=== PATIENT | male | born 1955 | race African-American/Black ===

== ENCOUNTER 2017-07-06 12:28 | Inpatient (IN) | payer OTHER ==
[2017-07-06] MEDS ORDERED: ALBUTEROL SO4 2.5/IPRATROPIUM 0.5 INH SOL 3 ML VIAL.NEB. NEB ONE ×4 (12:46→14:13)
--- NOTE | 2017-07-06 13:09 | PDOC ---
History of Present Illness - General History Source: Patient, EMS Exam Limitations: Other (noncompliant) - History of Present Illness Initial Comments: 07/06/17 13:22 The patient is a 62 year old male with a significant past medical history of polysubstance abuse, HTN, HIV, Hep C, and arthritis who presents to the ED, brought by EMS, for altered mental status. As per EMS, the patient was found standing leaning against a parking meter. Upon arrival to the ED, patient is aggravated and refusing to answer question. Patient notes he is noncompliant with medication. This HPI is limited due to the patient being a bad historian. <Jacquelyn Lux - Last Filed: 07/06/17 14:03> <Lorin Valdivia - Last Filed: 07/06/17 16:52> - General Chief Complaint: Altered Mental Status Stated Complaint: UNCONSCIOUS Past History <Jacquelyn Lux - Last Filed: 07/06/17 14:03> - Past Medical History Anemia: No Asthma: No Cancer: No Cardiac Disorders: No CVA: No COPD: No CHF: No Dementia: No Diabetes: No GI Disorders: No Disorders: Yes (UTI - Leukoesterase, treated with Cipro, Pending test of cure ) HTN: No Hypercholesterolemia: No Liver Disease: No Psychiatric Problems: No Seizures: No Thyroid Disease: No - Surgical History Abdominal Surgery: No Appendectomy: No Cardiac Surgery: No Cholecystectomy: No Lung Surgery: No Neurologic Surgery: No Orthopedic Surgery: Yes (Fx Skull - fell from 4th floor window as a child, Low BAck pain - Deeg Bone) - Suicide/Smoking/Psychosocial Hx Smoking History: Current every day smoker Have you smoked in the past 12 months: Yes Number of Cigarettes Smoked Daily: 10 Cigars Per Day: 0 Hx Alcohol Use: No Drug/Substance Use Hx: Yes (heroin, cocaine. first time at 16.) Substance Use Type: None, Cocaine, Heroin, Opiates, Prescribed (oxicodone in the street) Hx Substance Use Treatment: Yes <Lorin Valdivia - Last Filed: 07/06/17 16:52> - Past Medical History Allergies/Adverse Reactions: Allergies Allergy/AdvReac Type Severity Reaction Status Date / Time No Known Allergies Allergy Verified 07/06/17 13:03 Home Medications: Ambulatory Orders Amlodipine Besylate [Norvasc -] 10 mg PO DAILY #30 tablet 02/08/16 Elviteg/Barbara/Emtric/Tenofo Dis [Stribild Tablet] 1 each PO DAILY #30 tablet 01/20 Naproxen 250 mg PO Q4H #30 tablet 02/08/16 Vit D3/Folic Acid/B2/B6/B12 [Folgard Tablet] 1 each PO DAILY #30 tablet Review of Systems - Review of Systems Able to Perform ROS?: No Comments:: 07/06/17 13:22 Unable to perform ROS secondary to the patient being noncompliant to answering questions. <Jacquelyn Lux - Last Filed: 07/06/17 14:03> *Physical Exam - Vital Signs Last Vital Signs Temp Pulse Resp BP Pulse Ox 108 H 20 138/78 78 L 07/06/17 12:40 07/06/17 12:40 07/06/17 12:40 07/06/17 12:40 - Physical Exam Comments: 07/06/17 13:23 GENERAL:+ A&O x 2 drowsy but arousable. HEAD: No signs of trauma EYES: PERRLA, EOMI, sclera anicteric, conjunctiva clear ENT: Auricles normal inspection, hearing grossly normal, nares patent, oropharynx clear without exudates. Moist mucosa NECK: Normal ROM, supple, no lymphadenopathy, JVD, or masses LUNGS: + distant lung sounds. No wheezes, and no crackles HEART: Regular rate and rhythm, normal S1 and S2, no murmurs, rubs or gallops ABDOMEN: + obese, ventral hernia which is reducible. Soft, nontender, normoactive bowel sounds. No guarding, no rebound. EXTREMITIES: + Bilateral nonpitting edema, mild erythema to bilateral feet. Normal range of motion. No clubbing or cyanosis. No cords, erythema, or tenderness NEUROLOGICAL: Moving all extremities. Normal speech SKIN: Warm, Dry, normal turgor, no rashes or lesions noted. <Jacquelyn Lux - Last Filed: 07/06/17 14:03> Heart Score/ECG Review #1 General ECG Interpretation: Sinus Rhythm, Normal Rate (111 sinus tachycardia), Normal Intervals, No acute ischemic changes Compared to previous ECG there are: Previous ECG unavail <Lorin Valdivia - Last Filed: 07/06/17 16:52> ED Treatment Course - LABORATORY CBC & Chemistry Diagram: 07/06/17 13:00 07/06/17 13:00 - ADDITIONAL ORDERS Additional order review: 07/06/17 13:00 RBC 4.02 MCV 74.3 L MCHC 31.2 L RDW 23.7 H D MPV 7.9 Neutrophils % 77.0 D Lymphocytes % 8.0 D Monocytes % 12.9 H Eosinophils % 1.6 Basophils % 0.5 - RADIOLOGY Radiograph Interpretation: 07/06/17 14:03 RAD/CHEST X-RAY PORTABLE Impression: Suboptimal exam. Reported by: Lita Franco MD - Medications Given in the ED: ED Medications Discontinued Medications Generic Name Dose Route Start Last Admin Trade Name Freq PRN Reason Stop Dose Admin Albuterol/Ipratropium 1 amp 07/06/17 12:48 07/06/17 12:48 Duoneb - NEB 07/06/17 12:49 1 amp ONCE ONE Administration <Jacquelyn Lux - Last Filed: 07/06/17 14:03> - LABORATORY CBC & Chemistry Diagram: 07/06/17 13:00 07/06/17 13:00 - Medications Given in the ED: ED Medications Discontinued Medications Generic Name Dose Route Start Last Admin Trade Name Freq PRN Reason Stop Dose Admin Albuterol/Ipratropium 1 amp 07/06/17 12:48 07/06/17 12:48 Duoneb - NEB 07/06/17 12:49 1 amp ONCE ONE Administration <Lorin Valdivia - Last Filed: 07/06/17 16:52> Medical Decision Making - Medical Decision Making 07/06/17 13:05 62 yo male h/o polysubstance hep C , HIV arthritis smoking history here from street. ems was called bc found pt standing leaning against parking meter, altered mental status appeared to have difficulty breathing so brought to hospital. deniesd etoh today, but states he has noncompliant with his meds, was supposed to pick them up today. denies other drug use or trauma. no complaints of pain. pt is uncooperative with history, and it is limited. oxygen sat found to be 75% by EMS on room air, came to over 90 % with nonbreather. . on exam pt drowsy but responds to loud voice. disheveled, poorly kempt , lungs clear heart rr rno mrg. abd soft obese, noted hernia, reducible. bilat lower ext edema. redness. nuero alert oriented x 2, disorieted to year. moves all ext. speech clear. differential renal failuer, pneumonia, aspiration, severe copd with exacerbation , intox . plan labs cxr ekg tox scren. duoneb. abg. pt will require admission. 07/06/17 15:36 pt became very agitated. combative. threatening to punch staff. confused and disoriented to year. given haldol and ativan for severe agitation. security at bedside. <Lorin Valdivia - Last Filed: 07/06/17 16:52> *DC/Admit/Observation/Transfer - Attestations Scribe Attestion: 07/06/17 13:23 Documentation prepared by Jacquelyn Lux, acting as medical office receptionist assistant for Lorin Valdivia MD <Jacquelyn Lux - Last Filed: 07/06/17 14:03> - Discharge Dispostion Admit: Yes <Lorin Valdivia - Last Filed: 07/06/17 16:52> Diagnosis at time of Disposition: Hypoxia, Obstructive chronic bronchitis with exacerbation, Agitation
[2017-07-06 13:10] VITALS: BMI 41.8
[2017-07-06 13:14] LABS: BASOPHIL 0.5 % (0-2.0); EOSINOPHIL 1.6 % (0-4.5); MCH 23.2 pg (25.7-33.7); MCHC 31.2 g/dl (32.0-35.9); MEAN CELL VOLUME 74.3 fl (80-96); MEAN PLT VOLUME 7.9 fl (7.5-11.1); PLATELET COUNT 221 K/MM3 (134-434); RDW 23.7 % (11.9-15.9); WHITE BLOOD COUNT 11.7 K/mm3 (4.0-10.0)
[2017-07-06] MEDS ORDERED: methylPREDNISolone NA SUCC 125 MG/2 ML VIAL IVPB ONE (13:39)
[2017-07-06] MEDS ORDERED: methylPREDNISolone NA SUCC 125 MG/2 ML VIAL ONE (13:46)
[2017-07-06 13:56] LABS: ARTERIAL BLD GAS O2 SATURATION 89.9 % (90-98.9); ARTERIAL BLOOD GAS BASE EXCESS -2.9 meq/l (-2-2); ARTERIAL BLOOD GAS HCO3 23.3 meq/L (22-26); ARTERIAL BLOOD GAS PO2 64.4 mmHg (80-100)
[2017-07-06 13:58] LABS: LPM/O2% 100%; PT. ON O2? yes; TYPE OF O2 NRB MASK
[2017-07-06 13:58] LABS: ALBUMIN 3.2 g/dl (3.4-5.0); ANION GAP 11 (8-16); CALCIUM 8.4 mg/dL (8.5-10.1); CO2 23 mmol/L (21-32); CREATININE 1.5 mg/dL (0.7-1.3); GLUCOSE,RANDOM 102 mg/dL (74-106); SGOT/AST 103 U/L (15-37); SGPT/ALT 73 U/L (12-78)
[2017-07-06 14:00] LABS: ALK PHOS 84 U/L (45-117); BILIRUBIN,TOTAL 0.9 mg/dL (0.2-1.0); CPK 597 IU/L (39-308); TOT PROT 7.2 g/dl (6.4-8.2); TROPONIN I < 0.02 ng/ml (0.00-0.05)
[2017-07-06] MEDS ORDERED: HALOPERIDOL LACTATE 5 MG/ML ONE (15:11)
[2017-07-06] MEDS ORDERED: LORazepam 2 MG/ML SDV VIAL ONE (15:22)
[2017-07-06] MEDS ORDERED: VANCOMYCIN 1,000 MG in DEXTROSE 5%-WATER - 250 ML IVPB ONE (16:24)
[2017-07-06] MEDS ORDERED: PIPERACILLIN/TAZOB 3.375 GM/50 ML PRE-DOCKED IVPB ONE (16:25)
[2017-07-06] MEDS ORDERED: VANCOMYCIN 1 GRAM (PRE-DOCKED) 250 ML IVPB ONE (16:29)
[2017-07-06] MEDS ORDERED: PIPERACILLIN/TAZOB 3.375 GM 50 ML IVPB ONE (16:30)
--- NOTE | 2017-07-06 17:08 | HP ---
CHIEF COMPLAINT: Altered mental status PCP: not obtained HISTORY OF PRESENT ILLNESS: Patient is 62 year old AA male with PMHx of HTN, hepC, HIV,multiple subtance abuse, arthritis who presented to the ED by EMD from the street due to altered mental status. They found him leaning against parking meter. In the Ed patient was found to be tachycardic , tachypneic , agitated , and refusing to answer questions. patient was given Haldol and Ativan and was admitted to med-surg for further evaluation. *Patient is poor historian, history was obtained from medical records and EM notes. ER course was notable for: (1) Haldol, Ativan for agitation and aggression, Solu-medrol 125 mg , duoneb, vanco, zosyn (2)Trop negative, EKG NSR (3) CBC : 11.7, 9.3,29.9,221. (4) BUN/Cr 17/1.5 (5)Alcohol <5 Recent Travel: Not able to obtaine PAST MEDICAL HISTORY: polysubstance abuse, HIV ((11/2015 HIV 1 PCR <20), HIV, Hep C, and arthritis PAST SURGICAL HISTORY: skull fracture Social History: Smoking: current smokers half pack aday Alcohol: Drugs: Marijuana , heroin, cocain , first time at age of 16. Family History: Allergies No Known Allergies Allergy (Verified 07/06/17 13:03) HOME MEDICATIONS: Home Medications Medication Instructions Recorded Amlodipine Besylate [Norvasc -] 10 mg PO DAILY #30 tablet 02/08/16 Elviteg/Barbara/Emtric/Tenofo Dis 1 each PO DAILY #30 tablet 02/08/16 [Stribild Tablet] Naproxen 250 mg PO Q4H #30 tablet 02/08/16 Vit D3/Folic Acid/B2/B6/B12 1 each PO DAILY #30 tablet 02/08/16 [Folgard Tablet] REVIEW OF SYSTEMS Not obtained due to AMS PHYSICAL EXAMINATION Vital Signs - 24 hr 07/06/17 12:40 Pulse Rate 108 H Respiratory 20 Rate Blood Pressure 138/78 O2 Sat by Pulse 78 L Oximetry (%) GENERAL: tachypnech, tachycardic, lethargic, non responsive to physical or verbal stimuli S/O haldol, ativan HEAD: Normal with no signs of trauma. EYES: contractive Pupils, reactive to light, sclera anicteric, conjunctiva pallor EARS: Dry mucous membranes. NECK: supple without lymphadenopathy, JVD, or masses. LUNGS: diffuse wheezing , B/L basilar crackles HEART: Regular rate and rhythm, normal S1 and S2 without murmur, rub or gallop. ABDOMEN:Obese, Soft, nontender, not distended, normoactive bowel sounds, no guarding, no rebound, hernia reproducible. LOWER EXTREMITIES: warm, well-perfused. No calf tenderness. +2 pitting peripheral edema. NEUROLOGICAL: sedated PSYCHIATRIC: not cooperative. poor eye contact. SKIN: Warm, dry, no rashes , multiple lesions noted, normal capillary refill. Laboratory Results - last 24 hr 07/06/17 07/06/17 07/06/17 13:00 13:00 13:00 WBC 11.7 H D RBC 4.02 Hgb 9.3 L D Hct 29.9 L D MCV 74.3 L MCH 23.2 L MCHC 31.2 L RDW 23.7 H D Plt Count 221 D MPV 7.9 Neutrophils % 77.0 D Lymphocytes % 8.0 D Monocytes % 12.9 H Eosinophils % 1.6 Basophils % 0.5 Puncture Site ABG pH ABG pCO2 at Pt Temp ABG pO2 at Pt Temp ABG HCO3 ABG O2 Sat (Measured) ABG O2 Content ABG Base Excess Douglas Test O2 Delivery Device Oxygen Flow Rate Sodium 138 Potassium 4.5 Chloride 104 Carbon Dioxide 23 Anion Gap 11 BUN 17 Creatinine 1.5 H D Creat Clearance w eGFR 47.42 Random Glucose 102 Calcium 8.4 L Total Bilirubin 0.9 D AST 103 H D ALT 73 D Alkaline Phosphatase 84 D Creatine Kinase 597 H Creatine Kinase Index 2.2 CK-MB (CK-2) 13.6 H Troponin I < 0.02 B-Natriuretic Peptide 403.40 H Total Protein 7.2 Albumin 3.2 L Alcohol, Quantitative < 5.0 07/06/17 13:43 WBC RBC Hgb Hct MCV MCH MCHC RDW Plt Count MPV Neutrophils % Lymphocytes % Monocytes % Eosinophils % Basophils % Puncture Site Md puncture ABG pH 7.30 L ABG pCO2 at Pt Temp 48.7 H ABG pO2 at Pt Temp 64.4 L ABG HCO3 23.3 ABG O2 Sat (Measured) 89.9 L ABG O2 Content 15.5 ABG Base Excess -2.9 L Douglas Test Not applicable O2 Delivery Device Nrb mask Oxygen Flow Rate 100% Sodium Potassium Chloride Carbon Dioxide Anion Gap BUN Creatinine Creat Clearance w eGFR Random Glucose Calcium Total Bilirubin AST ALT Alkaline Phosphatase Creatine Kinase Creatine Kinase Index CK-MB (CK-2) Troponin I B-Natriuretic Peptide Total Protein Albumin Alcohol, Quantitative CBC, BMP 07/06/17 13:00 07/06/17 13:00 Troponin, BNP 07/06/17 13:00 Troponin I < 0.02 B-Natriuretic Peptide 403.40 H Urine Test Results Urine Color Yellow 07/06/17 17:00 Urine Appearance Clear 07/06/17 17:00 Urine pH 5.0 (5.0-8.0) 07/06/17 17:00 Urine Protein 1+ (NEGATIVE) H 07/06/17 17:00 Urine Glucose (UA) Negative (NEGATIVE) 07/06/17 17:00 Urine Ketones Negative (NEGATIVE) 07/06/17 17:00 Urine Blood 1+ (NEGATIVE) H 07/06/17 17:00 Urine Nitrite Negative (NEGATIVE) 07/06/17 17:00 Urine Bilirubin Negative (NEGATIVE) 07/06/17 17:00 Urine RBC <1 /hpf (0-3) 07/06/17 17:00 Urine WBC 9 /hpf (3-5) 07/06/17 17:00 Ur Epithelial Cells Rare /hpf (FEW) 07/06/17 17:00 Urine Mucus Rare 07/06/17 17:00 07/06/17 CXR: There is suboptimal resoirartory effort, patient appears slightly rotated, these factors exagerate cardiomediastenal sillhoutte and perihilar lung markings. cannot exclude CHF.No focal consolidationor definit pleural effusion is seen. CTA: no evidence of PE , B/L upper and lower opacitis suggestive of infiltrated vs multifocal atelectasis Head CT: Mild to moderate periventricular and subcortical white matter hypodensity B/L,likely microvascular ischemic gliosis,chronic. less likely acute metabolic encephalopathy. ASSESSMENT/PLAN: Patient is 62 year old AA male with PMHx of HTN, hepC, HIV,multiple subtance abuse, arthritis who presented to the ED by EMD from the street due to altered mental status. in ED patient was founs to be hypoxic , tachycardic (108), tachypniec and was admitted to med-surg for further eval # Altered mental status likely 2/2 subtance abuse vs dementia vs AIDS encephalopathy * he was agitated on admission , haldol and ativan was given in ED * Urine toxicology screen * Head CT scan negative for acute pathology , B/L hypodensity periventricular and subcortical white matter hypodensity ,likely chronic microvascular ischemic gliosis * Nuerology check Q 2 hours * # acute respiratory failure likely 2/2 COPD exacerbation vs pneumonia vs aspiration * CXR unclear , will repeat * Duneb * continue Solu-mederol 40 mg Q 8hr (medrol 125 mg one dose started in ED) * 4 L O2 to keep o2 sat >90 % * IV fluids NS @75 CC /hr * repeat ABG * cbc, bmp , lactic acid , MG, phosphorus * Start ceftriaxone IV 1 gm daily , Azithromycin IV 500 mg daily(vanco, zosyn was given in ED) will adjust Abx if aspiration is cause of PNA * F/U blood cx , urine Cx * ID consult * Pulmonary consult * # Elevated Creatinin likely 2/2 dehydration vs hypovolemia vs CKD * UA, Urine culture * Urine lytes , cr to calculate Fena * Avoid nephotoxic agents * consider renal US * # Microcytic anemia, likely secondary to Iron deficiency vs anemia of chronic disease * H/H 9.3/29.9 with MCV 74 * Iron studies * #Elevated CK * likely secondary to HIV meds vs Rhabdomyolysis * Monitor CK # transaminitis , 2/2 alcohol abuse vs hepc vs HIV med SE * AST 103, Alt 73 * consider liver US * repeat CMP HTN , * on Amlodipin 10 mg PO daily , non compliant with his meds * continue home meds #Hep c , chronic * AST 103, ALT 73 * monitor CMP * #HIV, * RNA PCR<20 in nov 2015 * hold HIV meds for now * Consult ID, * pt education * #FEN * F: NS @75 CC /hr, monitor for volume overloaded * E: monitor , Cr 1.5 * N:NPO for now , consider low sodium diet when stable * # Proph * DVT: heparine 5000 SQ Q8hr * GI: not needed * deconditioning : consider PT when mental status improve * # dispo: * Admit to med-surg , monitor puls optometry Visit type - Emergency Visit Emergency Visit: Yes ED Registration Date: 07/06/17 Care time: The patient presented to the Emergency Department on the above date and was hospitalized for further evaluation of their emergent condition. - New Patient This patient is new to me today: Yes Date on this admission: 07/08/17 - Critical Care Critical Care patient: No
[2017-07-06 17:11] LABS: URINE APPEARANCE CLEAR; URINE BILIRUBIN NEGATIVE (NEGATIVE); URINE BLOOD 1+ (NEGATIVE); URINE COLOR YELLOW; URINE GLUCOSE (UA) NEGATIVE (NEGATIVE); URINE KETONE NEGATIVE (NEGATIVE); URINE LEUK ESTERASE TRACE (NEGATIVE); URINE NITRITE NEGATIVE (NEGATIVE)
[2017-07-06 17:12] LABS: URINE PROTEIN 1+ (NEGATIVE)
[2017-07-06 17:16] LABS: URINE HYALINE CAST 35 /lpf; URINE MUCUS RARE; URINE RBC <1 /hpf (0-3); URINE WBC 9 /hpf (3-5)
--- NOTE | 2017-07-06 18:47 | PN ---
Teaching Attending Note Name of Resident: Renan Kumar ATTENDING PHYSICIAN STATEMENT I saw and evaluated the patient. I reviewed the resident's note and discussed the case with the resident. I agree with the resident's findings and plan as documented. SUBJECTIVE: This is a 62 year old man with a history of HTN, HIV, HCV who was brought in to the ER by EMS after he was found leaning against a parking meter. He was hypoxic with oxygen saturation in the 70s. He was agitated when he arrived to the ED and had to be given Haldol and Ativan. OBJECTIVE: Vital Signs Period Temp Pulse Resp BP Sys/Colon Pulse Ox Last 24 Hr 99.2 F 108-112 16-20 138-141/78-101 78-91 HEART: S1S2, tachycardic LUNGS: Bilateral wheezing ABDOMEN: Obese, soft, non-distended, normal BS EXTREMITIES: 2+ edema ASSESSMENT AND PLAN: This is a 62 year old man with a history of HTN, HIV, HCV who was brought in to the ER by EMS with altered mental status and hypoxia. 1. Acute hypoxic and hypercarbic respiratory failure secondary to pneumonia and acute exacerbation of COPD - Continue oxygen to maintain saturation > 90% - Avoid sedatives - SoluMedrol, DuoNeb - Zosyn, Vancomycin given in ER - Start Rocephin, Zithromax 2. Acute metabolic encephalopathy secondary to sepsis and acute respiratory failure - Urine drug screen pending 3. Anemia, microcytic - Check iron studies, stool occult blood - Monitor hemoglobin 4. Possible acute kidney injury, possible stage 3 CKD - IV fluid - Monitor creatinine 5. Hepatic transaminitis, mild - Possibly secondary to HIV meds, HCV - Monitor LFTs 6. Elevated CPK - Possibly secondary to HIV meds 7. HIV - Check CD4, viral load - ID consult 8. Hepatitis C 9. Hypertension - Continue Norvasc
--- NOTE | 2017-07-06 19:00 | HP ---
CHIEF COMPLAINT: AMS PCP: N/A HISTORY OF PRESENT ILLNESS: 62 y/o M w/sig PMH of HIV, Hep C, HTN presented to ER with altered mental status. History obtained from chart review as pt is currently sedated and does not awaken to physical or verbal stimuli (pt was agitated and aggressive in ER and required haloperidol and ativan). Pt was found leaning against parking meter and on field was noted to have O2 in 70s. Pt brought to [facility] where his O2 sat was 78% and mental status was altered. ER course was notable for: (1) Haldol, Ativan for agitation and aggression (2) solu-medrol 125 mg, duoneb, vanco, zosyn (3) wbc 11.7, hgb 9.3 (baseline approx 12), ab.3/48.7/64.4; Cr 1.5 (4) alcohol <5 Recent Travel: unable to be obtained PAST MEDICAL HISTORY: HIV (11/2015 HIV 1 PCR <20), Hep C, HTN PAST SURGICAL HISTORY: skull fracture as child Social History: Smoking: according to notes, everyday smoker Alcohol: unable to be obtained Drugs: has history of cocaine, heroin, opiate use Family History: unable to be obtained Allergies No Known Allergies Allergy (Verified 07/06/17 13:03) HOME MEDICATIONS: Home Medications Medication Instructions Recorded Amlodipine Besylate [Norvasc -] 10 mg PO DAILY #30 tablet 02/08/16 Elviteg/Barbara/Emtric/Tenofo Dis 1 each PO DAILY #30 tablet 02/08/16 [Stribild Tablet] Naproxen 250 mg PO Q4H #30 tablet 02/08/16 Vit D3/Folic Acid/B2/B6/B12 1 each PO DAILY #30 tablet 02/08/16 [Folgard Tablet] REVIEW OF SYSTEMS unable to be obtained due to sedation PHYSICAL EXAMINATION Vital Signs - 24 hr 07/06/17 18:06 Temperature 99.2 F Pulse Rate [ 112 H Left] Respiratory 16 Rate Blood Pressure 141/101 [Right Arm] O2 Sat by Pulse 91 L Oximetry (%) GENERAL: Asleep, unable to be aroused by verbal or physical stimuli HEAD: Normal with no signs of trauma. EYES: Constricted, reactive to light, no icterus noted. EARS, NOSE, THROAT: Ears normal, nares patent LUNGS: Coarse breath sounds b/l HEART: difficult to hear over breath sounds and pt snoring ABDOMEN: Obese, soft, nontender, normoactive bowel sounds LOWER EXTREMITIES: 2+ pitting edema NEUROLOGICAL: sedated SKIN: Warm, dry, b/l lower extremity with multiple indentations. CBCD WBC 11.7 K/mm3 (4.0-10.0) H D 07/06/17 13:00 RBC 4.02 M/mm3 (4.00-5.60) 07/06/17 13:00 Hgb 9.3 GM/dL (11.7-16.9) L D 07/06/17 13:00 Hct 29.9 % (35.4-49) L D 07/06/17 13:00 MCV 74.3 fl (80-96) L 07/06/17 13:00 MCHC 31.2 g/dl (32.0-35.9) L 07/06/17 13:00 RDW 23.7 % (11.9-15.9) H D 07/06/17 13:00 Plt Count 221 K/MM3 (134-434) D 07/06/17 13:00 MPV 7.9 fl (7.5-11.1) 07/06/17 13:00 CMP Sodium 138 mmol/L (136-145) 07/06/17 13:00 Potassium 4.5 mmol/L (3.5-5.1) 07/06/17 13:00 Chloride 104 mmol/L (98-107) 07/06/17 13:00 Carbon Dioxide 23 mmol/L (21-32) 07/06/17 13:00 Anion Gap 11 (8-16) 07/06/17 13:00 BUN 17 mg/dL (7-18) 07/06/17 13:00 Creatinine 1.5 mg/dL (0.7-1.3) H D 07/06/17 13:00 Creat Clearance w eGFR 47.42 (>60) 07/06/17 13:00 Random Glucose 102 mg/dL (74-106) 07/06/17 13:00 Calcium 8.4 mg/dL (8.5-10.1) L 07/06/17 13:00 Total Bilirubin 0.9 mg/dL (0.2-1.0) D 07/06/17 13:00 AST 103 U/L (15-37) H D 07/06/17 13:00 ALT 73 U/L (12-78) D 07/06/17 13:00 Alkaline Phosphatase 84 U/L (45-117) D 07/06/17 13:00 Total Protein 7.2 g/dl (6.4-8.2) 07/06/17 13:00 Albumin 3.2 g/dl (3.4-5.0) L 07/06/17 13:00 CARDIAC ENZYMES Creatine Kinase 597 IU/L (39-308) H 07/06/17 13:00 Troponin I < 0.02 ng/ml (0.00-0.05) 07/06/17 13:00 Laboratory Tests 07/06/17 13:00 Creatine Kinase 597 H Creatine Kinase Index 2.2 CK-MB (CK-2) 13.6 H Troponin I < 0.02 B-Natriuretic Peptide 403.40 H ABG Results ABG pH 7.30 (7.35-7.45) L 07/06/17 13:43 ABG pCO2 at Pt Temp 48.7 mmHg (35-45) H 07/06/17 13:43 ABG pO2 at Pt Temp 64.4 mmHg (80-100) L 07/06/17 13:43 ABG HCO3 23.3 meq/L (22-26) 07/06/17 13:43 ABG O2 Sat (Measured) 89.9 % (90-98.9) L 07/06/17 13:43 ABG O2 Content 15.5 % vol (15-22) 07/06/17 13:43 ABG Base Excess -2.9 meq/l (-2-2) L 07/06/17 13:43 Urine Test Results Urine Color Yellow 07/06/17 17:00 Urine Appearance Clear 07/06/17 17:00 Urine pH 5.0 (5.0-8.0) 07/06/17 17:00 Urine Protein 1+ (NEGATIVE) H 07/06/17 17:00 Urine Glucose (UA) Negative (NEGATIVE) 07/06/17 17:00 Urine Ketones Negative (NEGATIVE) 07/06/17 17:00 Urine Blood 1+ (NEGATIVE) H 07/06/17 17:00 Urine Nitrite Negative (NEGATIVE) 07/06/17 17:00 Urine Bilirubin Negative (NEGATIVE) 07/06/17 17:00 Urine RBC <1 /hpf (0-3) 07/06/17 17:00 Urine WBC 9 /hpf (3-5) 07/06/17 17:00 Ur Epithelial Cells Rare /hpf (FEW) 07/06/17 17:00 Urine Mucus Rare 07/06/17 17:00 Laboratory Tests 07/06/17 13:00 Alcohol, Quantitative < 5.0 Imaging: CXR: There is a suboptimal inspiratory effort. Patient appears slightly rotated. These factors exaggerate cardiomediastinal silhouette and perihilar lung markings. Cannot exclude CHF. No focal consolidation or definite pleural effusion is seen CTA Chest: Impression: -There is no CT evidence of central pulmonary embolism. -The peripheral vasculature demonstrates no obvious evidence of embolism. Small bilateral upper and lower lung field opacities are seen suggestive of infiltrates (versus multifocal atelectasis). -At least moderate luminal narrowing is seen involving the thoracic trachea as well as the proximal bronchi which may be on the basis of bronchospasm and probably less likely malacia. Correlate with close follow-up CT. -Paraseptal emphysema is noted. Note is made of marked C7-T1 degenerative central canal stenosis with spinal cord impingement. Neurology consultation is suggested in regards to possible further imaging evaluation. Head CT: Mild to moderate periventricular and subcortical white matter hypodensity is seen bilaterally. Given the patient's chronologic age this appearance is most likely on the basis of microvascular ischemic gliosis. Chronic and less likely acute toxic/metabolic encephalopathy or demyelinating disease is less likely. Correlate clinically. Given a history of HIV infection, AIDS encephalopathy may also be considered within the radiological differential diagnosis Active Medications Albuterol/Ipratropium (Duoneb -) 1 amp NEB QIDR MARILYN Amlodipine Besylate (Norvasc -) 10 mg PO DAILY [facility] Heparin Sodium (Porcine) (Heparin -) 5,000 unit SQ TID MARILYN Sodium Chloride (Normal Saline -) 1,000 mls @ 75 mls/hr IV ASDIR MARILYN Azithromycin 500 mg/ Dextrose 250 mls @ 250 mls/hr IVPB DAILY [facility]ILYN Ceftriaxone Sodium 1 gm/ (Dextrose) 50 mls @ 100 mls/hr IVPB DAILY [facility] Methylprednisolone Sodium Succinate (Solu-Medrol -) 40 mg IVPB Q8H MARILYN ASSESSMENT/PLAN: 62 y/o M w/sig PMH of HIV, Hep C, HTN admitted for altered mental status and hypoxic respiratory failure. -AMS secondary to substance abuse vs AIDS encephalopathy -CT head shows moderate periventricular and subcortical white matter hypodensity -Neuro checks q2h -f/u Utox -Hypoxic resp failure secondary to PNA vs substance abuse vs COPD exacerbation -CTA chest shows b/l uuper and lower lung field opacities -O2 supplementation to keep O2 sat >90 -ABG in AM; f/u BCx, UCx, Lactic Acid (trend if elevated), f/u UTox -solumedrol iv 40 mg q8h, duo-nebs -ceftriaxone and azithro for pna coverage. Will change if aspiration pna becomes likely source of pna -pulm consulted -Elevated CK -likely secondary to HIV meds -Anemia, microcytic -iron studies -CKD -Monitor Cr -HIV -HIV-1 RNA PCR <20 in 2016 -ID consulted -HTN -norvasc 10 mg po qd -DVT ppx -Hep 5000 units sq TID -FEN -NS @ 75 ml/hr; monitor for signs of volume overload -monitor electrolytes -NPO until mental status improves -Dispo: -monitor with continuous pulse ox monitoring Visit type - Emergency Visit Emergency Visit: Yes ED Registration Date: 07/06/17 Care time: The patient presented to the Emergency Department on the above date and was hospitalized for further evaluation of their emergent condition. - New Patient This patient is new to me today: Yes Date on this admission: 07/06/17 - Critical Care Critical Care patient: No
[2017-07-06 21:30] LABS: INR 1.34 (0.82-1.09); PROTHROMBIN TIME (PATIENT) 14.8 SEC (9.98-11.88)
[2017-07-06] MEDS: SODIUM CHLORIDE 1,000 ML IV SCH (23:10)
[2017-07-06] MEDS: ALBUTEROL SO4 2.5/IPRATROPIUM 0.5 INH SOL 3 ML VIAL.NEB. NEB SCH (23:10)
[2017-07-06] MEDS: HEPARIN NA (PORCINE) 5,000 UNITS/ML 1ML VIAL SQ SCH (23:10)
[2017-07-06] MEDS: methylPREDNISolone NA SUCC 40 MG/1 ML VIAL IVPB SCH (23:10)
[2017-07-06] MEDS: amLODIPine BESYLATE 10 MG TABLET (FP) PO SCH (23:11)
[2017-07-07 00:20] LABS: URINE MARIJUANA THC NEGATIVE ng/ml (CUTOFF=50)
[2017-07-07] MEDS: HEPARIN NA (PORCINE) 5,000 UNITS/ML 1ML VIAL SQ SCH ×3 (05:48→22:13)
[2017-07-07] MEDS: methylPREDNISolone NA SUCC 40 MG/1 ML VIAL IVPB SCH ×3 (05:48→22:13)
[2017-07-07] MEDS: ALBUTEROL SO4 2.5/IPRATROPIUM 0.5 INH SOL 3 ML VIAL.NEB. NEB SCH ×4 (06:31→22:59)
[2017-07-07 07:47] LABS: ARTERIAL BLD GAS O2 SATURATION 90.2 % (90-98.9); ARTERIAL BLOOD GAS BASE EXCESS -1.6 meq/l (-2-2); ARTERIAL BLOOD GAS HCO3 23.6 meq/L (22-26); ARTERIAL BLOOD GAS PO2 65.7 mmHg (80-100); ARTERIAL BLOOD GAS pH 7.34 (7.35-7.45)
[2017-07-07 07:54] LABS: ALLENS TEST POSITIVE; ART PUNCT SITE RIGHT RADIAL; LPM/O2% 4L; PT. ON O2? YES; TYPE OF O2 NASAL O2
[2017-07-07] MEDS ORDERED: PT OWN MED DRAWER 7, Y5N ONE (09:33)
[2017-07-07] MEDS ORDERED: cefTRIAXone SODIUM 1 GM VIAL ONE (09:33)
[2017-07-07] MEDS ORDERED: DEXTROSE 5%-WATER - 50 ML IVPB ONE (09:33)
[2017-07-07] MEDS: amLODIPine BESYLATE 10 MG TABLET (FP) PO SCH (09:36)
--- NOTE | 2017-07-07 09:46 | PN ---
Progress Note, Physician Chief Complaint: ID Full note dictated Unable to offer any history - Current Medication List Current Medications: Active Medications Albuterol/Ipratropium (Duoneb -) 1 amp NEB QIDR [facility] Last Admin: 07/07/17 06:31 Dose: 1 amp Amlodipine Besylate (Norvasc -) 10 mg PO DAILY [facility] Last Admin: 07/07/17 09:36 Dose: 10 mg Heparin Sodium (Porcine) (Heparin -) 5,000 unit SQ TID [facility] Last Admin: 07/07/17 05:48 Dose: 5,000 unit Sodium Chloride (Normal Saline -) 1,000 mls @ 75 mls/hr IV ASDIR [facility] Last Admin: 07/06/17 23:10 Dose: 75 mls/hr Azithromycin 500 mg/ Dextrose 250 mls @ 250 mls/hr IVPB DAILY [facility] Ceftriaxone Sodium 1 gm/ (Dextrose) 50 mls @ 100 mls/hr IVPB DAILY [facility] Last Admin: 07/07/17 09:36 Dose: 100 mls/hr Methylprednisolone Sodium Succinate (Solu-Medrol -) 40 mg IVPB Q8H [facility] Last Admin: 07/07/17 05:48 Dose: 40 mg - Objective Vital Signs: Vital Signs Temperature 97.9 F 07/07/17 08:51 Pulse Rate 97 H 07/07/17 08:00 Respiratory Rate 22 07/07/17 08:00 Blood Pressure 128/84 07/07/17 08:00 O2 Sat by Pulse Oximetry (%) 91 L 07/07/17 06:31 Constitutional: Yes: Well Nourished Eyes: Yes: WNL, Conjunctiva Clear HENT: Yes: WNL, Atraumatic Neck: Yes: WNL, Supple Cardiovascular: Yes: S1, S2 Respiratory: Yes: WNL, Regular, CTA Bilaterally, Rhonchi Gastrointestinal: Yes: WNL, Normal Bowel Sounds, Soft Labs: INR, PTT INR 1.34 (0.82-1.09) H 07/06/17 20:00 Problem List - Problems (1) Metabolic encephalopathy Code(s): G93.41 - METABOLIC ENCEPHALOPATHY (2) HIV (human immunodeficiency virus infection) Code(s): Z21 - ASYMPTOMATIC HUMAN IMMUNODEFICIENCY VIRUS INFECTION STATUS (3) Acute kidney injury Code(s): N17.9 - ACUTE KIDNEY FAILURE, UNSPECIFIED Assessment/Plan Microbiology Laboratory Tests 07/06/17 07/06/17 07/06/17 13:00 13:00 17:00 WBC 11.7 H D Hgb 9.3 L D Hct 29.9 L D Plt Count 221 D BUN 17 Creatinine 1.5 H D Creat Clearance w eGFR 47.42 Total Bilirubin 0.9 D AST 103 H D ALT 73 D Alkaline Phosphatase 84 D Urine RBC <1 Urine WBC 9 Opiates Screen Cocaine Screen 07/06/17 23:40 WBC Hgb Hct Plt Count BUN Creatinine Creat Clearance w eGFR Total Bilirubin AST ALT Alkaline Phosphatase Urine RBC Urine WBC Opiates Screen Positive Cocaine Screen Positive Assessment Metablic encephaloapthy Drug dependency HIV ( doubt [employer] ) as on Strild and undectable with T cells over 400 previously Elevated Cr ? CKD Plan Cover for aspiration Ceftriaxone and metronidazole IV Cultures T cells Hold HIV med for now
--- NOTE | 2017-07-07 09:56 | EKG ---
Test Reason : Blood Pressure : / mmHG Vent. Rate : 111 BPM Atrial Rate : 111 BPM P-R Int : 144 ms QRS Dur : 080 ms QT Int : 332 ms P-R-T Axes : 051 000 042 degrees QTc Int : 451 ms SINUS TACHYCARDIA CANNOT RULE OUT INFERIOR INFARCT , AGE UNDETERMINED ABNORMAL ECG NO PREVIOUS ECGS AVAILABLE Confirmed by DANNIELLE RUSSELL MD ([id number]) on 07/07/2017 9:55:24 AM Referred By: Confirmed By:DANNIELLE RUSSELL MD
[2017-07-07] MEDS ORDERED: AZITHROMYCIN IVPB 500 MG in DEXTROSE 5%-WATER - 250 ML IVPB SCH (10:00)
[2017-07-07] MEDS ORDERED: CEFTRIAXONE 2 GM in DEXTROSE 5%-WATER 100 ML IVPB SCH (10:00)
[2017-07-07] MEDS ORDERED: CEFTRIAXONE 1 GM in DEXTROSE 5%-WATER - 50 ML IVPB SCH (10:00)
[2017-07-07 10:15] LABS: BASOPHIL 0.1 % (0-2.0); MCH 23.1 pg (25.7-33.7); MCHC 31.1 g/dl (32.0-35.9); MEAN CELL VOLUME 74.1 fl (80-96); MEAN PLT VOLUME 7.3 fl (7.5-11.1); NEUTROPHILS 93.8 % (42.8-82.8); PLATELET COUNT 184 K/MM3 (134-434); WHITE BLOOD COUNT 16.2 K/mm3 (4.0-10.0)
[2017-07-07] MEDS: METRONIDAZOLE 500 MG PREMIXED 100 ML IVPB SCH ×2 (10:31→17:03)
[2017-07-07 11:06] LABS: ALBUMIN 2.8 g/dl (3.4-5.0); ALK PHOS 78 U/L (45-117); ANION GAP 9 (8-16); BILIRUBIN,TOTAL 0.7 mg/dL (0.2-1.0); CALCIUM 8.3 mg/dL (8.5-10.1); CO2 23 mmol/L (21-32); CREATININE 1.1 mg/dL (0.7-1.3); GLUCOSE,RANDOM 123 mg/dL (74-106); PHOSPHOROUS 2.5 mg/dL (2.5-4.9); SGPT/ALT 61 U/L (12-78); TOT PROT 7.1 g/dl (6.4-8.2)
[2017-07-07 11:07] LABS: TROPONIN I < 0.02 ng/ml (0.00-0.05)
[2017-07-07 11:11] LABS: SGOT/AST 68 U/L (15-37)
--- NOTE | 2017-07-07 12:11 | CONS ---
DATE OF CONSULTATION: DATE OF DICTATION: 07/07/2017 This is a 62-year-old male brought and admitted because of altered mental status. The patient has a history of HIV infection and has apparently been on Stribild. He had T-cells done in 2016, which were over 400 with an undetectable below 20-copy viral load at that time. I am not sure exactly where he is followed for his HIV infection currently. He also has hepatitis C and I am not sure whether this has been treated to date. He came with altered mental status and, after being sedated with Haldol and Ativan for aggressive behavior, was found to have a positive toxicology for opiates and cocaine. I am asked to see him, at which time he is currently in bed, but nonconversant. PAST MEDICAL HISTORY: As noted above. MEDICATIONS: Amlodipine, Stribild, naproxen, vitamin D. ALLERGIES: None known. SOCIAL HISTORY: Substance abuse and everyday smoker. FAMILY HISTORY: Unable to obtained. REVIEW OF SYSTEMS: Respiratory: No tachypnea, congestion. Cardiac: No history of chest pain, syncope. Gastrointestinal: No abdominal pain, nausea, vomiting, diarrhea. Genitourinary: Currently incontinent of urine. PHYSICAL EXAMINATION: Vital Signs: He was an obese male weighing 271 pounds. The blood pressure was 128/84, pulse 97, afebrile, respirations 22, O2 saturation 91% on 4 L nasal cannula. General: Patient unresponsive to verbal stimuli. Neck: Supple. Lungs: Bilateral scattered rhonchi. Heart: S1, S2, regular rhythm without audible murmur. Abdomen: Soft, nontender without hepatosplenomegaly. Extremities: Lower extremity edema; both feet edematous. The white count is 11.7, hemoglobin 9.3, platelets of 221, normal differential count. ABG 7.34, 45, 66 on 4 L nasal cannula. Urine with 9 WBCs, 1 RBC. Toxicology as previously noted. Blood and urine cultures pending. Chest x-ray and CT scan of the chest obtained, shows no evidence of pulmonary embolism; bilateral upper and lower lobe opacities, consistent with possible infiltrate. ASSESSMENT: A 62-year-old male with polysubstance abuse presents with altered mental status secondary to metabolic encephalopathy; underlying human immunodeficiency virus infection, previously undetectable viral load with T-cells of 440; acute kidney injury, possibly related to substance abuse; history of hepatitis C, unknown if untreated; respiratory insufficiency. PLAN: Blood and urine cultures, empiric therapy with ceftriaxone and metronidazole for presumptive aspiration. T-cells, viral loads unnecessary, as we are not going to be making any management decisions regarding his HIV during his admission, in all likelihood. Ammonia level. Hold HIV medications for now. Pulmonary consultation requested. ARMIDA DE LEON M.D. [id number]
[2017-07-07] MEDS: SODIUM CHLORIDE 1,000 ML IV SCH ×2 (12:21→22:12)
--- NOTE | 2017-07-07 13:16 | CON.PULM ---
Consult Consult Specialty:: PULMONARY Referred by:: MATY Reason for Consultation:: INFILTRATES - History of Present Illness History of Present Illness: The patient is a 62 year old male with a significant past medical history of polysubstance abuse, HTN, HIV, Hep C, and arthritis who presents to the ED, brought by EMS, for altered mental status. As per EMS, the patient was found standing leaning against a parking meter. Upon arrival to the ED, patient is aggravated and refusing to answer question. Patient notes he is noncompliant with medication. 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 No: AFIB Pulmonary: Yes: COPD. No: O2 Dependent Gastrointestinal: Yes: Other (HEP C) Hepatobiliary: Yes: Hepatitis C Heme/Onc: Yes: Other (HIV) Musculoskeletal: Yes: Osteoarthritis - Alcohol/Substance Use Hx Alcohol Use: No History of Substance Use: reports: Cocaine, Tranquilizers - Smoking History Smoking history: Current every day smoker Have you smoked in the past 12 months: Yes Aproximately how many cigarettes per day: 10 Home Medications - Allergies Allergies/Adverse Reactions: Allergies Allergy/AdvReac Type Severity Reaction Status Date / Time No Known Allergies Allergy Verified 07/06/17 13:03 - Home Medications Home Medications: Ambulatory Orders Amlodipine Besylate [Norvasc -] 10 mg PO DAILY #30 tablet 02/08/16 Elviteg/Barbara/Emtric/Tenofo Dis [Stribild Tablet] 1 each PO DAILY #30 tablet 01/20 Naproxen 250 mg PO Q4H #30 tablet 02/08/16 Vit D3/Folic Acid/B2/B6/B12 [Folgard Tablet] 1 each PO DAILY #30 tablet Family Disease History - Family Disease History Family History: Unable to Obtain Review of Systems Unable to obtain ROS, reason: UNABLE TO OBTAIN Physical Exam Vital Sings: Vital Signs Temperature 98.0 F 07/07/17 12:00 Pulse Rate 100 H 07/07/17 12:00 Respiratory Rate 22 07/07/17 12:00 Blood Pressure 117/65 07/07/17 12:00 O2 Sat by Pulse Oximetry (%) 96 07/07/17 10:00 Constitutional: Yes: Obese HENT: Yes: Normocephalic Neck: Yes: Trachea Midline Cardiovascular: Yes: Regular Rate and Rhythm Respiratory: Yes: Diminished Gastrointestinal: Yes: Abdomen, Obese Edema: LLE: 2+, RLE: 2+ Neurological: Yes: Other (LETHARGIC) Labs: CBC, BMP 07/07/17 10:07 07/07/17 10:07 ABG Results ABG pH 7.34 (7.35-7.45) L 07/07/17 07:30 ABG pCO2 at Pt Temp 44.9 mmHg (35-45) 07/07/17 07:30 ABG pO2 at Pt Temp 65.7 mmHg (80-100) L 07/07/17 07:30 ABG HCO3 23.6 meq/L (22-26) 07/07/17 07:30 ABG O2 Sat (Measured) 90.2 % (90-98.9) 07/07/17 07:30 ABG O2 Content 11.6 % vol (15-22) L 07/07/17 07:30 ABG Base Excess -1.6 meq/l (-2-2) 07/07/17 07:30 REST REVIEWED Imaging - Results Chest X-ray: Image Reviewed Cat Scan: Image Reviewed Problem List - Problems (1) Agitation Code(s): R45.1 - RESTLESSNESS AND AGITATION (2) COPD exacerbation Code(s): J44.1 - CHRONIC OBSTRUCTIVE PULMONARY DISEASE W (ACUTE) EXACERBATION (3) Metabolic encephalopathy Code(s): G93.41 - METABOLIC ENCEPHALOPATHY (4) Cocaine abuse Code(s): F14.10 - COCAINE ABUSE, UNCOMPLICATED (5) Degenerative arthritis of cervical spine Code(s): M47.812 - SPONDYLOSIS W/O MYELOPATHY OR RADICULOPATHY, CERVICAL REGION Assessment/Plan PANCULTURE EMPIRIC ANTIBIOTICS O2 TO KEEP SAT GREATER THAN 90% BRONCHODILATORS/STEROIDS WILL FOLLOW THANK YOU Ted LOPEZ MD
[2017-07-07 13:29] LABS: SODIUM,RANDOM URINE 7 MMOL/L
--- NOTE | 2017-07-07 14:32 | PN ---
Physical Exam: SUBJECTIVE: Patient seen and examined this morning. He was lethargic but arousable. OBJECTIVE: Vital Signs Period Temp Pulse Resp BP Sys/Colon Pulse Ox Last 24 Hr 97.8 F-99.2 F 97-112 16-25 117-156/65-117 91-96 GENERAL: The patient is lethargic and arousable. LUNGS: Bilateral wheezes, rhonchi. HEART: Tachycardic, S1, S2 without murmur, rub or gallop. ABDOMEN: Obese, soft, nontender, nondistended, normoactive bowel sounds, no guarding, no rebound. EXTREMITIES: 1+ pulses, warm, well-perfused, 2+ edema. Laboratory Results - last 24 hr 07/06/17 07/06/17 07/06/17 20:00 20:00 20:00 WBC RBC Hgb Hct MCV MCH MCHC RDW Plt Count MPV Neutrophils % Lymphocytes % Monocytes % Eosinophils % Basophils % PT with INR 14.80 H INR 1.34 H PTT (Actin FS) 28.9 Puncture Site ABG pH ABG pCO2 at Pt Temp ABG pO2 at Pt Temp ABG HCO3 ABG O2 Sat (Measured) ABG O2 Content ABG Base Excess Douglas Test O2 Delivery Device Oxygen Flow Rate Sodium Potassium Chloride Carbon Dioxide Anion Gap BUN Creatinine Creat Clearance w eGFR Random Glucose Lactic Acid 1.6 Calcium Phosphorus Magnesium Ferritin Total Bilirubin AST ALT Alkaline Phosphatase Troponin I Total Protein Albumin Ur Random Sodium Ur Random Potassium Ur Random Chloride Urine Creatinine Opiates Screen Methadone Screen Barbiturate Screen Phencyclidine Screen Ur Amphetamines Screen MDMA (Ecstasy) Screen Benzodiazepines Screen Cocaine Screen U Marijuana (THC) Screen 07/06/17 07/06/17 07/07/17 20:00 23:40 07:30 WBC RBC Hgb Hct MCV MCH MCHC RDW Plt Count MPV Neutrophils % Lymphocytes % Monocytes % Eosinophils % Basophils % PT with INR INR PTT (Actin FS) Puncture Site Right radial ABG pH 7.34 L ABG pCO2 at Pt Temp 44.9 ABG pO2 at Pt Temp 65.7 L ABG HCO3 23.6 ABG O2 Sat (Measured) 90.2 ABG O2 Content 11.6 L ABG Base Excess -1.6 Douglas Test Positive O2 Delivery Device Nasal o2 Oxygen Flow Rate 4l Sodium Potassium Chloride Carbon Dioxide Anion Gap BUN Creatinine Creat Clearance w eGFR Random Glucose Lactic Acid Calcium Phosphorus Magnesium Ferritin Total Bilirubin AST ALT Alkaline Phosphatase Troponin I < 0.02 Total Protein Albumin Ur Random Sodium Ur Random Potassium Ur Random Chloride Urine Creatinine Opiates Screen Positive Methadone Screen Negative Barbiturate Screen Negative Phencyclidine Screen Negative Ur Amphetamines Screen Negative MDMA (Ecstasy) Screen Negative Benzodiazepines Screen Negative Cocaine Screen Positive U Marijuana (THC) Screen Negative 07/07/17 07/07/17 07/07/17 10:07 10:07 10:07 WBC 16.2 H D RBC 3.87 L Hgb 8.9 L Hct 28.7 L MCV 74.1 L MCH 23.1 L MCHC 31.1 L RDW 23.0 H Plt Count 184 MPV 7.3 L Neutrophils % 93.8 H D Lymphocytes % 3.2 L D Monocytes % 2.9 L Eosinophils % 0.0 D Basophils % 0.1 PT with INR INR PTT (Actin FS) Puncture Site ABG pH ABG pCO2 at Pt Temp ABG pO2 at Pt Temp ABG HCO3 ABG O2 Sat (Measured) ABG O2 Content ABG Base Excess Douglas Test O2 Delivery Device Oxygen Flow Rate Sodium 139 Potassium 4.1 Chloride 107 Carbon Dioxide 23 Anion Gap 9 BUN 17 Creatinine 1.1 D Creat Clearance w eGFR > 60 Random Glucose 123 H D Lactic Acid Calcium 8.3 L Phosphorus 2.5 Magnesium 2.0 Ferritin 23.635 Total Bilirubin 0.7 D AST 68 H D ALT 61 Alkaline Phosphatase 78 Troponin I < 0.02 Total Protein 7.1 Albumin 2.8 L Ur Random Sodium Ur Random Potassium Ur Random Chloride Urine Creatinine Opiates Screen Methadone Screen Barbiturate Screen Phencyclidine Screen Ur Amphetamines Screen MDMA (Ecstasy) Screen Benzodiazepines Screen Cocaine Screen U Marijuana (THC) Screen 07/07/17 07/07/17 12:20 12:20 WBC RBC Hgb Hct MCV MCH MCHC RDW Plt Count MPV Neutrophils % Lymphocytes % Monocytes % Eosinophils % Basophils % PT with INR INR PTT (Actin FS) Puncture Site ABG pH ABG pCO2 at Pt Temp ABG pO2 at Pt Temp ABG HCO3 ABG O2 Sat (Measured) ABG O2 Content ABG Base Excess Douglas Test O2 Delivery Device Oxygen Flow Rate Sodium Potassium Chloride Carbon Dioxide Anion Gap BUN Creatinine Creat Clearance w eGFR Random Glucose Lactic Acid Calcium Phosphorus Magnesium Ferritin Total Bilirubin AST ALT Alkaline Phosphatase Troponin I Total Protein Albumin Ur Random Sodium 7 Ur Random Potassium 23.5 Ur Random Chloride < 10 Urine Creatinine 169.0 Opiates Screen Methadone Screen Barbiturate Screen Phencyclidine Screen Ur Amphetamines Screen MDMA (Ecstasy) Screen Benzodiazepines Screen Cocaine Screen U Marijuana (THC) Screen Active Medications Generic Name Dose Route Start Last Admin Trade Name Freq PRN Reason Stop Dose Admin Albuterol/Ipratropium 1 amp 07/06/17 18:45 07/07/17 11:14 Duoneb - NEB 1 amp QIDR MARILYN Administration Amlodipine Besylate 10 mg 07/06/17 18:45 07/07/17 09:36 Norvasc - PO 10 mg DAILY [facility]N Administration Heparin Sodium (Porcine) 5,000 unit 07/06/17 22:00 07/07/17 14:15 Heparin - SQ 5,000 unit TID MARILYN Administration Sodium Chloride 1,000 mls @ 75 mls/hr 07/06/17 18:30 07/07/17 12:21 Normal Saline - IV 75 mls/hr ASDIR [facility] Administration Metronidazole 100 mls @ 100 mls/hr 07/07/17 10:00 07/07/17 10:31 Flagyl 500mg Premixed Ivpb - IVPB 100 mls/hr Q8H-IV [facility]N Administration Ceftriaxone Sodium 2 gm/ 100 mls @ 200 mls/hr 07/08/17 10:00 Dextrose IVPB DAILY [facility] Methylprednisolone Sodium Succinate 40 mg 07/06/17 22:00 07/07/17 14:15 Solu-Medrol - IVPB 40 mg Q8H [facility] Administration ASSESSMENT/PLAN: This is a 62 year old man with a history of HTN, HIV, HCV who was brought in to the ER by EMS with altered mental status and hypoxia. 1. Acute hypoxic and hypercarbic respiratory failure secondary to pneumonia and acute exacerbation of COPD - Continue oxygen to maintain saturation > 90% - Avoid sedatives - Continue SoluMedrol, DuoNeb, Rocephin - Zithromax discontinued - Flagyl added for possible aspiration - Pulmonary, ID consults appreciated 2. Acute toxic metabolic encephalopathy secondary to sepsis, acute respiratory failure, substance abuse 3. Anemia, microcytic - Check iron studies, stool occult blood - Monitor hemoglobin 4. Acute kidney injury, mild - Improved 5. Hepatic transaminitis, mild - Improving 6. Elevated CPK - Possibly secondary to HIV meds 7. HIV - Check CD4 count - Stribild held - ID consult appreciated 8. Hepatitis C 9. Hypertension - Continue Norvasc 10. Substance abuse - Urine drug screen positive for opiates, cocaine Visit type - Emergency Visit Emergency Visit: Yes ED Registration Date: 07/06/17 Care time: The patient presented to the Emergency Department on the above date and was hospitalized for further evaluation of their emergent condition. - New Patient This patient is new to me today: No - Critical Care Critical Care patient: No - Discharge Referral Referred to [facility] Med P.C[facility] No
[2017-07-08] MEDS ORDERED: MELATONIN 1 MG TABLET PO SCH (00:15)
[2017-07-08] MEDS: METRONIDAZOLE 500 MG PREMIXED 100 ML IVPB SCH ×2 (01:35→10:14)
[2017-07-08] MEDS ORDERED: PT OWN MED DRAWER 7, Y5N ONE (06:05)
[2017-07-08 06:06] LABS: SERUM IRON 11 ug/dL (38-169); TOTAL IRON BINDING CAPACITY 394 ug/dL (250-450); UIBC 383 ug/dL (111-343)
[2017-07-08] MEDS: ALBUTEROL SO4 2.5/IPRATROPIUM 0.5 INH SOL 3 ML VIAL.NEB. NEB SCH ×2 (06:23→11:40)
[2017-07-08] MEDS: HEPARIN NA (PORCINE) 5,000 UNITS/ML 1ML VIAL SQ SCH ×2 (06:30→13:20)
[2017-07-08] MEDS: methylPREDNISolone NA SUCC 40 MG/1 ML VIAL IVPB SCH ×2 (06:30→13:20)
[2017-07-08] MEDS ORDERED: CEFTRIAXONE 2 GM in DEXTROSE 5%-WATER 100 ML IVPB SCH (10:00)
[2017-07-08] MEDS ORDERED: DEXTROSE 5%-WATER 100 ML IVPB ONE (10:05)
[2017-07-08] MEDS: amLODIPine BESYLATE 10 MG TABLET (FP) PO SCH (10:12)
--- NOTE | 2017-07-08 12:46 | PN ---
Teaching Attending Note Name of Resident: Renan Kumar ATTENDING PHYSICIAN STATEMENT I saw and evaluated the patient. I reviewed the resident's note and discussed the case with the resident. I agree with the resident's findings and plan as documented. SUBJECTIVE: Patient is awake and alert. He feels short of breath. OBJECTIVE: Vital Signs Period Temp Pulse Resp BP Sys/Colon Pulse Ox Last 24 Hr 97.6 F-98.9 F 92-120 18-22 117-145/65-97 90 HEART: S1S2, tachycardic LUNGS: Bilateral expiratory wheezes ABDOMEN: Obese, distended, non-tender, normal BS EXTREMITIES: 2+ edema Current Medications Generic Name Dose Route Start Last Admin Trade Name Freq PRN Reason Stop Dose Admin Albuterol/Ipratropium 1 amp 07/06/17 18:45 07/08/17 06:23 Duoneb - NEB Not Given QIDR MARILYN Amlodipine Besylate 10 mg 07/06/17 18:45 07/08/17 10:12 Norvasc - PO 10 mg DAILY MARILYN Administration Heparin Sodium (Porcine) 5,000 unit 07/06/17 22:00 07/08/17 06:30 Heparin - SQ 5,000 unit TID MARILYN Administration Sodium Chloride 1,000 mls @ 75 mls/hr 07/06/17 18:30 07/07/17 22:12 Normal Saline - IV 75 mls/hr ASDIR MARILYN Administration Metronidazole 100 mls @ 100 mls/hr 07/07/17 10:00 07/08/17 10:14 Flagyl 500mg Premixed Ivpb - IVPB 100 mls/hr Q8H-IV MARILYN Administration Ceftriaxone Sodium 2 gm/ 100 mls @ 200 mls/hr 07/08/17 10:00 07/08/17 10:12 Dextrose IVPB 200 mls/hr DAILY MARILYN Administration Melatonin 1 mg 07/08/17 00:15 07/08/17 00:30 Melatonin PO 1 mg HS MARILYN Administration Methylprednisolone Sodium Succinate 40 mg 07/06/17 22:00 07/08/17 06:30 Solu-Medrol - IVPB 40 mg Q8H MARILYN Administration ASSESSMENT AND PLAN: This is a 62 year old man with a history of HTN, HIV, HCV who was brought in to the ER by EMS with altered mental status and hypoxia. 1. Acute hypoxic and hypercarbic respiratory failure secondary to pneumonia and acute exacerbation of COPD - Continue oxygen to maintain saturation > 90% - Avoid sedatives - Continue SoluMedrol, DuoNeb, Rocephin, Flagyl 2. Acute toxic metabolic encephalopathy secondary to sepsis, acute respiratory failure, substance abuse - Improved 3. Anemia, microcytic - Likely iron deficiency - Stool occult blood ordered - Start iron supplementation 4. Acute kidney injury, mild - Improved 5. Hepatic transaminitis, mild - Improving 6. Elevated CPK - Possibly secondary to HIV meds - Recheck CPK 7. HIV - CD4 count pending - Stribild held 8. Hepatitis C 9. Hypertension - Continue Norvasc 10. Substance abuse - Urine drug screen positive for opiates, cocaine 11. Peripheral edema, possible ascites - Check echocardiogram, abdominal US
[2017-07-08 14:34] VITALS: BP 138/78; PULSE 100; TEMP 97.2
--- NOTE | 2017-07-08 14:51 | DS ---
Physical Exam: SUBJECTIVE: Patient seen and examined at bedside. he still has shortness of breath. but he denies any fever, chills , CP, abdominal pain, dysuria or hematuria. OBJECTIVE: Vital Signs Period Temp Pulse Resp BP Sys/Colon Pulse Ox Last 24 Hr 97.2 F-98.9 F 83-120 18-22 130-145/73-97 90-92 PHYSICAL EXAM GENERAL: The patient is awake, alert, and fully oriented, in mild distress. HEAD: Normal with no signs of trauma. EYES: sclera anicteric, conjunctiva clear. ENT: moist mucous membranes. NECK: Trachea midline, full range of motion, supple. LUNGS: crackles on the right side diffuse wheezing , accessory muscle use. HEART: Regular rate and rhythm, S1, S2 without murmur, rub or gallop. ABDOMEN: Obese ,Soft, nontender, distended, normoactive bowel sounds, no guarding, no rebound EXTREMITIES: 2+ pulses, warm, well-perfused, +2 pitting edema. NEUROLOGICAL: Normal speech, gait not observed. SKIN: Warm, dry, normal turgor, no rashes or lesions noted. LABS Laboratory Results - last 24 hr 07/07/17 10:07 Iron 11 L TIBC 394 Iron Saturation 3 L HOSPITAL COURSE: Date of Admission:07/06/17 Date of Discharge: 07/08/17 is a 62 year old man with a history of HTN, HIV, HCV who was brought in to the ER by EMS with altered mental status and hypoxia. In term of acute hypoxic and hypercarbic respiratory failure secondary to pneumonia and acute exacerbation of COPD, treated with oxygen to maintain saturation > 90%, SoluMedrol, DuoNeb, Rocephin, Flagyl in term of Acute toxic metabolic encephalopathy secondary to sepsis, acute respiratory failure, substance abuse Improved , he was given haldol, ativan on admission . In term of Anemia, microcytic, Likely iron deficiency, Stool occult blood ordered, Start iron supplementation he had acute kidney injury, mild, Improved with IV fluids he had Hepatic transaminitis, mild Improving with IV fluids ,he also had Elev,marvin CPK,possibly secondary to HIV meds , monitor CPK. In term of HIV, CD4 count ordered, Stribild held, can follow up as out patient he has Hepatitis C no on treatment, F/U as out patient . Hypertension controlled with Norvasc In term of Substance abuse, Urine drug screen positive for opiates, cocaine In term of Peripheral edema, possible ascites we check echocardiogram, abdominal US. Patient was informed about the risk of leaving against medical advice included but not limited to COPD exacerbation, intubation, developing pneumonia, intubation , SOB, and but he refused and sighn AMA. Minutes to complete discharge: 30 Discharge Summary Reason For Visit: [email or web address].COPD Current Active Problems Agitation (Acute) Metabolic encephalopathy (Acute) Acute kidney injury (Chronic) COPD exacerbation (Chronic) Hypoxia (Chronic) Condition: Fair - Instructions Disposition: AGAINST MEDICAL ADVICE - Home Medications Comprehensive Discharge Medication List: Ambulatory Orders Amlodipine Besylate [Norvasc -] 10 mg PO DAILY #30 tablet 02/08/16 Elviteg/Barbara/Emtric/Tenofo Dis [Stribild Tablet] 1 each PO DAILY #30 tablet 01/20 Naproxen 250 mg PO Q4H #30 tablet 02/08/16 Vit D3/Folic Acid/B2/B6/B12 [Folgard Tablet] 1 each PO DAILY #30 tablet Amox-Tr/K Cl [Augmentin - 875Mg Tablet] 1 tab PO BID #10 tablet 07/08/17 Prednisone 10 mg PO DAILY #21 tablet 07/08/17 This patient is new to me today: No Emergency Visit: Yes ED Registration Date: 07/06/17 Care time: The patient presented to the Emergency Department on the above date and was hospitalized for further evaluation of their emergent condition. Critical Care patient: No - Discharge Referral Referred to [facility] No
[2017-07-09 14:15] LABS: HIV-RNA COPIES <20 copies/mL (.)
== END 2017-07-08 14:35 | disposition left against medical advice (07) | DRG 52 ==
LOC: JER 12:28 → JERBED 17:20 → J5S 20:02
PROVIDERS: ADMIT Internal Medicine; ATTEND Internal Medicine
DX: G92 Toxic encephalopathy (principal); J44.1 Chronic obstructive pulmonary disease with (acute) exacerbation; J96.01 Acute respiratory failure with hypoxia; J96.02 Acute respiratory failure with hypercapnia; J18.9 Pneumonia, unspecified organism; D50.9 Iron deficiency anemia, unspecified; N17.9 Acute kidney failure, unspecified; R41.82 Altered mental status, unspecified; F14.10 Cocaine abuse, uncomplicated; F11.10 Opioid abuse, uncomplicated; R74.0 Nonspecific elevation of levels of transaminase and lactic acid dehydrogenase [LDH]; I10 Essential (primary) hypertension; B19.20 Unspecified viral hepatitis C without hepatic coma; F17.210 Nicotine dependence, cigarettes, uncomplicated; Z21 Asymptomatic human immunodeficiency virus [HIV] infection status
CPT/HCPCS: 36415; 36600; 70450-TC; 71010-TC; 71275-TC; 80053; 80307; 81003; 81015; 82436; 82553; 82570; 82728; 82803; 83540; 83550; 83605; 83735; 83880; 84100; 84133; 84300; 84484; 85025; 85610; 85730; 86359; 86360; 87040; 87086; 93005; 93010; 93306-TC; 94640; 99285-25; J1644

== ENCOUNTER 2018-07-08 03:38 | Inpatient (IN) | payer OTHER ==
[2018-07-08 03:53] VITALS: BMI 39.1
[2018-07-08] MEDS ORDERED: ALBUTEROL SO4 2.5/IPRATROPIUM 0.5 INH SOL 3 ML VIAL.NEB. NEB ONE ×2 (04:23→04:55)
--- NOTE | 2018-07-08 04:31 | PDOC ---
History of Present Illness - General Chief Complaint: Cold Symptoms Stated Complaint: COUGH Time Seen by Provider: 07/08/18 04:11 - History of Present Illness Initial Comments: 07/08/18 04:24 62 year old male with h/o HTN, HIV medication non compliance,polysubstanbce abuse (Heroin, Cocaine, on subaxone x 1 week), arthritis who p/w cough, SOB. Patient reports 1 week of worsening, productive cough, diffuse chest tightness, SOB, Cunningham, myalgias. Patient reports duoneb requirements, but no medication. Denies home O2 requirements. [facility] Patient denies N/V, F,C, palpitations, leg pain/swelling, urinary complaints, abdominal pain, diarrhea, constipation, lightheadedness, weakness, sensory changes. PMHx: as noted above ROS: as noted SHx: 1 ppd 20+ years. Daily Etoh. Daily Heroin, and cocaine use with last use today. Allergies: NKDA Past History - Past Medical History Allergies/Adverse Reactions: Allergies Allergy/AdvReac Type Severity Reaction Status Date / Time No Known Allergies Allergy Verified 07/08/18 03:45 Home Medications: Ambulatory Orders Amlodipine Besylate [Norvasc -] 10 mg PO DAILY #30 tablet 02/08/16 Vit D3/Folic Acid/B2/B6/B12 [Folgard Tablet] 1 each PO DAILY #30 tablet Albuterol 2.5/Ipratropium 0.5 [Duoneb -] 1 neb NEB Q4H PRN 07/08/18 Budesonide/Formeterol Fumarate [SYMBICORT 80/4.5mcg -] 1 inh PO BID 07/08/18 Buprenorphine/Naloxone [Suboxone 8Mg/2Mg Sl Film -] 1 each SL TID 07/08/18 Elviteg/Cob/Emtri/Tenof Alafen [Genvoya Tablet] 1 each PO DAILY 07/08/18 Metoprolol Tartrate 50 mg PO DAILY 07/08/18 Tiotropium Shasta [Spiriva] 2 inh PO DAILY 07/08/18 Anemia: No Asthma: No Cancer: No Cardiac Disorders: No CVA: No COPD: No CHF: No Dementia: No Diabetes: No GI Disorders: No Disorders: Yes (UTI - Leukoesterase, treated with Cipro, Pending test of cure ) HTN: No Hypercholesterolemia: No Liver Disease: No Psychiatric Problems: No Seizures: No Thyroid Disease: No - Surgical History Abdominal Surgery: No Appendectomy: No Cardiac Surgery: No Cholecystectomy: No Lung Surgery: No Neurologic Surgery: No Orthopedic Surgery: Yes (Fx Skull - fell from 4th floor window as a child, Low BAck pain - Deeg Bone) - Suicide/Smoking/Psychosocial Hx Smoking History: Unknown if ever smoked Have you smoked in the past 12 months: Yes Number of Cigarettes Smoked Daily: 10 Cigars Per Day: 0 Information on smoking cessation initiated: No Hx Alcohol Use: Yes Drug/Substance Use Hx: Yes Substance Use Type: None, Cocaine, Prescribed, Opiates, Heroin Hx Substance Use Treatment: Yes Review of Systems - Review of Systems Comments:: 07/08/18 04:33 GENERAL/CONSTITUTIONAL: No fever or chills. No weakness. HEAD, EYES, EARS, NOSE AND THROAT: No change in vision. No ear pain or discharge. No sore throat. CARDIOVASCULAR: + chest pain and shortness of breath RESPIRATORY: + cough, wheezing. No hemoptysis. GASTROINTESTINAL: No nausea, vomiting, diarrhea or constipation. GENITOURINARY: No dysuria, frequency, or change in urination. MUSCULOSKELETAL: + joint and muscle pain. No neck or back pain. SKIN: No rash NEUROLOGIC: No headache, vertigo, loss of consciousness, or change in strength/ sensation. ENDOCRINE: No increased thirst. No abnormal weight change HEMATOLOGIC/LYMPHATIC: No anemia, easy bleeding, or history of blood clots. ALLERGIC/IMMUNOLOGIC: No hives or skin allergy. = *Physical Exam - Vital Signs Last Vital Signs Temp Pulse Resp BP Pulse Ox 98.9 F 97 H 22 H 140/116 H 90 L 07/08/18 03:43 07/08/18 03:43 07/08/18 03:43 07/08/18 03:43 07/08/18 03:43 - Physical Exam Comments: 07/08/18 04:33 GENERAL: Awake, alert, and fully oriented, in no acute distress HEAD: No signs of trauma, normocephalic, atraumatic EYES: PERRLA, EOMI, sclera anicteric, conjunctiva clear ENT: Hearing grossly normal, nares patent, oropharynx clear without exudates. Moist mucosa NECK: Normal ROM, supple, no lymphadenopathy, JVD, or masses LUNGS: Diffuse exp rhonci. Rales BL LL bases. HEART: Regular rate and rhythm, normal S1 and S2, no murmurs, rubs or gallops, peripheral pulses normal and equal bilaterally. ABDOMEN: Soft, nontender, normoactive bowel sounds. No guarding, no rebound. No masses EXTREMITIES : Normal inspection, Normal range of motion, no edema. No clubbing or cyanosis. NEUROLOGICAL: Cranial nerves II through XII grossly intact. Normal speech, no focal sensorimotor deficits SKIN: Warm, Dry, normal turgor, no rashes or lesions noted ED Treatment Course - LABORATORY CBC & Chemistry Diagram: 07/08/18 05:59 07/08/18 05:59 - RADIOLOGY Radiology Studies Ordered: Category Date Time Status CHEST X-RAY PORTABLE* [RAD] Stat Radiology 07/08/18 04:21 Ordered Medical Decision Making - Medical Decision Making 07/08/18 04:39 62 year old male with h/o HTN, HIV medication non compliance,polysubstanbce abuse (Heroin, Cocaine, on subaxone x 1 week), arthritis who 1 week of worsening , productive cough, diffuse chest tightness, SOB. 2/4 SIRS HR 97, O2 87 % RA, improved to 98% 2 L NC. + Diffuse exp rhonci, and rales BL LL bases. R/o ACS/ [place]. Possible PNA vs. COPD exacerbation. Patient with h/o HIV non compliance. Will consider PCP. Ed Course: SEPSIS WORKUP- CBC, CMP, LA, VBG, CARDIAC, BNP, LDH, BLOOD CX. URINE CX. ABG DUONEB CXR Pt. refuses ABG 07/08/18 07:18 Patient signed out to day team. Pending labs, and CXR. Pt. in stable condition. *DC/Admit/Observation/Transfer Diagnosis at time of Disposition: Pneumonia Qualifiers: Pneumonia type: due to unspecified organism - Discharge Dispostion Condition at time of disposition: Fair Decision to Admit order: Yes - Referrals - Patient Instructions - Post Discharge Activity
--- NOTE | 2018-07-08 05:00 | PDOC ---
Attending Attestation - Resident Resident Name: Сергей Guerrero - ED Attending Attestation I have performed the following: I have examined & evaluated the patient, The case was reviewed & discussed with the resident, I agree w/resident's findings & plan, Exceptions are as noted - HPI HPI: 63 yo M hx HIV (nonadherent to med regimen), HTN, polysubstance abuse, COPD presents with productive cough, SOB for past 1 week. Symptoms have been progressively worsening. He is not typically on O2, but required O2 placement in ED. - Physicial Exam PE: GENERAL: Awake, alert, and fully oriented, in no acute distress HEAD: No signs of trauma EYES: PERRLA, EOMI, sclera anicteric, conjunctiva clear ENT: Auricles normal inspection, hearing grossly normal, nares patent, oropharynx clear without exudates. Moist mucosa NECK: Normal ROM, supple, no lymphadenopathy, JVD, or masses LUNGS: Dec air entry B/L. Diffuse wheezes B/L. Intermittent hacking cough, producing thick sputum. Speaking 4-5 word sentences. HEART: Regular rate and rhythm, normal S1 and S2, no murmurs, rubs or gallops ABDOMEN: Soft, nontender, normoactive bowel sounds. No guarding, no rebound. No masses EXTREMITIES: Normal range of motion, no edema. No clubbing or cyanosis. No cords, erythema, or tenderness NEUROLOGICAL: Cranial nerves II through XII grossly intact. Normal speech. Motor and sensation intact. SKIN: Warm, Dry, normal turgor, no rashes or lesions noted. - Medical Decision Making Pt with history of HIV, unknown CD4, high risk for pna, particularly PCP. Refusing ABG. Difficult IV access, refused to allow nurse to place IV. Labs pending. Will plan for empiric abx. Admit.
[2018-07-08] MEDS ORDERED: methylPREDNISolone NA SUCC 125 MG/2 ML VIAL IVPB ONE (05:17)
[2018-07-08] MEDS ORDERED: methylPREDNISolone NA SUCC 125 MG/2 ML VIAL ONE (05:59)
[2018-07-08 06:39] LABS: BASO % 0.8 % (0-2.0); EOS % 0.1 % (0-4.5); HEMATOCRIT 36.7 % (35.4-49); HEMOGLOBIN 11.4 GM/dL (11.7-16.9); LYMPH % 9.4 % (8-40); MCH 22.6 pg (25.7-33.7); MEAN CELL VOLUME 72.8 fl (80-96); MEAN PLT VOLUME 7.8 fl (7.5-11.1); MONO % 1.4 % (3.8-10.2); NEUT % 88.3 % (42.8-82.8); PLATELET COUNT 197 K/MM3 (134-434); RBC 5.04 M/mm3 (4.00-5.60); RDW 18.4 % (11.9-15.9); WHITE BLOOD COUNT 6.3 K/mm3 (4.0-10.0)
[2018-07-08 06:55] LABS: INR 1.23 (0.83-1.09); PROTHROMBIN TIME (PATIENT) 14.5 SEC (9.7-13.0)
[2018-07-08 06:58] LABS: ACTIVATED PTT 30.7 SECONDS (25.2-36.5)
[2018-07-08 07:09] LABS: ALBUMIN 3.5 g/dl (3.4-5.0); ALK PHOS 105 U/L (45-117); ANION GAP 7 MMOL/L (8-16); BILIRUBIN,TOTAL 0.5 mg/dL (0.2-1); BLOOD UREA NITROGEN 16 mg/dL (7-18); CALCIUM 8.8 mg/dL (8.5-10.1); CHLORIDE 100 mmol/L (98-107); CO2 27 mmol/L (21-32); CREATININE 1.2 mg/dL (0.55-1.3); GLUCOSE,RANDOM 137 mg/dL (74-106); POTASSIUM 4.3 mmol/L (3.5-5.1); SGOT/AST 38 U/L (15-37); SGPT/ALT 21 U/L (13-61); SODIUM 134 mmol/L (136-145); TOT PROT 7.8 g/dl (6.4-8.2)
[2018-07-08 07:21] LABS: VENOUS PH 7.33 (7.32-7.42)
[2018-07-08 07:22] LABS: VENOUS PC02 50.8 mmHg (38-52); VENOUS PO2 46.5 mmHg (28-48)
[2018-07-08] MEDS ORDERED: SULFAMETHOXAZOLE/TRIMETHOPRIM 800MG/160MG D.S. TABLET PO ONE (07:26)
[2018-07-08] MEDS ORDERED: AZITHROMYCIN IVPB 500 MG in DEXTROSE 5%-WATER - 250 ML IVPB ONE (07:27)
[2018-07-08] MEDS ORDERED: CEFTRIAXONE 1,000 MG in DEXTROSE 5%-WATER - 50 ML IVPB ONE (07:27)
[2018-07-08] MEDS ORDERED: SULFAMETHOXAZOLE/TRIMETHOPRIM 800MG/160MG D.S. TABLET ONE (07:51)
[2018-07-08] MEDS ORDERED: AZITHROMYCIN IVPB 500 MG/250 ML BAG IVPB ONE (07:52)
[2018-07-08] MEDS ORDERED: CEFTRIAXONE 1 GM/50 ML BAG ONE (07:52)
[2018-07-08 08:05] LABS: URINE APPEARANCE CLEAR; URINE BILIRUBIN NEGATIVE (<2.0 mg/dL); URINE COLOR LTYELLOW; URINE GLUCOSE (UA) NEGATIVE (NEGATIVE); URINE KETONE NEGATIVE (NEGATIVE); URINE LEUK ESTERASE NEGATIVE (NEGATIVE); URINE NITRITE NEGATIVE (NEGATIVE); URINE PROTEIN NEGATIVE (NEGATIVE); URINE UROBILINOGEN NEGATIVE mg/dL (0.2-1.0)
--- NOTE | 2018-07-08 08:12 | PDOC ---
*Physical Exam - Vital Signs Last Vital Signs Temp Pulse Resp BP Pulse Ox 98.9 F 97 H 22 H 140/116 H 97 07/08/18 03:43 07/08/18 03:43 07/08/18 03:43 07/08/18 03:43 07/08/18 07:46 ED Treatment Course - LABORATORY CBC & Chemistry Diagram: 07/08/18 05:59 07/08/18 05:59 - ADDITIONAL ORDERS Additional order review: Laboratory Results 07/08/18 07/08/18 07/08/18 05:59 05:59 05:59 PT with INR INR PTT (Actin FS) VBG pH POC VBG pCO2 POC VBG pO2 Mixed VBG HCO3 Sodium 134 L Potassium 4.3 Chloride 100 Carbon Dioxide 27 Anion Gap 7 L BUN 16 Creatinine 1.2 Creat Clearance w eGFR > 60 Random Glucose 137 H Lactic Acid 1.2 Calcium 8.8 Total Bilirubin 0.5 AST 38 H ALT 21 Alkaline Phosphatase 105 Creatine Kinase 214 Troponin I < 0.02 Total Protein 7.8 Albumin 3.5 07/08/18 07/08/18 05:59 05:59 PT with INR 14.50 H INR 1.23 H PTT (Actin FS) 30.7 VBG pH 7.33 POC VBG pCO2 50.8 POC VBG pO2 46.5 Mixed VBG HCO3 26.5 H Sodium Potassium Chloride Carbon Dioxide Anion Gap BUN Creatinine Creat Clearance w eGFR Random Glucose Lactic Acid Calcium Total Bilirubin AST ALT Alkaline Phosphatase Creatine Kinase Troponin I Total Protein Albumin 07/08/18 05:59 RBC 5.04 MCV 72.8 L MCHC 31.0 L RDW 18.4 H MPV 7.8 Neutrophils % 88.3 H Lymphocytes % 9.4 D Monocytes % 1.4 L Eosinophils % 0.1 D Basophils % 0.8 D - Medications Given in the ED: ED Medications Discontinued Medications Generic Name Dose Route Start Last Admin Trade Name Freq PRN Reason Stop Dose Admin Albuterol/Ipratropium 1 amp 07/08/18 04:23 07/08/18 05:07 Duoneb - NEB 07/08/18 04:24 1 amp ONCE ONE Administration Methylprednisolone Sodium Succinate 125 mg 07/08/18 05:17 07/08/18 06:17 Solu-Medrol - IVPB 07/08/18 05:18 125 mg ONCE ONE Administration Trimethoprim/Sulfamethoxazole 1 each 07/08/18 07:26 07/08/18 08:00 Bactrim Ds - PO 07/08/18 07:27 1 each ONCE ONE Administration Medical Decision Making - Medical Decision Making 07/08/18 08:[address] Guerrero. Patient is a 63M with history of HTN, HIV medication non compliance, polysubstance abuse (Heroin, Cocaine, on subaxone x 1 week), arthritis here today with cough and shortness of breath. DDx weighted towards community acquired pneumonia with concern for pneumocystis jirovecii. Patient refusing ABG to calculate Aa gradient. Treating with ceftriaxone, azithromycin and bactrim. Admitted to Dr Hansen. *DC/Admit/Observation/Transfer Diagnosis at time of Disposition: Pneumonia - Discharge Dispostion Condition at time of disposition: Fair Decision to Admit order: Yes - Referrals - Patient Instructions - Post Discharge Activity
[2018-07-08 08:42] LABS: LDH 106 U/L (87-246); N-TERMINAL BNP 187.8 pg/ml (5-125)
[2018-07-08 08:58] LABS: METHADONE, UR NEGATIVE ng/ml (CUTOFF=300); URINE AMPHETAMINES NEGATIVE ng/ml (CUTOFF=500); URINE BARBITURATES NEGATIVE ng/ml (CUTOFF=200); URINE BENZODIAZEPINES NEGATIVE ng/ml (CUTOFF=200)
[2018-07-08 09:48] LABS: COCAINE, UR POSITIVE ng/ml (CUTOFF=300); OPIATES, URI POSITIVE ng/ml (CUTOFF=300); PHENCYCLIDINE,URINE POSITIVE ng/ml (CUTOFF=25)
[2018-07-08] MEDS ORDERED: SODIUM CHLORIDE 1,000 ML IV SCH (10:00)
[2018-07-08] MEDS ORDERED: ENOXAPARIN NA (PORCINE) 40 MG/0.4 ML DISP.SYRIN SQ SCH (10:00)
[2018-07-08] MEDS ORDERED: ENOXAPARIN NA (PORCINE) 40 MG/0.4 ML DISP.SYRIN SQ ONE (10:10)
--- NOTE | 2018-07-08 11:47 | HP ---
CHIEF COMPLAINT: cough, pain HISTORY OF PRESENT ILLNESS: 63 year old male with a history of HIV (non-compliance with medications), hypertension, polysubstance abuse (cocaine, heroin, PCP, suboxone), and arthritis presents to the hospital for shortness of breath and productive cough of 1 year duration. Patient reports that the cough is productive of white/ greenish sputum. Describes his cough and SOB worse on exertion. States that he has been to multiple hospitals in the past and was always diagnosed with "pneumonia", but he was never given anything that makes him better. Reports that he does not have any fevers or chills, chest pain, nausea, vomiting, or orthopnea. Reports mild diarrhea and abdominal pain. Patient states that his legs are mildly swollen, and that he lost weight. He is a daily user of heroin and cocaine, and reports that he last used yesterday. states that he lived in a retirement for the past 3 months, and was in alf previously. ER course was notable for: (1) BP 140/116 (2) CXR shows central congestion (3) Recent Travel: denies PAST MEDICAL HISTORY: HIV (non-compliance with medications), hypertension, polysubstance abuse (cocaine, heroin, PCP, suboxone), and arthritis PAST SURGICAL HISTORY: denies Social History: Smokinppd for 20 years Alcohol: denies Drugs: cocaine, heroin, PCP Family History: denies Allergies No Known Allergies Allergy (Verified 07/08/18 03:45) HOME MEDICATIONS: Home Medications Medication Instructions Recorded Amlodipine Besylate [Norvasc -] 10 mg PO DAILY #30 tablet 02/08/16 Elviteg/Cob/Emtri/Tenofo Disop 1 each PO DAILY #30 tablet 02/08/16 [Stribild Tablet] Naproxen 250 mg PO Q4H #30 tablet 02/08/16 Vit D3/Folic Acid/B2/B6/B12 1 each PO DAILY #30 tablet 02/08/16 [Folgard Tablet] Amox-Tr/K Cl [Augmentin - 875Mg 1 tab PO BID #10 tablet 07/08/17 Tablet] Prednisone 10 mg PO DAILY #21 tablet 07/08/17 REVIEW OF SYSTEMS CONSTITUTIONAL: Absent: fever, chills, diaphoresis, generalized weakness, malaise, loss of appetite, weight change HEENT: Absent: rhinorrhea, nasal congestion, throat pain, throat swelling, difficulty swallowing, mouth swelling, ear pain, eye pain, visual changes CARDIOVASCULAR: peripheral edema Absent: chest pain, syncope, palpitations, irregular heart rate, lightheadedness , RESPIRATORY: cough, shortness of breath Absent: dyspnea with exertion, orthopnea, wheezing, stridor, hemoptysis GASTROINTESTINAL: Absent: abdominal pain, abdominal distension, nausea, vomiting, diarrhea, constipation, melena, hematochezia GENITOURINARY: Absent: dysuria, frequency, urgency, hesitancy, hematuria, flank pain, genital pain MUSCULOSKELETAL: Absent: myalgia, arthralgia, joint swelling, back pain, neck pain SKIN: Absent: rash, itching, pallor HEMATOLOGIC/IMMUNOLOGIC: Absent: easy bleeding, easy bruising, lymphadenopathy, frequent infections ENDOCRINE: Absent: unexplained weight gain, unexplained weight loss, heat intolerance, cold intolerance NEUROLOGIC: Absent: headache, focal weakness or paresthesias, dizziness, unsteady gait, seizure, mental status changes, bladder or bowel incontinence PSYCHIATRIC: Absent: anxiety, depression, suicidal or homicidal ideation, hallucinations. PHYSICAL EXAMINATION Vital Signs - 24 hr 07/08/18 07/08/18 07/08/18 03:43 04:21 07:46 Temperature 98.9 F Pulse Rate 97 H Pulse Rate [ Apical] Respiratory 22 H Rate Blood Pressure 140/116 H Blood Pressure [Right Arm] O2 Sat by Pulse 90 L 97 97 Oximetry (%) 07/08/18 08:00 Temperature 98 F Pulse Rate Pulse Rate [ 89 Apical] Respiratory 18 Rate Blood Pressure Blood Pressure 140/89 [Right Arm] O2 Sat by Pulse 97 Oximetry (%) GENERAL: A&Ox3, no acute distress EYES: PERRLA, EOMI ENT: Moist mucus membranes NECK: No JVD LUNGS: mild crackles noted bilaterally HEART: RRR, no murmurs ABDOMEN: Soft, mildly tender to palpation periumbilically, BS present MUSCULOSKELETAL: No CVA Tenderness EXTREMITIES: 2+ pulses, no edema. NEUROLOGICAL: Cranial nerves II-XII intact. Laboratory Results - last 24 hr 07/08/18 07/08/18 07/08/18 05:59 05:59 05:59 WBC 6.3 RBC 5.04 Hgb 11.4 L Hct 36.7 D MCV 72.8 L MCH 22.6 L MCHC 31.0 L RDW 18.4 H Plt Count 197 MPV 7.8 Absolute Neuts (auto) 5.6 Neutrophils % 88.3 H Lymphocytes % 9.4 D Monocytes % 1.4 L Eosinophils % 0.1 D Basophils % 0.8 D Nucleated RBC % 0 PT with INR 14.50 H INR 1.23 H PTT (Actin FS) 30.7 VBG pH 7.33 POC VBG pCO2 50.8 POC VBG pO2 46.5 Mixed VBG HCO3 26.5 H Sodium Potassium Chloride Carbon Dioxide Anion Gap BUN Creatinine Creat Clearance w eGFR Random Glucose Lactic Acid Calcium Total Bilirubin AST ALT Alkaline Phosphatase LD Total Creatine Kinase Creatine Kinase Index CK-MB (CK-2) Troponin I B-Natriuretic Peptide Total Protein Albumin Urine Color Urine Appearance Urine pH Ur Specific [place] Urine Protein Urine Glucose (UA) Urine Ketones Urine Blood Urine Nitrite Urine Bilirubin Urine Urobilinogen Ur Leukocyte Esterase Opiates Screen Methadone Screen Barbiturate Screen Phencyclidine Screen Ur Amphetamines Screen MDMA (Ecstasy) Screen Benzodiazepines Screen Cocaine Screen U Marijuana (THC) Screen 07/08/18 07/08/18 07/08/18 05:59 05:59 05:59 WBC RBC Hgb Hct MCV MCH MCHC RDW Plt Count MPV Absolute Neuts (auto) Neutrophils % Lymphocytes % Monocytes % Eosinophils % Basophils % Nucleated RBC % PT with INR INR PTT (Actin FS) VBG pH POC VBG pCO2 POC VBG pO2 Mixed VBG HCO3 Sodium 134 L Potassium 4.3 Chloride 100 Carbon Dioxide 27 Anion Gap 7 L BUN 16 Creatinine 1.2 Creat Clearance w eGFR > 60 Random Glucose 137 H Lactic Acid 1.2 Calcium 8.8 Total Bilirubin 0.5 AST 38 H ALT 21 Alkaline Phosphatase 105 LD Total 106 Creatine Kinase 214 Creatine Kinase Index 2.5 CK-MB (CK-2) 5.5 H Troponin I < 0.02 B-Natriuretic Peptide 187.8 H Total Protein 7.8 Albumin 3.5 Urine Color Urine Appearance Urine pH Ur Specific [place] Urine Protein Urine Glucose (UA) Urine Ketones Urine Blood Urine Nitrite Urine Bilirubin Urine Urobilinogen Ur Leukocyte Esterase Opiates Screen Methadone Screen Barbiturate Screen Phencyclidine Screen Ur Amphetamines Screen MDMA (Ecstasy) Screen Benzodiazepines Screen Cocaine Screen U Marijuana (THC) Screen 07/08/18 07/08/18 07:35 07:35 WBC RBC Hgb Hct MCV MCH MCHC RDW Plt Count MPV Absolute Neuts (auto) Neutrophils % Lymphocytes % Monocytes % Eosinophils % Basophils % Nucleated RBC % PT with INR INR PTT (Actin FS) VBG pH POC VBG pCO2 POC VBG pO2 Mixed VBG HCO3 Sodium Potassium Chloride Carbon Dioxide Anion Gap BUN Creatinine Creat Clearance w eGFR Random Glucose Lactic Acid Calcium Total Bilirubin AST ALT Alkaline Phosphatase LD Total Creatine Kinase Creatine Kinase Index CK-MB (CK-2) Troponin I B-Natriuretic Peptide Total Protein Albumin Urine Color Ltyellow Urine Appearance Clear Urine pH 6.0 Ur Specific [place] 1.013 Urine Protein Negative Urine Glucose (UA) Negative Urine Ketones Negative Urine Blood Negative Urine Nitrite Negative Urine Bilirubin Negative Urine Urobilinogen Negative Ur Leukocyte Esterase Negative Opiates Screen Positive A* Methadone Screen Negative Barbiturate Screen Negative Phencyclidine Screen Positive A* Ur Amphetamines Screen Negative MDMA (Ecstasy) Screen Negative Benzodiazepines Screen Negative Cocaine Screen Positive A* U Marijuana (THC) Screen Negative ASSESSMENT/PLAN: 63 year old male with a history of HIV (non-compliance with medications), hypertension, polysubstance abuse (cocaine, heroin, PCP, suboxone), and arthritis is admitted for CHF exacerbation #CHF exacerbation: due to productive cough, peripheral edema, and congested chest xray, patient may have a mild CHF exacerbation -echocardiogram -cardiology consultation -lasix 40 IV daily -monitor I's/O's -cardiac monitoring #HIV: patient has a consistent cough with HIV and history of non-compliance -would like ID recommendations for restarting HIV medications and evaluation for PNA -ID consulted -ceftriaxone/azithromycin #Hypertension: patient is hypertensive now -amlodipine 10 #Polysubstance abuse: patient abuses cocaine, heroin, PCP, suboxone -patient on suboxone outpatient -would like detox specialist to evaluate #FEN -no fluids -lytes normal -low sodium diet #Prophylaxis -lovenox #Disposition -admit tele Visit type - Emergency Visit Emergency Visit: Yes ED Registration Date: 07/08/18 Care time: The patient presented to the Emergency Department on the above date and was hospitalized for further evaluation of their emergent condition. - New Patient This patient is new to me today: Yes Date on this admission: 07/08/18 - Critical Care Critical Care patient: No
[2018-07-08] MEDS ORDERED: FUROSEMIDE 40 MG/4 ML INJECTABLE VIAL IVPUSH SCH (12:00)
[2018-07-08] MEDS ORDERED: FUROSEMIDE 40 MG/4 ML INJECTABLE VIAL ONE (12:10)
--- NOTE | 2018-07-08 12:21 | PN ---
Teaching Attending Note Name of Resident: Chris Hansen ATTENDING PHYSICIAN STATEMENT I saw and evaluated the patient. I reviewed the resident's note and discussed the case with the resident. I agree with the resident's findings and plan as documented. SUBJECTIVE: This is a 63 year old man with a history of HTN, polysubstance abuse , HIV, DJD who comes to the ED complaining of cough and SOB. He reports having symptoms x 1 year with SOB worsening in the last month. The cough is productive of white and green sputum. He has had several visits to several hospitals and say that he is always told he has pneumonia. He denies fever, chills, chest pain. He says he has leg swelling and nocturia and that he sleeps on 2 pillows. OBJECTIVE: Vital Signs Period Temp Pulse Resp BP Sys/Colon Pulse Ox Last 24 Hr 98 F-98.9 F 89-97 18-22 140-140/89-116 90-97 HEART: S1S2, RRR LUNGS: Bilateral rhonchi ABDOMEN: Obese, soft, non-tender, non-distended, normal BS EXTREMITIES: 1+ edema Laboratory Tests 07/08/18 07/08/18 07/08/18 05:59 05:59 05:59 WBC 6.3 RBC 5.04 Hgb 11.4 L Hct 36.7 D MCV 72.8 L MCH 22.6 L MCHC 31.0 L RDW 18.4 H Plt Count 197 MPV 7.8 Absolute Neuts (auto) 5.6 Neutrophils % 88.3 H Lymphocytes % 9.4 D Monocytes % 1.4 L Eosinophils % 0.1 D Basophils % 0.8 D Nucleated RBC % 0 PT with INR 14.50 H INR 1.23 H PTT (Actin FS) 30.7 VBG pH 7.33 POC VBG pCO2 50.8 POC VBG pO2 46.5 Mixed VBG HCO3 26.5 H Sodium Potassium Chloride Carbon Dioxide Anion Gap BUN Creatinine Creat Clearance w eGFR Random Glucose Lactic Acid Calcium Total Bilirubin AST ALT Alkaline Phosphatase LD Total Creatine Kinase Creatine Kinase Index CK-MB (CK-2) Troponin I B-Natriuretic Peptide Total Protein Albumin Urine Color Urine Appearance Urine pH Ur Specific [place] Urine Protein Urine Glucose (UA) Urine Ketones Urine Blood Urine Nitrite Urine Bilirubin Urine Urobilinogen Ur Leukocyte Esterase Opiates Screen Methadone Screen Barbiturate Screen Phencyclidine Screen Ur Amphetamines Screen MDMA (Ecstasy) Screen Benzodiazepines Screen Cocaine Screen U Marijuana (THC) Screen 07/08/18 07/08/18 07/08/18 05:59 05:59 05:59 WBC RBC Hgb Hct MCV MCH MCHC RDW Plt Count MPV Absolute Neuts (auto) Neutrophils % Lymphocytes % Monocytes % Eosinophils % Basophils % Nucleated RBC % PT with INR INR PTT (Actin FS) VBG pH POC VBG pCO2 POC VBG pO2 Mixed VBG HCO3 Sodium 134 L Potassium 4.3 Chloride 100 Carbon Dioxide 27 Anion Gap 7 L BUN 16 Creatinine 1.2 Creat Clearance w eGFR > 60 Random Glucose 137 H Lactic Acid 1.2 Calcium 8.8 Total Bilirubin 0.5 AST 38 H ALT 21 Alkaline Phosphatase 105 LD Total 106 Creatine Kinase 214 Creatine Kinase Index 2.5 CK-MB (CK-2) 5.5 H Troponin I < 0.02 B-Natriuretic Peptide 187.8 H Total Protein 7.8 Albumin 3.5 Urine Color Urine Appearance Urine pH Ur Specific [place] Urine Protein Urine Glucose (UA) Urine Ketones Urine Blood Urine Nitrite Urine Bilirubin Urine Urobilinogen Ur Leukocyte Esterase Opiates Screen Methadone Screen Barbiturate Screen Phencyclidine Screen Ur Amphetamines Screen MDMA (Ecstasy) Screen Benzodiazepines Screen Cocaine Screen U Marijuana (THC) Screen 07/08/18 07/08/18 07:35 07:35 WBC RBC Hgb Hct MCV MCH MCHC RDW Plt Count MPV Absolute Neuts (auto) Neutrophils % Lymphocytes % Monocytes % Eosinophils % Basophils % Nucleated RBC % PT with INR INR PTT (Actin FS) VBG pH POC VBG pCO2 POC VBG pO2 Mixed VBG HCO3 Sodium Potassium Chloride Carbon Dioxide Anion Gap BUN Creatinine Creat Clearance w eGFR Random Glucose Lactic Acid Calcium Total Bilirubin AST ALT Alkaline Phosphatase LD Total Creatine Kinase Creatine Kinase Index CK-MB (CK-2) Troponin I B-Natriuretic Peptide Total Protein Albumin Urine Color Ltyellow Urine Appearance Clear Urine pH 6.0 Ur Specific [place] 1.013 Urine Protein Negative Urine Glucose (UA) Negative Urine Ketones Negative Urine Blood Negative Urine Nitrite Negative Urine Bilirubin Negative Urine Urobilinogen Negative Ur Leukocyte Esterase Negative Opiates Screen Positive A* Methadone Screen Negative Barbiturate Screen Negative Phencyclidine Screen Positive A* Ur Amphetamines Screen Negative MDMA (Ecstasy) Screen Negative Benzodiazepines Screen Negative Cocaine Screen Positive A* U Marijuana (THC) Screen Negative Home Medications Medication Instructions Recorded Amlodipine Besylate [Norvasc -] 10 mg PO DAILY #30 tablet 02/08/16 Elviteg/Cob/Emtri/Tenofo Disop 1 each PO DAILY #30 tablet 02/08/16 [Stribild Tablet] Naproxen 250 mg PO Q4H #30 tablet 02/08/16 Vit D3/Folic Acid/B2/B6/B12 1 each PO DAILY #30 tablet 02/08/16 [Folgard Tablet] Amox-Tr/K Cl [Augmentin - 875Mg 1 tab PO BID #10 tablet 07/08/17 Tablet] Prednisone 10 mg PO DAILY #21 tablet 07/08/17 ASSESSMENT AND PLAN: This is a 63 year old man with a history of HTN, polysubstance abuse, HIV, DJD who presented to the ED with cough and SOB. 1. Acute CHF - Lasix IV - Serial troponins - Echo - Daily weight - I&O - Cardiology consult 2. Acute exacerbation of COPD - Start SoluMedrol - On Rocephin, Zithromax for possible pneumonia - Continue Symbicort, Spiriva, DuoNeb as needed 3. HTN - Continue Norvasc - Hold metoprolol secondary to cocaine use 4. HIV - Continue Genvoya - ID consult 5. Polysubstance abuse - Continue Suboxone
--- NOTE | 2018-07-08 12:25 | PN ---
Progress Note (short form) - Note Progress Note: ID Consult dictated Acute exacerbation COPD R/O community acquired v. atypical pneumonia HIV/AIDS non compliant Await c/s Continue zithromax/ ceftriaxone Bactrim prophylaxis
--- NOTE | 2018-07-08 12:29 | CON.CARD ---
Consult Consult Specialty:: cardiology Reason for Consultation:: SOB; r/o CHF - History of Present Illness Chief Complaint: . A&Ox3; pt is frustrated he has not received his medications sooner; ambulating in ER. +SOB History of Present Illness: 62 year old black male with h/o HTN, HIV medication non compliance, polysubstance abuse (Heroin, Cocaine, on subaxone x 1 week), COPD, arthritis, obesity, who p/w cough, SOB. Patient reports 1 week of worsening, productive cough, diffuse chest tightness, SOB, PLASENCIA, myalgias. Patient reports duoneb requirements, but no medication. Denies home O2 requirements. Patient lives in homeless group home. - History Source History Provided By: Patient, Medical Record Limitations to Obtaining History: No Limitations - Past Medical History Cardio/Vascular: Yes: HTN Pulmonary: Yes: COPD Gastrointestinal: Yes: Other Hepatobiliary: Yes: Hepatitis C Infectious Disease: Yes: HIV Musculoskeletal: Yes: Osteoarthritis - Alcohol/Substance Use Hx Alcohol Use: Yes History of Substance Use: reports: Cocaine, Tranquilizers - Smoking History Smoking history: Unknown if ever smoked Have you smoked in the past 12 months: Yes Aproximately how many cigarettes per day: 10 Home Medications - Allergies Allergies/Adverse Reactions: Allergies Allergy/AdvReac Type Severity Reaction Status Date / Time No Known Allergies Allergy Verified 07/08/18 03:45 - Home Medications Home Medications: Ambulatory Orders Amlodipine Besylate [Norvasc -] 10 mg PO DAILY #30 tablet 02/08/16 Vit D3/Folic Acid/B2/B6/B12 [Folgard Tablet] 1 each PO DAILY #30 tablet Albuterol 2.5/Ipratropium 0.5 [Duoneb -] 1 neb NEB Q4H PRN 07/08/18 Budesonide/Formeterol Fumarate [SYMBICORT 80/4.5mcg -] 1 inh PO BID 07/08/18 Buprenorphine/Naloxone [Suboxone 8Mg/2Mg Sl Film -] 1 each SL TID 07/08/18 Elviteg/Cob/Emtri/Tenof Alafen [Genvoya Tablet] 1 each PO DAILY 07/08/18 Metoprolol Tartrate 50 mg PO DAILY 07/08/18 Tiotropium [place] [Spiriva] 2 inh PO DAILY 07/08/18 Family Disease History - Family Disease History Family Disease History: Heart Disease: Father ([place] when ?50 yrs old), Other: Sister ( at 21 from hot-water scalding (broken pipe)) Review of Systems - Review of Systems Constitutional: reports: No Symptoms Eyes: reports: No Symptoms HENT: reports: Ringing in Ears, Other (cough) Cardiovascular: reports: Shortness of Breath Respiratory: reports: Cough, SOB Gastrointestinal: reports: No Symptoms Genitourinary: reports: No Symptoms Breasts: reports: No Symptoms Reported Musculoskeletal: reports: No Symptoms Integumentary: reports: No Symptoms Neurological: reports: No Symptoms Endocrine: reports: No Symptoms Hematology/Lymphatic: reports: No Symptoms Psychiatric: reports: Altered Sleep Pattern, Other (anger) - Risk Factors Known Risk Factors: Yes: Age, Family History, Gender, Hypercholesterolemia, Hypertension, Race, Smoking, Other (substance abuse, including cocaine) Vital Signs: Vital Signs Temperature 98 F 07/08/18 08:00 Pulse Rate 89 07/08/18 08:00 Respiratory Rate 18 07/08/18 08:00 Blood Pressure 140/89 07/08/18 08:00 O2 Sat by Pulse Oximetry (%) 97 07/08/18 08:00 Constitutional: Yes: Mild Distress Eyes: Yes: WNL HENT: Yes: WNL Neck: Yes: WNL Respiratory: Yes: WNL Gastrointestinal: Yes: WNL Renal/: No: Anuria Cardiovascular: Yes: Regular Rate and Rhythm Heart Sounds: Yes: S1, S2, S4 Murmur: Yes: Systolic Murmur, Grade 2 Musculoskeletal: Yes: WNL Extremities: Yes: WNL Edema: No Peripheral Pulses WNL: Yes Integumentary: Yes: WNL Neurological: Yes: WNL Psychiatric: Yes: Alert, Oriented, Other - Other Data Labs, Other Data: CBC, BMP 07/08/18 05:59 07/08/18 05:59 INR, PTT INR 1.23 (0.83-1.09) H 07/08/18 05:59 Troponin, BNP 07/08/18 07/08/18 05:59 05:59 Troponin I < 0.02 B-Natriuretic Peptide 187.8 H Troponin, BNP 07/08/18 07/08/18 05:59 05:59 Troponin I < 0.02 B-Natriuretic Peptide 187.8 H Echo: Pending Imaging - Results Chest X-ray: Image Reviewed Cat Scan: Pending EKG: Image Reviewed (EKG: normal study) Problem List - Problems (1) Agitation Code(s): R45.1 - RESTLESSNESS AND AGITATION (2) COPD exacerbation Code(s): J44.1 - CHRONIC OBSTRUCTIVE PULMONARY DISEASE W (ACUTE) EXACERBATION (3) Cocaine abuse Assessment/Plan: f/u drug screen. Rehab is crucial Avoid beta-blockers Code(s): F14.10 - COCAINE ABUSE, UNCOMPLICATED (4) Degenerative arthritis of cervical spine Code(s): M47.812 - SPONDYLOSIS W/O MYELOPATHY OR RADICULOPATHY, CERVICAL REGION (5) Degenerative arthritis of left knee Code(s): M17.9 - OSTEOARTHRITIS OF KNEE, UNSPECIFIED (6) Drug dependence Assessment/Plan: detox; drug rehabilitation. Code(s): F19.20 - OTHER PSYCHOACTIVE SUBSTANCE DEPENDENCE, UNCOMPLICATED (7) HIV (human immunodeficiency virus infection) Assessment/Plan: ECHO for LVEF, chamber sizes, valve status. Coronary artery evaluation when stable (may be done as outpatient. Code(s): Z21 - ASYMPTOMATIC HUMAN IMMUNODEFICIENCY VIRUS INFECTION STATUS (8) Hep C w/o coma, chronic Assessment/Plan: per history Code(s): B18.2 - CHRONIC VIRAL HEPATITIS C (9) Heroin addiction Code(s): F11.20 - OPIOID DEPENDENCE, UNCOMPLICATED (10) Hypertension Assessment/Plan: on furosemide. Avoid beta blockers (cocaine abuse). F/u HGBA1c (if DM, this would be more reason to consdier ACEI or ARB for HTN, in order to additionally protect renal function). Code(s): I10 - ESSENTIAL (PRIMARY) HYPERTENSION (11) Cigarette nicotine dependence Assessment/Plan: the importance of quitting was discussed with pt Code(s): F17.210 - NICOTINE DEPENDENCE, CIGARETTES, UNCOMPLICATED (12) [place] cardiac risk >20% in next 10 years Assessment/Plan: statin, diet, exercise for lipid control. Compliance to HIV medication regimen. Drug rehabilitation. Cigarette cessation. Dietary modification, weight loss. coronary artery evaluation when stable (may be done as outpatient). Code(s): Z91.89 - OTH PERSONAL RISK FACTORS, NOT ELSEWHERE CLASSIFIED
--- NOTE | 2018-07-08 12:54 | CONS ---
DATE OF CONSULTATION: 07/08/2018 The patient is a 63-year-old male, history of acquired immunodeficiency syndrome, noncompliant with antiretroviral therapy, evaluated for possible pneumonia. The patient gives an unreliable history, with numerous complaints. At the present time, he complains of worsening cough productive of whitish sputum, associated with chest discomfort and subjective fever. He also complained of generalized body pain, back pain, knee pain, and testicular pain. He presented to the emergency room, where a chest x-ray shows increased markings bilaterally. He has been afebrile with a normal white blood cell count. The patient has a history of HIV. He reports he has been off his antiretroviral therapy and his most recent viral markers are from 1 year ago, at which time he was undetectable but T cells were 156. His previous regimen was Stribild. He denies any hemoptysis. He is homeless, active smoker, drinker, and heroin/cocaine user. He was incarcerated earlier this year. Past medical history positive for HIV infection, noncompliant, hypertension, COPD, osteoarthritis, polysubstance abuse. No known allergies. LABORATORY DATA: White count 6.3, hematocrit 36.7, platelet count 197, BUN 16, creatinine 1.2. LDH 106. Urinalysis negative. Chest x-ray: No obvious consolidation. PHYSICAL EXAMINATION: General: He is awake, he is ambulatory. He is in no acute respiratory distress. Vital Signs: Temperature is 98. Blood pressure 140/89. Pulse 89, regular. Respirations 18 per minute. ENT: Sclerae anicteric. Oropharynx negative for thrush. Neck: Supple. Heart Sounds: S1, S2. Lungs: Coarse rhonchi bilaterally. Abdomen: Obese, soft, nontender. Extremities: Positive for edema. IMPRESSION: 1. Acute exacerbation of chronic obstructive pulmonary disease. 2. Rule out community-acquired versus atypical pneumonia. 3. Acquired immunodeficiency syndrome, noncompliant. Await cultures. Obtain sputum culture, urine Legionella antigen. Continue Zithromax and ceftriaxone, Bactrim for PCP prophylaxis. Obtain CAT scan of the chest. Would hold antiretroviral therapy as the patient has been noncompliant for some time. Referral to [facility] post hospital discharge. Thank you for the kind referral. DANNIELLE PHILLIPS M.D. [id number]
[2018-07-08] MEDS ORDERED: amLODIPine BESYLATE 10 MG TABLET (FP) PO SCH (13:00)
[2018-07-08] MEDS ORDERED: amLODIPine BESYLATE 5 MG TABLET (FP) ONE (13:12)
--- NOTE | 2018-07-08 14:21 | EKG ---
Test Reason : Blood Pressure : / mmHG Vent. Rate : 076 BPM Atrial Rate : 076 BPM P-R Int : 156 ms QRS Dur : 076 ms QT Int : 390 ms P-R-T Axes : 051 013 042 degrees QTc Int : 438 ms NORMAL SINUS RHYTHM NORMAL ECG WHEN COMPARED WITH ECG OF 06-JUL-2017 12:37, MINIMAL CRITERIA FOR INFERIOR INFARCT ARE NO LONGER PRESENT Confirmed by Amrik Castro MD ([id number]) on 07/08/2018 2:20:32 PM Referred By: Confirmed By:Amrik Castro MD
--- NOTE | 2018-07-08 15:35 | ECHO ---
Name: ALAN MARINA Exam:Adult Echocardiogram Study Date: 07/08/2018 02:41 PM Age: 63 yrs Reason For Study: chf Height: 65 in Weight: 238 lb BSA: 2.1 m2 MMode/2D Measurements & Calculations LVIDd: 5.3 cm Ao root diam: 3.1 cm LVIDs: 3.8 cm LA dimension: 3.0 cm EDV(Teich): 137.6 ml LVOT diam: 2.2 cm ESV(Teich): 61.4 ml RV S Kodak: 12.6 cm/sec Doppler Measurements & Calculations MV E max kodak: 74.2 cm/sec Med Peak E' Kodak: 7.5 cm/sec MV A max kodak: 78.6 cm/sec Med E/e': 9.9 MV E/A: 0.94 Lat Peak E' Kodak: 9.4 cm/sec Lat E/e': 7.9 Procedure A complete two-dimensional transthoracic echocardiogram was performed (2D, M-mode, Doppler and color flow Doppler). The study was technically difficult with many images being suboptimal in quality. Left Ventricle The left ventricular size, thickness and function are normal. Ejection Fraction = 65%. The transmitra l spectral Doppler flow pattern is suggestive of impaired LV relaxation. Atria Normal left and right atrial size and function. Mitral Valve The mitral valve is grossly normal. There is trace mitral regurgitation. Tricuspid Valve The tricuspid valve is not well visualized. There was insufficient TR detected to calculate RV systol ic pressure. Aortic Valve The aortic valve is normal in structure and function. Pulmonic Valve The pulmonic valve is not well visualized. Great Vessels The aortic root is not well visualized. Pericardium/Pleura There is no pericardial effusion. There is no pleural effusion. Interpretation Summary This was essentially a normal study. The left ventricular size, thickness and function are normal Ejection Fraction = 65%. There is trace mitral regurgitation. MD Amrik Castro 07/08/2018 03:34 PM
[2018-07-08 16:28] LABS: CHOLESTEROL 131 mg/dL (50-200); HDL CHOLESTEROL 60 mg/dL (40-60); TRIGLYCERIDES 57 mg/dL (0-150)
[2018-07-08] MEDS ORDERED: ALBUTEROL SO4 2.5/IPRATROPIUM 0.5 INH SOL 3 ML VIAL.NEB. NEB PRN ×2 (16:58→17:09)
[2018-07-08] MEDS ORDERED: BUPRENORPHINE/NALOXONE 8 MG/2 MG FILM PACKET SL SCH (16:58)
--- NOTE | 2018-07-08 19:34 | CONSULT ---
Consult Detox [facility] Reason for Current Admission/Consult: urine pos for opiates, cocaine and PCP - History History of Present Illness: Pt is admitted for r/o pneumonia. Pt had an admission urine tox screen positive for opiates (PCP and cocaine). Pt has an active Suboxon prescription which he gets from [facility]. Pt states he also uses other substances that he buys from the street for pain and does not have any problems with combining suboxone with opioids- d/w pt of the withdrawal problems if both are combined. Duane Watson Date: 1955 Address: [address] [place] [address] [address] [id number] Sex: Male Rx Written Rx Dispensed Drug Quantity Days Supply Prescriber Name 06/26/2018 07/02/2018 suboxone 8 mg-2 mg sl film 90 30 Lucas Aggarwal MD 06/17/2018 06/18/2018 suboxone 8 mg-2 mg sl film 45 15 Lucas Aggarwal MD 06/03/2018 06/11/2018 suboxone 8 mg-2 mg sl film 21 7 Lucas Aggarwal MD 06/03/2018 06/03/2018 suboxone 8 mg-2 mg sl film 21 7 Lucas Aggarwal MD 11/11/2017 11/13/2017 suboxone 8 mg-2 mg sl film 15 15 Grupo Macario MD 10/09/2017 10/16/2017 suboxone 8 mg-2 mg sl film 30 30 Grupo Macario MD 09/13/2017 09/24/2017 suboxone 8 mg-2 mg sl film 14 14 Grupo Macario MD - Alcohol/Substance Use Hx Alcohol Use: Yes - Past Medical History Cardio/Vascular: Yes: HTN Pulmonary: Yes: COPD Gastrointestinal: Yes: Other Hepatobiliary: Yes: Hepatitis C Infectious Disease: Yes: HIV Musculoskeletal: Yes: Osteoarthritis COWS - Scale Resting Pulse: 0= IN 80 or Below Sweatin= No chills or Flushing Restless Observation: 0= Sits Still Pupil Size: 0= Normal to Room Light Bone or Joint Aches: 0= None Runny Nose/ Eye Tearin= None GI Upset > 30mins: 0= None Tremor Observation: 0= None Yawning Observation: 0= None Anxiety or Irritability: 0= None Goose Flesh Skin: 0=Smooth Skin (on suboxone) COWS Score: 0 Assessment Plan - Diagnosis (1) Encounter for monitoring Suboxone maintenance therapy Status: Acute - Plan Plan: Pt is taking illicit substances in addition to Suboxone- pt made aware of the potential for withdrawal Sx if Suboxone is used. Pt is getting medications from a doc at [facility] and attends therapeutic groups there. Please call us back if we can be of further assistance: [phone] - Medication Detox Regimen/Protocol: Suboxone
[2018-07-08] MEDS ORDERED: MELATONIN 5 MG TABLETS PO ONE (20:19)
[2018-07-08] MEDS: ALBUTEROL SO4 2.5/IPRATROPIUM 0.5 INH SOL 3 ML VIAL.NEB. NEB PRN (20:45)
[2018-07-08] MEDS ORDERED: PT OWN MED DRAWER 7, Y5N ONE (21:06)
[2018-07-08] MEDS: BUDESONIDE/FORMETEROL FUMARATE 80/4.5 mcg INHALER IH SCH (21:08)
[2018-07-08] MEDS: BUPRENORPHINE/NALOXONE 8 MG/2 MG FILM PACKET SL SCH (21:08)
[2018-07-08] MEDS: guaiFENesin/D-M SUGAR-FREE/ACLHOL-FREE 118 ML BOTTLE PO PRN (21:45)
[2018-07-08] MEDS ORDERED: BUDESONIDE/FORMETEROL FUMARATE 80/4.5 mcg INHALER IH SCH (22:00)
[2018-07-09] MEDS: methylPREDNISolone NA SUCC 40 MG/1 ML VIAL IVPUSH SCH ×3 (01:35→17:37)
[2018-07-09] MEDS: BUPRENORPHINE/NALOXONE 8 MG/2 MG FILM PACKET SL SCH ×3 (07:12→22:19)
[2018-07-09 07:59] LABS: HEMATOCRIT 35.1 % (35.4-49); HEMOGLOBIN 10.7 GM/dL (11.7-16.9); MCH 22.2 pg (25.7-33.7); MCHC 30.4 g/dl (32.0-35.9); MEAN CELL VOLUME 72.9 fl (80-96); MEAN PLT VOLUME 7.9 fl (7.5-11.1); PLATELET COUNT 180 K/MM3 (134-434); RBC 4.81 M/mm3 (4.00-5.60); RDW 18.4 % (11.9-15.9); WHITE BLOOD COUNT 11.2 K/mm3 (4.0-10.0)
[2018-07-09 08:30] LABS: ANION GAP 7 MMOL/L (8-16); BLOOD UREA NITROGEN 20 mg/dL (7-18); CALCIUM 8.7 mg/dL (8.5-10.1); CHLORIDE 104 mmol/L (98-107); CO2 27 mmol/L (21-32); CREATININE 1.2 mg/dL (0.55-1.3); GLUCOSE,RANDOM 111 mg/dL (74-106); MAGNESIUM 2.2 mg/dL (1.8-2.4); PHOSPHOROUS 3.1 mg/dL (2.5-4.9); POTASSIUM 4.9 mmol/L (3.5-5.1); SODIUM 137 mmol/L (136-145)
--- NOTE | 2018-07-09 09:51 | PN ---
Progress Note, Physician History of Present Illness: 62 year old black male with h/o HTN, HIV medication non compliance, polysubstanbce abuse (Heroin, Cocaine, on subaxone x 1 week), arthritis who p/w cough, SOB. Patient reports 1 week of worsening, productive cough, diffuse chest tightness, SOB, Cunningham, myalgias. Patient reports duoneb requirements, but no medication. Denies home O2 requirements. Patient lives in homeless retirement. - Current Medication List Current Medications: Active Medications Albuterol/Ipratropium (Duoneb -) 1 amp NEB Q4H PRN PRN Reason: SHORT OF BREATH/WHEEZING Last Admin: 07/08/18 20:45 Dose: 1 amp Amlodipine Besylate (Norvasc -) 10 mg PO DAILY MARILYN Budesonide/Formoterol Fumarate (Symbicort 80/4.5mcg -) 1 puff IH BID MARILYN Last Admin: 07/08/18 21:08 Dose: Not Given Buprenorphine/Naloxone (Suboxone 8mg/2mg Sl Film -) 1 each SL TID MARILYN Last Admin: 07/09/18 07:12 Dose: 1 each Enoxaparin Sodium (Lovenox -) 40 mg SQ DAILY MARILYN Furosemide (Lasix Injection -) 40 mg IVPUSH DAILY MARILYN Guaifenesin (Diabetic Tussin Dm -) 5 ml PO Q6H PRN PRN Reason: COUGH Last Admin: 07/08/18 21:45 Dose: 5 ml Azithromycin (Zithromax 500mg Ivpb (Pre-Docked)) 500 mg in 250 mls @ 250 mls/ hr IVPB DAILY MARILYN Ceftriaxone Sodium 2 gm/ (Dextrose) 100 mls @ 200 mls/hr IVPB DAILY MARILYN; Protocol Methylprednisolone Sodium Succinate (Solu-Medrol -) 40 mg IVPUSH Q8H-IV MARILYN Last Admin: 07/09/18 01:35 Dose: Not Given Non-Formulary Medication (Elviteg/Cob/Emtri/Tenof Alafen [Genvoya Tablet]) 1 each PO DAILY MARILYN Tiotropium [place] (Spiriva Respimat) 2 puff IH DAILY MARILYN - Objective Vital Signs: Vital Signs Temperature 98.1 F 07/08/18 18:11 Pulse Rate 79 07/08/18 18:11 Respiratory Rate 22 H 07/08/18 21:00 Blood Pressure 153/73 07/08/18 18:11 O2 Sat by Pulse Oximetry (%) 98 07/08/18 18:11 Labs: CBC, BMP 07/09/18 06:30 07/09/18 06:30 INR, PTT INR 1.23 (0.83-1.09) H 07/08/18 05:59 Assessment/Plan - Problems (1) Agitation Code(s): R45.1 - RESTLESSNESS AND AGITATION (2) COPD exacerbation Code(s): J44.1 - CHRONIC OBSTRUCTIVE PULMONARY DISEASE W (ACUTE) EXACERBATION (3) Cocaine abuse Assessment/Plan: c/u drug screen. Rehab is crucial Code(s): F14.10 - COCAINE ABUSE, UNCOMPLICATED (4) Degenerative arthritis of cervical spine Code(s): M47.812 - SPONDYLOSIS W/O MYELOPATHY OR RADICULOPATHY, CERVICAL REGION (5) Degenerative arthritis of left knee Code(s): M17.9 - OSTEOARTHRITIS OF KNEE, UNSPECIFIED (6) Drug dependence Code(s): F19.20 - OTHER PSYCHOACTIVE SUBSTANCE DEPENDENCE, UNCOMPLICATED (7) HIV (human immunodeficiency virus infection) Assessment/Plan: ECHO for LVEF, chamber sizes, valve status. Code(s): Z21 - ASYMPTOMATIC HUMAN IMMUNODEFICIENCY VIRUS INFECTION STATUS (8) Hep C w/o coma, chronic Code(s): B18.2 - CHRONIC VIRAL HEPATITIS C (9) Heroin addiction Code(s): F11.20 - OPIOID DEPENDENCE, UNCOMPLICATED (10) Hypertension Assessment/Plan: on furosemide. Avoid beta blockers if continue cocaine abuse. F/u HGBA1c (if DM, this would be more reason to consdier ACEI or ARB for HTN, in order to additionally protect renal function). Code(s): I10 - ESSENTIAL (PRIMARY) HYPERTENSION (11) Cigarette nicotine dependence Code(s): F17.210 - NICOTINE DEPENDENCE, CIGARETTES, UNCOMPLICATED
[2018-07-09] MEDS ORDERED: TIOTROPIUM BROMIDE 2.5 MCG (SPIRIVA) RESPIMAT INHALER IH SCH (10:00)
[2018-07-09] MEDS ORDERED: METOPROLOL TARTRATE 50 MG TABLET (FP) PO SCH (10:00)
[2018-07-09] MEDS ORDERED: FUROSEMIDE 40 MG/4 ML INJECTABLE VIAL IVPUSH SCH (10:00)
[2018-07-09] MEDS ORDERED: AZITHROMYCIN IVPB 500 MG/250 ML BAG IVPB SCH ×2 (10:00)
[2018-07-09] MEDS ORDERED: CEFTRIAXONE 2 GM in DEXTROSE 5%-WATER 100 ML IVPB SCH ×2 (10:00)
[2018-07-09] MEDS ORDERED: PT OWN MED DRAWER 7, Y5N ONE ×3 (10:29→22:53)
[2018-07-09] MEDS ORDERED: DEXTROSE 5%-WATER 100 ML IVPB ONE (10:30)
[2018-07-09] MEDS: amLODIPine BESYLATE 10 MG TABLET (FP) PO SCH (10:37)
[2018-07-09] MEDS: ENOXAPARIN NA (PORCINE) 40 MG/0.4 ML DISP.SYRIN SQ SCH ×2 (10:37→10:42)
[2018-07-09] MEDS: guaiFENesin/D-M SUGAR-FREE/ACLHOL-FREE 118 ML BOTTLE PO PRN (10:38)
[2018-07-09] MEDS: BUDESONIDE/FORMETEROL FUMARATE 80/4.5 mcg INHALER IH SCH ×2 (11:34→22:17)
[2018-07-09] MEDS: TIOTROPIUM BROMIDE 2.5 MCG (SPIRIVA) RESPIMAT INHALER IH SCH (11:36)
--- NOTE | 2018-07-09 12:02 | PN ---
Progress Note, Physician History of Present Illness: Awake, alert C/O dry cough No c/o chest pain No fever/ chills CT chest noted - Current Medication List Current Medications: Active Medications Albuterol/Ipratropium (Duoneb -) 1 amp NEB Q4H PRN PRN Reason: SHORT OF BREATH/WHEEZING Last Admin: 07/08/18 20:45 Dose: 1 amp Amlodipine Besylate (Norvasc -) 10 mg PO DAILY [facility] Last Admin: 07/09/18 10:37 Dose: 10 mg Budesonide/Formoterol Fumarate (Symbicort 80/4.5mcg -) 1 puff IH BID MARILYN Last Admin: 07/09/18 11:34 Dose: 1 puff Buprenorphine/Naloxone (Suboxone 8mg/2mg Sl Film -) 1 each SL TID MARILYN Last Admin: 07/09/18 07:12 Dose: 1 each Enoxaparin Sodium (Lovenox -) 40 mg SQ DAILY [facility] Last Admin: 07/09/18 10:42 Dose: Not Given Furosemide (Lasix Injection -) 40 mg IVPUSH DAILY [facility] Last Admin: 07/09/18 10:37 Dose: 40 mg Guaifenesin (Diabetic Tussin Dm -) 5 ml PO Q6H PRN PRN Reason: COUGH Last Admin: 07/09/18 10:38 Dose: 5 ml Azithromycin (Zithromax 500mg Ivpb (Pre-Docked)) 500 mg in 250 mls @ 250 mls/ hr IVPB DAILY [facility] Last Admin: 07/09/18 10:38 Dose: 250 mls/hr Ceftriaxone Sodium 2 gm/ (Dextrose) 100 mls @ 200 mls/hr IVPB DAILY [facility]; Protocol Last Admin: 07/09/18 10:37 Dose: 200 mls/hr Methylprednisolone Sodium Succinate (Solu-Medrol -) 40 mg IVPUSH Q8H-IV MARILYN Last Admin: 07/09/18 10:36 Dose: 40 mg Multivitamins/Minerals/Vitamin C (Tab-A-Vit -) 1 tab PO DAILY [facility] Non-Formulary Medication (Elviteg/Cob/Emtri/Tenof Alafen [Genvoya Tablet]) 1 each PO DAILY [facility] Tiotropium [place] (Spiriva Respimat) 2 puff IH DAILY [facility] Last Admin: 07/09/18 11:36 Dose: 2 puff - Objective Vital Signs: Vital Signs Temperature 97.5 F L 07/09/18 10:00 Pulse Rate 65 07/09/18 10:00 Respiratory Rate 20 07/09/18 10:00 Blood Pressure 128/63 07/09/18 10:00 O2 Sat by Pulse Oximetry (%) 98 07/08/18 18:11 Constitutional: Yes: No Distress Eyes: Yes: Conjunctiva Clear Cardiovascular: Yes: Regular Rate and Rhythm, S1, S2 Respiratory: Yes: Rhonchi Gastrointestinal: Yes: Normal Bowel Sounds, Soft. No: Tenderness Edema: Yes Labs: CBC, BMP 07/09/18 06:30 07/09/18 06:30 INR, PTT INR 1.23 (0.83-1.09) H 07/08/18 05:59 Assessment/Plan Acute exacerbation COPD HIV / Aids Non compliant Substitute po levaquin 500mg qd x7d Outpatient follow up [facility]
--- NOTE | 2018-07-09 13:08 | PN ---
Physical Exam: SUBJECTIVE: Patient seen and examined. He feels less SOB but says he is still coughing. OBJECTIVE: Vital Signs Period Temp Pulse Resp BP Sys/Colon Pulse Ox Last 24 Hr 97.5 F-98.1 F 65-82 18-22 123-153/63-73 98-100 GENERAL: The patient is awake, alert, and fully oriented, in no acute distress. LUNGS: Breath sounds equal, clear to auscultation bilaterally, no wheezes, no crackles, no accessory muscle use. HEART: Regular rate and rhythm, S1, S2 without murmur, rub or gallop. ABDOMEN: Obese, soft, nontender, nondistended, normoactive bowel sounds. EXTREMITIES: Trace edema. Laboratory Results - last 24 hr 07/08/18 07/09/18 07/09/18 05:59 06:30 06:30 WBC 11.2 H RBC 4.81 Hgb 10.7 L Hct 35.1 L MCV 72.9 L MCH 22.2 L MCHC 30.4 L RDW 18.4 H Plt Count 180 MPV 7.9 Sodium 134 L 137 Potassium 4.3 4.9 Chloride 100 104 Carbon Dioxide 27 27 Anion Gap 7 L 7 L BUN 16 20 H Creatinine 1.2 1.2 Creat Clearance w eGFR > 60 > 60 Random Glucose 137 H 111 H Hemoglobin A1c % Calcium 8.8 8.7 Phosphorus 3.1 Magnesium 2.2 Total Bilirubin 0.5 AST 38 H ALT 21 Alkaline Phosphatase 105 LD Total 106 Creatine Kinase 214 Creatine Kinase Index 2.5 CK-MB (CK-2) 5.5 H B-Natriuretic Peptide 187.8 H Total Protein 7.8 Albumin 3.5 Triglycerides 57 Cholesterol 131 Total LDL Cholesterol 70 HDL Cholesterol 60 TSH 0.52 07/09/18 09:05 WBC RBC Hgb Hct MCV MCH MCHC RDW Plt Count MPV Sodium Potassium Chloride Carbon Dioxide Anion Gap BUN Creatinine Creat Clearance w eGFR Random Glucose Hemoglobin A1c % 6.2 Calcium Phosphorus Magnesium Total Bilirubin AST ALT Alkaline Phosphatase LD Total Creatine Kinase Creatine Kinase Index CK-MB (CK-2) B-Natriuretic Peptide Total Protein Albumin Triglycerides Cholesterol Total LDL Cholesterol HDL Cholesterol TSH Active Medications Generic Name Dose Route Start Last Admin Trade Name Freq PRN Reason Stop Dose Admin Albuterol/Ipratropium 1 amp 07/08/18 17:52 07/08/18 20:45 Duoneb - NEB 1 amp Q4H PRN Administration SHORT OF BREATH/WHEEZING Amlodipine Besylate 10 mg 07/09/18 10:00 07/09/18 10:37 Norvasc - PO 10 mg DAILY MARILYN Administration Budesonide/Formoterol Fumarate 1 puff 07/08/18 22:00 07/09/18 11:34 Symbicort 80/4.5mcg - IH 1 puff BID MARILYN Administration Buprenorphine/Naloxone 1 each 07/08/18 22:00 07/09/18 07:12 Suboxone 8mg/2mg Sl Film - SL 1 each TID MARILYN Administration Enoxaparin Sodium 40 mg 07/09/18 10:00 07/09/18 10:42 Lovenox - SQ Not Given DAILY MARILYN Furosemide 40 mg 07/09/18 10:00 07/09/18 10:37 Lasix Injection - IVPUSH 40 mg DAILY MARILYN Administration Guaifenesin 5 ml 07/08/18 19:49 07/09/18 10:38 Diabetic Tussin Dm - PO 5 ml Q6H PRN Administration COUGH Azithromycin 500 mg in 250 mls @ 250 mls/hr 07/09/18 10:00 07/09/18 10:38 Zithromax 500mg Ivpb (Pre-Docked) IVPB 250 mls/hr DAILY MARILYN Administration Ceftriaxone Sodium 2 gm/ 100 mls @ 200 mls/hr 07/09/18 10:00 07/09/18 10:37 Dextrose IVPB 200 mls/hr DAILY MARILYN Administration Protocol Methylprednisolone Sodium Succinate 40 mg 07/09/18 02:00 07/09/18 10:36 Solu-Medrol - IVPUSH 40 mg Q8H-IV MARILYN Administration Multivitamins/Minerals/Vitamin C 1 tab 07/09/18 12:00 Tab-A-Vit - PO DAILY MARILYN Non-Formulary Medication 1 each 07/09/18 10:00 Elviteg/Cob/Emtri/Tenof Alafen [Genvoya Tablet] PO DAILY MARILYN Tiotropium [place] 2 puff 07/09/18 10:00 07/09/18 11:36 Spiriva Respimat IH 2 puff DAILY MARILYN Administration ASSESSMENT/PLAN: This is a 63 year old man with a history of HTN, polysubstance abuse, HIV, DJD who presented to the ED with cough and SOB. 1. Possible acute diastolic heart failure - Change Lasix to PO - Echo shows normal LV with EF 65%, trace MR - Daily weight - Monitor I&O 2. Acute exacerbation of COPD - Continue SoluMedrol - Change Rocephin, Zithromax to Levaquin for possible pneumonia - Continue Symbicort, Spiriva, DuoNeb as needed 3. HTN - Continue Norvasc, Lasix - Metoprolol discontinued secondary to cocaine use 4. HIV - Non-compliant with ART 5. Polysubstance abuse - Continue Suboxone 6. Microcytic anemia - Likely iron deficinecy - Iron and iron saturation low, TIBC normal, ferritin low normal in 07/2018 - Outpatient follow up Visit type - Emergency Visit Emergency Visit: Yes ED Registration Date: 07/08/18 Care time: The patient presented to the Emergency Department on the above date and was hospitalized for further evaluation of their emergent condition. - New Patient This patient is new to me today: No - Critical Care Critical Care patient: No - Discharge Referral Referred to [facility] Med P.C.: No
--- NOTE | 2018-07-09 13:20 | PN ---
Progress Note (short form) - Note Progress Note: PULMONARY CONSULTATION DICTATED 07/09/18 IMP COPD EXACERBATON LIKELY URI HIV NON -COMPLIANT WITH MEDS POLYSUBSTANCE ABUSE HTN TOBACCO ABUSE PLAN STEROIDS INHALED BRONCHODILATORS O2 NEEDED ABX PER ID SMOKING CESSATION COUNSELED PFTS OUTPATIENT YEARLY LOW DOSE CHEST CT FOR LUNG CANCER SCREENING DR TEJEDA Problem List - Problems (1) Cigarette nicotine dependence Code(s): F17.210 - NICOTINE DEPENDENCE, CIGARETTES, UNCOMPLICATED (2) Encounter for monitoring Suboxone maintenance therapy Code(s): Z51.81 - ENCOUNTER FOR THERAPEUTIC DRUG LEVEL MONITORING; Z79.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
--- NOTE | 2018-07-09 14:00 | CONS ---
DATE OF CONSULTATION: 07/09/2018 REFERRING PHYSICIAN: Franklin Wilkerson MD HISTORY OF PRESENT ILLNESS: The patient is a 63-year-old black male with a past medical history of COPD, hypertension, HIV, noncompliant with medication, polysubstance abuse, heroin, cocaine as well as Suboxone, arthritis, admitted to [facility] on July 08 with complaint of cough and shortness of breath. Patient complained of 1-week history of increasing shortness of breath productive of yellowish sputum. Denied any chest pain pain, chest tightness and generalized myalgias. Patient apparently has been on inhalers at home but is not compliant, does not know the names. He has a longstanding history of tobacco use and currently smoking a half a pack a day. He denies any history of occupational exposure. Patient presented to the emergency room with the above complaints. In the ER he was started on inhaled bronchodilators and steroids with some improvement and transferred to the medical floor for further management. He underwent a CT scan of the chest during his current hospitalization which revealed evidence of extensive bullous emphysematous changes, but no infiltrates or masses were appreciated. Denies any hemoptysis. Denies any history of DVT or PE in the past. There is no history of recent travel. PAST MEDICAL HISTORY: Again includes COPD, HIV, noncompliant with medications, hypertension, polysubstance abuse. REVIEW OF SYSTEMS: Positive shortness of breath. Positive dyspnea on exertion. Positive cough. No hemoptysis. No chest pain. Positive chest tightness. No abdominal pain or lower extremity edema. CURRENT MEDICATIONS: Include Spiriva; DiaBeta; Tussin; Duo-Neb; Norvasc; Lasix; Tab-A-Ana M; and Suboxone. PHYSICAL EXAMINATION: General: The patient is an obese male, wide awake, alert, in no acute distress. Vital Signs: He is afebrile, blood pressure 128/63, respiratory rate is 20, O2 saturation is 98% on 2 L. HEENT: Normocephalic, atraumatic. Neck: Supple. Heart: Regular S1, S2. Chest: Diminished breath sounds bilaterally. Abdomen: Soft. Bowel sounds are positive. Extremities: No cyanosis or edema. LABORATORIES: WBC is 11.2, hemoglobin 10.7, hematocrit 35.1 with a platelet count of . INR is 1.23. Venous blood gas: PH is 7.33, PCO2 is 50, PO2 is 46 and bicarbonate of 26. BUN 20, creatinine 1.2. BNP is 187. Chest CT as noted earlier, no evidence of masses or infiltrates. Extensive COPD changes with mild mediastinal adenopathy. IMPRESSION: 1. Dyspnea secondary to acute exacerbation of chronic obstructive pulmonary disease, likely secondary to noncompliance with medication. 2. Possible viral infection/bronchitis. 3. Polysubstance abuse. 4. Hypertension. 5. Human immunodeficiency virus, noncompliant with medication. PLAN: Steroids. Antibiotics. Inhaled bronchodilators. Smoking cessation counseled. He will need low-dose chest CT scanning for lung cancer screening. Stressed compliance with medications. Thank you. VAN TEJEDA M.D. [id number]
[2018-07-09] MEDS: MULTIVITAMINS (DAILY MVI) TABLET (FP) PO SCH (14:29)
[2018-07-09] MEDS: BUDESONIDE/FORMETEROL FUMARATE 160/4.5 mcg INHALER IH SCH ×2 (14:56→22:17)
[2018-07-09 15:45] LABS: METHADONE, UR NEGATIVE ng/ml (CUTOFF=300); OPIATES, URI NEGATIVE ng/ml (CUTOFF=300); URINE AMPHETAMINES NEGATIVE ng/ml (CUTOFF=500); URINE BARBITURATES NEGATIVE ng/ml (CUTOFF=200); URINE BENZODIAZEPINES NEGATIVE ng/ml (CUTOFF=200)
[2018-07-09 15:56] LABS: COCAINE, UR POSITIVE ng/ml (CUTOFF=300); PHENCYCLIDINE,URINE POSITIVE ng/ml (CUTOFF=25)
[2018-07-09] MEDS: ALBUTEROL SO4 2.5/IPRATROPIUM 0.5 INH SOL 3 ML VIAL.NEB. NEB PRN (16:35)
[2018-07-10] MEDS ORDERED: MELATONIN 5 MG TABLETS PO ONE ×3 (00:54→22:18)
[2018-07-10] MEDS: methylPREDNISolone NA SUCC 40 MG/1 ML VIAL IVPUSH SCH ×2 (03:05→10:10)
[2018-07-10] MEDS: BUPRENORPHINE/NALOXONE 8 MG/2 MG FILM PACKET SL SCH ×3 (06:47→22:04)
[2018-07-10] MEDS: guaiFENesin/D-M SUGAR-FREE/ACLHOL-FREE 118 ML BOTTLE PO PRN (06:47)
[2018-07-10] MEDS ORDERED: PT OWN MED DRAWER 7, Y5N ONE ×2 (10:08→10:26)
[2018-07-10] MEDS: MULTIVITAMINS (DAILY MVI) TABLET (FP) PO SCH (10:10)
[2018-07-10] MEDS: amLODIPine BESYLATE 10 MG TABLET (FP) PO SCH (10:10)
[2018-07-10] MEDS: ENOXAPARIN NA (PORCINE) 40 MG/0.4 ML DISP.SYRIN SQ SCH (10:10)
[2018-07-10] MEDS: FUROSEMIDE 40 MG TABLET (FP) PO SCH (10:10)
[2018-07-10] MEDS: BUDESONIDE/FORMETEROL FUMARATE 80/4.5 mcg INHALER IH SCH ×2 (10:11→22:06)
[2018-07-10] MEDS: BUDESONIDE/FORMETEROL FUMARATE 160/4.5 mcg INHALER IH SCH ×2 (10:11→22:06)
[2018-07-10] MEDS: TIOTROPIUM BROMIDE 2.5 MCG (SPIRIVA) RESPIMAT INHALER IH SCH (10:11)
--- NOTE | 2018-07-10 13:07 | PN ---
Progress Note (short form) - Note Progress Note: Less SOB. Cough persists. No CP. No acute events overnight. Intake & Output 07/07/18 07/08/18 07/09/18 07/10/18 23:59 23:59 23:59 23:59 Intake Total 2009 Balance 2009 Weight 235 lb Last Vital Signs Temp Pulse Resp BP Pulse Ox 98.0 F 77 20 114/71 98 07/09/18 18:00 07/09/18 18:00 07/09/18 18:00 07/09/18 18:00 07/09/18 21:00 Active Medications Albuterol/Ipratropium (Duoneb -) 1 amp NEB Q4H PRN PRN Reason: SHORT OF BREATH/WHEEZING Last Admin: 07/09/18 16:35 Dose: 1 amp Amlodipine Besylate (Norvasc -) 10 mg PO DAILY [facility] Last Admin: 07/10/18 10:10 Dose: 10 mg Budesonide/Formoterol Fumarate (Symbicort 80/4.5mcg -) 1 puff IH BID [facility] Last Admin: 07/10/18 10:11 Dose: 1 puff Budesonide/Formoterol Fumarate (Symbicort 160/4.5mcg -) 2 puff IH BID [facility] Last Admin: 07/10/18 10:11 Dose: 2 puff Buprenorphine/Naloxone (Suboxone 8mg/2mg Sl Film -) 1 each SL TID [facility] Last Admin: 07/10/18 06:47 Dose: 1 each Enoxaparin Sodium (Lovenox -) 40 mg SQ DAILY [facility] Last Admin: 07/10/18 10:10 Dose: 40 mg Furosemide (Lasix -) 40 mg PO DAILY [facility] Last Admin: 07/10/18 10:10 Dose: 40 mg Guaifenesin (Diabetic Tussin Dm -) 5 ml PO Q6H PRN PRN Reason: COUGH Last Admin: 07/10/18 06:47 Dose: 5 ml Levofloxacin (Levaquin -) 500 mg PO DAILY@0600 [facility] Last Admin: 07/10/18 06:47 Dose: 500 mg Methylprednisolone Sodium Succinate (Solu-Medrol -) 40 mg IVPUSH Q8H-IV [facility] Last Admin: 07/10/18 10:10 Dose: 40 mg Multivitamins/Minerals/Vitamin C (Tab-A-Vit -) 1 tab PO DAILY [facility] Last Admin: 07/10/18 10:10 Dose: 1 tab Tiotropium [place] (Spiriva Respimat) 2 puff IH DAILY [facility] Last Admin: 07/10/18 10:11 Dose: 2 puff GENERAL: awake, alert, oriented, in no acute distress. LUNGS: Scattered rhonchi and coarse breath sounds, no accessory muscle use. HEART: S1, S2 without murmur, rub or gallop. ABDOMEN: Obese, soft, nontender, nondistended, normoactive bowel sounds. EXTREMITIES: Trace edema. Laboratory Results - last 24 hr 07/08/18 07/09/18 18:15 14:45 Opiates Screen Negative Methadone Screen Negative Barbiturate Screen Negative Phencyclidine Screen Positive A* Ur Amphetamines Screen Negative MDMA (Ecstasy) Screen Negative Benzodiazepines Screen Negative Cocaine Screen Positive A* U Marijuana (THC) Screen Negative M.pneumoniae IgG Titer Cancelled M.pneumoniae IgM Titer Cancelled Problem List - Problems (1) Cigarette nicotine dependence Code(s): F17.210 - NICOTINE DEPENDENCE, CIGARETTES, UNCOMPLICATED (2) Encounter for monitoring Suboxone maintenance therapy Code(s): Z51.81 - ENCOUNTER FOR THERAPEUTIC DRUG LEVEL MONITORING; Z79.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 - 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 IMP COPD EXACERBATON LIKELY URI HIV NON -COMPLIANT WITH MEDS POLYSUBSTANCE ABUSE HTN TOBACCO ABUSE PLAN NO OBJECTION TO CHANGE TO PREDNISONE INHALED BRONCHODILATORS: SHOULD BE ON LAMA/LABA COMBO ON D/C ABX PER ID SMOKING CESSATION COUNSELED PFTS OUTPATIENT NO PULMONARY CONTRAINDICATION FOR D/C DR HSIEH
--- NOTE | 2018-07-10 16:07 | PN ---
Physical Exam: SUBJECTIVE: Patient seen and examined. He feels better. He is ambulating in hallway without difficulty. OBJECTIVE: Vital Signs Period Temp Pulse Resp BP Sys/Colon Pulse Ox Last 24 Hr 98.0 F-98.1 F 77-99 18-20 114-136/71-96 98 GENERAL: The patient is awake, alert, and fully oriented, in no acute distress. LUNGS: Breath sounds equal, clear to auscultation bilaterally, no wheezes, no crackles, no accessory muscle use. HEART: Regular rate and rhythm, S1, S2 without murmur, rub or gallop. ABDOMEN: Obese, soft, nontender, nondistended, normoactive bowel sounds, no guarding, no rebound, no hepatosplenomegaly, no masses. EXTREMITIES: 2+ pulses, warm, well-perfused, no edema. Laboratory Results - last 24 hr 07/08/18 18:15 M.pneumoniae IgG Titer Cancelled M.pneumoniae IgM Titer Cancelled Active Medications Generic Name Dose Route Start Last Admin Trade Name Freq PRN Reason Stop Dose Admin Albuterol/Ipratropium 1 amp 07/08/18 17:52 07/09/18 16:35 Duoneb - NEB 1 amp Q4H PRN Administration SHORT OF BREATH/WHEEZING Amlodipine Besylate 10 mg 07/09/18 10:00 07/10/18 10:10 Norvasc - PO 10 mg DAILY MARILYN Administration Budesonide/Formoterol Fumarate 1 puff 07/08/18 22:00 07/10/18 10:11 Symbicort 80/4.5mcg - IH 1 puff BID MARILYN Administration Budesonide/Formoterol Fumarate 2 puff 07/09/18 13:30 07/10/18 10:11 Symbicort 160/4.5mcg - IH 2 puff BID MARILYN Administration Buprenorphine/Naloxone 1 each 07/08/18 22:00 07/10/18 14:08 Suboxone 8mg/2mg Sl Film - SL 1 each TID MARILYN Administration Enoxaparin Sodium 40 mg 07/09/18 10:00 07/10/18 10:10 Lovenox - SQ 40 mg DAILY MARILYN Administration Furosemide 40 mg 07/10/18 10:00 07/10/18 10:10 Lasix - PO 40 mg DAILY MARILYN Administration Guaifenesin 5 ml 07/08/18 19:49 10/04/18 06:47 Diabetic Tussin Dm - PO 5 ml Q6H PRN Administration COUGH Levofloxacin 500 mg 07/10/18 06:00 07/10/18 06:47 Levaquin - PO 500 mg DAILY@0600 MARILYN Administration Methylprednisolone Sodium Succinate 40 mg 07/09/18 02:00 07/10/18 10:10 Solu-Medrol - IVPUSH 40 mg Q8H-IV MARILYN Administration Multivitamins/Minerals/Vitamin C 1 tab 07/09/18 12:00 07/10/18 10:10 Tab-A-Vit - PO 1 tab DAILY MARILYN Administration Tiotropium Lynn 2 puff 07/09/18 10:00 07/10/18 10:11 Spiriva Respimat IH 2 puff DAILY MARILYN Administration ASSESSMENT/PLAN: This is a 63 year old man with a history of HTN, polysubstance abuse, HIV, DJD who presented to the ED with cough and SOB. 1. Possible acute diastolic heart failure - Improved - Continue Lasix PO - Echo shows normal LV with EF 65%, trace MR - Daily weights not documented - Monitor I&O 2. Acute exacerbation of COPD - Change SoluMedrol to Prednisone - Continue Levaquin for possible pneumonia - Continue Symbicort, Spiriva, DuoNeb as needed 3. HTN - Continue Norvasc, Lasix - Metoprolol discontinued secondary to cocaine use 4. HIV - Non-compliant with ART 5. Polysubstance abuse - Continue Suboxone 6. Microcytic anemia - Likely iron deficiency - Iron and iron saturation low, TIBC normal, ferritin low normal in 07/2018 - Outpatient follow up 7. Obesity with BMI 39.1 Visit type - Emergency Visit Emergency Visit: Yes ED Registration Date: 07/08/18 Care time: The patient presented to the Emergency Department on the above date and was hospitalized for further evaluation of their emergent condition. - New Patient This patient is new to me today: No - Critical Care Critical Care patient: No - Discharge Referral Referred to [facility] Med P.C[facility] No
[2018-07-10] MEDS: predniSONE 20 MG TABLET (UD) PO SCH (22:04)
[2018-07-11] MEDS: guaiFENesin/D-M SUGAR-FREE/ACLHOL-FREE 118 ML BOTTLE PO PRN ×2 (03:08→09:54)
[2018-07-11] MEDS: BUPRENORPHINE/NALOXONE 8 MG/2 MG FILM PACKET SL SCH (06:37)
--- NOTE | 2018-07-11 09:36 | DS ---
Physical Exam: SUBJECTIVE: Patient seen and examined OBJECTIVE: Vital Signs Period Temp Pulse Resp BP Sys/Colon Pulse Ox Last 24 Hr 98.1 F-98.4 F 69-99 18-20 131-136/92-96 95 PHYSICAL EXAM GENERAL: The patient is awake, alert, and fully oriented, in no acute distress. HEAD: Normal with no signs of trauma. EYES: PERRL, extraocular movements intact, sclera anicteric, conjunctiva clear. ENT: Ears normal, nares patent, oropharynx clear without exudates, moist mucous membranes. NECK: Trachea midline, full range of motion, supple. LUNGS: Breath sounds equal, clear to auscultation bilaterally, no wheezes, no crackles, no accessory muscle use. HEART: Regular rate and rhythm, S1, S2 without murmur, rub or gallop. ABDOMEN: Soft, nontender, nondistended, normoactive bowel sounds, no guarding, no rebound, no hepatosplenomegaly, no masses. EXTREMITIES: 2+ pulses, warm, well-perfused, no edema. NEUROLOGICAL: Cranial nerves II through XII grossly intact. Normal speech, gait not observed. PSYCH: Normal mood, normal affect. SKIN: Warm, dry, normal turgor, no rashes or lesions noted. LABS HOSPITAL COURSE: Date of Admission:07/08/18 Date of Discharge: 07/11/18 Discharge Summary Reason For Visit: PNEUMONIA Current Active Problems COPD exacerbation (Acute) Encounter for monitoring Suboxone maintenance therapy (Acute) Pneumonia (Acute) Cigarette nicotine dependence (Chronic) Cocaine abuse (Chronic) Degenerative arthritis of cervical spine (Chronic) Degenerative arthritis of left knee (Chronic) Degenerative arthritis of right hand (Chronic) [place] cardiac risk >20% in next 10 years (Chronic) HIV (human immunodeficiency virus infection) (Chronic) Hep C w/o coma, chronic (Chronic) Heroin addiction (Chronic) Hypertension (Chronic) Low back pain (Chronic) Microcytic anemia (Chronic) Obesity (BMI 30-39.9) (Chronic) Condition: Improved - Instructions Diet, Activity, Other Instructions: You were admitted to [facility] on 07/08 with a cough, leg swelling, and shortness of breath. You were diagnosed with an exacerbation of COPD, possible pneumonia, and possible congestive heart failure. You were treated with antibiotics, steroids, and diuretics. You are being discharged on the following new medications (prescriptions have been provided for you): Prednisone (steroid) 10 mg - Starting 07/12, take 4 tabs daily x 2 days, then 3 tabs daily x 2 days, then 2 tabs daily x 2 days, then 1 tab daily x 2 days Levaquin (antibiotic) 500 mg daily x 5 days starting 07/12 Lasix (water pill) 40 mg daily starting 07/12 Stiolto (inhaler) 2 puffs daily starting 07/12 You should stop taking the following medications: Metoprolol, Spiriva, Symbicort. You should follow a low sodium diet. You may resume your usual activity. Please schedule follow up appointments with the [facility] in 1 week, with the feeder operator automatic Dr. Hammer in 1 week, and with the milk pasteurizer Dr. Boswell in 1 week. Please return to the ER if you have fevers, shortness of breath or chest pain. Referrals: Richard Zhou MD [Staff Physician] - 1 Week Franklin Boswell MD [Staff Physician] - 1 Week Justin Hammer MD [Staff Physician] - 1 Week Disposition: HOME - Home Medications Comprehensive Discharge Medication List: Ambulatory Orders Amlodipine Besylate [Norvasc -] 10 mg PO DAILY #30 tablet 02/08/16 Vit D3/Folic Acid/B2/B6/B12 [Folgard Tablet] 1 each PO DAILY #30 tablet Albuterol 2.5/Ipratropium 0.5 [Duoneb -] 1 neb NEB Q4H PRN 07/08/18 Buprenorphine/Naloxone [Suboxone 8Mg/2Mg Sl Film -] 1 each SL TID 07/08/18 Elviteg/Cob/Emtri/Tenof Alafen [Genvoya Tablet] 1 each PO DAILY 07/08/18 Furosemide [Lasix -] 40 mg PO DAILY #30 tablet 07/11/18 Prednisone 10 mg PO ASDIR #20 tablet 07/11/18 Tiotropium Br/Olodaterol HCl [Stiolto Respimat Inhal Helen] 2 puff IH DAILY #1 mist.inhal 07/11/18 levoFLOXacin [Levaquin -] 500 mg PO DAILY #5 tablet 07/11/18 - Discharge Referral Referred to [facility] No
[2018-07-11] MEDS ORDERED: PT OWN MED DRAWER 7, Y5N ONE (09:44)
[2018-07-11 09:52] VITALS: BP 126/87; PULSE 79; TEMP 97.4
[2018-07-11] MEDS: MULTIVITAMINS (DAILY MVI) TABLET (FP) PO SCH (09:52)
[2018-07-11] MEDS: FUROSEMIDE 40 MG TABLET (FP) PO SCH (09:52)
[2018-07-11] MEDS: predniSONE 20 MG TABLET (UD) PO SCH (09:53)
[2018-07-11] MEDS: TIOTROPIUM BROMIDE 2.5 MCG (SPIRIVA) RESPIMAT INHALER IH SCH (09:53)
[2018-07-11] MEDS: ENOXAPARIN NA (PORCINE) 40 MG/0.4 ML DISP.SYRIN SQ SCH (09:53)
[2018-07-11] MEDS: amLODIPine BESYLATE 10 MG TABLET (FP) PO SCH (09:53)
[2018-07-11] MEDS: BUDESONIDE/FORMETEROL FUMARATE 160/4.5 mcg INHALER IH SCH (09:53)
== END 2018-07-11 11:31 | disposition home or self-care (01) | DRG 140 ==
LOC: JER 03:38 → JERBED 08:29 → J5S 17:40
PROVIDERS: ADMIT Internal Medicine; ATTEND Internal Medicine
DX: J44.1 Chronic obstructive pulmonary disease with (acute) exacerbation (principal); J18.9 Pneumonia, unspecified organism; F14.10 Cocaine abuse, uncomplicated; D50.9 Iron deficiency anemia, unspecified; F11.20 Opioid dependence, uncomplicated; M54.9 Dorsalgia, unspecified; F17.210 Nicotine dependence, cigarettes, uncomplicated; F16.10 Hallucinogen abuse, uncomplicated; R45.1 Restlessness and agitation; M47.812 Spondylosis without myelopathy or radiculopathy, cervical region; M17.9 Osteoarthritis of knee, unspecified; F19.20 Other psychoactive substance dependence, uncomplicated; B18.2 Chronic viral hepatitis C; I11.0 Hypertensive heart disease with heart failure; I50.31 Acute diastolic (congestive) heart failure; E66.9 Obesity, unspecified; Z21 Asymptomatic human immunodeficiency virus [HIV] infection status; J06.9 Acute upper respiratory infection, unspecified; Z51.81 Encounter for therapeutic drug level monitoring; Z79.899 Other long term (current) drug therapy; Z91.89 Other specified personal risk factors, not elsewhere classified; Z91.19 Patient's noncompliance with other medical treatment and regimen; Z68.39 Body mass index [BMI] 39.0-39.9, adult
CPT/HCPCS: 36415; 71045-TC-FY; 71250-TC; 80048; 80053; 80061; 80307; 81003; 82550; 82553; 82803; 83036; 83605; 83615; 83721; 83735; 83880; 84100; 84443; 84484; 85025; 85027; 85610; 85730; 86738; 87040; 87086; 87633; 87899; 93005; 93010; 93306-TC; 94640; 97116-GP; 97161-GP; 99284-25; J7620

== ENCOUNTER 2018-09-03 09:17 | Inpatient (IN) | payer OTHER ==
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
[2018-09-03] MEDS ORDERED: methylPREDNISolone NA SUCC 125 MG/2 ML VIAL IVPUSH ONE (09:52)
[2018-09-03] MEDS ORDERED: methylPREDNISolone NA SUCC 125 MG/2 ML VIAL ONE (10:11)
[2018-09-03] MEDS: ALBUTEROL SO4 2.5/IPRATROPIUM 0.5 INH SOL 3 ML VIAL.NEB. NEB SCH ×6 (10:13→20:27)
[2018-09-03 10:22] LABS: VENOUS PC02 48.2 mmHg (38-52); VENOUS PH 7.36 (7.32-7.42); VENOUS PO2 78.1 mmHg (28-48)
[2018-09-03] MEDS ORDERED: DOXYCYCLINE HYCLATE 100 MG CAPSULE PO ONE ×2 (10:31→10:42)
[2018-09-03] MEDS ORDERED: CEFTRIAXONE 1,000 MG in DEXTROSE 5%-WATER - 50 ML IVPB ONE (10:31)
[2018-09-03] MEDS ORDERED: SODIUM CHLORIDE 0.9% 500 ML INFUS.BAG IV ONE (10:32)
[2018-09-03] MEDS ORDERED: CEFTRIAXONE 1 GM/50 ML BAG ONE (10:42)
[2018-09-03 11:18] LABS: BASO % 0.8 % (0-2.0); EOS % 2.9 % (0-4.5); HEMATOCRIT 36.6 % (35.4-49); HEMOGLOBIN 11.1 GM/dL (11.7-16.9); LYMPH % 25.2 % (8-40); MCH 22.3 pg (25.7-33.7); MCHC 30.4 g/dl (32.0-35.9); MEAN CELL VOLUME 73.5 fl (80-96); MONO % 12.3 % (3.8-10.2); NEUT % 58.8 % (42.8-82.8); PLATELET COUNT 214 K/MM3 (134-434); RBC 4.98 M/mm3 (4.00-5.60)
--- NOTE | 2018-09-03 11:40 | EKG ---
Test Reason : Blood Pressure : / mmHG Vent. Rate : 069 BPM Atrial Rate : 069 BPM P-R Int : 158 ms QRS Dur : 076 ms QT Int : 412 ms P-R-T Axes : 032 -24 022 degrees QTc Int : 441 ms NORMAL SINUS RHYTHM NORMAL ECG WHEN COMPARED WITH ECG OF 08-JUL-2018 12:13, NO SIGNIFICANT CHANGE WAS FOUND Confirmed by JARRETT MATTHEWS MD ([id number]) on 09/03/2018 11:40:12 AM Referred By: Confirmed By:JARRETT MATTHEWS MD
[2018-09-03 12:33] LABS: ALBUMIN 3.1 g/dl (3.4-5.0); ALK PHOS 73 U/L (45-117); ANION GAP 5 MMOL/L (8-16); BILIRUBIN,TOTAL 0.3 mg/dL (0.2-1); BLOOD UREA NITROGEN 20 mg/dL (7-18); CALCIUM 8.3 mg/dL (8.5-10.1); CHLORIDE 102 mmol/L (98-107); CO2 29 mmol/L (21-32); CREATININE 1.3 mg/dL (0.55-1.3); GLUCOSE,RANDOM 103 mg/dL (74-106); POTASSIUM 4.6 mmol/L (3.5-5.1); SGOT/AST 39 U/L (15-37); SGPT/ALT 39 U/L (13-61); SODIUM 135 mmol/L (136-145); TOT PROT 6.9 g/dl (6.4-8.2)
[2018-09-03] MEDS ORDERED: ACETAMINOPHEN 325 MG TABLET (FP) PO PRN (15:24)
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
[2018-09-03] MEDS ORDERED: CEFTRIAXONE 1 GM in DEXTROSE 5%-WATER - 50 ML IVPB SCH (15:45)
[2018-09-03 17:08] VITALS: BMI 34.6
[2018-09-03] MEDS: methylPREDNISolone NA SUCC 40 MG/1 ML VIAL IVPUSH SCH (17:56)
[2018-09-03] MEDS: DOXYCYCLINE HYCLATE 100 MG CAPSULE PO SCH (17:56)
[2018-09-03] MEDS: [UNRECOGNIZED DRUG - OTHER] PO SCH (18:26)
[2018-09-03] MEDS: NICOTINE 14 MG/24 HOURS TOPICAL PATCH TD SCH (18:40)
[2018-09-03] MEDS ORDERED: guaiFENesin/D-METHORPHAN HB 10 ML UNIT-DOSE CUPS PO ONE (21:28)
[2018-09-04] MEDS: methylPREDNISolone NA SUCC 40 MG/1 ML VIAL IVPUSH SCH ×4 (01:09→21:19)
[2018-09-04] MEDS: METHADONE HCL 10 MG TABLET PO SCH (05:32)
[2018-09-04] MEDS: ALBUTEROL SO4 2.5/IPRATROPIUM 0.5 INH SOL 3 ML VIAL.NEB. NEB SCH ×4 (07:40→19:58)
[2018-09-04 08:14] LABS: BASO % 0.1 % (0-2.0); HEMATOCRIT 37.7 % (35.4-49); HEMOGLOBIN 11.3 GM/dL (11.7-16.9); LYMPH % 8.9 % (8-40); MCH 22.2 pg (25.7-33.7); MCHC 30.1 g/dl (32.0-35.9); MEAN CELL VOLUME 73.7 fl (80-96); MEAN PLT VOLUME 7.7 fl (7.5-11.1); MONO % 1.2 % (3.8-10.2); NEUT % 89.8 % (42.8-82.8); PLATELET COUNT 197 K/MM3 (134-434); RBC 5.12 M/mm3 (4.00-5.60); RDW 20.3 % (11.9-15.9); WHITE BLOOD COUNT 8.3 K/mm3 (4.0-10.0)
[2018-09-04 08:57] LABS: ANION GAP 8 MMOL/L (8-16); BLOOD UREA NITROGEN 22 mg/dL (7-18); CALCIUM 8.7 mg/dL (8.5-10.1); CHLORIDE 100 mmol/L (98-107); CO2 25 mmol/L (21-32); CREATININE 1.2 mg/dL (0.55-1.3); GLUCOSE,RANDOM 135 mg/dL (74-106); MAGNESIUM 1.9 mg/dL (1.8-2.4); POTASSIUM 4.8 mmol/L (3.5-5.1); SODIUM 133 mmol/L (136-145)
[2018-09-04] MEDS ORDERED: ENOXAPARIN NA (PORCINE) 40 MG/0.4 ML DISP.SYRIN SQ SCH (10:00)
[2018-09-04] MEDS ORDERED: CEFTRIAXONE 1 GM in DEXTROSE 5%-WATER - 50 ML IVPB SCH (10:00)
--- NOTE | 2018-09-04 10:22 | PN ---
Progress Note, Physician Chief Complaint: Mr Watson complains of chronic back and knee pain. Says his shortness of breath is a little better. No cp or n/v. - Current Medication List Current Medications: Active Medications Acetaminophen (Tylenol -) 650 mg PO Q4H PRN PRN Reason: FEVER Albuterol/Ipratropium (Duoneb -) 1 amp NEB RQID [facility] Last Admin: 09/03/18 20:27 Dose: 1 amp Doxycycline Hyclate (Vibramycin -) 100 mg PO BID@1000,1800 [facility] Last Admin: 09/03/18 17:56 Dose: 100 mg Emollient Ointment (Aquaphor -) 1 applic TP BID [facility] Enoxaparin Sodium (Lovenox -) 40 mg SQ DAILY [facility] Guaifenesin (Guaifenesin Dm Syrup) 10 ml PO Q6H PRN PRN Reason: COUGH Ceftriaxone Sodium 1 gm/ (Dextrose) 50 mls @ 100 mls/hr IVPB DAILY [facility]; Protocol Lactobacillus Acidophilus (Bacid -) 1 tab PO DAILY [facility] Methadone HCl (Dolophine -) 60 mg PO DAILY@0600 [facility] Last Admin: 09/04/18 05:32 Dose: 60 mg Methylprednisolone Sodium Succinate (Solu-Medrol -) 40 mg IVPUSH BID [facility] Nicotine (Nicoderm Patch -) 14 mg TD DAILY [facility] Last Admin: 09/03/18 18:40 Dose: Not Given Ptnt's Own Med ( Elviteg/Cob/Emtri/Tenof Alafen [ Genvoya Tablet] 1 each PO DAILY [facility] Last Admin: 09/03/18 18:26 Dose: Not Given - Objective Vital Signs: Vital Signs Temperature 36.9 C 09/04/18 06:07 Pulse Rate 70 09/04/18 06:07 Respiratory Rate 20 09/04/18 06:07 Blood Pressure 160/98 09/04/18 06:07 O2 Sat by Pulse Oximetry (%) 95 09/03/18 21:00 Constitutional: Yes: No Distress, Calm, Obese Cardiovascular: Yes: Regular Rate and Rhythm. No: Gallop, Murmur, Rub Respiratory: Yes: Regular, Rhonchi (bibasilar, slight). No: CTA Bilaterally, Rales, Wheezes Gastrointestinal: Yes: Normal Bowel Sounds, Soft. No: Distention, Tenderness Extremities: Yes: WNL Edema: No Labs: CBC, BMP 09/04/18 07:50 09/04/18 07:50 Problem List - Problems (1) COPD exacerbation Code(s): J44.1 - CHRONIC OBSTRUCTIVE PULMONARY DISEASE W (ACUTE) EXACERBATION (2) Pneumonia Code(s): J18.9 - PNEUMONIA, UNSPECIFIED ORGANISM (3) Cigarette nicotine dependence Code(s): F17.210 - NICOTINE DEPENDENCE, CIGARETTES, UNCOMPLICATED (4) Cocaine abuse Code(s): F14.10 - COCAINE ABUSE, UNCOMPLICATED (5) HIV (human immunodeficiency virus infection) Code(s): Z21 - ASYMPTOMATIC HUMAN IMMUNODEFICIENCY VIRUS INFECTION STATUS Assessment/Plan (1) COPD exacerbation Assessment/Plan: -patient looking much improved today -walking in hallway without shortness of breath -lung exam improving significantly -can decrease solumedrol to q12h -plan for discharge on oral taper -continue antibiotics day 2 -continue bronchodilators Code(s): J44.1 - CHRONIC OBSTRUCTIVE PULMONARY DISEASE W (ACUTE) EXACERBATION (2) Pneumonia Assessment/Plan: -remains afebrile -normal WBC, chest x-ray negative, no oxygen requirement -if remains afebrile can change to oral antibiotics tomorrow to finish course Code(s): J18.9 - PNEUMONIA, UNSPECIFIED ORGANISM (3) Cigarette nicotine dependence Assessment/Plan: -patient refusing nicotine patch Code(s): F17.210 - NICOTINE DEPENDENCE, CIGARETTES, UNCOMPLICATED (4) Cocaine abuse Assessment/Plan: -outpatient management Code(s): F14.10 - COCAINE ABUSE, UNCOMPLICATED (5) HIV (human immunodeficiency virus infection) Assessment/Plan: -continue home regimen Code(s): Z21 - ASYMPTOMATIC HUMAN IMMUNODEFICIENCY VIRUS INFECTION STATUS Dispo -plan for discharge tomorrow
[2018-09-04] MEDS ORDERED: DEXTROSE 5%-WATER - 50 ML IVPB ONE (10:34)
[2018-09-04] MEDS ORDERED: cefTRIAXone SODIUM 1 GM VIAL ONE (10:34)
[2018-09-04] MEDS: NICOTINE 14 MG/24 HOURS TOPICAL PATCH TD SCH (10:48)
[2018-09-04] MEDS: DOXYCYCLINE HYCLATE 100 MG CAPSULE PO SCH ×2 (10:48→18:28)
[2018-09-04] MEDS: LACTOBACILLUS ACIDOPHILUS 1 TABLET PO SCH (10:49)
[2018-09-04] MEDS: [UNRECOGNIZED DRUG - OTHER] PO SCH (10:49)
[2018-09-04] MEDS: guaiFENesin/D-METHORPHAN HB 5 ML UNIT-DOSE CUPS PO PRN (11:02)
[2018-09-04] MEDS: MINERAL OIL/PET HY-PHL TOPICAL OINTMENT 454 GM JAR TP SCH ×2 (11:31→21:21)
[2018-09-05] MEDS: guaiFENesin/D-METHORPHAN HB 5 ML UNIT-DOSE CUPS PO PRN (00:16)
[2018-09-05] MEDS: METHADONE HCL 10 MG TABLET PO SCH (06:16)
[2018-09-05] MEDS: ALBUTEROL SO4 2.5/IPRATROPIUM 0.5 INH SOL 3 ML VIAL.NEB. NEB SCH (07:25)
[2018-09-05 07:27] VITALS: BP 160/102; PULSE 56; TEMP 98.2
[2018-09-05 08:25] LABS: BASO % 0.2 % (0-2.0); HEMATOCRIT 35.8 % (35.4-49); HEMOGLOBIN 10.8 GM/dL (11.7-16.9); LYMPH % 5.4 % (8-40); MCH 22.2 pg (25.7-33.7); MCHC 30.1 g/dl (32.0-35.9); MEAN CELL VOLUME 73.8 fl (80-96); MEAN PLT VOLUME 8.8 fl (7.5-11.1); MONO % 2.3 % (3.8-10.2); NEUT % 92.1 % (42.8-82.8); PLATELET COUNT 179 K/MM3 (134-434); RBC 4.86 M/mm3 (4.00-5.60); RDW 20.4 % (11.9-15.9); WHITE BLOOD COUNT 13.8 K/mm3 (4.0-10.0)
[2018-09-05] MEDS: LACTOBACILLUS ACIDOPHILUS 1 TABLET PO SCH (09:39)
[2018-09-05] MEDS: DOXYCYCLINE HYCLATE 100 MG CAPSULE PO SCH (09:39)
[2018-09-05] MEDS ORDERED: predniSONE 20 MG TABLET (UD) PO SCH (10:00)
--- NOTE | 2018-09-05 10:11 | DS ---
Physical Examination Vital Signs: Vital Signs Temperature 36.8 C 09/05/18 07:25 Pulse Rate 56 L 09/05/18 07:25 Respiratory Rate 20 09/05/18 07:25 Blood Pressure 160/102 H 09/05/18 07:25 O2 Sat by Pulse Oximetry (%) 95 09/05/18 09:00 Constitutional: Yes: No Distress, Calm, Obese Cardiovascular: Yes: Regular Rate and Rhythm. No: Gallop, Murmur, Rub Respiratory: Yes: Regular, CTA Bilaterally. No: Rales, Rhonchi, Wheezes Gastrointestinal: Yes: Normal Bowel Sounds, Soft. No: Distention, Tenderness Extremities: Yes: WNL Edema: No Labs: CBC, BMP 09/05/18 07:10 09/04/18 07:50 Discharge Summary Reason For Visit: HIV,OBST BRONCHITIS,PNEUMONIA,CIGARETTE NICOTINE Current Active Problems COPD (chronic obstructive pulmonary disease) (Acute) Pneumonia (Acute) Tobacco use (Acute) Hospital Course: (1) COPD exacerbation Code(s): J44.1 - CHRONIC OBSTRUCTIVE PULMONARY DISEASE W (ACUTE) EXACERBATION (2) Pneumonia Code(s): J18.9 - PNEUMONIA, UNSPECIFIED ORGANISM (3) Cigarette nicotine dependence Code(s): F17.210 - NICOTINE DEPENDENCE, CIGARETTES, UNCOMPLICATED (4) Cocaine abuse Code(s): F14.10 - COCAINE ABUSE, UNCOMPLICATED (5) HIV (human immunodeficiency virus infection) Code(s): Z21 - ASYMPTOMATIC HUMAN IMMUNODEFICIENCY VIRUS INFECTION STA Mr Watson is a 63 year old male who comes in with concern for pneumonia and COPD exacerbation. He was taking levaquin and was not feeling better and presented to the hospital. He was admitted for pneumonia. He was started on rocephin and doxycycline. He was placed on bronchodilators and solumedrol. He improved and is currently stable for discharge home. He will be prescribed a steroid taper and inhaled albuterol. He should follow up with his PCP for further care. 31 minutes spent in preparation of this discharge Condition: Stable - Instructions Diet, Activity, Other Instructions: resume previous diet and activity Referrals: Kevin Barnett MD [Primary Care Provider] - Disposition: HOME - Home Medications Comprehensive Discharge Medication List: Ambulatory Orders Elviteg/Cob/Emtri/Tenof Alafen [Genvoya Tablet] 1 each PO DAILY 07/08/18 Methadone HCl 60 mg PO DAILY@0600 09/03/18 levoFLOXacin [Levaquin -] 750 mg PO DAILY 09/03/18 Albuterol Sulfate Inhaler - [Ventolin HFA Inhaler -] 1 - 2 inh PO QID PRN #1 inhaler 09/05/18 Guaifenesin/Dextromethorphan [Guaifenesin Dm Syrup] 10 ml PO Q6H PRN #1 bottle 09/05/18 Lactobacillus Acidophilus [Bacid -] 1 tab PO DAILY #10 tab 09/05/18 predniSONE [Deltasone -] 5 mg PO ASDIR #32 tab 09/05/18
[2018-09-05] MEDS: MINERAL OIL/PET HY-PHL TOPICAL OINTMENT 454 GM JAR TP SCH (10:17)
[2018-09-05 12:02] LABS: ANISOCYTOSIS 3+; MACROCYTOSIS 0; PLATELET ESTIMATE NORMAL; TARGET CELLS 2+
== END 2018-09-05 10:16 | disposition home or self-care (01) | DRG 140 ==
LOC: JER 09:17 → JERBED 11:11 → J8W 14:18
PROVIDERS: ADMIT Internal Medicine; ATTEND Internal Medicine
DX: J44.1 Chronic obstructive pulmonary disease with (acute) exacerbation (principal); J18.9 Pneumonia, unspecified organism; I11.0 Hypertensive heart disease with heart failure; I50.32 Chronic diastolic (congestive) heart failure; F11.20 Opioid dependence, uncomplicated; F17.210 Nicotine dependence, cigarettes, uncomplicated; Z21 Asymptomatic human immunodeficiency virus [HIV] infection status; Z91.14 Patient's other noncompliance with medication regimen; F14.10 Cocaine abuse, uncomplicated; D64.9 Anemia, unspecified; B19.20 Unspecified viral hepatitis C without hepatic coma; E66.9 Obesity, unspecified; Z68.34 Body mass index [BMI] 34.0-34.9, adult; M19.90 Unspecified osteoarthritis, unspecified site
CPT/HCPCS: 36415; 71046-TC-FY; 80048; 80053; 82803; 83735; 84100; 84484; 85025; 87804; 93005; 93010; 94640; 99285-25

== ENCOUNTER 2018-12-29 06:24 | Emergency (ER) | payer OTHER ==
[2018-12-29 06:40] VITALS: BMI 25.8
[2018-12-29] MEDS ORDERED: ACETAMINOPHEN 325 MG TABLET (FP) PO ONE (08:22)
[2018-12-29] MEDS ORDERED: morphine CARPU-JECT 2 MG/1 ML DISP.SYRIN SQ ONE (08:26)
--- NOTE | 2018-12-29 08:28 | PDOC ---
History of Present Illness - General Chief Complaint: Pain, Acute Stated Complaint: BILATERAL KNEE PAIN,NECK PAIN Time Seen by Provider: 12/29/18 07:51 History Source: Patient Exam Limitations: No Limitations - History of Present Illness Initial Comments: 12/29/18 08:23 63-year-old male with chronic knee and neck aching pain for the past 2-3 years presents to ED with continual discomfort to the areas worsened with ambulation. Patient was recommended by the orthopedist to follow-up with pain management since patient is refusing knee replacement. Patient is currently on methadone for opiate and drug abuse. Patient states has been off the medication for the past 3 days and wants to switch over to Suboxone. Timing/Duration: other (years ) Severity: moderate Associated Symptoms: reports: other (difficulty walking) Past History - Travel Traveled outside of the country in the last 30 days: No Close contact w/someone who was outside of country & ill: No - Past Medical History Allergies/Adverse Reactions: Allergies Allergy/AdvReac Type Severity Reaction Status Date / Time No Known Allergies Allergy Verified 12/29/18 06:40 Home Medications: Ambulatory Orders Elviteg/Cob/Emtri/Tenof Alafen [Genvoya Tablet] 1 each PO DAILY 07/08/18 Methadone HCl 30 mg PO DAILY@0600 09/03/18 Albuterol Sulfate Inhaler - [Ventolin HFA Inhaler -] 1 - 2 inh PO QID PRN #1 inhaler 09/05/18 Albuterol 0.083% Nebulizer Mary Jo [Ventolin 0.083% Nebulizer Soln -] 1 neb NEB Q6H PRN #120 vial 10/22/18 Blood Pressure Kit-Extra Large [Blood Pressure Monitor] 1 each ASDIR #1 kit 10/22/18 Budesonide/Formeterol Fumarate [SYMBICORT 80/4.5mcg -] 1 inh PO BID #1 cannister 10/22/18 Nebulizer Accessories [Reusable Nebulizer Kit] 1 each ASDIR #1 kit 10/22/18 Nebulizer and Compressor [[place] Choice Nebulizer] 1 each ASDIR #1 each 10/22 Tiotropium [place] [Spiriva] 1 inh PO DAILY #30 inhaler 10/22/18 Furosemide [Lasix -] 1 tab PO DAILY 11/03/18 Metoprolol Succinate 1 tab PO DAILY 11/03/18 Multivit with Iron,Minerals [Complete Senior] 1 tab PO DAILY 11/03/18 Mirtazapine [Remeron -] 30 mg PO DAILY #30 tablet 12/24/18 traZODone HCL [Trazodone HCl] 100 mg PO HS #30 tablet 12/24/18 Anemia: No Asthma: No Cancer: No Cardiac Disorders: No CVA: No COPD: Yes CHF: No Dementia: No Diabetes: No GI Disorders: No Disorders: Yes (UTI) HTN: Yes Hypercholesterolemia: No Liver Disease: No Psychiatric Problems: No Seizures: No Thyroid Disease: No - Surgical History Abdominal Surgery: No Appendectomy: No Cardiac Surgery: No Cholecystectomy: No Lung Surgery: No Neurologic Surgery: No Orthopedic Surgery: Yes (Fx Skull - fell from 4th floor window as a child, Low BAck pain - Deeg Bone) - Suicide/Smoking/Psychosocial Hx Smoking History: Never smoked Have you smoked in the past 12 months: No Number of Cigarettes Smoked Daily: 10 Cigars Per Day: 0 Information on smoking cessation initiated: No 'Breaking Loose' booklet given: 09/03/18 Hx Alcohol Use: Yes (Social) Drug/Substance Use Hx: No Substance Use Type: Cocaine Hx Substance Use Treatment: Yes (HEROINE/COCAINE X 2DAYS) Patient Lives Alone: Yes Lives with/in: lives alone Review of Systems - Review of Systems Able to Perform ROS?: No Is the patient limited Romanian proficient: No Constitutional: No: Symptoms Reported HEENTM: No: Symptoms Reported Respiratory: No: Symptoms reported Cardiac (ROS): No: Symptoms Reported ABD/GI: No: Symptoms Reported : No: Symptoms Reported Musculoskeletal: Yes: Joint Pain (knee), Neck Pain Integumentary: No: Symptoms Reported Neurological: No: Symptoms reported *Physical Exam - Vital Signs Last Vital Signs Temp Pulse Resp BP Pulse Ox 98.1 F 86 22 H 148/92 96 12/29/18 06:30 12/29/18 06:30 12/29/18 06:30 12/29/18 06:30 12/29/18 06:30 - Physical Exam General Appearance: Yes: Nourished, Appropriately Dressed. No: Apparent Distress HEENT: positive: EOMI, CHRISTA. negative: Pale Conjunctivae Neck: positive: Supple, Tender lateral (lars trapezius tenderness ). negative: Tender midline Respiratory/Chest: positive: Lungs Clear, Normal Breath Sounds. negative: Respiratory Distress, Accessory Muscle Use Cardiovascular: positive: Regular Rhythm, Regular Rate. negative: Murmur Vascular Pulses: Dorsalis-Pedis (R): 1+, Doralis-Pedis (L): 1+ Gastrointestinal/Abdominal: positive: Soft. negative: Tenderness Extremity: positive: Normal Range of Motion. negative: Tender (+ crepitus noted during flexion and extension of lars patellas, No increased warmth or edema noted) Integumentary: positive: Normal Color, Warm, Moist Neurologic: positive: Motor Strength 5/5 (ambulatory) Medical Decision Making - Medical Decision Making 12/29/18 08:33 CC: chronic LARS knee pain and neck pain, requesting pain meds, off of methadone x 3 days and has appt this thurs w/ pain mx Exam: pt anxious but otherwise stable, No cervical midline tenderness, noted crepitus with patella flexion/extension Plan: analgesic and reevaluate Xrays of lars knee 11/20/18- shows increased arthritic changes since last imaging 12/29/18 10:07 Patient requesting to go home. Patient requesting second pain management physician. Patient will be discharged home in fentanyl patch and referral to Dr. Tinsley *DC/Admit/Observation/Transfer Diagnosis at time of Disposition: Degenerative arthritis of left knee Chronic pain Qualifiers: Chronic pain type: other chronic pain Qualified Code(s): G89.29 - Other chronic pain - Discharge Dispostion Disposition: HOME Condition at time of disposition: Improved - Referrals Referrals: Satinder Tinsley MD [Staff Physician] - - Patient Instructions Printed Discharge Instructions: DI for Arthritis Additional Instructions: Please stop at pharmacy and start patch tonight. Please follow up with pain management. - Post Discharge Activity
[2018-12-29] MEDS ORDERED: ACETAMINOPHEN 325 MG TABLET (FP) ONE (09:57)
[2018-12-29] MEDS ORDERED: morphine SULFATE 4 MG/ML VIAL ONE (09:57)
[2018-12-29 11:11] VITALS: BP 138/78; PULSE 78; TEMP 98.9
== END 2018-12-29 11:10 | disposition home or self-care (01) ==
LOC: JER 06:24
PROC: 3E013NZ Introduction of Analgesics, Hypnotics, Sedatives into Subcutaneous Tissue, Percutaneous Approach (ICD-10-PCS; principal; 2018-12-29)
DX: M17.0 Bilateral primary osteoarthritis of knee (principal); F11.20 Opioid dependence, uncomplicated; I10 Essential (primary) hypertension; G89.29 Other chronic pain
CPT/HCPCS: 96372; 99282-25

== ENCOUNTER 2019-01-13 12:49 | Inpatient (IN) | payer OTHER ==
[2019-01-13 13:01] VITALS: BMI 35.5
--- NOTE | 2019-01-13 13:10 | PDOC ---
Attending Attestation - Resident Resident Name: Alisa Warren - [facility] HPI: 01/13/19 13:54 The patient is a 63 year old male, with a significant past medical history of HIV (CD4 in 436 in December 2018), COPD, and heroin use (last used today), who presents to the emergency department with 2 days of intermittent chest pain, productive cough, generalized fatigue and shortness of breath (88% on room air) today. He reports chest pain with coughing. He denies chest pain at rest. He reports shortness of breath at rest which is exacerbated with ambulating stairs and lying flat. He states he has not eaten in 2 days. He states he also has bilateral flank pain. The patient denies headache and dizziness. The patient denies fever, chills, nausea, vomit, diarrhea and constipation. The patient denies dysuria, frequency , urgency and hematuria. Allergies: NKDA - Physicial Exam PE: 01/13/19 13:54 GENERAL: Awake, alert, and fully oriented, in no acute distress HEAD: No signs of trauma EYES: PERRLA, EOMI, sclera anicteric, conjunctiva clear ENT: Auricles normal inspection, hearing grossly normal, nares patent, oropharynx clear without exudates. Moist mucosa NECK: Normal ROM, supple, no lymphadenopathy, JVD, or masses LUNGS: (+) mildly tachypneic. Scant wheezes in the bilateral bases. Good air entry, Breath sounds equal, no crackles HEART: (+) mildly tachycardic rate, regular rhythm. normal S1 and S2, no murmurs , rubs or gallops ABDOMEN: Soft, nontender, normoactive bowel sounds. No guarding, no rebound. No masses EXTREMITIES: Normal range of motion, no edema. No clubbing or cyanosis. No cords, erythema, or tenderness NEUROLOGICAL: Cranial nerves II through XII grossly intact. Normal speech, normal gait SKIN: Warm, Dry, normal turgor, no rashes or lesions noted. <Aster Santo - Last Filed: 01/13/19 14:06> - Medical Decision Making 01/13/19 17:29 Pt presented to the ED complaining of shortness of breath and productive cough. History of HIV with CD4 count of 400. Differential included CHF, PNA and PE. CXR is negative for PNA, but labs show elevated CR and patient is persistently hypoxic. Plan was for CT PE and admission for persistent hypoxia, but patient is refusing to stay and asking to leave AMA. I have spoken to him at length and he understands the risk of massive PE with progression to cardiac arrest and , PNA with progression to sepsis and other lifethreatening illnessess. PAtient understands that he should return immediately to the ED for new or worsening symptoms and will follow up with the [facility] tomorrow. 01/13/19 17:43 <Teri Puri - Last Filed: 01/13/19 17:46> Attestations - Attestations 01/13/19 13:56 Documentation prepared by Aster Santo, acting as medical clerk for Teri Puri MD <Aster Santo - Last Filed: 01/13/19 14:06>
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
[2019-01-13] MEDS ORDERED: ALBUTEROL SO4 2.5/IPRATROPIUM 0.5 INH SOL 3 ML VIAL.NEB. NEB ONE ×2 (13:58→15:19)
--- NOTE | 2019-01-13 14:35 | EKG ---
Test Reason : Blood Pressure : / mmHG Vent. Rate : 098 BPM Atrial Rate : 098 BPM P-R Int : 144 ms QRS Dur : 082 ms QT Int : 362 ms P-R-T Axes : 064 006 059 degrees QTc Int : 462 ms NORMAL SINUS RHYTHM NORMAL ECG WHEN COMPARED WITH ECG OF 03-SEP-2018 09:33, NO SIGNIFICANT CHANGE WAS FOUND Confirmed by MD Goodman Edward ([id number]) on 01/13/2019 2:35:25 PM Referred By: Confirmed By:Boby Goodman MD
[2019-01-13] MEDS ORDERED: levoFLOXacin 750 MG TABLET PO ONE (14:45)
[2019-01-13 15:57] LABS: BASO % 0.8 % (0-2.0); EOS % 1.3 % (0-4.5); HEMATOCRIT 37.7 % (35.4-49); LYMPH % 15.2 % (8-40); MCH 24.6 pg (25.7-33.7); MCHC 31.9 g/dl (32.0-35.9); MEAN CELL VOLUME 77.1 fl (80-96); MEAN PLT VOLUME 7.7 fl (7.5-11.1); MONO % 12.1 % (3.8-10.2); NEUT % 70.6 % (42.8-82.8); PLATELET COUNT 215 K/MM3 (134-434); RBC 4.89 M/mm3 (4.00-5.60); RDW 18.3 % (11.9-15.9)
[2019-01-13 16:13] LABS: INR 1.19 (0.83-1.09); PROTHROMBIN TIME (PATIENT) 14.1 SEC (9.7-13.0)
[2019-01-13 16:16] LABS: ACTIVATED PTT 31.4 SECONDS (25.2-36.5)
[2019-01-13 16:37] LABS: ALBUMIN 3.2 g/dl (3.4-5.0); ALK PHOS 84 U/L (45-117); ANION GAP 8 MMOL/L (8-16); BILIRUBIN,TOTAL 0.4 mg/dL (0.2-1); BLOOD UREA NITROGEN 33 mg/dL (7-18); CALCIUM 8.5 mg/dL (8.5-10.1); CHLORIDE 98 mmol/L (98-107); CO2 30 mmol/L (21-32); CREATININE 2.4 mg/dL (0.55-1.3); GLUCOSE,RANDOM 112 mg/dL (74-106); N-TERMINAL BNP 270.3 pg/ml (5-125); SGOT/AST 26 U/L (15-37); SGPT/ALT 21 U/L (13-61); SODIUM 136 mmol/L (136-145); TOT PROT 7.6 g/dl (6.4-8.2)
--- NOTE | 2019-01-13 19:25 | PN ---
Teaching Attending Note Name of Resident: Oswaldo Barnett ATTENDING PHYSICIAN STATEMENT I saw and evaluated the patient. I reviewed the resident's note and discussed the case with the resident. I agree with the resident's findings and plan as documented. SUBJECTIVE: Patient is a 63 year old man with PMH of HIV disease (CD4 in 436 in December 2018) , COPD, HTN, Tobacco use, Hepatitis C disease (treated), Polysubstance abuse ( cocaine, PCP, suboxone, heroin - used heroin and cocaine today) and arthritis who presents from [facility] to the ER with 2 days of intermittent chest pain, productive cough, generalized fatigue and shortness of breath (88% on room air) today. He reports chest pain with coughing. He denies chest pain at rest. He reports shortness of breath at rest which is exacerbated with ambulating stairs and lying flat. He states he has not eaten in 2 days. He states he also has bilateral flank pain. The patient denies headache and dizziness. The patient denies fever, chills, nausea, vomit, diarrhea and constipation. The patient denies dysuria, frequency, urgency and hematuria. OBJECTIVE: Alert Vital Signs Period Temp Pulse Resp BP Sys/Colon Pulse Ox Last 24 Hr 98.1 F 102 22 113/77 86 HEENT: No Jaundice, eye redness or discharge, PERRLA, EOMI. Normocephalic, atraumatic. External ears are normal and hearing is grossly intact. No nasal discharge. Neck: Supple, nontender. No palpable adenopathy or thyromegaly. No JVD Chest: Good effort. Clear to auscultation and percussion. Heart: Regular. No S3, rub or murmur Abdomen: Not distended, soft, nontender and no HSM. No rebound or guarding. Normal bowel sounds. Ext: Peripheral pulses intact. No leg edema. Skin: Warm and dry. No petechiae, rash or ecchymosis. Neuro: Alert. Oriented x3. CN 2-12 grossly intact. Sensation grossly intact in all four extremities and DTR are symmetric. Psych: Appropriate mood and affect. Good insight. Current Medications Generic Name Dose Route Start Last Admin Trade Name Freq PRN Reason Stop Dose Admin Sodium Chloride 1,000 mls @ 1,000 mls/hr 01/13/19 19:32 Normal Saline - IV 01/13/19 20:31 ASDIR STA Home Medications Medication Instructions Recorded Methadone HCl 30 mg PO DAILY@0600 09/03/18 Albuterol 0.083% Nebulizer Mary Jo 1 neb NEB Q6H PRN #120 vial 10/22/18 [Ventolin 0.083% Nebulizer Soln -] Blood Pressure Kit-Extra Large 1 each ASDIR #1 kit 10/22/18 [Blood Pressure Monitor] Nebulizer Accessories [Reusable 1 each ASDIR #1 kit 10/22/18 Nebulizer Kit] Nebulizer and Compressor [[place] 1 each ASDIR #1 each 10/22/18 Choice Nebulizer] Tiotropium [place] [Spiriva] 1 inh PO DAILY #30 inhaler 10/22/18 Mirtazapine [Remeron -] 30 mg PO DAILY #30 tablet 12/24/18 traZODone HCL [Trazodone HCl] 100 mg PO HS #30 tablet 12/24/18 Fentanyl 1 each TD ONCE #1 patch.td72 MDD 1 12/29/18 Albuterol Sulfate Inhaler - 1 - 2 inh PO QID PRN #1 inhaler 12/30/18 [Ventolin HFA Inhaler -] FENTANYL 12mcg PATCH [DURAGESIC 2 patch.72h TD Q72H #10 patch MDD 12/30/18 12mcg PATCH -] 2 patches Furosemide [Lasix -] 1 tab PO DAILY #30 tablet 12/30/18 Metoprolol Succinate 1 tab PO DAILY #30 tab.er.24h 12/30/18 Multivit with Iron,Minerals 1 tab PO DAILY #30 tablet 12/30/18 [Complete Senior] Naloxone HCl [Narcan] 4 mg NS ONCE PRN #1 spray 12/31/18 Bictegrav/Emtricit/Tenofov Ala 1 each PO DAILY #30 tablet 01/02/19 [Biktarvy 50-200-25 mg Tablet] Budesonide/Formeterol Fumarate 2 puff IH BID #1 inhaler 01/02/19 [SYMBICORT 80/4.5mcg -] Loratadine [Claritin -] 10 mg PO DAILY #30 tablet 01/02/19 Levofloxacin [Levaquin] 500 mg PO DAILY #7 tablet 01/13/19 levoFLOXacin [Levaquin] 750 mg PO ONCE #4 tab 01/13/19 Abnormal Lab Results 01/13/19 01/13/19 01/13/19 15:40 15:40 15:40 WBC 11.0 H MCV 77.1 L MCH 24.6 L MCHC 31.9 L RDW 18.3 H Monocytes % 12.1 H PT with INR 14.10 H INR 1.19 H BUN 33 H Creatinine 2.4 H Random Glucose 112 H B-Natriuretic Peptide 270.3 H Albumin 3.2 L ASSESSMENT AND PLAN: 1. Chest pain/Acute hypoxic respiratory failure - Etiology unclear. No acute pathology on CXR. CXR shows bibasilar increased interstitial markings/ atelectasis, present for years. May have underlying pulmonary fibrosis due to repeated exposure to inhaled illicit drugs/contaminants. Acute COPD exacerbation precipitated by heroin/cocaine inhalation is likely culprit. Will however exclude pulmonary embolism. Get V/Q scan, leg doppler and d-dimer. Being treated with duoneb, oxygen, solumedrol 60 mg q 8 hours, IV rocephin and azithromycin. EKG is NSR with no significant ST-T wave changes and initial troponin is negative. ECHO from 07/08/18 showed normal LV function with LVEF of 65%. His CD4 count is too high to consider opportunistic infections like PCP. Will continue Biktarvy for HIV disease. 2. Hypoalbuminemia - Possibly due to combined effects of malnutrition and inflammation associated with comorbid chronic conditions. Will rule out proteinuria. Will ensure adequate dietary protein intake and also consult bindery cutter operator. 3. Tobacco Use Counseled on risks associated with tobacco use. We will provide patient all the necessary assistance to facilitate smoking cessation and prescribe Nicotine patch. 4. ROE? - He has risk factors for CKD too. Will get urinalysis stat, kidney sonogram, check CPK, monitor urine output and encourage liberal oral fluid intake to correct any superimposed dehydration. Will decide on aggressive IV hydration after basic work up. Consult nephrology and avoid nephrotoxic agents such as NSAIDS, aminoglycosides, contrast dyes and certain Alternative medicine products. 5. Obesity Counseled on the risks associated with obesity. Will provide patient all the necessary assistance, counseling and positive reinforcement to facilitate weight loss. Consult bindery cutter operator. 6. Polysubstance Abuse - Monitor closely for drug withdrawal. Counseled patient about abstaining from illicit drug use and will refer to detox upon discharge. Consult operations and maintenance specialist. 7. Hypertension - Restart outpatient antihypertensive drugs and revise regimen to ensure smooth [id number] good BP control. Patient was counseled by cardiology to not get beta blockers the last time he was admitted (07/08/18) in view of cocaine use. Nonpharmacologic measures to control hypertension like weight loss, salt restriction and exercise discussed. 8. DVT prophylaxis - Heparin 5000u sq tid. 9. Advance directives - Full code
[2019-01-13] MEDS ORDERED: SODIUM CHLORIDE 1,000 ML IV STA (19:32)
[2019-01-13] MEDS ORDERED: predniSONE 20 MG TABLET (UD) PO ONE (19:32)
--- NOTE | 2019-01-13 19:35 | PDOC ---
*Physical Exam - Vital Signs Last Vital Signs Temp Pulse Resp BP Pulse Ox 98.1 F 102 H 22 H 113/77 86 L 01/13/19 12:53 01/13/19 12:53 01/13/19 12:53 01/13/19 12:53 01/13/19 12:53 ED Treatment Course - LABORATORY CBC & Chemistry Diagram: 01/13/19 15:40 01/13/19 15:40 - ADDITIONAL ORDERS Additional order review: Laboratory Results 01/13/19 01/13/19 01/13/19 15:40 15:40 15:40 PT with INR 14.10 H INR 1.19 H PTT (Actin FS) 31.4 Sodium 136 Potassium 4.0 Chloride 98 Carbon Dioxide 30 Anion Gap 8 BUN 33 H Creatinine 2.4 H Creat Clearance w eGFR 27.48 Random Glucose 112 H Lactic Acid 1.5 Calcium 8.5 Total Bilirubin 0.4 AST 26 ALT 21 Alkaline Phosphatase 84 Troponin I < 0.02 B-Natriuretic Peptide 270.3 H Total Protein 7.6 Albumin 3.2 L 01/13/19 15:40 RBC 4.89 MCV 77.1 L MCHC 31.9 L RDW 18.3 H MPV 7.7 Neutrophils % 70.6 D Lymphocytes % 15.2 D Monocytes % 12.1 H Eosinophils % 1.3 Basophils % 0.8 - Medications Given in the ED: ED Medications Discontinued Medications Generic Name Dose Route Start Last Admin Trade Name Freq PRN Reason Stop Dose Admin Albuterol/Ipratropium 3 amp 01/13/19 13:58 01/13/19 15:20 Duoneb - NEB 01/13/19 13:59 3 amp ONCE ONE Administration Levofloxacin 750 mg 01/13/19 14:45 01/13/19 15:20 Levaquin PO 01/13/19 14:46 750 mg ONCE ONE Administration Medical Decision Making - Medical Decision Making 01/13/19 19:[address] Warren. Patient is a 63 yo male w/ PMH of HIV (last CD4 count 486 in 12/17/18), COPD sent by the [facility] for shortness of breath and hypoxia currently pending admission for COPD exacerbation, dehydration, and withdrawal symptoms. 01/13/19 19:48 Patient admitted to hospitalist for further care. *DC/Admit/Observation/Transfer Diagnosis at time of Disposition: Hypoxia, COPD (chronic obstructive pulmonary disease) Chest pain Qualifiers: Chest pain type: unspecified Qualified Code(s): R07.9 - Chest pain, unspecified - Discharge Dispostion Condition at time of disposition: Guarded Decision to Admit order: Yes - Prescriptions Prescriptions: Levofloxacin [Levaquin] 500 mg PO DAILY #7 tablet levoFLOXacin [Levaquin] 750 mg PO ONCE #4 tab - Referrals - Patient Instructions Printed Discharge Instructions: DI for Shortness of Breath Additional Instructions: You came to the ED for shortness of breath. We recommended admission, but you decided to leave against medical advice. Antibiotics prescription sent to your pharmacy. Please return if you change your mind. - Post Discharge Activity
[2019-01-13] MEDS ORDERED: predniSONE 20 MG TABLET (UD) ONE (19:36)
--- NOTE | 2019-01-13 20:38 | HP ---
CHIEF COMPLAINT: SOB + Chest Pain PCP: None HISTORY OF PRESENT ILLNESS: Pt is a 63 y/o gentleman with a significant past medical history of HIV (CD4 Count 436 12/2018), HTN, COPD, Hep C, and polysubstance abuse ( Pt's last used cocaine and heroine this am) who was sent to [facility] from [facility] due to intermittent chest tightness, shortness of breath, and hypoxia of 88% on room air. Pt endorses that his symptoms commenced yesterday morning. This tightness is exacerbated when in supine position as well as when ambulating. He denies any alleviating or aggravating factors. Pt also endorses a cough productive of whitish sputum. Pt further states he is experiencing b/l flank pain. PSurgHx-Denies FH- Mother ESRD, Father unknown Social- Smokes half pack day cigarettes, Denies alcohol. Uses cocaine and heroine. Allergies-Denies ER course was notable for: (1) Cr 2.4, Trop Negative (2) Given Levaquin and Prednisone (3) HOME MEDICATIONS: Home Medications Medication Instructions Recorded Methadone HCl 30 mg PO DAILY@0600 09/03/18 Albuterol 0.083% Nebulizer Mary Jo 1 neb NEB Q6H PRN #120 vial 10/22/18 [Ventolin 0.083% Nebulizer Soln -] Blood Pressure Kit-Extra Large 1 each ASDIR #1 kit 10/22/18 [Blood Pressure Monitor] Nebulizer Accessories [Reusable 1 each ASDIR #1 kit 10/22/18 Nebulizer Kit] Nebulizer and Compressor [[place] 1 each ASDIR #1 each 10/22/18 Choice Nebulizer] Tiotropium [place] [Spiriva] 1 inh PO DAILY #30 inhaler 10/22/18 Mirtazapine [Remeron -] 30 mg PO DAILY #30 tablet 12/24/18 traZODone HCL [Trazodone HCl] 100 mg PO HS #30 tablet 12/24/18 Fentanyl 1 each TD ONCE #1 patch.td72 MDD 1 12/29/18 Albuterol Sulfate Inhaler - 1 - 2 inh PO QID PRN #1 inhaler 12/30/18 [Ventolin HFA Inhaler -] FENTANYL 12mcg PATCH [DURAGESIC 2 patch.72h TD Q72H #10 patch MDD 12/30/18 12mcg PATCH -] 2 patches Furosemide [Lasix -] 1 tab PO DAILY #30 tablet 12/30/18 Metoprolol Succinate 1 tab PO DAILY #30 tab.er.24h 12/30/18 Multivit with Iron,Minerals 1 tab PO DAILY #30 tablet 12/30/18 [Complete Senior] Naloxone HCl [Narcan] 4 mg NS ONCE PRN #1 spray 12/31/18 Bictegrav/Emtricit/Tenofov Ala 1 each PO DAILY #30 tablet 01/02/19 [Biktarvy 50-200-25 mg Tablet] Budesonide/Formeterol Fumarate 2 puff IH BID #1 inhaler 01/02/19 [SYMBICORT 80/4.5mcg -] Loratadine [Claritin -] 10 mg PO DAILY #30 tablet 01/02/19 Levofloxacin [Levaquin] 500 mg PO DAILY #7 tablet 01/13/19 levoFLOXacin [Levaquin] 750 mg PO ONCE #4 tab 01/13/19 REVIEW OF SYSTEMS CONSTITUTIONAL: Absent: fever, chills, diaphoresis, generalized weakness, malaise, loss of appetite, weight change HEENT: Absent: rhinorrhea, nasal congestion, throat pain, throat swelling, difficulty swallowing, mouth swelling, ear pain, eye pain, visual changes CARDIOVASCULAR: Absent: chest pain, syncope, palpitations, irregular heart rate, lightheadedness , peripheral edema RESPIRATORY: Absent: cough, shortness of breath, dyspnea with exertion, orthopnea, wheezing, stridor, hemoptysis GASTROINTESTINAL: Absent: abdominal pain, abdominal distension, nausea, vomiting, diarrhea, constipation, melena, hematochezia GENITOURINARY: Absent: dysuria, frequency, urgency, hesitancy, hematuria, flank pain, genital pain MUSCULOSKELETAL: Absent: myalgia, arthralgia, joint swelling, back pain, neck pain SKIN: Absent: rash, itching, pallor HEMATOLOGIC/IMMUNOLOGIC: Absent: easy bleeding, easy bruising, lymphadenopathy, frequent infections ENDOCRINE: Absent: unexplained weight gain, unexplained weight loss, heat intolerance, cold intolerance NEUROLOGIC: Absent: headache, focal weakness or paresthesias, dizziness, unsteady gait, seizure, mental status changes, bladder or bowel incontinence PSYCHIATRIC: Absent: anxiety, depression, suicidal or homicidal ideation, hallucinations. PHYSICAL EXAMINATION Vital Signs - 24 hr 01/13/19 12:53 Temperature 98.1 F Pulse Rate 102 H Respiratory 22 H Rate Blood Pressure 113/77 O2 Sat by Pulse 86 L Oximetry (%) GENERAL: Awake, alert, and fully oriented, in no acute distress. HEAD: Normal with no signs of trauma. EYES: Pupils equal, round and reactive to light, extraocular movements intact, sclera anicteric, conjunctiva clear. No lid lag. EARS, NOSE, THROAT: Ears normal, nares patent, oropharynx clear without exudates. Moist mucous membranes. NECK: Normal range of motion, supple without lymphadenopathy, JVD, or masses. LUNGS: Breath sounds equal, clear to auscultation bilaterally. No wheezes, and no crackles. No accessory muscle use. HEART: Regular rate and rhythm, normal S1 and S2 without murmur, rub or gallop. ABDOMEN: Soft, nontender, not distended, normoactive bowel sounds, no guarding, no rebound, no masses. No hepatomegaly or splenomegaly. MUSCULOSKELETAL: Normal range of motion at all joints. No bony deformities or tenderness. No CVA tenderness. UPPER EXTREMITIES: 2+ pulses, warm, well-perfused. No cyanosis. No clubbing. No peripheral edema. LOWER EXTREMITIES: 2+ pulses, warm, well-perfused. No calf tenderness. No peripheral edema. NEUROLOGICAL: Cranial nerves II-XII intact. Normal speech. Normal gait. PSYCHIATRIC: Cooperative. Good eye contact. Appropriate mood and affect. SKIN: Warm, dry, normal turgor, no rashes or lesions noted, normal capillary refill. Laboratory Results - last 24 hr 01/13/19 01/13/19 01/13/19 15:40 15:40 15:40 WBC 11.0 H RBC 4.89 Hgb 12.0 Hct 37.7 MCV 77.1 L MCH 24.6 L MCHC 31.9 L RDW 18.3 H Plt Count 215 MPV 7.7 Absolute Neuts (auto) 7.8 Neutrophils % 70.6 D Lymphocytes % 15.2 D Monocytes % 12.1 H Eosinophils % 1.3 Basophils % 0.8 Nucleated RBC % 0 PT with INR 14.10 H INR 1.19 H PTT (Actin FS) 31.4 Sodium 136 Potassium 4.0 Chloride 98 Carbon Dioxide 30 Anion Gap 8 BUN 33 H Creatinine 2.4 H Creat Clearance w eGFR 27.48 Random Glucose 112 H Lactic Acid Calcium 8.5 Total Bilirubin 0.4 AST 26 ALT 21 Alkaline Phosphatase 84 Troponin I < 0.02 B-Natriuretic Peptide 270.3 H Total Protein 7.6 Albumin 3.2 L 01/13/19 15:40 WBC RBC Hgb Hct MCV MCH MCHC RDW Plt Count MPV Absolute Neuts (auto) Neutrophils % Lymphocytes % Monocytes % Eosinophils % Basophils % Nucleated RBC % PT with INR INR PTT (Actin FS) Sodium Potassium Chloride Carbon Dioxide Anion Gap BUN Creatinine Creat Clearance w eGFR Random Glucose Lactic Acid 1.5 Calcium Total Bilirubin AST ALT Alkaline Phosphatase Troponin I B-Natriuretic Peptide Total Protein Albumin ASSESSMENT/PLAN: Pt is a 63 y/o gentleman with a significant past medical history of HIV (CD4 Count 436 12/2018), HTN, COPD, Hep C, and polysubstance abuse ( Pt's last used cocaine and heroine this am) who was sent to [facility] from [facility] due to intermittent chest tightness, shortness of breath, and hypoxia of 88% on room air. # SOB, Chest tightness 2/2 COPD exacerbation/Pneumonia/P.E * Received Prednisone 60 mg once in ED as well as Levaquin * Continue on Medrol 40 TID * Duonebs 1 amp PRN Q4H and Q6H MARILYN * Procalcitonin level. Doubt pneumonia as absence of fevers, slight white count , and absence of pulmonary infiltrates. Will hold on Antibiotics at this juncture. * Blood Cultures * Venous Duplex, D-Dimer. Can not proceed with CTA in light of Cr 2.4. Will perform stated tests and assess need for further testing with V/Q scan * 1st Trop Negative. Will trend * Cardiology Consult * Avoid Beta Blockers in light of recent cocaine usage # ROE 2/2 Volume Contraction * Bun/Cr 33/2.4. Cr in August 2018---> 22/1.2 * Will check Fractional excretion of sodium to ascertain whether etiology of ROE 2/2 prerenal, renal, or postrenal etiology * Renal/Bladder Sonogram * Will hold Lasix * Check CPK, urinalysis * Consider Nephrology Consult #HIV Last reported CD4 count 436 December 2018 Pt endorses taking Biktarvy (Bictegravir, emtricitabine and Tenofofovir alafenamide) . -I.D Consult #Hep C Endorses being treated. Will check Hep B PCR #FEN Encourage PO intake Monitor Electrolytes Low Salt Diet #DVT ppx: HEPSQTID #Dispo: Med-Surg Visit type - Emergency Visit Emergency Visit: Yes ED Registration Date: 01/13/19 Care time: The patient presented to the Emergency Department on the above date and was hospitalized for further evaluation of their emergent condition. - New Patient This patient is new to me today: Yes Date on this admission: 01/13/19 - Critical Care Critical Care patient: No
[2019-01-13] MEDS ORDERED: ALBUTEROL SO4 2.5/IPRATROPIUM 0.5 INH SOL 3 ML VIAL.NEB. NEB PRN (20:48)
[2019-01-13] MEDS: HEPARIN NA (PORCINE) 5,000 UNITS/ML 1ML VIAL SQ SCH (22:17)
[2019-01-14] MEDS ORDERED: methylPREDNISolone NA SUCC 40 MG/1 ML VIAL ONE (04:15)
[2019-01-14] MEDS: methylPREDNISolone NA SUCC 40 MG/1 ML VIAL IVPUSH SCH ×4 (04:16→17:19)
[2019-01-14] MEDS: HEPARIN NA (PORCINE) 5,000 UNITS/ML 1ML VIAL SQ SCH ×3 (06:06→21:18)
[2019-01-14] MEDS ORDERED: DOCUSATE SODIUM 100 MG CAPSULE (FP) PO ONE (08:45)
--- NOTE | 2019-01-14 09:17 | PN ---
Physical Exam: SUBJECTIVE: Patient seen and examined at bedside. He is agitated, and endorses diffuse chest tightness. OBJECTIVE: Vital Signs Period Temp Pulse Resp BP Sys/Colon Pulse Ox Last 24 Hr 98.1 F-99.3 F 74-102 17-22 113-169/77-93 86-97 GENERAL: The patient is agitated, fully oriented, in no acute distress. HEAD: Normocephalic, atraumatic. EYES: PERRL, extraocular movements intact, sclera anicteric, conjunctiva clear. ENT: Oropharynx clear without exudates, moist mucous membranes. NECK: Trachea midline, full range of motion, supple without lymphadenopathy. LUNGS: Good inspiratory effort, with wheezing, and rhonchi auscultated bilaterally. No accessory muscle use. HEART: Regular rate and rhythm, S1, S2 without murmur, rub or gallop. ABDOMEN: Obese. Soft, diffusely tender to palpation. Normoactive bowel sounds x4 quadrants, no guarding, no rebound tenderness. No hepatosplenomegaly. EXTREMITIES: 2+ radial, dorsalis pedis pulses bilaterally. Warm, well-perfused, no edema. NEUROLOGICAL: Cranial nerves II through XII grossly intact. Normal speech. Laboratory Results - last 24 hr 01/13/19 01/13/19 01/13/19 15:40 15:40 15:40 WBC 11.0 H RBC 4.89 Hgb 12.0 Hct 37.7 MCV 77.1 L MCH 24.6 L MCHC 31.9 L RDW 18.3 H Plt Count 215 MPV 7.7 Absolute Neuts (auto) 7.8 Neutrophils % 70.6 D Lymphocytes % 15.2 D Monocytes % 12.1 H Eosinophils % 1.3 Basophils % 0.8 Nucleated RBC % 0 PT with INR 14.10 H INR 1.19 H PTT (Actin FS) 31.4 Sodium 136 Potassium 4.0 Chloride 98 Carbon Dioxide 30 Anion Gap 8 BUN 33 H Creatinine 2.4 H Creat Clearance w eGFR 27.48 Random Glucose 112 H Lactic Acid Calcium 8.5 Total Bilirubin 0.4 AST 26 ALT 21 Alkaline Phosphatase 84 Troponin I < 0.02 B-Natriuretic Peptide 270.3 H Total Protein 7.6 Albumin 3.2 L 01/13/19 15:40 WBC RBC Hgb Hct MCV MCH MCHC RDW Plt Count MPV Absolute Neuts (auto) Neutrophils % Lymphocytes % Monocytes % Eosinophils % Basophils % Nucleated RBC % PT with INR INR PTT (Actin FS) Sodium Potassium Chloride Carbon Dioxide Anion Gap BUN Creatinine Creat Clearance w eGFR Random Glucose Lactic Acid 1.5 Calcium Total Bilirubin AST ALT Alkaline Phosphatase Troponin I B-Natriuretic Peptide Total Protein Albumin Active Medications Generic Name Dose Route Start Last Admin Trade Name Freq PRN Reason Stop Dose Admin Albuterol/Ipratropium 1 amp 01/14/19 08:00 Duoneb - NEB RQID MARILYN Albuterol/Ipratropium 1 amp 01/13/19 20:48 Duoneb - NEB Q4H PRN SHORTNESS OF BREATH Heparin Sodium (Porcine) 5,000 unit 01/13/19 22:00 01/14/19 06:06 Heparin - SQ Not Given TID MARILYN Methylprednisolone Sodium Succinate 40 mg 01/14/19 03:30 01/14/19 04:16 Solu-Medrol - IVPUSH 40 mg Q8H-IV MARILYN Administration Non-Formulary Medication 1 each 01/14/19 10:00 Bictegrav/Emtricit/Tenofov Ala PO DAILY MARILYN Polyethylene Glycol 17 gm 01/14/19 10:00 Miralax (For Daily Use) - PO BID MARILYN ASSESSMENT/PLAN: Patient is a 63 year old male with history of HIV (CD4 count 436 12/2018), COPD , hypertension, hepatitis C, polysubstance abuse (cocaine and heroin with last use yesterday), presents with complaint of shortness of breath and chest tightness. Dyspnea likely due to COPD exacerbation -Bronchospasm contributed secondary to recent cocaine use. -Chest radiograph does not show infiltrates -Duonebs Q6H standing -Methylprednisone 40mg IV Q8H -Follow blood cultures -Pulmonology consult (Dr. Go) -Cardiology consult (Dr. Braxton) -Troponin 0.02 X2. Will trend. EKG shows normal sinus rhythm at 98 BPM. -Cardiac monitoring. -Avoid Beta blockers due to recent cocaine use Polysubstance abuse -Concern for Heroin withdrawal -COWs score 10 upon my encounter today. -Methadone 40mg PO one time dose. Need to confirm doseage with [facility] -Addiction medicine (Dr. Davidson) consult Acute kidney injury -Likely pre-renal secondary to dehydration -Renal US unremarkable, without acute pathology. -CPK 69 -IV normal saline at 100mL/ hour -Nephrology consult (Dr. Paz) appreciated. Follow urine studies. -Follow Bun/ Cr HIV -Last CD4 count 436 reported 12/2018 -Patient's Biktarvy is not formulary at this facility. Patient does not have the medication with him. -Descovy 200.25mg PO daily -Tivicay 50mg PO daily -ID consult (Dr. Lewis) appreciated. Hepatitis C -Follow Hepatits C virus Quantitation studies FEN -IV normal saline at 100mL/hour -Follow CMP -Regular diet Prophylaxis -Heparin 5000u subq TID Disposition -Continue care in Telemetry floor Visit type - Emergency Visit Emergency Visit: Yes ED Registration Date: 01/13/19 Care time: The patient presented to the Emergency Department on the above date and was hospitalized for further evaluation of their emergent condition. - New Patient This patient is new to me today: Yes Date on this admission: 01/14/19 - Critical Care Critical Care patient: No - Discharge Referral Referred to [facility] Med [facility] No
[2019-01-14] MEDS ORDERED: PATIENT'S OWN MEDICATION (NON-FORMULARY) (Bictegrav/Emtricit/Tenofov Ala 1 EACH) PO SCH (10:00)
[2019-01-14 10:14] LABS: BASO % 0.3 % (0-2.0); HEMOGLOBIN 12.1 GM/dL (11.7-16.9); LYMPH % 6.1 % (8-40); MCH 24.9 pg (25.7-33.7); MCHC 31.9 g/dl (32.0-35.9); MEAN CELL VOLUME 78.1 fl (80-96); MEAN PLT VOLUME 7.8 fl (7.5-11.1); MONO % 0.7 % (3.8-10.2); NEUT % 92.9 % (42.8-82.8); PLATELET COUNT 197 K/MM3 (134-434); RBC 4.87 M/mm3 (4.00-5.60); RDW 18.6 % (11.9-15.9); WHITE BLOOD COUNT 9.1 K/mm3 (4.0-10.0)
[2019-01-14 10:27] LABS: INR 1.21 (0.83-1.09); PROTHROMBIN TIME (PATIENT) 14.3 SEC (9.7-13.0)
[2019-01-14 10:30] LABS: ACTIVATED PTT 28.8 SECONDS (25.2-36.5)
--- NOTE | 2019-01-14 10:30 | CONSULT ---
Consult - text type - Consultation Consultation Note: Renal consult for ROE This is a 63 year old gentleman with hx of HIV, COPD, Hypertension, Hepatitis C s/p treatment, polysubstance abuse, arthritis who presented from [facility] with chest pain, sob, and cough and noted to have acute kidney injury. Pt reports to have used heroin and cocaine on day of admission. Pt denies any hx of CKD, kidney stones. No flank pain, dysuria, hematuira. Denies any NSAID use. Has diffuse body pain. No CP, has mild sob still and non-productive cough. No CORONA , confuison, lethargy, weakness, numbness. + Fever/diaphoresis at home. PMHx: as above Allergies: NKDA Family Hx: NC Social Hx: No T/A/D ROS: as per HPI Home Medications Medication Instructions Recorded Methadone HCl 30 mg PO DAILY@0600 09/03/18 Albuterol 0.083% Nebulizer [place] 1 neb NEB Q6H PRN #120 vial 10/22/18 [Ventolin 0.083% Nebulizer Soln -] Blood Pressure Kit-Extra Large 1 each ASDIR #1 kit 10/22/18 [Blood Pressure Monitor] Nebulizer Accessories [Reusable 1 each ASDIR #1 kit 10/22/18 Nebulizer Kit] Nebulizer and Compressor [[place] 1 each ASDIR #1 each 10/22/18 Choice Nebulizer] Tiotropium [place] [Spiriva] 1 inh PO DAILY #30 inhaler 10/22/18 Mirtazapine [Remeron -] 30 mg PO DAILY #30 tablet 12/24/18 traZODone HCL [Trazodone HCl] 100 mg PO HS #30 tablet 12/24/18 Fentanyl 1 each TD ONCE #1 patch.td72 MDD 1 12/29/18 Albuterol Sulfate Inhaler - 1 - 2 inh PO QID PRN #1 inhaler 12/30/18 [Ventolin HFA Inhaler -] FENTANYL 12mcg PATCH [DURAGESIC 2 patch.72h TD Q72H #10 patch MDD 12/30/18 12mcg PATCH -] 2 patches Furosemide [Lasix -] 1 tab PO DAILY #30 tablet 12/30/18 Metoprolol Succinate 1 tab PO DAILY #30 tab.er.24h 12/30/18 Multivit with Iron,Minerals 1 tab PO DAILY #30 tablet 12/30/18 [Complete Senior] Naloxone HCl [Narcan] 4 mg NS ONCE PRN #1 spray 12/31/18 Bictegrav/Emtricit/Tenofov Ala 1 each PO DAILY #30 tablet 01/02/19 [Biktarvy 50-200-25 mg Tablet] Budesonide/Formeterol Fumarate 2 puff IH BID #1 inhaler 01/02/19 [SYMBICORT 80/4.5mcg -] Loratadine [Claritin -] 10 mg PO DAILY #30 tablet 01/02/19 Levofloxacin [Levaquin] 500 mg PO DAILY #7 tablet 01/13/19 levoFLOXacin [Levaquin] 750 mg PO ONCE #4 tab 01/13/19 Vital Signs Temperature 98.2 F 01/14/19 05:40 Pulse Rate 88 01/14/19 10:24 Respiratory Rate 18 01/14/19 10:24 Blood Pressure 144/88 01/14/19 10:24 O2 Sat by Pulse Oximetry (%) 98 01/14/19 10:24 Intake & Output 01/11/19 01/12/19 01/13/19 01/14/19 23:59 23:59 23:59 23:59 Weight 99.79 kg NAD awake and alert neck supple, no JVD RRR, no M/R CTA, no rales or wheeze soft NT/ND, no LE edema Laboratory Tests 01/13/19 15:40 Sodium 136 Potassium 4.0 Chloride 98 Carbon Dioxide 30 Anion Gap 8 BUN 33 H Creatinine 2.4 H Creat Clearance w eGFR 27.48 Random Glucose 112 H Calcium 8.5 Albumin 3.2 L Renal US - no signs of obstruction CXR - no CHF, effusions Current Medications Albuterol/Ipratropium (Duoneb -) 1 amp NEB RQID MARILYN Albuterol/Ipratropium (Duoneb -) 1 amp NEB Q4H PRN PRN Reason: SHORTNESS OF BREATH Heparin Sodium (Porcine) (Heparin -) 5,000 unit SQ TID [facility] Last Admin: 01/14/19 06:06 Dose: Not Given Methylprednisolone Sodium Succinate (Solu-Medrol -) 40 mg IVPUSH Q8H-IV [facility] Last Admin: 01/14/19 04:16 Dose: 40 mg Non-Formulary Medication (Bictegrav/Emtricit/Tenofov Ala) 1 each PO DAILY MARILYN Polyethylene Glycol (Miralax (For Daily Use) -) 17 gm PO BID MARILYN 63 year old gentleman with hx of HIV, COPD, Hypertension, Hepatitis C s/p treatment, polysubstance abuse, arthritis who presented from [facility] with chest pain, sob, and cough and noted to have acute kidney injury. #Acute kidney injury from volume depletion vs. ATN vs Rhabdomyolysis vs. acute GN (FSGS) in setting of heroin use (baseline Cr 1.1) #Chest pain r/o ACS #Hypertension #HIV #Hx of Hepatitis C Check urine studies for FeNa/FeUrea and UPCR Renal Us w/o pathology continue aggressive IVF hydration with isotonic saline keep MAP > 65 avoid IV contrast or nephrotoxins give CCB or Hydralzine if BP > 160/100 Continue Anti-virals as per ID Check CK levels Thank you Hung Paz DO
[2019-01-14 10:46] LABS: ALBUMIN 2.9 g/dl (3.4-5.0); ALK PHOS 81 U/L (45-117); ANION GAP 8 MMOL/L (8-16); BILIRUBIN,TOTAL 0.3 mg/dL (0.2-1); BLOOD UREA NITROGEN 26 mg/dL (7-18); CALCIUM 8.5 mg/dL (8.5-10.1); CHLORIDE 103 mmol/L (98-107); CO2 24 mmol/L (21-32); CREATININE 1.4 mg/dL (0.55-1.3); GLUCOSE,RANDOM 180 mg/dL (74-106); PHOSPHOROUS 2.4 mg/dL (2.5-4.9); POTASSIUM 4.2 mmol/L (3.5-5.1); SGOT/AST 21 U/L (15-37); SGPT/ALT 20 U/L (13-61); SODIUM 135 mmol/L (136-145); TOT PROT 7.8 g/dl (6.4-8.2)
[2019-01-14] MEDS ORDERED: SODIUM CHLORIDE 1,000 ML IV SCH (12:15)
--- NOTE | 2019-01-14 13:12 | PN ---
Progress Note (short form) - Note Progress Note: ID consult dictated imp/reccd 63 yo man with stable HIV, polysubstance use (denies IVDU)- blood cultures sent on BIktarvy admitted with hypoxia and sob he was refused admission to Detox last week (uses heroine and cocaine) and was "kicking"-trying to detox himself this weekend still feels like he is withdrawing no fevers no cough cxray clear suggest detox consult continue biktarvy- cd4 436, viral load suppressed- not at risk for OIs-can substitute descovy/tivicay if needed bill- improving
[2019-01-14 13:41] LABS: EPI CELLS 0.8 /HPF (0-5/HPF); PH,URINE 5.5 (5.0-8.0); URINE APPEARANCE CLEAR; URINE BACTERIA 0.5 /hpf (NEGATIVE); URINE BILIRUBIN NEGATIVE (NEGATIVE); URINE CASTS 29 /hpf (0-8); URINE COLOR YELLOW; URINE GLUCOSE (UA) 2+ (NEGATIVE); URINE KETONE TRACE (NEGATIVE); URINE LEUK ESTERASE NEGATIVE (NEGATIVE); URINE NITRITE NEGATIVE (NEGATIVE); URINE PROTEIN 1+ (NEGATIVE); URINE RBC 1 /hpf (0-4); URINE WBC 0 /hpf (0-5)
[2019-01-14] MEDS: ALBUTEROL SO4 2.5/IPRATROPIUM 0.5 INH SOL 3 ML VIAL.NEB. NEB SCH ×4 (13:59→20:54)
[2019-01-14] MEDS: POLYETHYLENE GLYCOL 3350 119 GM BTL PO SCH ×2 (14:00→21:17)
[2019-01-14 14:16] LABS: ANISOCYTOSIS 1+; MACROCYTOSIS 0; PLATELET ESTIMATE NORMAL
[2019-01-14] MEDS ORDERED: METHADONE HCL 10 MG TABLET PO ONE (14:52)
[2019-01-14 16:52] LABS: PH,URINE 5.5 (5.0-8.0); URINE APPEARANCE CLEAR; URINE BACTERIA 0.8 /hpf (NEGATIVE); URINE BILIRUBIN NEGATIVE (NEGATIVE); URINE CASTS 6 /hpf (0-8); URINE COLOR YELLOW; URINE GLUCOSE (UA) 1+ (NEGATIVE); URINE KETONE TRACE (NEGATIVE); URINE LEUK ESTERASE NEGATIVE (NEGATIVE); URINE NITRITE NEGATIVE (NEGATIVE); URINE PROTEIN 1+ (NEGATIVE); URINE RBC 1 /hpf (0-4); URINE UROBILINOGEN 0.2 mg/dL (0.2-1.0); URINE WBC 0 /hpf (0-5)
--- NOTE | 2019-01-14 16:58 | PN ---
Progress Note (short form) - Note Progress Note: PULMONARY CONSULTATION DICTATED 01/14/19 IMP ACUTE HYPOXEMIC RESPIRATORY FAILURE COPD ? ACUTE INFLAMMATION SECONDARY TO INHALATION ILLICIT DRUGS HIV ROE H/O HEP C S/P TREATMENT POLYSUBSTANCE ABUSE TOBACCO ABUSE PLAN SHORT COURSE OF STEROIDS INHALED BRONCHODILATORS O2 TO MAINTAIN SAT 90% OR > IVF MONITOR LYTES,RENAL FUNCTION DR TEJEDA Problem List - Problems (1) Acute hypoxemic respiratory failure Code(s): J96.01 - ACUTE RESPIRATORY FAILURE WITH HYPOXIA (2) COPD exacerbation Code(s): J44.1 - CHRONIC OBSTRUCTIVE PULMONARY DISEASE W (ACUTE) EXACERBATION (3) Hypoxia Code(s): R09.02 - HYPOXEMIA (4) COPD (chronic obstructive pulmonary disease) Code(s): J44.9 - CHRONIC OBSTRUCTIVE PULMONARY DISEASE, UNSPECIFIED (5) HIV (human immunodeficiency virus infection) Code(s): Z21 - ASYMPTOMATIC HUMAN IMMUNODEFICIENCY VIRUS INFECTION STATUS (6) Heroin addiction Code(s): F11.20 - OPIOID DEPENDENCE, UNCOMPLICATED
[2019-01-14 17:12] LABS: URINE AMPHETAMINES NEGATIVE ng/ml (CUTOFF=500); URINE BARBITURATES NEGATIVE ng/ml (CUTOFF=200); URINE BENZODIAZEPINES NEGATIVE ng/ml (CUTOFF=200)
[2019-01-14] MEDS ORDERED: MELATONIN 5 MG TABLETS PO PRN (17:14)
[2019-01-14 17:20] LABS: COCAINE, UR POSITIVE ng/ml (CUTOFF=300)
[2019-01-14 17:21] LABS: METHADONE, UR POSITIVE ng/ml (CUTOFF=300); OPIATES, URI POSITIVE ng/ml (CUTOFF=300); PHENCYCLIDINE,URINE POSITIVE ng/ml (CUTOFF=25)
--- NOTE | 2019-01-14 17:38 | CONS ---
DATE OF CONSULTATION: 01/14/2019 PULMONARY CONSULTATION REFERRING PHYSICIAN: Chester Van MD Patient is a 63-year-old black male with a past medical history of HIV, CD4 count 436, hypertension, COPD, hepatitis C, polysubstance abuse, last used cocaine and heroin the a.m. prior to admission, admitted to [facility] secondary to chest tightness, shortness of breath, and hypoxemia on room air. According to the patient's note, the patient could not recall exactly why he is here. He states that the symptoms started the morning prior to admission. He complained of chest tightness. He denied any fevers or chills, nausea, vomiting, and diaphoresis. He had a cough productive of white sputum. On admission, he was started on inhaled bronchodilators and O2 as well as Medrol prednisone with good clinical response. Patient denies any history of DVT or PE in the past. He is on inhaled bronchodilators but is unsure of the name. PAST MEDICAL HISTORY: Again includes HIV, CD4 count 436 on retroviral therapy, hypertension, COPD, hepatitis C, polysubstance abuse. 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 No occupational exposures. Positive tobacco, half pack per day for many years, currently still smoking. REVIEW OF SYSTEMS: At this time, no chest pain, no palpitations. No shortness of breath. Interval cough. No hemoptysis. No fever. No chills. No abdominal pain. CURRENT MEDICATIONS: Include Biktarvy, Solu-Medrol 40 q.8, heparin, DuoNeb, MiraLAX, normal saline, and methadone. PHYSICAL EXAMINATION: General: Patient is a well-developed, well-nourished male awake, alert, in no acute distress. Vital Signs: Blood pressure is 170/90, O2 saturation currently 94% on room air, heart rate of 72, and he is afebrile. HEENT: Exam is normocephalic, atraumatic. Neck: Supple. Heart: Regular, S1, S2. Chest: Clear. Abdomen: Soft. Bowel sounds positive. Extremities: No cyanosis or edema. LABORATORIES: WBC is 9.1, hemoglobin 12.1, hematocrit 38, platelet count 197,000, there are 92 polys, 6 lymphs, and 0.7 monos. INR is 1.21. BUN 26, creatinine 1.4, initially was BUN 33, creatinine 2.4. BNP is 270. Chest x-ray no infiltrates and no effusions. IMPRESSION: Acute hypoxemic respiratory failure possibly secondary to: 1. Mild chronic obstructive pulmonary disease exacerbation. 2. Possibly secondary to acute inflammation secondary to inhalation of illicit drugs. 3. Acute kidney injury. 4. History of human immunodeficiency virus. 5. History of chronic obstructive pulmonary disease. 6. Polysubstance abuse. 7. Hepatitis C status post treatment. 8. Arthritis. 9. Tobacco abuse. PLAN: Continue short-course of Solu-Medrol x24 hours. Supplemental O2. Inhaled bronchodilators. Monitor renal function. Smoking cessation counseled. VAN TEJEDA M.D. INNA/[id number]
[2019-01-14] MEDS: DOLUTEGRAVIR SODIUM 50 MG TABLET (NON-FORMULARY) PO SCH (17:49)
[2019-01-14] MEDS: EMTRICITABINE/TENOFOV ALAFENAM (DESCOVY) TABLET PO SCH (17:49)
--- NOTE | 2019-01-14 18:07 | PN ---
Teaching Attending Note Name of Resident: Murphy Schulz ATTENDING PHYSICIAN STATEMENT I saw and evaluated the patient. I reviewed the resident's note and discussed the case with the resident. I agree with the resident's findings and plan as documented. SUBJECTIVE: Feeling diaphoretic. No further CP/palpitations. Admits to CP/ dyspnea after cocaine use. Also admits to MJ, tobacco, and heroin use. OBJECTIVE: Afebrile, Hemodynamically Stable. Diaphoretic. Last Vital Signs Temp Pulse Resp BP Pulse Ox 98.6 F 72 20 170/90 88 L 01/14/19 15:10 01/14/19 15:10 01/14/19 15:10 01/14/19 15:10 01/14/19 15:33 HEENT - Atraumatic, Normocephalic Heart - S1, S2, RRR Lungs - bilateral wheeze. Abdomen - Soft, non-tender. Bowel Sounds normal. Extremities - no calf tenderness. Neuro - AAO x 3. Tone/Power normal all 4 extremities. Laboratory Results - last 24 hr 01/13/19 01/14/19 01/14/19 11:20 09:52 09:52 WBC RBC Hgb Hct MCV MCH MCHC RDW Plt Count MPV Absolute Neuts (auto) Neutrophils % Neutrophils % (Manual) Band Neutrophils % Lymphocytes % Lymphocytes % (Manual) Monocytes % Monocytes % (Manual) Eosinophils % Eosinophils % (Manual) Basophils % Basophils % (Manual) Myelocytes % (Man) Promyelocytes % (Man) Blast Cells % (Manual) Nucleated RBC % Metamyelocytes Hypochromia Platelet Estimate Polychromasia Poikilocytosis Anisocytosis Microcytosis Macrocytosis PT with INR 14.30 H INR 1.21 H PTT (Actin FS) 28.8 Sodium Potassium Chloride Carbon Dioxide Anion Gap BUN Creatinine Creat Clearance w eGFR Random Glucose Calcium Phosphorus Magnesium Total Bilirubin AST ALT Alkaline Phosphatase Creatine Kinase Troponin I < 0.02 Total Protein Albumin Urine Color Yellow Urine Appearance Clear Urine pH 5.5 D Ur Specific [place] 1.030 Urine Protein 1+ H Urine Glucose (UA) 2+ H Urine Ketones Trace H Urine Blood Negative Urine Nitrite Negative Urine Bilirubin Negative Urine Urobilinogen 1.0 Ur Leukocyte Esterase Negative Urine WBC (Auto) 0 Urine RBC (Auto) 1 Urine Casts (Auto) 29 U Epithel Cells (Auto) 0.8 Urine Bacteria (Auto) 0.5 U Random Total Protein Ur Random Sodium Ur Random Urea Nitrogn Urine Creatinine Opiates Screen Methadone Screen Barbiturate Screen Phencyclidine Screen Ur Amphetamines Screen MDMA (Ecstasy) Screen Benzodiazepines Screen Cocaine Screen U Marijuana (THC) Screen 01/14/19 01/14/19 01/14/19 09:52 09:52 11:30 WBC 9.1 RBC 4.87 Hgb 12.1 Hct 38.0 MCV 78.1 L MCH 24.9 L MCHC 31.9 L RDW 18.6 H Plt Count 197 MPV 7.8 Absolute Neuts (auto) 8.4 H Neutrophils % 92.9 H D Neutrophils % (Manual) 86.1 H Band Neutrophils % 0.0 Lymphocytes % 6.1 L D Lymphocytes % (Manual) 9.9 D Monocytes % 0.7 L D Monocytes % (Manual) 4 Eosinophils % 0.0 D Eosinophils % (Manual) 0.0 Basophils % 0.3 Basophils % (Manual) 0.0 Myelocytes % (Man) 0 Promyelocytes % (Man) 0 Blast Cells % (Manual) 0 Nucleated RBC % 0 Metamyelocytes 0 Hypochromia 1+ Platelet Estimate Normal Polychromasia 0 Poikilocytosis 0 Anisocytosis 1+ Microcytosis 1+ Macrocytosis 0 PT with INR INR PTT (Actin FS) Sodium 135 L Potassium 4.2 Chloride 103 Carbon Dioxide 24 Anion Gap 8 BUN 26 H Creatinine 1.4 H Creat Clearance w eGFR 51.18 Random Glucose 180 H Calcium 8.5 Phosphorus 2.4 L Magnesium 2.0 Total Bilirubin 0.3 AST 21 ALT 20 Alkaline Phosphatase 81 Creatine Kinase 69 Troponin I Total Protein 7.8 Albumin 2.9 L Urine Color Urine Appearance Urine pH Ur Specific [place] Urine Protein Urine Glucose (UA) Urine Ketones Urine Blood Urine Nitrite Urine Bilirubin Urine Urobilinogen Ur Leukocyte Esterase Urine WBC (Auto) Urine RBC (Auto) Urine Casts (Auto) U Epithel Cells (Auto) Urine Bacteria (Auto) U Random Total Protein Ur Random Sodium Ur Random Urea Nitrogn Urine Creatinine Opiates Screen Positive A* Methadone Screen Positive A* Barbiturate Screen Negative Phencyclidine Screen Positive A* Ur Amphetamines Screen Negative MDMA (Ecstasy) Screen Negative Benzodiazepines Screen Negative Cocaine Screen Positive A* U Marijuana (THC) Screen Positive A* 01/14/19 01/14/19 01/14/19 11:30 11:30 11:30 WBC RBC Hgb Hct MCV MCH MCHC RDW Plt Count MPV Absolute Neuts (auto) Neutrophils % Neutrophils % (Manual) Band Neutrophils % Lymphocytes % Lymphocytes % (Manual) Monocytes % Monocytes % (Manual) Eosinophils % Eosinophils % (Manual) Basophils % Basophils % (Manual) Myelocytes % (Man) Promyelocytes % (Man) Blast Cells % (Manual) Nucleated RBC % Metamyelocytes Hypochromia Platelet Estimate Polychromasia Poikilocytosis Anisocytosis Microcytosis Macrocytosis PT with INR INR PTT (Actin FS) Sodium Potassium Chloride Carbon Dioxide Anion Gap BUN Creatinine Creat Clearance w eGFR Random Glucose Calcium Phosphorus Magnesium Total Bilirubin AST ALT Alkaline Phosphatase Creatine Kinase Troponin I Total Protein Albumin Urine Color Yellow Urine Appearance Clear Urine pH 5.5 Ur Specific [place] 1.030 Urine Protein 1+ H Urine Glucose (UA) 1+ H Urine Ketones Trace H Urine Blood Negative Urine Nitrite Negative Urine Bilirubin Negative Urine Urobilinogen 0.2 Ur Leukocyte Esterase Negative Urine WBC (Auto) 0 Urine RBC (Auto) 1 Urine Casts (Auto) 6 U Epithel Cells (Auto) 1.0 Urine Bacteria (Auto) 0.8 U Random Total Protein 111.6 H Ur Random Sodium 21 L Ur Random Urea Nitrogn Cancelled Urine Creatinine 209.0 Cancelled Opiates Screen Methadone Screen Barbiturate Screen Phencyclidine Screen Ur Amphetamines Screen MDMA (Ecstasy) Screen Benzodiazepines Screen Cocaine Screen U Marijuana (THC) Screen 01/14/19 01/14/19 11:30 11:30 WBC RBC Hgb Hct MCV MCH MCHC RDW Plt Count MPV Absolute Neuts (auto) Neutrophils % Neutrophils % (Manual) Band Neutrophils % Lymphocytes % Lymphocytes % (Manual) Monocytes % Monocytes % (Manual) Eosinophils % Eosinophils % (Manual) Basophils % Basophils % (Manual) Myelocytes % (Man) Promyelocytes % (Man) Blast Cells % (Manual) Nucleated RBC % Metamyelocytes Hypochromia Platelet Estimate Polychromasia Poikilocytosis Anisocytosis Microcytosis Macrocytosis PT with INR INR PTT (Actin FS) Sodium Potassium Chloride Carbon Dioxide Anion Gap BUN Creatinine Creat Clearance w eGFR Random Glucose Calcium Phosphorus Magnesium Total Bilirubin AST ALT Alkaline Phosphatase Creatine Kinase Troponin I Total Protein Albumin Urine Color Urine Appearance Urine pH Ur Specific [place] Urine Protein Urine Glucose (UA) Urine Ketones Urine Blood Urine Nitrite Urine Bilirubin Urine Urobilinogen Ur Leukocyte Esterase Urine WBC (Auto) Urine RBC (Auto) Urine Casts (Auto) U Epithel Cells (Auto) Urine Bacteria (Auto) U Random Total Protein Cancelled Ur Random Sodium Ur Random Urea Nitrogn Cancelled Urine Creatinine Opiates Screen Methadone Screen Barbiturate Screen Phencyclidine Screen Ur Amphetamines Screen MDMA (Ecstasy) Screen Benzodiazepines Screen Cocaine Screen U Marijuana (THC) Screen Current Medications Generic Name Dose Route Start Last Admin Trade Name Freq PRN Reason Stop Dose Admin Albuterol/Ipratropium 1 amp 01/14/19 08:00 01/14/19 16:04 Duoneb - NEB Not Given RQID MARILYN Albuterol/Ipratropium 1 amp 01/13/19 20:48 Duoneb - NEB Q4H PRN SHORTNESS OF BREATH Heparin Sodium (Porcine) 5,000 unit 01/13/19 22:00 01/14/19 14:00 Heparin - SQ 5,000 unit TID MARILYN Administration Sodium Chloride 1,000 mls @ 100 mls/hr 01/14/19 12:15 01/14/19 14:00 Normal Saline - IV 100 mls/hr ASDIR MARILYN Administration Melatonin 5 mg 01/14/19 17:14 Melatonin PO HS PRN INSOMNIA Methylprednisolone Sodium Succinate 40 mg 01/14/19 03:30 01/14/19 17:19 Solu-Medrol - IVPUSH Not Given Q8H-IV [facility] Non-Formulary Medication 1 each 01/14/19 10:00 Bictegrav/Emtricit/Tenofov Ala PO DAILY [facility] Polyethylene Glycol 17 gm 01/14/19 10:00 01/14/19 14:00 Miralax (For Daily Use) - PO Not Given BID [facility] ASSESSMENT AND PLAN: 63 year old male with history of HIV, HTN, COPD, Hepatitis C s/p treatment, Polysubstance Abuse (Heroin, Cocaine, MJ, Tobacco), sentr to ED from [facility] for chest tightness and SOB, found to be hypoxic with SpO2 88% on RA. 1. Acute Hypoxic Respiratory Failure secondary to Acute Exacerbation of COPD versus Cocaine induced bronchospasm CXR - poor inspiratory effort, no acute cardiopulmonary findings. Will repeat PA /Lat Continue IV Solumedrol, DuoNebs Pulm consulted. 2. Atypical Chest Pain, likely coronary spasm s/p cocaine use TropI neg x 2. Cardiology consulted. 3. HIV - follows with [facility] - ID for HAART 4. ROE, likely pre-renal - renal function improving with IV hydration. Renal US negative for obstruction. Normally on Lasix at home - will hold. 5. Hepatitis C Infection - reports completion of treatment. For further management as out-patient. 6. Early opiate withdrawal symptoms on background history of Polysubstance Abuse - Cocaine, MJ, Heroin, Tobacco, PCP. Declined in-patient rehab in past. Addiction Medicine consulted. Reports taking Methadone. Utox pos for Methadone. Will give 40mg Methadone pending confirmation of Methadone dose. Addiction Medicine consulted. 7. HTN - Metoprolol on home med list - will avoid in context of cocaine positive bronchospasm. Hydralazine prn for uncontrolled BP. DVT Px - Heparin SQ
--- NOTE | 2019-01-14 20:26 | CONS ---
DATE OF CONSULTATION: DATE OF DICTATION: 10/16/2018 INFECTIOUS DISEASE CONSULTATION REQUESTING PHYSICIAN: Hospitalist Service CONSULTING PHYSICIAN: Radha Serna M.D. HISTORY OF PRESENT ILLNESS: This is a 63-year-old man with stable HIV, polysubstance use. He denies IV drug abuse. He uses heroin and cocaine, who is admitted with hypoxia and shortness of breath. He apparently was refused admission last week to detox because he had been given a fentanyl patch, and he elected over the weekend to try to detox himself. He said he spent the weekend laying on the floor. He He presented to the [facility] clinic for followup yesterday with hypoxia of 88%. He left AMA and then he returned and for further evaluation, and apparently had sniffed heroin that morning. He was placed on oxygen with improved flow in his O2 saturations. He was sent to the emergency room for further evaluation. He was admitted. In the ER, he was found to have a white count of 11,000 and his BUN and creatinine were 33 and 2.4, and he was admitted for further care. He had a chest x-ray that showed no acute infiltrate. A renal ultrasound that showed both kidneys were normal. I am asked to see him for HIV management. Of note, he is currently on Biktarvy with very good T-cells of 436 and a suppressed viral load. He is not at risk for opportunistic infections. He denies any fever. He has no cough. The chest x-ray is clear. PAST MEDICAL HISTORY: Notable for HIV, COPD, hypertension, hepatitis C status post treatment and polysubstance use along with arthritis. MEDICATION: He was recently switched to Biktarvy 2 weeks ago. ALLERGIES: No known drug allergies. SOCIAL HISTORY: He is residing at the facility, which is across the street from the [facility]. His medications include trazodone, Spiriva, Seroquel, nebulizer, Remeron, metoprolol. He is currently apparently off methadone. Claritin, Lasix, Biktarvy, and he has a Ventolin solution for nebulizer. SURGICAL HISTORY: Notable for skull fractures. He fell from a 4th floor window as a child. FAMILY HISTORY: Apparently his daughters are all alive and well. His father has heart disease, and a sister at age 21. REVIEW OF SYSTEMS: He reports he feels unwell. He thinks it is due to the fact that he is still detoxing. PHYSICAL EXAMINATION: GENERAL: He is awake and alert, in no acute distress. He is eating lunch. He just ordered out, got food delivered. HEENT: Normocephalic. Eyes are anicteric. He has no thrush. NECK: Supple. LUNGS: Clear to auscultation. HEART: Regular rate and rhythm. ABDOMEN: Soft, nontender. EXTREMITIES: Without edema. LABORATORY: Notable for CD4 count of over 400, a suppressed viral load from December of this year. His BUN and creatinine are elevated with a creatinine of 2.4. The white count at 9.1, hemoglobin 12.1, platelets of 197. Chest x-ray shows no acute infiltrate. IMPRESSION: In summary, this is a 63-year-old man with stable HIV disease and polysubstance use. He is not at risk for opportunistic infections. I would continue his Biktarvy; if we do not have it, we could give him . I would recommend that we have him evaluated by detox. He has had blood cultures drawn, but he denies any history of substance use, and we can follow this up. Would agree at this time there is no need for antibiotics. Further recommendations to follow. RADHA SERNA M.D. JOSE [id number]
[2019-01-14] MEDS: METHYL SALICYLATE/MENTHOL OINT 30 GM TUBE TP SCH (22:00)
[2019-01-15] MEDS: methylPREDNISolone NA SUCC 40 MG/1 ML VIAL IVPUSH SCH ×2 (01:51→10:25)
[2019-01-15 02:13] VITALS: BP 156/91; PULSE 78; TEMP 98
[2019-01-15] MEDS: HEPARIN NA (PORCINE) 5,000 UNITS/ML 1ML VIAL SQ SCH (05:33)
[2019-01-15] MEDS: ALBUTEROL SO4 2.5/IPRATROPIUM 0.5 INH SOL 3 ML VIAL.NEB. NEB SCH (07:15)
--- NOTE | 2019-01-15 07:46 | PN ---
Physical Exam: SUBJECTIVE: Patient seen and examined at bedside this morning. He is reportedly refusing blood draws for labs, and many of his medications. Patient endorses that the chest tightness is improving. He endorses one solid bowel movement yesterday evening, without hematochezia. He denies subjective fevers, chills, shortness of breath, chest pain, palpitations, abdominal pain, nausea, vomiting. OBJECTIVE: Vital Signs Period Temp Pulse Resp BP Sys/Colon Pulse Ox Last 24 Hr 98 F-98.6 F 72-88 18-20 144-170/88-91 88-98 GENERAL: The patient is agitated, fully oriented, in no acute distress. HEAD: Normocephalic, atraumatic. EYES: PERRL, extraocular movements intact, sclera anicteric, conjunctiva clear. ENT: Oropharynx clear without exudates, moist mucous membranes. NECK: Trachea midline, full range of motion, supple without lymphadenopathy. LUNGS: Good inspiratory effort, rhonchi auscultated bilaterally. No accessory muscle use. HEART: Regular rate and rhythm, S1, S2 without murmur, rub or gallop. ABDOMEN: Obese. Soft, nontender to palpation. Normoactive bowel sounds x4 quadrants, no guarding, no rebound tenderness. No hepatosplenomegaly. EXTREMITIES: 2+ radial, dorsalis pedis pulses bilaterally. Warm, well-perfused, no edema. NEUROLOGICAL: Cranial nerves II through XII grossly intact. Normal speech. Laboratory Results - last 24 hr 01/13/19 01/14/19 01/14/19 11:20 09:52 09:52 WBC RBC Hgb Hct MCV MCH MCHC RDW Plt Count MPV Absolute Neuts (auto) Neutrophils % Neutrophils % (Manual) Band Neutrophils % Lymphocytes % Lymphocytes % (Manual) Monocytes % Monocytes % (Manual) Eosinophils % Eosinophils % (Manual) Basophils % Basophils % (Manual) Myelocytes % (Man) Promyelocytes % (Man) Blast Cells % (Manual) Nucleated RBC % Metamyelocytes Hypochromia Platelet Estimate Polychromasia Poikilocytosis Anisocytosis Microcytosis Macrocytosis PT with INR 14.30 H INR 1.21 H PTT (Actin FS) 28.8 Sodium Potassium Chloride Carbon Dioxide Anion Gap BUN Creatinine Creat Clearance w eGFR Random Glucose Calcium Phosphorus Magnesium Total Bilirubin AST ALT Alkaline Phosphatase Creatine Kinase Troponin I < 0.02 Total Protein Albumin Urine Color Yellow Urine Appearance Clear Urine pH 5.5 D Ur Specific [place] 1.030 Urine Protein 1+ H Urine Glucose (UA) 2+ H Urine Ketones Trace H Urine Blood Negative Urine Nitrite Negative Urine Bilirubin Negative Urine Urobilinogen 1.0 Ur Leukocyte Esterase Negative Urine WBC (Auto) 0 Urine RBC (Auto) 1 Urine Casts (Auto) 29 U Epithel Cells (Auto) 0.8 Urine Bacteria (Auto) 0.5 U Random Total Protein Ur Random Sodium Ur Random Urea Nitrogn Urine Creatinine Opiates Screen Methadone Screen Barbiturate Screen Phencyclidine Screen Ur Amphetamines Screen MDMA (Ecstasy) Screen Benzodiazepines Screen Cocaine Screen U Marijuana (THC) Screen 01/14/19 01/14/19 01/14/19 09:52 09:52 11:30 WBC 9.1 RBC 4.87 Hgb 12.1 Hct 38.0 MCV 78.1 L MCH 24.9 L MCHC 31.9 L RDW 18.6 H Plt Count 197 MPV 7.8 Absolute Neuts (auto) 8.4 H Neutrophils % 92.9 H D Neutrophils % (Manual) 86.1 H Band Neutrophils % 0.0 Lymphocytes % 6.1 L D Lymphocytes % (Manual) 9.9 D Monocytes % 0.7 L D Monocytes % (Manual) 4 Eosinophils % 0.0 D Eosinophils % (Manual) 0.0 Basophils % 0.3 Basophils % (Manual) 0.0 Myelocytes % (Man) 0 Promyelocytes % (Man) 0 Blast Cells % (Manual) 0 Nucleated RBC % 0 Metamyelocytes 0 Hypochromia 1+ Platelet Estimate Normal Polychromasia 0 Poikilocytosis 0 Anisocytosis 1+ Microcytosis 1+ Macrocytosis 0 PT with INR INR PTT (Actin FS) Sodium 135 L Potassium 4.2 Chloride 103 Carbon Dioxide 24 Anion Gap 8 BUN 26 H Creatinine 1.4 H Creat Clearance w eGFR 51.18 Random Glucose 180 H Calcium 8.5 Phosphorus 2.4 L Magnesium 2.0 Total Bilirubin 0.3 AST 21 ALT 20 Alkaline Phosphatase 81 Creatine Kinase 69 Troponin I Total Protein 7.8 Albumin 2.9 L Urine Color Urine Appearance Urine pH Ur Specific [place] Urine Protein Urine Glucose (UA) Urine Ketones Urine Blood Urine Nitrite Urine Bilirubin Urine Urobilinogen Ur Leukocyte Esterase Urine WBC (Auto) Urine RBC (Auto) Urine Casts (Auto) U Epithel Cells (Auto) Urine Bacteria (Auto) U Random Total Protein Ur Random Sodium Ur Random Urea Nitrogn Urine Creatinine Opiates Screen Positive A* Methadone Screen Positive A* Barbiturate Screen Negative Phencyclidine Screen Positive A* Ur Amphetamines Screen Negative MDMA (Ecstasy) Screen Negative Benzodiazepines Screen Negative Cocaine Screen Positive A* U Marijuana (THC) Screen Positive A* 01/14/19 01/14/19 01/14/19 11:30 11:30 11:30 WBC RBC Hgb Hct MCV MCH MCHC RDW Plt Count MPV Absolute Neuts (auto) Neutrophils % Neutrophils % (Manual) Band Neutrophils % Lymphocytes % Lymphocytes % (Manual) Monocytes % Monocytes % (Manual) Eosinophils % Eosinophils % (Manual) Basophils % Basophils % (Manual) Myelocytes % (Man) Promyelocytes % (Man) Blast Cells % (Manual) Nucleated RBC % Metamyelocytes Hypochromia Platelet Estimate Polychromasia Poikilocytosis Anisocytosis Microcytosis Macrocytosis PT with INR INR PTT (Actin FS) Sodium Potassium Chloride Carbon Dioxide Anion Gap BUN Creatinine Creat Clearance w eGFR Random Glucose Calcium Phosphorus Magnesium Total Bilirubin AST ALT Alkaline Phosphatase Creatine Kinase Troponin I Total Protein Albumin Urine Color Yellow Urine Appearance Clear Urine pH 5.5 Ur Specific [place] 1.030 Urine Protein 1+ H Urine Glucose (UA) 1+ H Urine Ketones Trace H Urine Blood Negative Urine Nitrite Negative Urine Bilirubin Negative Urine Urobilinogen 0.2 Ur Leukocyte Esterase Negative Urine WBC (Auto) 0 Urine RBC (Auto) 1 Urine Casts (Auto) 6 U Epithel Cells (Auto) 1.0 Urine Bacteria (Auto) 0.8 U Random Total Protein 111.6 H Ur Random Sodium 21 L Ur Random Urea Nitrogn Cancelled Urine Creatinine 209.0 Cancelled Opiates Screen Methadone Screen Barbiturate Screen Phencyclidine Screen Ur Amphetamines Screen MDMA (Ecstasy) Screen Benzodiazepines Screen Cocaine Screen U Marijuana (THC) Screen 01/14/19 01/14/19 01/14/19 11:30 11:30 11:30 WBC RBC Hgb Hct MCV MCH MCHC RDW Plt Count MPV Absolute Neuts (auto) Neutrophils % Neutrophils % (Manual) Band Neutrophils % Lymphocytes % Lymphocytes % (Manual) Monocytes % Monocytes % (Manual) Eosinophils % Eosinophils % (Manual) Basophils % Basophils % (Manual) Myelocytes % (Man) Promyelocytes % (Man) Blast Cells % (Manual) Nucleated RBC % Metamyelocytes Hypochromia Platelet Estimate Polychromasia Poikilocytosis Anisocytosis Microcytosis Macrocytosis PT with INR INR PTT (Actin FS) Sodium Potassium Chloride Carbon Dioxide Anion Gap BUN Creatinine Creat Clearance w eGFR Random Glucose Calcium Phosphorus Magnesium Total Bilirubin AST ALT Alkaline Phosphatase Creatine Kinase Troponin I Total Protein Albumin Urine Color Urine Appearance Urine pH Ur Specific [place] Urine Protein Urine Glucose (UA) Urine Ketones Urine Blood Urine Nitrite Urine Bilirubin Urine Urobilinogen Ur Leukocyte Esterase Urine WBC (Auto) Urine RBC (Auto) Urine Casts (Auto) U Epithel Cells (Auto) Urine Bacteria (Auto) U Random Total Protein Cancelled Ur Random Sodium Ur Random Urea Nitrogn Cancelled Cancelled Urine Creatinine Opiates Screen Methadone Screen Barbiturate Screen Phencyclidine Screen Ur Amphetamines Screen MDMA (Ecstasy) Screen Benzodiazepines Screen Cocaine Screen U Marijuana (THC) Screen Active Medications Generic Name Dose Route Start Last Admin Trade Name Freq PRN Reason Stop Dose Admin Albuterol/Ipratropium 1 amp 01/14/19 08:00 01/14/19 20:54 Duoneb - NEB Not Given RQID MARILYN Albuterol/Ipratropium 1 amp 01/13/19 20:48 01/14/19 22:53 Duoneb - NEB 1 amp Q4H PRN Administration SHORTNESS OF BREATH Heparin Sodium (Porcine) 5,000 unit 01/13/19 22:00 01/15/19 05:33 Heparin - SQ Not Given TID MARILYN Sodium Chloride 1,000 mls @ 100 mls/hr 01/14/19 12:15 01/14/19 14:00 Normal Saline - IV 100 mls/hr ASDIR MARILYN Administration Melatonin 5 mg 01/14/19 17:14 01/14/19 22:00 Melatonin PO 5 mg HS PRN Administration INSOMNIA Methyl Salicylate 1 applic 01/14/19 21:45 01/14/19 22:00 Jim-Garner - TP 1 applic DAILY MARILYN Administration Methylprednisolone Sodium Succinate 40 mg 01/14/19 03:30 01/15/19 01:51 Solu-Medrol - IVPUSH Not Given Q8H-IV MARILYN Non-Formulary Medication 1 each 01/14/19 10:00 Bictegrav/Emtricit/Tenofov Ala PO DAILY MARILYN Polyethylene Glycol 17 gm 01/14/19 10:00 01/14/19 21:17 Miralax (For Daily Use) - PO Not Given BID [facility] ASSESSMENT/PLAN: Patient is a 63 year old male with history of HIV (CD4 count 436 12/2018), COPD , hypertension, hepatitis C, polysubstance abuse (cocaine and heroin with last use yesterday), presents with complaint of shortness of breath and chest tightness. Dyspnea likely due to COPD exacerbation -Bronchospasm contributed secondary to recent cocaine use. -Chest radiograph does not show infiltrates -Duonebs Q6H standing -Methylprednisone 40mg IV Q8H -Follow blood cultures -Pulmonology consult (Dr. Go) -Cardiology consult (Dr. Braxton) -Troponin 0.02 X2. Will trend. EKG shows normal sinus rhythm at 98 BPM. -Cardiac monitoring. -Avoid Beta blockers due to recent cocaine use Polysubstance abuse -Concern for Heroin withdrawal -COWs score 10 upon my encounter today. -Methadone 40mg PO one time dose. Need to confirm doseage with [facility] -Addiction medicine (Dr. Davidson) consult -Urine toxicology positive for opiates, methadone, PCP, cocaine, marijuana. Acute kidney injury -Likely pre-renal secondary to dehydration -Renal US unremarkable, without acute pathology. -CPK 69 -IV normal saline at 100mL/ hour -Nephrology consult (Dr. Paz) appreciated. Follow urine studies. -Follow Bun/ Cr HIV -Last CD4 count 436 reported 12/2018 -Patient's Biktarvy is not formulary at this facility. Patient does not have the medication with him. -Descovy 200.25mg PO daily -Tivicay 50mg PO daily -ID consult (Dr. Lewis) appreciated. Hepatitis C -Follow Hepatits C virus Quantitation studies FEN -IV normal saline at 100mL/hour -Follow CMP -Regular diet Prophylaxis -Heparin 5000u subq TID Disposition -Continue care in Telemetry floor
[2019-01-15] MEDS: EMTRICITABINE/TENOFOV ALAFENAM (DESCOVY) TABLET PO SCH (10:17)
[2019-01-15] MEDS: DOLUTEGRAVIR SODIUM 50 MG TABLET (NON-FORMULARY) PO SCH (10:18)
[2019-01-15 10:22] LABS: ANION GAP 6 MMOL/L (8-16); BLOOD UREA NITROGEN 24 mg/dL (7-18); CALCIUM 8.1 mg/dL (8.5-10.1); CHLORIDE 107 mmol/L (98-107); CO2 27 mmol/L (21-32); CREATININE 1.2 mg/dL (0.55-1.3); GLUCOSE,RANDOM 92 mg/dL (74-106); MAGNESIUM 1.8 mg/dL (1.8-2.4); PHOSPHOROUS 2.1 mg/dL (2.5-4.9); POTASSIUM 3.8 mmol/L (3.5-5.1); SODIUM 140 mmol/L (136-145)
[2019-01-15] MEDS: METHYL SALICYLATE/MENTHOL OINT 30 GM TUBE TP SCH (10:26)
[2019-01-15] MEDS ORDERED: METHADONE HCL 10 MG TABLET PO ONE (10:45)
--- NOTE | 2019-01-15 11:51 | DS ---
Physical Exam: SUBJECTIVE: Patient seen and examined at bedside this morning. He is refusing blood draws for labs, and many of his medications. Patient endorses that the chest tightness is improving. He refuses referral to [facility] for detox and rehab. OBJECTIVE: Vital Signs Period Temp Pulse Resp BP Sys/Colon Pulse Ox Last 24 Hr 98 F-98.6 F 72-78 18-20 156-170/90-91 88-95 PHYSICAL EXAM GENERAL: The patient is agitated, fully oriented, in no acute distress. HEAD: Normocephalic, atraumatic. EYES: PERRL, extraocular movements intact, sclera anicteric, conjunctiva clear. ENT: Oropharynx clear without exudates, moist mucous membranes. NECK: Trachea midline, full range of motion, supple without lymphadenopathy. LUNGS: Good inspiratory effort, faint wheezes auscultated bilaterally. No accessory muscle use. HEART: Regular rate and rhythm, S1, S2 without murmur, rub or gallop. ABDOMEN: Obese. Soft, nontender to palpation X4 quadrants, no guarding, no rebound tenderness. Normoactive bowel sounds x4 quadrants. No hepatosplenomegaly. EXTREMITIES: 2+ radial, dorsalis pedis pulses bilaterally. Warm, well-perfused, no edema. NEUROLOGICAL: Cranial nerves II through XII grossly intact. Normal speech. LABS Laboratory Results - last 24 hr 01/13/19 01/14/19 01/14/19 11:20 09:52 11:30 Neutrophils % (Manual) 86.1 H Band Neutrophils % 0.0 Lymphocytes % (Manual) 9.9 D Monocytes % (Manual) 4 Eosinophils % (Manual) 0.0 Basophils % (Manual) 0.0 Myelocytes % (Man) 0 Promyelocytes % (Man) 0 Blast Cells % (Manual) 0 Metamyelocytes 0 Hypochromia 1+ Platelet Estimate Normal Polychromasia 0 Poikilocytosis 0 Anisocytosis 1+ Microcytosis 1+ Macrocytosis 0 Sodium Potassium Chloride Carbon Dioxide Anion Gap BUN Creatinine Creat Clearance w eGFR Random Glucose Calcium Phosphorus Magnesium Creatine Kinase Urine Color Yellow Urine Appearance Clear Urine pH 5.5 D Ur Specific [place] 1.030 Urine Protein 1+ H Urine Glucose (UA) 2+ H Urine Ketones Trace H Urine Blood Negative Urine Nitrite Negative Urine Bilirubin Negative Urine Urobilinogen 1.0 Ur Leukocyte Esterase Negative Urine WBC (Auto) 0 Urine RBC (Auto) 1 Urine Casts (Auto) 29 U Epithel Cells (Auto) 0.8 Urine Bacteria (Auto) 0.5 U Random Total Protein Ur Random Sodium Ur Random Urea Nitrogn Urine Creatinine Opiates Screen Positive A* Methadone Screen Positive A* Barbiturate Screen Negative Phencyclidine Screen Positive A* Ur Amphetamines Screen Negative MDMA (Ecstasy) Screen Negative Benzodiazepines Screen Negative Cocaine Screen Positive A* U Marijuana (THC) Screen Positive A* 01/14/19 01/14/19 01/14/19 11:30 11:30 11:30 Neutrophils % (Manual) Band Neutrophils % Lymphocytes % (Manual) Monocytes % (Manual) Eosinophils % (Manual) Basophils % (Manual) Myelocytes % (Man) Promyelocytes % (Man) Blast Cells % (Manual) Metamyelocytes Hypochromia Platelet Estimate Polychromasia Poikilocytosis Anisocytosis Microcytosis Macrocytosis Sodium Potassium Chloride Carbon Dioxide Anion Gap BUN Creatinine Creat Clearance w eGFR Random Glucose Calcium Phosphorus Magnesium Creatine Kinase Urine Color Yellow Urine Appearance Clear Urine pH 5.5 Ur Specific [place] 1.030 Urine Protein 1+ H Urine Glucose (UA) 1+ H Urine Ketones Trace H Urine Blood Negative Urine Nitrite Negative Urine Bilirubin Negative Urine Urobilinogen 0.2 Ur Leukocyte Esterase Negative Urine WBC (Auto) 0 Urine RBC (Auto) 1 Urine Casts (Auto) 6 U Epithel Cells (Auto) 1.0 Urine Bacteria (Auto) 0.8 U Random Total Protein 111.6 H Ur Random Sodium 21 L Ur Random Urea Nitrogn Cancelled Urine Creatinine 209.0 Cancelled Opiates Screen Methadone Screen Barbiturate Screen Phencyclidine Screen Ur Amphetamines Screen MDMA (Ecstasy) Screen Benzodiazepines Screen Cocaine Screen U Marijuana (THC) Screen 01/14/19 01/14/19 01/14/19 11:30 11:30 11:30 Neutrophils % (Manual) Band Neutrophils % Lymphocytes % (Manual) Monocytes % (Manual) Eosinophils % (Manual) Basophils % (Manual) Myelocytes % (Man) Promyelocytes % (Man) Blast Cells % (Manual) Metamyelocytes Hypochromia Platelet Estimate Polychromasia Poikilocytosis Anisocytosis Microcytosis Macrocytosis Sodium Potassium Chloride Carbon Dioxide Anion Gap BUN Creatinine Creat Clearance w eGFR Random Glucose Calcium Phosphorus Magnesium Creatine Kinase Urine Color Urine Appearance Urine pH Ur Specific [place] Urine Protein Urine Glucose (UA) Urine Ketones Urine Blood Urine Nitrite Urine Bilirubin Urine Urobilinogen Ur Leukocyte Esterase Urine WBC (Auto) Urine RBC (Auto) Urine Casts (Auto) U Epithel Cells (Auto) Urine Bacteria (Auto) U Random Total Protein Cancelled Ur Random Sodium Ur Random Urea Nitrogn Cancelled Cancelled Urine Creatinine Opiates Screen Methadone Screen Barbiturate Screen Phencyclidine Screen Ur Amphetamines Screen MDMA (Ecstasy) Screen Benzodiazepines Screen Cocaine Screen U Marijuana (THC) Screen 01/15/19 09:30 Neutrophils % (Manual) Band Neutrophils % Lymphocytes % (Manual) Monocytes % (Manual) Eosinophils % (Manual) Basophils % (Manual) Myelocytes % (Man) Promyelocytes % (Man) Blast Cells % (Manual) Metamyelocytes Hypochromia Platelet Estimate Polychromasia Poikilocytosis Anisocytosis Microcytosis Macrocytosis Sodium 140 Potassium 3.8 Chloride 107 Carbon Dioxide 27 Anion Gap 6 L BUN 24 H Creatinine 1.2 Creat Clearance w eGFR 61.15 Random Glucose 92 Calcium 8.1 L Phosphorus 2.1 L Magnesium 1.8 Creatine Kinase 40 Urine Color Urine Appearance Urine pH Ur Specific [place] Urine Protein Urine Glucose (UA) Urine Ketones Urine Blood Urine Nitrite Urine Bilirubin Urine Urobilinogen Ur Leukocyte Esterase Urine WBC (Auto) Urine RBC (Auto) Urine Casts (Auto) U Epithel Cells (Auto) Urine Bacteria (Auto) U Random Total Protein Ur Random Sodium Ur Random Urea Nitrogn Urine Creatinine Opiates Screen Methadone Screen Barbiturate Screen Phencyclidine Screen Ur Amphetamines Screen MDMA (Ecstasy) Screen Benzodiazepines Screen Cocaine Screen U Marijuana (THC) Screen HOSPITAL COURSE: Date of Admission:01/13/19 Date of Discharge: 01/15/19 Patient is a 63 year old male with history of HIV (CD4 count 436 on 12/2018), COPD, hypertension, hepatitis C, polysubstance abuse (cocaine and heroin with last use one day prior to admission) presented with complaint of shortness of breath and chest tightness. Chest radiograph in ED showed no acute pathology. Patient was started on IV steroids, nebulizer breathing treatments. Troponins negative X2. EKG showed normal sinus rhythm without ischemic changes. Patient had COWs score of 10 upon admission. Urine toxicology positive for cocaine, opiates, methadone, marijuana, PCP. Patient was given Methadone 40mg for opiate withdrawal. Methadone dose was confirmed for 40mg, however, his Methadone clinic stated he had last been there approximately three weeks ago. Patient known to be noncompliant with prior therapy, and during hospitalization, refused numerous medications, and blood draws for lab tests. His HIV medication Biktarvy was non-formulary. Patient was evaluated by ID and substituted with Kumar and Catie during hospitalization. Patient had ROE with Cr. of 2.4 at admission, resolved with IV fluid hydration. Patient refused to remain for evaluation by transcription specialist. Patient refused plan for detox and rehab. Risks of leaving hospital explained to patient (worsening symptoms, withdrawal symptoms including seizures, loss of consciousness, fall, trauma to head or any part of body, permanent disability, ). Patient expressed verbal understanding of risks, and refused to sign AMA paperwork. Minutes to complete discharge: 45 Discharge Summary Reason For Visit: HYPOXIA,CHRONIC OBSTRUCTIVE PULMONARY DISEASE Current Active Problems COPD exacerbation (Acute) Need for transfer to another facility (Acute) HIV (human immunodeficiency virus infection) (Chronic) Heroin addiction (Chronic) Condition: Guarded - Instructions Diet, Activity, Other Instructions: Patient was admitted for chest tightness and shortness of breath. Urine toxicology positive for opiates, methadone, cocaine, PCP, marijuana. Treated with Methadone for opiate withdrawal symptoms. Patient refused transcription specialist evaluation, or drug detox and rehabilitation program. Patient left against medical advice. Risks explained to patient, who verbalized understanding. Disposition: AGAINST MEDICAL ADVICE - Home Medications Comprehensive Discharge Medication List: Ambulatory Orders Methadone HCl 30 mg PO DAILY@0600 09/03/18 Albuterol 0.083% Nebulizer Mary Jo [Ventolin 0.083% Nebulizer Soln -] 1 neb NEB Q6H PRN #120 vial 10/22/18 Blood Pressure Kit-Extra Large [Blood Pressure Monitor] 1 each ASDIR #1 kit 10/22/18 Nebulizer Accessories [Reusable Nebulizer Kit] 1 each ASDIR #1 kit 10/22/18 Nebulizer and Compressor [[place] Choice Nebulizer] 1 each ASDIR #1 each 10/22 Tiotropium [place] [Spiriva] 1 inh PO DAILY #30 inhaler 10/22/18 Mirtazapine [Remeron -] 30 mg PO DAILY #30 tablet 12/24/18 traZODone HCL [Trazodone HCl] 100 mg PO HS #30 tablet 12/24/18 Fentanyl 1 each TD ONCE #1 patch.td72 MDD 1 12/29/18 Albuterol Sulfate Inhaler - [Ventolin HFA Inhaler -] 1 - 2 inh PO QID PRN #1 inhaler 12/30/18 FENTANYL 12mcg PATCH [DURAGESIC 12mcg PATCH -] 2 patch.72h TD Q72H #10 patch MDD 2 patches 12/30/18 Furosemide [Lasix -] 1 tab PO DAILY #30 tablet 12/30/18 Metoprolol Succinate 1 tab PO DAILY #30 tab.er.24h 12/30/18 Multivit with Iron,Minerals [Complete Senior] 1 tab PO DAILY #30 tablet Naloxone HCl [Narcan] 4 mg NS ONCE PRN #1 spray 12/31/18 Bictegrav/Emtricit/Tenofov Ala [Biktarvy 50-200-25 mg Tablet] 1 each PO DAILY # 30 tablet 01/02/19 Budesonide/Formeterol Fumarate [SYMBICORT 80/4.5mcg -] 2 puff IH BID #1 inhaler 01/02/19 Loratadine [Claritin -] 10 mg PO DAILY #30 tablet 01/02/19 Levofloxacin [Levaquin] 500 mg PO DAILY #7 tablet 01/13/19 levoFLOXacin [Levaquin] 750 mg PO ONCE #4 tab 01/13/19 Albuterol 0.083% Nebulizer Mary Jo [Ventolin 0.083% Nebulizer Soln -] 2 puff PO PRN PRN 01/14/19 Quetiapine Fumarate [Seroquel -] 50 mg PO DAILY 01/14/19 This patient is new to me today: No Emergency Visit: Yes ED Registration Date: 01/13/19 Care time: The patient presented to the Emergency Department on the above date and was hospitalized for further evaluation of their emergent condition. Critical Care patient: No - Discharge Referral Referred to [facility] Med P.C.: No
--- NOTE | 2019-01-15 12:26 | PN ---
Teaching Attending Note Name of Resident: Murphy Schulz ATTENDING PHYSICIAN STATEMENT I saw and evaluated the patient. I reviewed the resident's note and discussed the case with the resident. I agree with the resident's findings and plan as documented. SUBJECTIVE: Feeling diaphoretic. No further CP/palpitations. Admits to CP/ dyspnea after cocaine use. Also admits to MJ, tobacco, and heroin use. Declines further detox at this time. Declines referral to Addiction Medicine and to [facility]. OBJECTIVE: Afebrile, Hemodynamically Stable. AAO x 3. Last Vital Signs Temp Pulse Resp BP Pulse Ox 98 F 78 18 156/91 95 01/14/19 21:00 01/15/19 08:36 01/15/19 08:42 01/14/19 21:00 01/15/19 08:42 Heart - S1, S2, RRR Lungs - good air entry - few wheezes Abdomen - Soft, non-tender. Bowel Sounds normal. Extremities - no calf tenderness. Neuro - AAO x 3. Tone/Power normal all 4 extremities. Laboratory Results - last 24 hr 01/13/19 01/14/19 01/14/19 11:20 09:52 11:30 Neutrophils % (Manual) 86.1 H Band Neutrophils % 0.0 Lymphocytes % (Manual) 9.9 D Monocytes % (Manual) 4 Eosinophils % (Manual) 0.0 Basophils % (Manual) 0.0 Myelocytes % (Man) 0 Promyelocytes % (Man) 0 Blast Cells % (Manual) 0 Metamyelocytes 0 Hypochromia 1+ Platelet Estimate Normal Polychromasia 0 Poikilocytosis 0 Anisocytosis 1+ Microcytosis 1+ Macrocytosis 0 Sodium Potassium Chloride Carbon Dioxide Anion Gap BUN Creatinine Creat Clearance w eGFR Random Glucose Calcium Phosphorus Magnesium Creatine Kinase Urine Color Yellow Urine Appearance Clear Urine pH 5.5 D Ur Specific [place] 1.030 Urine Protein 1+ H Urine Glucose (UA) 2+ H Urine Ketones Trace H Urine Blood Negative Urine Nitrite Negative Urine Bilirubin Negative Urine Urobilinogen 1.0 Ur Leukocyte Esterase Negative Urine WBC (Auto) 0 Urine RBC (Auto) 1 Urine Casts (Auto) 29 U Epithel Cells (Auto) 0.8 Urine Bacteria (Auto) 0.5 U Random Total Protein Ur Random Sodium Ur Random Urea Nitrogn Urine Creatinine Opiates Screen Positive A* Methadone Screen Positive A* Barbiturate Screen Negative Phencyclidine Screen Positive A* Ur Amphetamines Screen Negative MDMA (Ecstasy) Screen Negative Benzodiazepines Screen Negative Cocaine Screen Positive A* U Marijuana (THC) Screen Positive A* 01/14/19 01/14/19 01/14/19 11:30 11:30 11:30 Neutrophils % (Manual) Band Neutrophils % Lymphocytes % (Manual) Monocytes % (Manual) Eosinophils % (Manual) Basophils % (Manual) Myelocytes % (Man) Promyelocytes % (Man) Blast Cells % (Manual) Metamyelocytes Hypochromia Platelet Estimate Polychromasia Poikilocytosis Anisocytosis Microcytosis Macrocytosis Sodium Potassium Chloride Carbon Dioxide Anion Gap BUN Creatinine Creat Clearance w eGFR Random Glucose Calcium Phosphorus Magnesium Creatine Kinase Urine Color Yellow Urine Appearance Clear Urine pH 5.5 Ur Specific [place] 1.030 Urine Protein 1+ H Urine Glucose (UA) 1+ H Urine Ketones Trace H Urine Blood Negative Urine Nitrite Negative Urine Bilirubin Negative Urine Urobilinogen 0.2 Ur Leukocyte Esterase Negative Urine WBC (Auto) 0 Urine RBC (Auto) 1 Urine Casts (Auto) 6 U Epithel Cells (Auto) 1.0 Urine Bacteria (Auto) 0.8 U Random Total Protein 111.6 H Ur Random Sodium 21 L Ur Random Urea Nitrogn Cancelled Urine Creatinine 209.0 Cancelled Opiates Screen Methadone Screen Barbiturate Screen Phencyclidine Screen Ur Amphetamines Screen MDMA (Ecstasy) Screen Benzodiazepines Screen Cocaine Screen U Marijuana (THC) Screen 01/14/19 01/14/19 01/14/19 11:30 11:30 11:30 Neutrophils % (Manual) Band Neutrophils % Lymphocytes % (Manual) Monocytes % (Manual) Eosinophils % (Manual) Basophils % (Manual) Myelocytes % (Man) Promyelocytes % (Man) Blast Cells % (Manual) Metamyelocytes Hypochromia Platelet Estimate Polychromasia Poikilocytosis Anisocytosis Microcytosis Macrocytosis Sodium Potassium Chloride Carbon Dioxide Anion Gap BUN Creatinine Creat Clearance w eGFR Random Glucose Calcium Phosphorus Magnesium Creatine Kinase Urine Color Urine Appearance Urine pH Ur Specific [place] Urine Protein Urine Glucose (UA) Urine Ketones Urine Blood Urine Nitrite Urine Bilirubin Urine Urobilinogen Ur Leukocyte Esterase Urine WBC (Auto) Urine RBC (Auto) Urine Casts (Auto) U Epithel Cells (Auto) Urine Bacteria (Auto) U Random Total Protein Cancelled Ur Random Sodium Ur Random Urea Nitrogn Cancelled Cancelled Urine Creatinine Opiates Screen Methadone Screen Barbiturate Screen Phencyclidine Screen Ur Amphetamines Screen MDMA (Ecstasy) Screen Benzodiazepines Screen Cocaine Screen U Marijuana (THC) Screen 01/15/19 09:30 Neutrophils % (Manual) Band Neutrophils % Lymphocytes % (Manual) Monocytes % (Manual) Eosinophils % (Manual) Basophils % (Manual) Myelocytes % (Man) Promyelocytes % (Man) Blast Cells % (Manual) Metamyelocytes Hypochromia Platelet Estimate Polychromasia Poikilocytosis Anisocytosis Microcytosis Macrocytosis Sodium 140 Potassium 3.8 Chloride 107 Carbon Dioxide 27 Anion Gap 6 L BUN 24 H Creatinine 1.2 Creat Clearance w eGFR 61.15 Random Glucose 92 Calcium 8.1 L Phosphorus 2.1 L Magnesium 1.8 Creatine Kinase 40 Urine Color Urine Appearance Urine pH Ur Specific [place] Urine Protein Urine Glucose (UA) Urine Ketones Urine Blood Urine Nitrite Urine Bilirubin Urine Urobilinogen Ur Leukocyte Esterase Urine WBC (Auto) Urine RBC (Auto) Urine Casts (Auto) U Epithel Cells (Auto) Urine Bacteria (Auto) U Random Total Protein Ur Random Sodium Ur Random Urea Nitrogn Urine Creatinine Opiates Screen Methadone Screen Barbiturate Screen Phencyclidine Screen Ur Amphetamines Screen MDMA (Ecstasy) Screen Benzodiazepines Screen Cocaine Screen U Marijuana (THC) Screen ASSESSMENT AND PLAN: 63 year old male with history of HIV, HTN, COPD, Hepatitis C s/p treatment, Polysubstance Abuse (Heroin, Cocaine, MJ, Tobacco), sentr to ED from [facility] for chest tightness and SOB, found to be hypoxic with SpO2 88% on RA. 1. Acute Hypoxic Respiratory Failure secondary to Acute Exacerbation of COPD versus Cocaine induced bronchospasm - resolved, now SpO2 95% on Room Air. CXR - no acute cardiopulmonary findings. For steroid and nebs. Pulm consulted. 2. Atypical Chest Pain, likely coronary spasm s/p cocaine use - resolved TropI neg x 2. No evidence of ACS - advised to follow with [facility] as out-patient for possible further work-up, but unlikle as patient is known to be poorly compliant. 3. HIV - follows with [facility] - ID for HAART 4. ROE, likely pre-renal - renal function improved with IV hydration. Renal US negative for obstruction. 5. Hepatitis C Infection - reports completion of treatment. For further management as out-patient. 6. cute Opiate withdrawal symptoms on background history of Polysubstance Abuse - Cocaine, MJ, Heroin, Tobacco, PCP. Declines in-patient rehab. Addiction Medicine consulted. Reports taking Methadone. Utox pos for Methadone. Continued on 40mg Methadone pending confirmation of Methadone dose and Addiction Medicine consult. 7. HTN - Metoprolol on home med list - patient advised to avoid in context of cocaine positive bronchospasm. Patient declined further medical management of his withdrawal symptoms. He declined Addiction Medicine eval and possible transfer to [facility]. He was explained all risks of leaving the hospital against medical advice including life-threatening or disabling withdrawal seizures, collapse, head injury, disability, . He verbalized understanding in the presence of his nurse and the medical team, but refused to sign the AMA paperwork.
== END 2019-01-15 11:35 | disposition left against medical advice (07) | DRG 140 ==
LOC: JER 12:49 → JERBED 18:14 → J4W 01-14 14:42
PROVIDERS: ADMIT Internal Medicine
DX: J44.1 Chronic obstructive pulmonary disease with (acute) exacerbation (principal); J96.01 Acute respiratory failure with hypoxia; N17.9 Acute kidney failure, unspecified; E46 Unspecified protein-calorie malnutrition; F11.20 Opioid dependence, uncomplicated; E88.09 Other disorders of plasma-protein metabolism, not elsewhere classified; I10 Essential (primary) hypertension; B19.20 Unspecified viral hepatitis C without hepatic coma; Z21 Asymptomatic human immunodeficiency virus [HIV] infection status; F14.10 Cocaine abuse, uncomplicated; E66.9 Obesity, unspecified; R07.89 Other chest pain; Z91.14 Patient's other noncompliance with medication regimen; Z68.35 Body mass index [BMI] 35.0-35.9, adult
CPT/HCPCS: 36415; 71045-TC-FY; 71046-TC-FY; 76775-TC; 80048; 80053; 80307; 81003; 82308; 82550; 82570; 83605; 83735; 83880; 84100; 84156; 84300; 84484; 85025; 85610; 85730; 87040; 87086; 87522; 93005; 93010; 94640; 99285-25; G0463-25; J1644; J7030

== ENCOUNTER 2019-05-01 20:49 | Emergency (ER) | payer OTHER ==
[2019-05-01 21:23] VITALS: BP 105/79; TEMP 98.3; BMI 32.3
--- NOTE | 2019-05-01 21:24 | PDOC ---
History of Present Illness - General History Source: Patient, Family - History of Present Illness Initial Comments: 05/01/19 22:12 Duane Watson is a 64yM with PMHx HIV, Hep C, COPD, heroin and cocaine abuse presenting with altered mental status. Pt is a poor historian. Per sister, he was found on the floor of [facility] after an unwitnessed fall with labored breathing, word slurring, and disorientation. Pt reports L thoracic paraspinal lumbar pain. Pt denies fever, nausea/vomiting, SOB, chest pain. <Mino Patrick - Last Filed: 05/02/19 04:35> <Dolly Cotto - Last Filed: 05/02/19 06:58> - General Chief Complaint: Shortness of Breath Stated Complaint: DIFFICULTY BREATHING Time Seen by Provider: 05/01/19 21:23 Past History - Past Medical History Anemia: No Asthma: No Cancer: No Cardiac Disorders: No CVA: No COPD: Yes CHF: No Dementia: No Diabetes: No GI Disorders: No Disorders: Yes (UTI) HTN: Yes Hypercholesterolemia: No Liver Disease: No Psychiatric Problems: No Seizures: No Thyroid Disease: No - Surgical History Abdominal Surgery: No Appendectomy: No Cardiac Surgery: No Cholecystectomy: No Lung Surgery: No Neurologic Surgery: No Orthopedic Surgery: Yes (Fx Skull - fell from 4th floor window as a child, Low BAck pain - Deeg Bone) - Immunization History Immunization Up to Date: Yes - Suicide/Smoking/Psychosocial Hx Smoking History: Current every day smoker Have you smoked in the past 12 months: Yes Number of Cigarettes Smoked Daily: 12 Cigars Per Day: 0 Information on smoking cessation initiated: No 'Breaking Loose' booklet given: 09/03/18 Hx Alcohol Use: Yes Drug/Substance Use Hx: Yes Substance Use Type: Heroin, Marijuana, Opiates Hx Substance Use Treatment: Yes <Mino Patrick - Last Filed: 05/02/19 04:35> <Dolly Cotto - Last Filed: 05/02/19 06:58> - Past Medical History Allergies/Adverse Reactions: Allergies Allergy/AdvReac Type Severity Reaction Status Date / Time No Known Allergies Allergy Verified 05/01/19 21:23 Home Medications: Ambulatory Orders Methadone HCl 30 mg PO DAILY@0600 09/03/18 Blood Pressure Kit-Extra Large [Blood Pressure Monitor] 1 each ASDIR #1 kit 10/22/18 Nebulizer Accessories [Reusable Nebulizer Kit] 1 each ASDIR #1 kit 10/22/18 Nebulizer and Compressor [Shunk Choice Nebulizer] 1 each ASDIR #1 each 10/22 Mirtazapine [Remeron -] 30 mg PO DAILY #30 tablet 12/24/18 traZODone HCL [Trazodone HCl] 100 mg PO HS #30 tablet 12/24/18 Naloxone HCl [Narcan] 4 mg NS ONCE PRN #1 spray 12/31/18 Albuterol 0.083% Nebulizer Mary Jo [Ventolin 0.083% Nebulizer Soln -] 2 puff PO PRN PRN 01/14/19 Quetiapine Fumarate [Seroquel -] 50 mg PO DAILY 01/14/19 Albuterol 0.083% Nebulizer Mary Jo [Ventolin 0.083% Nebulizer Soln -] 1 neb NEB Q6H PRN #120 vial 03/19/19 Multivit with Iron,Minerals [Complete Senior] 1 tab PO DAILY #30 tablet Albuterol Sulfate Inhaler - [Ventolin HFA Inhaler -] 1 - 2 inh PO QID PRN #1 inhaler 04/17/19 Bictegrav/Emtricit/Tenofov Ala [Biktarvy 50-200-25 mg Tablet] 1 each PO DAILY # 30 tablet 04/17/19 Budesonide/Formeterol Fumarate [SYMBICORT 80/4.5mcg -] 2 puff IH BID #1 inhaler 04/17/19 Furosemide [Lasix -] 1 tab PO DAILY #30 tablet 04/17/19 Loratadine [Claritin -] 10 mg PO DAILY #30 tablet 04/17/19 Metoprolol Succinate 1 tab PO DAILY #30 tab.er.24h 04/17/19 Tiotropium [place] [Spiriva] 1 inh PO DAILY #30 inhaler 04/17/19 Hydrocortisone 0.5% Cream [Hytone 0.5% Cream -] 1 applic TP BID #1 tube Azithromycin [Zithromax Tri-Osito (3 DAYS) -] 500 mg PO DAILY #3 tablet 05/02/19 Review of Systems - Review of Systems Able to Perform ROS?: No (refuses to cooperate) HEENTM: No: Eye Pain, Nose Pain, Throat Pain Respiratory: No: Cough, Shortness of Breath Cardiac (ROS): No: Chest Pain ABD/GI: No: Constipated, Diarrhea, Nausea, Vomiting : No: Burning, Dysuria, Discharge, Frequency, Flank Pain, Hematuria <Mino Patrick - Last Filed: 05/02/19 04:35> *Physical Exam - Vital Signs Last Vital Signs Temp Pulse Resp BP Pulse Ox 98.3 F 18 105/79 93 L 05/01/19 21:20 05/01/19 21:20 05/01/19 21:20 05/01/19 21:20 - Physical Exam General Appearance: Yes: Nourished, Mild Distress, Other (states he wants to leave AMA). No: Alcohol on Breath HEENT: positive: EOMI, CHRITSA, Normal Voice, Hearing Grossly Normal. negative: Pale Conjunctivae, Nasal Congestion, Rhinorrhea Neck: positive: Trachea midline, Supple. negative: Tender, Rigid, Decreased range of motion, Stridor Respiratory/Chest: positive: Lungs Clear, Normal Breath Sounds. negative: Chest Tender, Respiratory Distress, Crackles, Rales, Rhonchi, Stridor, Wheezing , Hyperresonant, Dullness, Plerual Rub Cardiovascular: positive: Regular Rhythm, Regular Rate, S1, S2. negative: Edema , Murmur Gastrointestinal/Abdominal: positive: Normal Bowel Sounds, Flat, Soft. negative : Tender, Organomegaly, Distended, Guarding, Rebound Musculoskeletal: positive: Other (L thoracolumbar paraspinal m. tenderness, 10cm shallow excoriation) Integumentary: positive: Cold (upper extremities bilaterally), Other ( excoriations over L elbow) Neurologic: positive: Disoriented, Other (doesnt follow commands). negative: Normal Response, Facial Droop, Confused <Mino Patrick - Last Filed: 05/02/19 04:35> - Vital Signs Last Vital Signs Temp Pulse Resp BP Pulse Ox 98.3 F 18 105/79 93 L 05/01/19 21:20 05/01/19 21:20 05/01/19 21:20 05/01/19 21:20 <Dolly Cotto - Last Filed: 05/02/19 06:58> Heart Score/ECG Review - ECG Intrepretation Rhythm: Regular Rhythm - QRS Poor R Wave Progression: No Q Wave Present: No - ST and T Early Repolarization: No Non Specific ST-T Wave changes: No - ECG Impressions Normal ECG: No Non-specific ST Elevation: No Ischemic Changes: No Tachycardia: Sinus <CottoDolly - Last Filed: 05/02/19 06:58> ED Treatment Course - LABORATORY CBC & Chemistry Diagram: 05/02/19 02:26 05/02/19 02:45 <Mino Patrick - Last Filed: 05/02/19 04:35> - LABORATORY CBC & Chemistry Diagram: 05/02/19 02:26 05/02/19 02:45 - ADDITIONAL ORDERS Additional order review: Laboratory Results 05/02/19 05/02/19 02:00 02:00 Urine Color Yellow Urine Appearance Clear Urine pH 5.0 Ur Specific [place] 1.020 Urine Protein Trace Urine Glucose (UA) Negative Urine Ketones Negative Urine Blood Negative Urine Nitrite Negative Urine Bilirubin Negative Urine Urobilinogen 0.2 Ur Leukocyte Esterase Negative Methadone Screen Negative Barbiturate Screen Negative Phencyclidine Screen Negative Ur Amphetamines Screen Negative MDMA (Ecstasy) Screen Negative U Marijuana (THC) Screen Negative 05/02/19 02:26 RBC 5.37 MCV 79.3 L MCHC 32.1 RDW 18.5 H MPV 8.5 Neutrophils % 92.1 H D Lymphocytes % 6.4 L D Monocytes % 1.1 L D Eosinophils % 0.1 D Basophils % 0.3 - Medications Given in the ED: ED Medications Discontinued Medications Generic Name Dose Route Start Last Admin Trade Name Freq PRN Reason Stop Dose Admin Piperacillin Sod/Tazobactam 50 mls @ 100 mls/hr 05/02/19 01:56 05/02/19 02:24 Sod 3.375 gm/ Dextrose IVPB 05/02/19 02:25 100 mls/hr ONCE ONE Administration Protocol <KirtiDolly - Last Filed: 05/02/19 06:58> Medical Decision Making - Medical Decision Making 05/01/19 21:37 Head/c-spine CT CBC CMP trop UA Utox NH3 Airways patent. Disoriented, refuses commands. PERRL CT head, c-spine normal increased neutrophil, UA normal CXR showed L basilar interstitial infiltrates EKG shows sinus tach Back to baseline mentation and speech per sisters. Continued to refuse medical care Duane Watson is a 64yM with PMHx HIV, Hep C, COPD, heroin and cocaine abuse presenting with altered mental status. CXR showed L basilar interstitial infiltrates suggesting HCAP. CT/c-spine CT negative. Back to baseline mentation and speech per sisters at 0200. Continued to resist medical care and evaluation Pt refused to get admitted to the inpatient service for further care for HCAP and left against medical advice at 0437 on 05/02/19. He was back to baseline mentation and able to make his own decisions per sisters. He understood the risks of leaving AMA and signed the AMA papers. <Mino Patrick - Last Filed: 05/02/19 04:35> *DC/Admit/Observation/Transfer - Discharge Dispostion Decision to Admit order: No <Mino Patrick - Last Filed: 05/02/19 04:35> - Discharge Dispostion Decision to Admit order: Yes <Dolly Cotto - Last Filed: 05/02/19 06:58> Diagnosis at time of Disposition: HCAP (healthcare-associated pneumonia) HIV (human immunodeficiency virus infection) Qualifiers: HIV symptom status: asymptomatic Qualified Code(s): Z21 - Asymptomatic human immunodeficiency virus [HIV] infection status - Discharge Dispostion Disposition: AGAINST MEDICAL ADVICE Condition at time of disposition: Guarded - Prescriptions Prescriptions: Azithromycin [Zithromax Tri-Osito (3 DAYS) -] 500 mg PO DAILY #3 tablet - Patient Instructions Printed Discharge Instructions: DI for Pneumonia -- Adult Additional Instructions: You were seen in the ED for shortness of breath. Your x-ray showed that you have pneumonia. You decided to leave against medical advice. You stated that you understood the risks of seizure, heart attack, and . Take the medication as prescribed. Come back to the ED if you have new or worsening symptoms.
--- NOTE | 2019-05-01 22:05 | PDOC ---
*Physical Exam - Vital Signs Last Vital Signs Temp Pulse Resp BP Pulse Ox 98.3 F 18 105/79 93 L 05/01/19 21:20 05/01/19 21:20 05/01/19 21:20 05/01/19 21:20 Medical Decision Making - Medical Decision Making 05/01/19 23:53 64 year old male
--- NOTE | 2019-05-02 00:09 | PDOC ---
Documentation entered by Mell Ortega SCRIBE, acting as scribe for Dolly Cotto MD. Dolly Cotto MD: This documentation has been prepared by the Shannon jack Brenda, SCRIBE, under my direction and personally reviewed by me in its entirety. I confirm that the documentation accurately reflects all work, treatment, procedures, and medical decision making performed by me. Attending Attestation - Resident Resident Name: Mino Patrick - ED Attending Attestation I have performed the following: I have examined & evaluated the patient, The case was reviewed & discussed with the resident, I agree w/resident's findings & plan, Exceptions are as noted - HPI HPI: 05/01/19 22:58 The patient is a 64 year old male, with a significant PMH of HIV, COPD and Heroin abuse, who presents to the emergency department with an altered mental status. As per sister, he was found on the floor of his shelter, after an unwitnessed fall, unaware of how long he was down. Patient endorses lower back pain. As per family, on the bedside, he is no his baseline self, notes he is having more tremors than usual. Patient was a poor historian. The patient denies chest pain, shortness of breath, headache and dizziness. Denies fever, chills, nausea, vomiting, diarrhea and constipation. Denies urinary symptoms. Allergies: NKA Social history: Patient lives in a shelter. PCP: Not reported. - Physicial Exam PE: 05/01/19 23:09 GENERAL: Awake, alert, and fully oriented, in no acute distress HEAD: No signs of trauma EYES: PERRLA, EOMI, sclera anicteric, conjunctiva clear ENT: Auricles normal inspection, hearing grossly normal, nares patent, oropharynx clear without exudates. Moist mucosa NECK: Normal ROM, supple, no lymphadenopathy, JVD, or masses LUNGS: Breath sounds equal, clear to auscultation bilaterally. No wheezes, and no crackles HEART: Regular rate and rhythm, normal S1 and S2, no murmurs, rubs or gallops ABDOMEN: Soft, nontender, normoactive bowel sounds. No guarding, no rebound. No masses EXTREMITIES: Normal range of motion, no edema. No clubbing or cyanosis. No cords, erythema, or tenderness NEUROLOGICAL: +Bilateral severe tremors. +Finger to nose is off . +Poor concentration. +unsteady gait, stooped over. Moving all extremities. Cranial nerves II through XII grossly intact. SKIN: Warm, Dry, normal turgor, no rashes or lesions noted. - Medical Decision Making 05/02/19 00:09 Patient Name: ALAN MARINA THIS IS A PRELIMINARY REPORT FROM IMAGING ASSISTANT ART DIRECTOR DATE OF SERVICE: 2019-05-01 23:24:17 IMAGES: [id number] EXAM: HEAD CT WITHOUT CONTRAST HISTORY: Altered mental status COMPARISON: None. FINDINGS: Mild involutional changes. Chronic microvascular changes. No hemorrhage. No mass. No obvious infarct. Osseous structures are intact. 05/02/19 00:10 Patient Name: ALAN MARINA THIS IS A PRELIMINARY REPORT FROM IMAGING ASSISTANT ART DIRECTOR DATE OF SERVICE: 2019-05-01 23:21:46 IMAGES: [id number] EXAM: CT CERVICAL SPINE WITHOUT CONTRAST No acute fracture or malalignment. Multilevel spondylosis, worst at C6-C7. Emphysematous changes bilateral lungs 05/02/19 04:17 Pt belligerent and refusing to stay in the hospital. He wants to sign AMA. He is A+Ox3 and he is able to sign himself out. Pt will be signed out AMA. Pt will be given a zpak. 05/02/19 06:41 Pt's family came to get him.
[2019-05-02] MEDS ORDERED: FOLIC ACID INJECTION - 1 MG, THIAMINE HCL 100 MG, MULTIVIT INJECTION ADULT 10 ML in SOD... IVPB ONE (01:35)
[2019-05-02] MEDS ORDERED: PIPERACILLIN/TAZOB 3.375 GM 3.375 GM in DEXTROSE 5%-WATER - 50 ML IVPB ONE (01:56)
[2019-05-02] MEDS ORDERED: PIPERACILLIN/TAZOB 3.375 GM 3.375 GM/50 ML BAG IVPB ONE (02:11)
[2019-05-02 02:44] LABS: EOS % 0.1 % (0-4.5); HEMOGLOBIN 13.7 GM/dL (11.7-16.9); MEAN CELL VOLUME 79.3 fl (80-96); MONO % 1.1 % (3.8-10.2)
[2019-05-02 02:51] LABS: BASO % 0.3 % (0-2.0); HEMATOCRIT 42.6 % (35.4-49); LYMPH % 6.4 % (8-40); MCH 25.5 pg (25.7-33.7); MCHC 32.1 g/dl (32.0-35.9); MEAN PLT VOLUME 8.5 fl (7.5-11.1); NEUT % 92.1 % (42.8-82.8); PLATELET COUNT 246 K/MM3 (134-434); RBC 5.37 M/mm3 (4.00-5.60); RDW 18.5 % (11.9-15.9); WHITE BLOOD COUNT 8.1 K/mm3 (4.0-10.0)
[2019-05-02 02:54] LABS: URINE APPEARANCE CLEAR; URINE BILIRUBIN NEGATIVE (NEGATIVE); URINE COLOR YELLOW; URINE GLUCOSE (UA) NEGATIVE (NEGATIVE); URINE KETONE NEGATIVE (NEGATIVE); URINE LEUK ESTERASE NEGATIVE (NEGATIVE); URINE NITRITE NEGATIVE (NEGATIVE); URINE PROTEIN TRACE (NEGATIVE); URINE UROBILINOGEN 0.2 mg/dL (0.2-1.0)
[2019-05-02 03:05] LABS: METHADONE, UR NEGATIVE ng/ml (CUTOFF=300); PHENCYCLIDINE,URINE NEGATIVE ng/ml (CUTOFF=25); URINE AMPHETAMINES NEGATIVE ng/ml (CUTOFF=500); URINE BARBITURATES NEGATIVE ng/ml (CUTOFF=200)
[2019-05-02] MEDS ORDERED: AZITHROMYCIN IVPB 500 MG in DEXTROSE 5%-WATER - 250 ML IVPB ONE (03:07)
[2019-05-02 03:17] LABS: ALBUMIN 3.6 g/dl (3.4-5.0); ALK PHOS 93 U/L (45-117); ANION GAP 11 MMOL/L (8-16); BILIRUBIN,TOTAL 0.4 mg/dL (0.2-1); BLOOD UREA NITROGEN 54.7 mg/dL (7-18); CALCIUM 8.5 mg/dL (8.5-10.1); CHLORIDE 106 mmol/L (98-107); CO2 20 mmol/L (21-32); CREATININE 2.5 mg/dL (0.55-1.3); GLUCOSE,RANDOM 167 mg/dL (74-106); POTASSIUM 4.2 mmol/L (3.5-5.1); SGOT/AST 15 U/L (15-37); SGPT/ALT 25 U/L (13-61); SODIUM 138 mmol/L (136-145); TOT PROT 7.1 g/dl (6.4-8.2)
[2019-05-02 03:52] LABS: COCAINE, UR POSITIVE ng/ml (CUTOFF=300); OPIATES, URI POSITIVE ng/ml (CUTOFF=300); URINE BENZODIAZEPINES POSITIVE ng/ml (CUTOFF=200)
--- NOTE | 2019-05-03 10:40 | EKG ---
Test Reason : Blood Pressure : / mmHG Vent. Rate : 101 BPM Atrial Rate : 101 BPM P-R Int : 138 ms QRS Dur : 090 ms QT Int : 346 ms P-R-T Axes : 049 -21 032 degrees QTc Int : 448 ms SINUS TACHYCARDIA OTHERWISE NORMAL ECG Confirmed by ALEXANDRA GRIFFITHS MD ([id number]) on 05/03/2019 10:39:41 AM Referred By: Confirmed By:ALEXANDRA GRIFFITHS MD
== END 2019-05-02 04:54 | disposition left against medical advice (07) ==
LOC: JER 20:49
PROC: 3E033GC Introduction of Other Therapeutic Substance into Peripheral Vein, Percutaneous Approach (ICD-10-PCS; principal; 2019-05-01)
PROC: 3E03329 Introduction of Other Anti-infective into Peripheral Vein, Percutaneous Approach (ICD-10-PCS; 2019-05-01)
DX: J18.8 Other pneumonia, unspecified organism (principal); F17.210 Nicotine dependence, cigarettes, uncomplicated; J44.9 Chronic obstructive pulmonary disease, unspecified; I10 Essential (primary) hypertension; Z21 Asymptomatic human immunodeficiency virus [HIV] infection status; F11.10 Opioid abuse, uncomplicated; F12.10 Cannabis abuse, uncomplicated
CPT/HCPCS: 36415; 70450-TC; 71045-TC-FY; 72125-TC; 80053; 80307; 81003; 82550; 84484; 85025; 87086; 93005; 93010; 96365; 96366; 96367; 99282-25; J7030

== ENCOUNTER 2019-05-07 10:06 | Emergency (ER) | payer OTHER ==
[2019-05-07 10:15] VITALS: BP 169/100; PULSE 86; TEMP 97.9; BMI 33.3
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
[2019-05-07] MEDS ORDERED: KETOROLAC TROMETHAMINE 30 MG/1 ML VIAL IVPUSH ONE (10:32)
[2019-05-07] MEDS ORDERED: SODIUM CHLORIDE 1,000 ML IV STA (10:33)
[2019-05-07] MEDS ORDERED: KETOROLAC TROMETHAMINE 30 MG/1 ML VIAL ONE (10:38)
[2019-05-07] MEDS ORDERED: metoPROLOL SUCCINATE 25 MG TAB.SR.24H (FP) PO ONE (10:56)
[2019-05-07 11:29] LABS: BASO % 1.3 % (0-2.0); EOS % 2.8 % (0-4.5); HEMATOCRIT 41.9 % (35.4-49); HEMOGLOBIN 13.5 GM/dL (11.7-16.9); LYMPH % 24.6 % (8-40); MCH 25.5 pg (25.7-33.7); MCHC 32.3 g/dl (32.0-35.9); MEAN CELL VOLUME 78.9 fl (80-96); MEAN PLT VOLUME 7.7 fl (7.5-11.1); MONO % 10.3 % (3.8-10.2); PLATELET COUNT 253 K/MM3 (134-434); RBC 5.32 M/mm3 (4.00-5.60); RDW 18.2 % (11.9-15.9); WHITE BLOOD COUNT 7.8 K/mm3 (4.0-10.0)
[2019-05-07 11:31] LABS: PH,URINE 6.5 (5.0-8.0); URINE APPEARANCE CLEAR; URINE BILIRUBIN NEGATIVE (NEGATIVE); URINE COLOR YELLOW; URINE GLUCOSE (UA) NEGATIVE (NEGATIVE); URINE KETONE NEGATIVE (NEGATIVE); URINE LEUK ESTERASE NEGATIVE (NEGATIVE); URINE NITRITE NEGATIVE (NEGATIVE); URINE PROTEIN NEGATIVE (NEGATIVE); URINE UROBILINOGEN 0.2 mg/dL (0.2-1.0)
== END 2019-05-07 12:55 | disposition left against medical advice (07) ==
LOC: JER 10:06
PROC: 3E0337Z Introduction of Electrolytic and Water Balance Substance into Peripheral Vein, Percutaneous Approach (ICD-10-PCS; principal; 2019-05-07)
PROC: 3E0333Z Introduction of Anti-inflammatory into Peripheral Vein, Percutaneous Approach (ICD-10-PCS; 2019-05-07)
DX: R10.32 Left lower quadrant pain (principal); I10 Essential (primary) hypertension; E78.5 Hyperlipidemia, unspecified; J44.9 Chronic obstructive pulmonary disease, unspecified; M17.0 Bilateral primary osteoarthritis of knee; F11.10 Opioid abuse, uncomplicated; Z21 Asymptomatic human immunodeficiency virus [HIV] infection status
CPT/HCPCS: 36415; 70450-TC; 71101-TC-LT-FY; 74176-TC; 81003; 85025; 87086; 99284-25; J7030

== ENCOUNTER → 2019-06-02 | Outpatient (CLI) | payer OTHER | LOC: YHH 14:52 ==

== ENCOUNTER 2019-07-08 08:44 | Inpatient (IN) | payer OTHER ==
[2019-07-08 09:07] VITALS: BMI 32.4
--- NOTE | 2019-07-08 09:45 | HP ---
COWS - Scale Resting Pulse: 1= FL 81-100 Sweatin= No chills or Flushing Restless Observation: 0= Sits Still Pupil Size: 0= Normal to Room Light Bone or Joint Aches: 0= None Runny Nose/ Eye Tearin= None GI Upset > 30mins: 0= None Tremor Observation: 0= None Yawning Observation: 0= None Anxiety or Irritability: 0= None Goose Flesh Skin: 0=Smooth Skin COWS Score: 1 CIWA Score - Admission Criteria OASAS Guidelines: Admission for Medically Managed Detox: Requires at least one of the followin. CIWA greater than 12 2. Seizures within the past 24 hours 3. Delirium tremens within the past 24 hours 4. Hallucinations within the past 24 hours 5. Acute intervention needed for co occurring medical disorder 6. Acute intervention needed for co occurring psychiatric disorder 7. Severe withdrawal that cannot be handled at a lower level of care (continued vomiting, continued diarrhea, abnormal vital signs) requiring intravenous medication and/or fluids 8. Admitting History and Physical - Primary Care Physician PCP: Jorge Nath ([facility]) - Admission Chief Complaint: Patient is requesting entry into rehab History of Present Illness: 63 y/o male with stable HIV, HTN, COPD, IV drug abuse (heroin), HLD, OA both knees seen and evaluated Pt states he missed three doses of his HIV medication Missed Orthopedic appt yesterday. State he can no longer stand the pain in his knees He is ready to have knee replacement surgery done Pt attend court mandated rehab daily in [place]. Pt requesting to attend in patient rehab - will speak with Summer Child Caregiver today He wants to restart seeing psychiatry; otherwise no new complaint Meds: Albuterol 0.083% Nebulizer Mary Jo [Ventolin 0.083% Nebulizer Soln -] 2 puff PO PRN PRN 01/14/19 Azithromycin [Zithromax Tri-Osito (3 DAYS) -] 500 mg PO DAILY #3 tablet 05/02/19 Hydrocortisone 0.5% Cream [Hytone 0.5% Cream -] 1 applic TP BID #1 tube Mirtazapine [Remeron -] 30 mg PO DAILY #30 tablet 06/03/19 traZODone HCL [Trazodone HCl] 100 mg PO HS #30 tablet 06/03/19 Albuterol 0.083% Nebulizer Mary Jo [Ventolin 0.083% Nebulizer Soln -] 1 neb NEB Q6H PRN #120 vial 07/07/19 Albuterol Sulfate Inhaler - [Ventolin HFA Inhaler -] 1 - 2 inh PO QID PRN #1 inhaler 07/07/19 Bictegrav/Emtricit/Tenofov Ala [Biktarvy 50-200-25 mg Tablet] 1 each PO DAILY # 30 tablet 07/07/19 Budesonide/Formeterol Fumarate [SYMBICORT 80/4.5mcg -] 2 puff IH BID #1 inhaler 07/07/19 Furosemide [Lasix] 40 mg PO DAILY #30 tablet 07/07/19 Loratadine [Claritin -] 10 mg PO DAILY #30 tablet 07/07/19 Metoprolol Succinate 1 tab PO DAILY #30 tab.er.24h 07/07/19 Multivit with Iron,Minerals [Complete Senior] 1 tab PO DAILY #30 tablet Tiotropium [place] [Spiriva] 1 inh PO DAILY #30 inhaler 07/07/19 History Source: Patient Limitations to Obtaining History: No Limitations - Past Medical History Cardiovascular: Yes: HTN Pulmonary: Yes: COPD Gastrointestinal: Yes: Other Hepatobiliary: Yes: Hepatitis C Heme/Onc: Yes: Other Infectious Disease: Yes: HIV Musculoskeletal: Yes: Osteoarthritis - Smoking History Smoking history: Current every day smoker Have you smoked in the past 12 months: Yes Aproximately how many cigarettes per day: 12 - Alcohol/Substance Use Hx Alcohol Use: No History of Substance Use: reports: Cocaine, Heroin - Social History Usual Living Arrangement: Yes: Alone Do you think of yourself as: Straight/Heterosexual ADL: Independent Occupation: unemployed History of Recent Travel: No Admission ROS [facility] - [facility] Chief Complaint: " I want to enter rehab. I can't do it alone." Allergies/Adverse Reactions: Allergies Allergy/AdvReac Type Severity Reaction Status Date / Time No Known Allergies Allergy Verified 07/08/19 08:55 History of Present Illness: 64 year old black male with opioid dependence on suboxone treatment. He also has cocaine use disorder. Patient has multiple medical problems: HTN, COPD, HIV Disease, Osteoarthritis of the knees, HLD. He has not followed up on his orthopedic appointments and has poor compliance with HIV medications. He has chronic pain from arthritis and continued to use heroin despite being on suboxone 8/2 mg daily. He obviously is not on a stable dose of suboxone and was counseled that he must ask his provider at [facility] to increase his suboxone dose once he completes rehab here. He has poor judgment and poor self-control and has poor environment for recovery. He has no supportive family or other emotional support. He would benefit from a structured recovery-oriented program inpatient environment. Psurg: Rfractured skul from fall. Exam Limitations: Physical Impairment - Ebola screening Have you traveled outside of the country in the last 21 days: No (N) Have you had contact with anyone from an Ebola affected area: No Have you been sick,other than usual withdrawal symptoms: No Do you have a fever: No - Review of Systems Constitutional: No Symptoms Reported EENT: reports: No Symptoms Reported Respiratory: reports: No Symptoms reported Cardiac: reports: No Symptoms Reported GI: reports: No Symptoms Reported : reports: No Symptoms Reported Musculoskeletal: reports: Joint Pain (bilateral knee pain constantly) Integumentary: reports: No Symptoms Reported Neuro: reports: No Symptoms reported Endocrine: reports: No Symptoms Reported Hematology: reports: No Symptoms Reported Psychiatric: reports: Mood/Affect Appropiate, Orientated x3, Anxious Patient History - Patient Medical History Hx Anemia: No Hx Asthma: No Hx Chronic Obstructive Pulmonary Disease (COPD): No Hx Cancer: No Hx Cardiac Disorders: No Hx Congestive Heart Failure: No Hx Hypertension: Yes Hx Hypercholesterolemia: No Hx Pacemaker: No HX Cerebrovascular Accident: No Hx Seizures: No Hx Dementia: No Hx Diabetes: No Hx Gastrointestinal Disorders: No Hx Liver Disease: No Hx Genitourinary Disorders: No Hx Sexually Transmitted Disorders: No Hx Renal Disease (ESRD): No Hx Thyroid Disease: No Hx Human Immunodeficiency Virus (HIV): Yes Hx Hepatitis C: No Hx Depression: No Hx Bipolar Disorder: No - Patient Surgical History Past Surgical History: Yes Hx Neurologic Surgery: No Hx Cataract Extraction: No Hx Cardiac Surgery: No Hx Lung Surgery: No Hx Breast Surgery: No Hx Breast Biopsy: No Hx Abdominal Surgery: No Hx Appendectomy: No Hx Cholecystectomy: No Hx Genitourinary Surgery: No Hx Section: No Hx Orthopedic Surgery: Yes (Fx Skull - fell from 4th floor window as a child, Low BAck pain - Deeg Bone) Hx Hysterectomy: No Anesthesia Reaction: No - PPD History Previous Implant?: Yes Documented Results: Negative w/o proof Implanted On Prior R Admission?: Yes Date: 04/26/14 Results: 00 mm PPD to be Administered?: Yes - Reproductive History Patient is a Female of Child Bearing Age (11 -55 yrs old): No - Smoking Cessation Smoking history: Current every day smoker Have you smoked in the past 12 months: Yes Aproximately how many cigarettes per day: 12 Cigars Per Day: 0 Hx Chewing Tobacco Use: No Initiated information on smoking cessation: Yes 'Breaking Loose' booklet given: 07/08/19 - Substance & Tx. History Hx Alcohol Use: No Hx Substance Use: Yes Substance Use Type: Cocaine, Heroin - Substances abused Cocaine Substance route: Inhalation Frequency: Daily Amount used: $50 Age of first use: 16 Date of last use: 07/07/19 Heroin Substance route: Inhalation Frequency: Daily Amount used: 3 bags Age of first use: 16 Date of last use: 07/07/19 Admission Physical Exam S - Vital Signs Vital Signs: Vital Signs - 24 hr 07/08/19 09:01 Temperature 97.4 F L Pulse Rate 82 Respiratory 20 Rate Blood Pressure 134/93 - Physical General Appearance: Yes: No Apparent Distress HEENTM: Yes: EOMI, Hearing grossly Normal, Normal ENT Inspection, Normocephalic , CHRISTA, Tm's normal, Photophobia Respiratory: Yes: Chest Non-Tender, Lungs Clear, Normal Breath Sounds, No Respiratory Distress, No Accessory Muscle Use Neck: Yes: No masses,lesions,Nodules, Supple, Trachea in good position Breast: Yes: Within Normal Limits Cardiology: Yes: Regular Rhythm, Regular Rate, S1, S2 Abdominal: Yes: Normal Bowel Sounds, Non Tender, Soft, Protuberent Genitourinary: Yes: Within Normal Limits Back: Yes: Normal Inspection Musculoskeletal: Yes: Within Normal Limits, full range of Motion, Gait Steady, Pelvis Stable Extremities: Yes: Normal Capillary Refill, Normal Inspection, Normal Range of Motion, Non-Tender Neurological: Yes: sole filler II-XII NML intact, Fully Oriented, Alert, Motor Strength 5/5, Normal Mood/Affect Integumentary: Yes: Normal Color, Warm Lymphatic: Yes: Within Normal Limits - Diagnostic (1) Bilateral knee pain Current Visit: Yes Status: Chronic Comment: -missed last appt, urge pt to reschedule with Dr. Price -wants to have knee replacement now (2) COPD (chronic obstructive pulmonary disease) Current Visit: Yes Status: Chronic Comment: -on albuterol; symbicort to 2 puffs bid, spiriva and claritin; - followed by Dr. Laguerre; chest ct shows advanced copd, smoking cessation advised; - pt wants to continue smoking (3) Cocaine abuse Current Visit: Yes Status: Chronic Comment: -Pt admits to having using Cocaine and herorin yesterday. Pt has narcan at home; want inpatient rehab; discussed with SW to arrange inpatient rehab. (4) HIV (human immunodeficiency virus infection) Current Visit: Yes Status: Chronic Qualifiers: HIV symptom status: asymptomatic Qualified Code(s): Z21 - Asymptomatic human immunodeficiency virus [HIV] infection status Comment: vl improving; on biktarvy; reports missing a few doses; safe sex and discussed med se and ae (5) Hypertension Current Visit: Yes Status: Chronic Comment: on metoprolol, lasix; stable bp , will need cardiology f/u (6) Obesity (BMI 30-39.9) Current Visit: Yes Status: Chronic (7) Tobacco use Current Visit: Yes Status: Chronic Comment: wants to continue to smoke; smoking cessation advised; does not want to quit at this time; [facility] quit line information provided Cleared for Admission [facility] - Detox or Rehab [facility] Level of Care: Medically Supervised Screened but not Admitted - Documentation of Visit Screened but not Admitted: No Left Prior to Completion of Assessment: No Insurance Authorization Denied: No Patient Does Not Meet Criteria for Admission: No Alternative Treatment/Assisted Info Provided: No Breathalyzer - Breathalyzer Breathalyzer: 0 Inpatient Rehab Admission - Rehab Decision to Admit Inpatient rehab admission?: Yes - Initial Determination Are CD services needed?: Yes Free of communicable disease: Yes Not in need of hospitalization: Yes - Rehab Admission Criteria Previous failed treatment: Yes Poor recovery environment: Yes Comorbidities: Yes Lacks judgement: Yes Patient is meeting Inpatient Rehab admission criteria:: Yes
[2019-07-08] MEDS ORDERED: MAG HYDROX/AL HYDROX/SIMETH 30 ML UNIT-DOSE CUP PO PRN (10:01)
[2019-07-08] MEDS ORDERED: MAGNESIUM CITRATE 300 ML BOTTLE PO PRN (10:01)
[2019-07-08] MEDS ORDERED: P-EPHED 60MG/TRIPROLIDI 2.5MG TABLET PO PRN (10:01)
[2019-07-08] MEDS ORDERED: LOPERAMIDE HCL 2 MG CAPSULE PO PRN (10:01)
[2019-07-08] MEDS ORDERED: MENTHOL/PHENOL 1 EACH UD MM PRN (10:01)
[2019-07-08] MEDS ORDERED: MAGNESIUM HYDROX 2400MG/30ML ORAL SUSPENSION 30 ML CUP PO PRN (10:01)
[2019-07-08] MEDS ORDERED: ACETAMINOPHEN 325 MG TABLET (FP) PO PRN (10:01)
[2019-07-08] MEDS ORDERED: ALBUTEROL SO4 0.083% IH SOL 2.5 MG/3 ML VIAL.NEB. NEB PRN (10:04)
--- NOTE | 2019-07-08 10:39 | PN ---
[facility] Progress Note Note: Patient's labs were done the day before. It is being attached physically to the chart. CBC with diff and complete metabolic panel was done 07/07/19 and then added RPR to yesterday's lab work. CD4 and CD8 counts are pending. See laboratory work from prior day. Dr. Hester
[2019-07-08] MEDS ORDERED: TUBERCULIN PPD 5 TU/0.1ML VIAL ID ONE (12:17)
[2019-07-08] MEDS: NICOTINE 7 MG/24 HOURS TOPICAL PATCH TD SCH (12:37)
[2019-07-08] MEDS: HYDROCORTISONE 0.5% TOPICAL CREAM 30 GM TUBE TP SCH (21:46)
[2019-07-08] MEDS: BUDESONIDE/FORMETEROL FUMARATE 80/4.5 mcg INHALER IH SCH (21:46)
[2019-07-08] MEDS: BACITRACIN 15 GM TUBE TOPICAL OINTMENT TP SCH (21:46)
[2019-07-08] MEDS: IBUPROFEN 400 MG TABLET (FP) PO PRN (21:47)
[2019-07-08] MEDS: THIAMINE HCL 100 MG TABLET (FP) PO SCH (21:47)
[2019-07-08] MEDS: MELATONIN 5 MG TABLETS PO PRN (21:47)
[2019-07-08] MEDS: guaiFENesin 200 MG/10 ML 10 ML UNIT-DOSE CUPS PO PRN (21:49)
[2019-07-09] MEDS: BICTEGRAV/EMTRICIT/TENOFOV (BIKTARVY) 50-200-25 MG TABLET PO SCH (07:06)
[2019-07-09] MEDS ORDERED: MIRTAZAPINE 30 MG TABLET (FP) PO ONE (10:00)
[2019-07-09] MEDS ORDERED: BUPRENORPHINE/NALOXONE 8 MG/2 MG FILM PACKET SL ONE (10:00)
[2019-07-09] MEDS: PRENATAL VITAMINS W/ FOLIC ACID TABLET (FP) PO SCH (10:28)
[2019-07-09] MEDS: LORATADINE 10 MG TABLET PO SCH (10:28)
[2019-07-09] MEDS: FUROSEMIDE 40 MG TABLET (FP) PO SCH (10:28)
[2019-07-09] MEDS: metoPROLOL SUCCINATE 25 MG TAB.SR.24H (FP) PO SCH (10:29)
[2019-07-09] MEDS: IBUPROFEN 400 MG TABLET (FP) PO PRN (10:30)
[2019-07-09] MEDS: BUDESONIDE/FORMETEROL FUMARATE 80/4.5 mcg INHALER IH SCH ×2 (10:33→21:54)
[2019-07-09] MEDS: NICOTINE 7 MG/24 HOURS TOPICAL PATCH TD SCH (10:59)
[2019-07-09] MEDS: BACITRACIN 15 GM TUBE TOPICAL OINTMENT TP SCH ×2 (10:59→21:52)
[2019-07-09] MEDS: HYDROCORTISONE 0.5% TOPICAL CREAM 30 GM TUBE TP SCH ×2 (10:59→21:53)
--- NOTE | 2019-07-09 11:27 | CONSULT ---
[facility] Psychiatric Consult - Data Date of interview: 07/09/19 Admission source: [facility] Identifying data: Mr Watson is a 64 years old single Black male, father of a 34 years old daughter, unemployed receiving SSI, domiciled seeking rehab treatment for opioid and cocaine Substance Abuse History: Reports history of heroin and cocaine use. Refer to addiction counselor's summary for further information Medical History: Significant for HIV, COPD, hypertension, dyslipidemia, hepatitis C, osteoarthritis both knees, low back pain and history of treatment for hepatitis C and surgery for fracture skull. Smokes 12 cigarettes daily Psychiatric History: Denies history of previous psychiatric treatment. However, he is prescribed Remeron 30 mg/hs and Trazadone 100 mg/hs by his provider at [facility] for insomnia. Physical/Sexual Abuse/Trauma History: Topic not discussed Mental Status Exam - Mental Status Exam Alert and Oriented to: Time, Place, Person Cognitive Function: Fair Patient Appearance: Well Groomed Mood: Depressed Affect: Appropriate Patient Behavior: Cooperative (superficially cooperatice because of pain) Speech Pattern: Clear Voice Loudness: Normal Thought Process: Intact Thought Disorder: Not Present Hallucinations: Denies Suicidal Ideation: Denies Homicidal Ideation: Denies Insight/Judgement: Fair Sleep: Poorly Appetite: Fair Muscle strength/Tone: Normal Gait/Station: Normal Psychiatric Findings - Problem List ([place] 1, 2,3) (1) Substance induced mood disorder Current Visit: Yes Status: Acute (2) Substance-induced sleep disorder Current Visit: Yes Status: Acute (3) Opioid dependence Current Visit: Yes Status: Acute (4) Cocaine dependence Current Visit: Yes Status: Acute (5) Nicotine dependence Current Visit: Yes Status: Chronic (6) COPD (chronic obstructive pulmonary disease) Current Visit: Yes Status: Chronic Comment: -on albuterol; symbicort to 2 puffs bid, spiriva and claritin; - followed by Dr. Laguerre; chest ct shows advanced copd, smoking cessation advised; - pt wants to continue smoking (7) HIV (human immunodeficiency virus infection) Current Visit: Yes Status: Chronic Qualifiers: HIV symptom status: asymptomatic Qualified Code(s): Z21 - Asymptomatic human immunodeficiency virus [HIV] infection status Comment: vl improving; on biktarvy; reports missing a few doses; safe sex and discussed med se and ae (8) Hypertension Current Visit: Yes Status: Chronic Comment: on metoprolol, lasix; stable bp , will need cardiology f/u (9) Dyslipidemia Current Visit: Yes Status: Chronic (10) Bilateral knee pain Current Visit: Yes Status: Chronic Comment: -missed last appt, urge pt to reschedule with Dr. Price -wants to have knee replacement now (11) Obesity (BMI 30-39.9) Current Visit: Yes Status: Chronic (12) Hepatitis C Current Visit: Yes Status: Resolved - Initial Treatment Plan Initial Treatment Plan: 1) Continue Remeron 30 mg po HS. 2) Continue inpatient detoxification
[2019-07-09 17:12] LABS: URINE APPEARANCE CLEAR; URINE BILIRUBIN NEGATIVE (NEGATIVE); URINE COLOR YELLOW; URINE GLUCOSE (UA) NEGATIVE (NEGATIVE); URINE KETONE NEGATIVE (NEGATIVE); URINE LEUK ESTERASE NEGATIVE (NEGATIVE); URINE NITRITE NEGATIVE (NEGATIVE); URINE PROTEIN TRACE (NEGATIVE)
[2019-07-09] MEDS: THIAMINE HCL 100 MG TABLET (FP) PO SCH (21:54)
[2019-07-09] MEDS: MELATONIN 5 MG TABLETS PO PRN (21:54)
[2019-07-09] MEDS: MIRTAZAPINE 30 MG TABLET (FP) PO SCH (21:55)
[2019-07-10] MEDS: BICTEGRAV/EMTRICIT/TENOFOV (BIKTARVY) 50-200-25 MG TABLET PO SCH (07:25)
[2019-07-10] MEDS: FUROSEMIDE 40 MG TABLET (FP) PO SCH (09:53)
[2019-07-10] MEDS: metoPROLOL SUCCINATE 25 MG TAB.SR.24H (FP) PO SCH (09:53)
[2019-07-10] MEDS: LORATADINE 10 MG TABLET PO SCH (09:53)
[2019-07-10] MEDS: PRENATAL VITAMINS W/ FOLIC ACID TABLET (FP) PO SCH (09:53)
[2019-07-10] MEDS: BACITRACIN 15 GM TUBE TOPICAL OINTMENT TP SCH ×2 (09:54→21:04)
[2019-07-10] MEDS: BUDESONIDE/FORMETEROL FUMARATE 80/4.5 mcg INHALER IH SCH ×2 (09:54→21:04)
[2019-07-10] MEDS: HYDROCORTISONE 0.5% TOPICAL CREAM 30 GM TUBE TP SCH ×2 (09:54→21:04)
[2019-07-10] MEDS: NICOTINE 7 MG/24 HOURS TOPICAL PATCH TD SCH (09:54)
[2019-07-10] MEDS: IBUPROFEN 400 MG TABLET (FP) PO PRN ×2 (09:55→21:06)
[2019-07-10] MEDS ORDERED: BUPRENORPHINE/NALOXONE 8 MG/2 MG FILM PACKET SL SCH (10:00)
[2019-07-10] MEDS: THIAMINE HCL 100 MG TABLET (FP) PO SCH (21:04)
[2019-07-10] MEDS: MIRTAZAPINE 30 MG TABLET (FP) PO SCH (21:04)
[2019-07-10] MEDS: MELATONIN 5 MG TABLETS PO PRN (21:05)
[2019-07-10] MEDS: guaiFENesin 200 MG/10 ML 10 ML UNIT-DOSE CUPS PO PRN (21:08)
[2019-07-11] MEDS: BICTEGRAV/EMTRICIT/TENOFOV (BIKTARVY) 50-200-25 MG TABLET PO SCH (07:06)
[2019-07-11] MEDS: IBUPROFEN 400 MG TABLET (FP) PO PRN ×2 (07:27→19:50)
[2019-07-11] MEDS: LORATADINE 10 MG TABLET PO SCH (10:31)
[2019-07-11] MEDS: FUROSEMIDE 40 MG TABLET (FP) PO SCH (10:31)
[2019-07-11] MEDS: PRENATAL VITAMINS W/ FOLIC ACID TABLET (FP) PO SCH (10:31)
[2019-07-11] MEDS: metoPROLOL SUCCINATE 25 MG TAB.SR.24H (FP) PO SCH (10:31)
[2019-07-11] MEDS: NICOTINE 7 MG/24 HOURS TOPICAL PATCH TD SCH (10:31)
[2019-07-11] MEDS: BUDESONIDE/FORMETEROL FUMARATE 80/4.5 mcg INHALER IH SCH ×2 (10:31→21:51)
[2019-07-11] MEDS: BACITRACIN 15 GM TUBE TOPICAL OINTMENT TP SCH ×2 (10:32→21:51)
[2019-07-11] MEDS: HYDROCORTISONE 0.5% TOPICAL CREAM 30 GM TUBE TP SCH ×2 (10:32→21:51)
[2019-07-11] MEDS: BUPRENORPHINE/NALOXONE 8 MG/2 MG FILM PACKET SL SCH (11:02)
[2019-07-11] MEDS: THIAMINE HCL 100 MG TABLET (FP) PO SCH (21:49)
[2019-07-11] MEDS: MIRTAZAPINE 30 MG TABLET (FP) PO SCH (21:49)
[2019-07-11] MEDS: MELATONIN 5 MG TABLETS PO PRN (21:50)
[2019-07-12] MEDS: BICTEGRAV/EMTRICIT/TENOFOV (BIKTARVY) 50-200-25 MG TABLET PO SCH (07:39)
[2019-07-12] MEDS: LORATADINE 10 MG TABLET PO SCH (09:41)
[2019-07-12] MEDS: metoPROLOL SUCCINATE 25 MG TAB.SR.24H (FP) PO SCH (09:41)
[2019-07-12] MEDS: IBUPROFEN 400 MG TABLET (FP) PO PRN ×3 (09:41→22:39)
[2019-07-12] MEDS: FUROSEMIDE 40 MG TABLET (FP) PO SCH (09:41)
[2019-07-12] MEDS: BUPRENORPHINE/NALOXONE 8 MG/2 MG FILM PACKET SL SCH (09:41)
[2019-07-12] MEDS: BACITRACIN 15 GM TUBE TOPICAL OINTMENT TP SCH ×2 (09:42→21:35)
[2019-07-12] MEDS: BUDESONIDE/FORMETEROL FUMARATE 80/4.5 mcg INHALER IH SCH ×2 (09:42→21:02)
[2019-07-12] MEDS: NICOTINE 7 MG/24 HOURS TOPICAL PATCH TD SCH (09:42)
[2019-07-12] MEDS: HYDROCORTISONE 0.5% TOPICAL CREAM 30 GM TUBE TP SCH ×2 (09:43→21:59)
[2019-07-12] MEDS: PRENATAL VITAMINS W/ FOLIC ACID TABLET (FP) PO SCH (09:43)
[2019-07-12] MEDS: MIRTAZAPINE 30 MG TABLET (FP) PO SCH (21:35)
[2019-07-12] MEDS: THIAMINE HCL 100 MG TABLET (FP) PO SCH (21:35)
[2019-07-12] MEDS: MELATONIN 5 MG TABLETS PO PRN (21:35)
[2019-07-12] MEDS: guaiFENesin 200 MG/10 ML 10 ML UNIT-DOSE CUPS PO PRN (21:36)
[2019-07-13] MEDS: IBUPROFEN 400 MG TABLET (FP) PO PRN ×3 (06:33→21:55)
[2019-07-13] MEDS: BICTEGRAV/EMTRICIT/TENOFOV (BIKTARVY) 50-200-25 MG TABLET PO SCH (07:32)
[2019-07-13] MEDS: LORATADINE 10 MG TABLET PO SCH (10:29)
[2019-07-13] MEDS: PRENATAL VITAMINS W/ FOLIC ACID TABLET (FP) PO SCH (10:29)
[2019-07-13] MEDS: FUROSEMIDE 40 MG TABLET (FP) PO SCH (10:30)
[2019-07-13] MEDS: metoPROLOL SUCCINATE 25 MG TAB.SR.24H (FP) PO SCH (10:30)
[2019-07-13] MEDS: HYDROCORTISONE 0.5% TOPICAL CREAM 30 GM TUBE TP SCH ×2 (10:31→21:52)
[2019-07-13] MEDS: BACITRACIN 15 GM TUBE TOPICAL OINTMENT TP SCH ×2 (10:31→21:52)
[2019-07-13] MEDS: NICOTINE 7 MG/24 HOURS TOPICAL PATCH TD SCH (10:31)
[2019-07-13] MEDS: BUDESONIDE/FORMETEROL FUMARATE 80/4.5 mcg INHALER IH SCH ×2 (10:31→21:54)
[2019-07-13] MEDS: BUPRENORPHINE/NALOXONE 8 MG/2 MG FILM PACKET SL SCH (10:37)
[2019-07-13] MEDS: METHYL SALICYLATE/MENTHOL OINT 30 GM TUBE TP SCH ×2 (14:46→21:52)
[2019-07-13] MEDS: MIRTAZAPINE 30 MG TABLET (FP) PO SCH (21:53)
[2019-07-13] MEDS: MELATONIN 5 MG TABLETS PO PRN (21:53)
[2019-07-13] MEDS: THIAMINE HCL 100 MG TABLET (FP) PO SCH (21:53)
[2019-07-14] MEDS: IBUPROFEN 400 MG TABLET (FP) PO PRN ×3 (06:34→17:40)
[2019-07-14] MEDS: BICTEGRAV/EMTRICIT/TENOFOV (BIKTARVY) 50-200-25 MG TABLET PO SCH (07:18)
[2019-07-14] MEDS: FUROSEMIDE 40 MG TABLET (FP) PO SCH (10:36)
[2019-07-14] MEDS: BUDESONIDE/FORMETEROL FUMARATE 80/4.5 mcg INHALER IH SCH ×2 (10:36→21:42)
[2019-07-14] MEDS: LORATADINE 10 MG TABLET PO SCH (10:36)
[2019-07-14] MEDS: BUPRENORPHINE/NALOXONE 8 MG/2 MG FILM PACKET SL SCH (10:36)
[2019-07-14] MEDS: metoPROLOL SUCCINATE 25 MG TAB.SR.24H (FP) PO SCH (10:36)
[2019-07-14] MEDS: PRENATAL VITAMINS W/ FOLIC ACID TABLET (FP) PO SCH (10:36)
[2019-07-14] MEDS: NICOTINE 7 MG/24 HOURS TOPICAL PATCH TD SCH (10:37)
[2019-07-14] MEDS: METHYL SALICYLATE/MENTHOL OINT 30 GM TUBE TP SCH ×2 (10:37→21:41)
[2019-07-14] MEDS: BACITRACIN 15 GM TUBE TOPICAL OINTMENT TP SCH ×2 (10:37→21:41)
[2019-07-14] MEDS: HYDROCORTISONE 0.5% TOPICAL CREAM 30 GM TUBE TP SCH ×2 (10:37→21:41)
[2019-07-14] MEDS: MIRTAZAPINE 30 MG TABLET (FP) PO SCH (21:42)
[2019-07-14] MEDS: THIAMINE HCL 100 MG TABLET (FP) PO SCH (21:43)
[2019-07-14] MEDS: MELATONIN 5 MG TABLETS PO PRN (21:43)
[2019-07-15] MEDS: IBUPROFEN 400 MG TABLET (FP) PO PRN ×3 (04:40→17:37)
[2019-07-15] MEDS: BICTEGRAV/EMTRICIT/TENOFOV (BIKTARVY) 50-200-25 MG TABLET PO SCH (07:04)
[2019-07-15] MEDS: FUROSEMIDE 40 MG TABLET (FP) PO SCH (10:32)
[2019-07-15] MEDS: LORATADINE 10 MG TABLET PO SCH (10:32)
[2019-07-15] MEDS: PRENATAL VITAMINS W/ FOLIC ACID TABLET (FP) PO SCH (10:32)
[2019-07-15] MEDS: BACITRACIN 15 GM TUBE TOPICAL OINTMENT TP SCH ×2 (10:32→21:39)
[2019-07-15] MEDS: metoPROLOL SUCCINATE 25 MG TAB.SR.24H (FP) PO SCH (10:32)
[2019-07-15] MEDS: NICOTINE 7 MG/24 HOURS TOPICAL PATCH TD SCH (10:33)
[2019-07-15] MEDS: METHYL SALICYLATE/MENTHOL OINT 30 GM TUBE TP SCH ×2 (10:33→21:39)
[2019-07-15] MEDS: HYDROCORTISONE 0.5% TOPICAL CREAM 30 GM TUBE TP SCH ×2 (10:33→21:39)
[2019-07-15] MEDS: BUDESONIDE/FORMETEROL FUMARATE 80/4.5 mcg INHALER IH SCH ×2 (10:33→21:40)
[2019-07-15] MEDS: BUPRENORPHINE/NALOXONE 8 MG/2 MG FILM PACKET SL SCH (10:35)
--- NOTE | 2019-07-15 12:06 | PN ---
[facility] Progress Note Note: Pt was seen today with his counselor Joetrentvanesa Patelmiguel Re: discharge planning. Pt reports he is currently in an outpatient treatment in [place], [place]. Reports he is also in the Suboxone Treatment program there. Currently Rx Suboxone 8 mg/2mg sl 2 films daily. Pt is expecting to return to his program after rehab treatment. Pt has ID clinic at [facility], [address] [place] [address] Portillo Patel and immigration case manager Ms Palma. Pt reports he was at [facility] but was transferred to [facility] outpatient due to behavior problems. Vital Signs - 24 hr 07/15/19 07/15/19 07/15/19 00:30 03:30 07:02 Temperature 97.7 F Pulse Rate 70 70 64 Respiratory 18 18 18 Rate Blood Pressure 148/96 Laboratory Tests 07/08/19 07/09/19 10:00 11:50 Urine Color Yellow Urine Appearance Clear Urine pH 8.0 D Ur Specific [place] 1.012 Urine Protein Trace Urine Glucose (UA) Negative Urine Ketones Negative Urine Blood Negative Urine Nitrite Negative Urine Bilirubin Negative Urine Urobilinogen 1.0 Ur Leukocyte Esterase Negative RPR Titer Nonreactive D/w pt and counselor the need to get in touch with [facility]: Suboxone MAT continuation and Rx after discharge from rehab. D/W pt to follow up with his primary care provider Dr. Portillo Patel at [facility] after discharge.
[2019-07-15] MEDS: MELATONIN 5 MG TABLETS PO PRN (21:38)
[2019-07-15] MEDS: THIAMINE HCL 100 MG TABLET (FP) PO SCH (21:38)
[2019-07-15] MEDS: MIRTAZAPINE 30 MG TABLET (FP) PO SCH (21:38)
[2019-07-16] MEDS: IBUPROFEN 400 MG TABLET (FP) PO PRN ×3 (06:17→21:36)
[2019-07-16] MEDS: BICTEGRAV/EMTRICIT/TENOFOV (BIKTARVY) 50-200-25 MG TABLET PO SCH (07:34)
[2019-07-16] MEDS: NICOTINE 7 MG/24 HOURS TOPICAL PATCH TD SCH (10:09)
[2019-07-16] MEDS: BACITRACIN 15 GM TUBE TOPICAL OINTMENT TP SCH ×2 (10:09→21:38)
[2019-07-16] MEDS: HYDROCORTISONE 0.5% TOPICAL CREAM 30 GM TUBE TP SCH ×2 (10:09→21:52)
[2019-07-16] MEDS: METHYL SALICYLATE/MENTHOL OINT 30 GM TUBE TP SCH ×2 (10:09→21:38)
[2019-07-16] MEDS: PRENATAL VITAMINS W/ FOLIC ACID TABLET (FP) PO SCH (10:09)
[2019-07-16] MEDS: LORATADINE 10 MG TABLET PO SCH (10:09)
[2019-07-16] MEDS: FUROSEMIDE 40 MG TABLET (FP) PO SCH (10:09)
[2019-07-16] MEDS: BUPRENORPHINE/NALOXONE 8 MG/2 MG FILM PACKET SL SCH (10:09)
[2019-07-16] MEDS: BUDESONIDE/FORMETEROL FUMARATE 80/4.5 mcg INHALER IH SCH ×2 (10:10→21:37)
[2019-07-16] MEDS: metoPROLOL SUCCINATE 25 MG TAB.SR.24H (FP) PO SCH (10:10)
[2019-07-16 11:10] VITALS: BP 149/64; PULSE 71
--- NOTE | 2019-07-16 11:45 | PN ---
[facility] Progress Note Note: Patient is scheduled for discharge tomorrow. Script for 30 days supply of Remeron 30 mg/hs will be electronically transmitted to [facility] [place] [address] [place] [place] [id number]
--- NOTE | 2019-07-16 12:31 | PN ---
[facility] Progress Note Note: Pt is scheduled to discharge tomorrow. Pt was visited today by his counselor Ms Palma from [facility], [facility]. As per counselor, pt's primary care and ongoing medical management and appointments is being handled at [facility]. Pt resides at the residence on [address] [place], [place] across from [facility]. She reports that pt has an appointment with Orthopedics on 07/23/19. Pt reports he has pending surgery of right knee. 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 Chris Mccarthy on [address] [place] [address], [address] [place] [address] which has been missed in the past as per counselors report. Pt is currently in [facility] Partial Hospitalization program where he also receives his Suboxone MAT. This newspaper writer spoke to the community case manager at [facility] Mr. Encinas and informed him of [facility] Suboxone for 7 days pending seeing a provider there for re-evaluation during next week. Mr. Encinas informed that patient should return to them on Saturday to see the doctor/re-eval. Patient was informed about this information and appear to understand the instruction well. Vital Signs - 24 hr 07/16/19 07/16/19 07/16/19 03:30 07:25 10:00 Temperature 98.8 F Pulse Rate 76 71 Respiratory 18 18 Rate Blood Pressure 149/75 149/64 Suboxone 8 mg/ 2mg sl 2 films daily #14 sent to Pt's preferred pharmacy- [facility] on [address] [place], [place]. Pt reports pharmacy delivers all his medications to him. Spoke with the pharmacist named Jesse who confirmed they deliver pt's medication to his residence in [place] from [place], [place].
[2019-07-16] MEDS: MIRTAZAPINE 30 MG TABLET (FP) PO SCH (21:35)
[2019-07-16] MEDS: MELATONIN 5 MG TABLETS PO PRN (21:36)
[2019-07-16] MEDS: THIAMINE HCL 100 MG TABLET (FP) PO SCH (21:36)
[2019-07-17] MEDS: IBUPROFEN 400 MG TABLET (FP) PO PRN (06:22)
[2019-07-17] MEDS: BICTEGRAV/EMTRICIT/TENOFOV (BIKTARVY) 50-200-25 MG TABLET PO SCH (07:01)
[2019-07-17 07:07] VITALS: TEMP 97.2
--- NOTE | 2019-07-17 09:56 | DS ---
[facility] Rehab Discharge Summary - [facility] Rehab Discharge Summary Admission Date: 07/08/19 Discharge Date: 07/17/19 - History Present History: Cocaine dependence, Opioid dependence Additional Comments: Pt is a 64 y/o male admitted to rehab for JOSÉ MIGUEL and discharged today as scheduled. Pt will follow up with CD aftercar/suboxone MAT and primary care as recommended/scheduled. Pertinent Past History: Asthma COPD Bilateral Knee Pain - Discharge Physical Exam Vital Signs: Vital Signs Temperature 97.2 F L 07/17/19 07:06 Pulse Rate 71 07/16/19 10:00 Respiratory Rate 18 07/17/19 07:06 Blood Pressure 149/64 07/16/19 10:00 O2 Sat by Pulse Oximetry (%) Pertinent Admission Physical Exam Findings: Laboratory Tests 07/08/19 07/09/19 10:00 11:50 Urine Color Yellow Urine Appearance Clear Urine pH 8.0 D Ur Specific [place] 1.012 Urine Protein Trace Urine Glucose (UA) Negative Urine Ketones Negative Urine Blood Negative Urine Nitrite Negative Urine Bilirubin Negative Urine Urobilinogen 1.0 Ur Leukocyte Esterase Negative RPR Titer Nonreactive - Treatment Discharge Condition: Discharge condition good Hospital Course: Rehabilitated safely and responded well CD aftercare referral accepted - Medication Discharge Medications: Ambulatory Orders Nebulizer Accessories [Reusable Nebulizer Kit] 1 each ASDIR #1 kit 10/22/18 Nebulizer and Compressor [[place] Choice Nebulizer] 1 each ASDIR #1 each 10/22 Hydrocortisone 0.5% Cream [Hytone 0.5% Cream -] 1 applic TP BID #1 tube Mirtazapine [Remeron -] 30 mg PO DAILY #30 tablet 06/03/19 traZODone HCL [Trazodone HCl] 100 mg PO HS #30 tablet 06/03/19 Albuterol 0.083% Nebulizer Mary Jo [Ventolin 0.083% Nebulizer Soln -] 1 neb NEB Q6H PRN #120 vial 07/07/19 Albuterol Sulfate Inhaler - [Ventolin HFA Inhaler -] 1 - 2 inh PO QID PRN #1 inhaler 07/07/19 Bictegrav/Emtricit/Tenofov Ala [Biktarvy 50-200-25 mg Tablet] 1 each PO DAILY # 30 tablet 07/07/19 Budesonide/Formeterol Fumarate [SYMBICORT 80/4.5mcg -] 2 puff IH BID #1 inhaler 07/07/19 Furosemide [Lasix] 40 mg PO DAILY #30 tablet 07/07/19 Loratadine [Claritin -] 10 mg PO DAILY #30 tablet 07/07/19 Metoprolol Succinate 1 tab PO DAILY #30 tab.er.24h 07/07/19 Multivit with Iron,Minerals [Complete Senior] 1 tab PO DAILY #30 tablet Tiotropium [place] [Spiriva] 1 inh PO DAILY #30 inhaler 07/07/19 Buprenorphine/Naloxone [Suboxone 8Mg/2Mg Sl Film -] 2 each SL DAILY #14 packet MDD 2 07/16/19 Mirtazapine [Remeron -] 30 mg PO HS #30 tablet 07/16/19 - Medication-Assisted Treatment (MAT) Medication-Assisted Treatment (MAT): Yes Medication Prescribed: Suboxone - Discharge Instructions Diet, activity, other medical instructions: Diet:FLORA diet Activity: oob ad jayla with cane Other medical instructions:Follow up with CD aftercare/Suboxone MAT at [facility] Partial hospitalization program as scheduled. follow up with primary care at [facility] as scheduled - Diagnosis (1) Cocaine dependence Status: Chronic Qualifiers: Substance use status: uncomplicated Qualified Code(s): F14.20 - Cocaine dependence, uncomplicated (2) Encounter for monitoring Suboxone maintenance therapy Status: Chronic (3) Opioid dependence Status: Chronic Qualifiers: Substance use status: uncomplicated Qualified Code(s): F11.20 - Opioid dependence, uncomplicated (4) Bilateral knee pain Status: Chronic (5) HIV (human immunodeficiency virus infection) Status: Chronic Qualifiers: HIV symptom status: unspecified Qualified Code(s): B20 - Human immunodeficiency virus [HIV] disease (6) Hypertension Status: Chronic Qualifiers: Hypertension type: essential hypertension Qualified Code(s): I10 - Essential (primary) hypertension (7) Nicotine dependence Status: Chronic Qualifiers: Nicotine product type: cigarettes Substance use status: uncomplicated Qualified Code(s): F17.210 - Nicotine dependence, cigarettes, uncomplicated (8) Obesity (BMI 30-39.9) Status: Chronic (9) Hepatitis C Status: Resolved Qualifiers: Viral hepatitis chronicity: unspecified (10) Ambulates with cane Status: Chronic (11) Degenerative arthritis Status: Chronic Qualifiers: Osteoarthritis location: knee Laterality: bilateral (12) Dyslipidemia Status: Chronic - Follow-up Referral Minutes to complete discharge: 25 - AMA Did Patient Leave Against Medical Advice: No Additional Comments: Pt resides at the residence on [address] [place] [address] across from [facility]. She reports that pt has an appointment with Orthopedics on 07/23. Pt reports he has pending surgery of right knee. As per discussion with counselor Minerva, counselor Isabella Chairez([address] [place] [address]), pt will be stopping by the [facility] clinic on day of discharge(07/17/19) to see his provider post rehab and for medication management as well as reschedule appointment for his [employer] consultant Dr. Chris Mccarthy on [address] [place] [address] which has been missed in the past as per counselors report. Pt is currently in [facility] Partial Hospitalization program where he also receives his Suboxone MAT. This rfp writer spoke to the behavioral health case manager at [facility] Mr. Encinas and informed him of [facility] Suboxone for 7 days pending seeing a provider there for re-evaluation during next week. Mr. Encinas informed that patient should return to them on Saturday07/20/19 to see the doctor/re-eval. Patient was informed about this information and appear to understand the instruction well. Patient has own meds. No need for [facility] Rx given except Suboxone 8mg/2mg 2 films sl daily #14 [facility] [place], [place]
== END 2019-07-17 09:00 | disposition home or self-care (01) | DRG 772 ==
LOC: YASAS 08:44 → Y5N 10:16
PROVIDERS: ADMIT Neuromusculoskeletal Medicine & OMM; ATTEND Neuromusculoskeletal Medicine & OMM
PROC: HZ42ZZZ Group Counseling for Substance Abuse Treatment, Cognitive-Behavioral (ICD-10-PCS; principal; 2019-07-08)
DX: F11.20 Opioid dependence, uncomplicated (principal); F14.20 Cocaine dependence, uncomplicated; F17.210 Nicotine dependence, cigarettes, uncomplicated; F19.24 Other psychoactive substance dependence with psychoactive substance-induced mood disorder; F19.282 Other psychoactive substance dependence with psychoactive substance-induced sleep disorder; Z21 Asymptomatic human immunodeficiency virus [HIV] infection status; I10 Essential (primary) hypertension; J44.9 Chronic obstructive pulmonary disease, unspecified; J45.998 Other asthma; E78.5 Hyperlipidemia, unspecified; M17.0 Bilateral primary osteoarthritis of knee; B18.2 Chronic viral hepatitis C; E66.9 Obesity, unspecified; Z68.32 Body mass index [BMI] 32.0-32.9, adult; Z99.89 Dependence on other enabling machines and devices; Z51.81 Encounter for therapeutic drug level monitoring
CPT/HCPCS: 36415; 81003; 86593

== ENCOUNTER 2019-08-19 11:43 | Inpatient (IN) | payer OTHER ==
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
[2019-08-19] MEDS ORDERED: ACETAMINOPHEN 500 MG TABLET (FP) PO ONE (13:24)
[2019-08-19 13:45] LABS: BASO % 2.5 % (0-2.0); EOS % 2.2 % (0-4.5); HEMATOCRIT 41.4 % (35.4-49); HEMOGLOBIN 13.5 GM/dL (11.7-16.9); LYMPH % 29.2 % (8-40); MCH 26.3 pg (25.7-33.7); MCHC 32.6 g/dl (32.0-35.9); MEAN CELL VOLUME 80.8 fl (80-96); MEAN PLT VOLUME 7.4 fl (7.5-11.1); MONO % 11.5 % (3.8-10.2); NEUT % 54.6 % (42.8-82.8); PLATELET COUNT 258 K/MM3 (134-434); RBC 5.12 M/mm3 (4.00-5.60); RDW 17.6 % (11.9-15.9); WHITE BLOOD COUNT 4.4 K/mm3 (4.0-10.0)
--- NOTE | 2019-08-19 14:01 | PDOC ---
Documentation entered by Natasha Keller SCRIBE, acting as scribe for Grupo Cloud MD. Grupo Cloud MD: This documentation has been prepared by the Arianna jack Nirvannie, SCRIBE, under my direction and personally reviewed by me in its entirety. I confirm that the documentation accurately reflects all work, treatment, procedures, and medical decision making performed by me. Attending Attestation - Resident Resident Name: Jesse Spears - ED Attending Attestation I have performed the following: I have examined & evaluated the patient, The case was reviewed & discussed with the resident, I agree w/resident's findings & plan, Exceptions are as noted - HPI HPI: 08/19/19 13:18 The patient is a 64 year old male, with a significant past medical history of HIV (CD4 >400, VLUD), HTN, COPD, IV drug abuse (heroin last used two days ago - on suboxone), HLD, OA, who presents to the emergency department via EMS from the [facility] for evaluation of hypotension and tachycardia. Pt was in office for routine visit when he was found to have BP 80/40, with HR in 120s. Pt reports feeling lightheaded at the time but denies any F/C. Denies N/V/D. No recent illness. Denies any other complaints. Per EMS, upon their arrival, pt was found to have normal vitals. Pt had not received IV fluids or any other intervention at [facility]. He denies any recent fevers, chills, headache or dizziness. He denies any recent nausea, vomiting, diarrhea or constipation. He denies any recent chest pain or shortness of breath. He denies any recent dysuria, frequency, urgency or hematuria. Allergies: NKDA - Physicial Exam PE: 08/19/19 13:18 GENERAL: Awake, alert, and fully oriented, in no acute distress. HEAD: No signs of trauma EYES: PERRLA, EOMI, sclera anicteric, conjunctiva clear ENT: Auricles normal inspection, hearing grossly normal, nares patent, oropharynx clear without exudates. Moist mucosa NECK: Nontender, no stepoffs, Normal ROM, supple, no lymphadenopathy, JVD, or masses LUNGS: Breath sounds equal, clear to auscultation bilaterally. No wheezes, and no crackles HEART: Regular rate and rhythm, normal S1 and S2, no murmurs, rubs or gallops ABDOMEN: Soft, nontender, normoactive bowel sounds. No guarding, no rebound. No masses EXTREMITIES: Normal range of motion, no edema. No clubbing or cyanosis. No cords, erythema, or tenderness NEUROLOGICAL: Cranial nerves II through XII intact. 5/5 strength and sensation in all extremities, Normal speech, normal gait, normal cerebellar function SKIN: Warm, Dry, normal turgor, no rashes or lesions noted. - Medical Decision Making 08/19/19 14:58 64 M with tachycardia and hypotension at [facility], now resolved. Pt currently asymptomatic. Will evaluate for infectious process. - Labs - CXR, UA 08/19/19 15:00 Labs wnl CXR shows increased RLL markings WIll obtain CT to r/o PNA 08/19/19 17:11 Small R medial basilar infiltrate found on CT Will tx for PNA
[2019-08-19] MEDS ORDERED: ACETAMINOPHEN 325 MG TABLET (FP) ONE (14:11)
[2019-08-19 14:17] LABS: ALBUMIN 3.9 g/dl (3.4-5.0); ALK PHOS 110 U/L (45-117); ANION GAP 5 MMOL/L (8-16); BILIRUBIN,TOTAL 0.3 mg/dL (0.2-1); BLOOD UREA NITROGEN 19.5 mg/dL (7-18); CHLORIDE 106 mmol/L (98-107); CO2 26 mmol/L (21-32); CREATININE 1.5 mg/dL (0.55-1.3); GLUCOSE,RANDOM 119 mg/dL (74-106); POTASSIUM 4.5 mmol/L (3.5-5.1); SGOT/AST 19 U/L (15-37); SGPT/ALT 17 U/L (13-61); SODIUM 136 mmol/L (136-145); TOT PROT 7.5 g/dl (6.4-8.2)
[2019-08-19 14:28] LABS: ANISOCYTOSIS 0; MACROCYTOSIS 0; PLATELET ESTIMATE NORMAL
[2019-08-19 14:41] LABS: EPI CELLS 2.3 /HPF (0-5/HPF); HYALINE CASTS 18 /lpf (0-8); PH,URINE 5.5 (5.0-8.0); URINE APPEARANCE CLOUDY; URINE BACTERIA 1.9 /hpf (NEGATIVE); URINE BILIRUBIN NEGATIVE (NEGATIVE); URINE COLOR YELLOW; URINE GLUCOSE (UA) NEGATIVE (NEGATIVE); URINE KETONE TRACE (NEGATIVE); URINE LEUK ESTERASE NEGATIVE (NEGATIVE); URINE NITRITE NEGATIVE (NEGATIVE); URINE PROTEIN 1+ (NEGATIVE); URINE RBC 5 /hpf (0-4); URINE WBC 2 /hpf (0-5)
[2019-08-19 14:58] LABS: URINE CRYSTALS FEW /hpf
[2019-08-19] MEDS ORDERED: CEFTRIAXONE 1,000 MG in DEXTROSE 5%-WATER - 50 ML IVPB ONE (17:14)
[2019-08-19] MEDS ORDERED: AZITHROMYCIN 250 MG TABLET PO ONE (17:24)
[2019-08-19] MEDS ORDERED: AZITHROMYCIN 250 MG TABLET ONE (19:11)
[2019-08-19] MEDS ORDERED: CEFTRIAXONE 1 GM/50 ML BAG ONE (19:12)
[2019-08-19] MEDS ORDERED: ALBUTEROL SO4 0.083% IH SOL 2.5 MG/3 ML VIAL.NEB. NEB PRN (21:52)
[2019-08-19] MEDS ORDERED: SODIUM CHLORIDE 1,000 ML IV SCH (22:00)
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
--- NOTE | 2019-08-20 00:53 | PN ---
Teaching Attending Note Name of Resident: Janelle Virgen ATTENDING PHYSICIAN STATEMENT I saw and evaluated the patient. I reviewed the resident's note and discussed the case with the resident. I agree with the resident's findings and plan as documented. SUBJECTIVE: 64 y/o M w/ pmhx of HIV (undetectable), Hep C (treated at [place]), COPD, Tobacco use disorder, Heroin and coacine abuse, HLD, and OA (both knees) presenting to ED from [facility] Who was noted to be complaining of dizinness, chest pain, and SOB. Upon questioning patient myself he did not have any of these complaints. Last Vital Signs Temp Pulse Resp BP Pulse Ox 98.4 F 88 19 127/65 100 08/19/19 16:52 08/19/19 23:46 08/19/19 23:46 08/19/19 23:46 08/19/19 23:46 GENERAL: Well developed, well nourished. Awake and alert. No acute distress. HEENT: Normocephalic, atraumatic. PERRLA, EOMI. No conjunctival pallor. Sclera are non- icteric. Moist mucous membranes. Oropharynx is clear. NECK: Supple. Full ROM. No JVD. Carotid pulses 2+ and symmetric, without bruits. No thyromegaly. No lymphadenopathy. CARDIOVASCULAR: Regular rate and rhythm. No murmurs, rubs, or gallops. Distal pulses are 2+ and symmetric. PULMONARY: No evidence of respiratory distress. Lungs clear to auscultation bilaterally. ABDOMINAL: Soft. Non-tender. Non-distended. No rebound or guarding. No organomegaly. Normoactive bowel sounds. MUSCULOSKELETAL Normal range of motion at all joints. No bony deformities or tenderness. No CVA tenderness. EXTREMITIES: No cyanosis. No clubbing. No edema. No calf tenderness. SKIN: Warm and dry. Normal capillary refill. No rashes. No jaundice. PSYCHIATRIC: Cooperative. Good eye contact. Appropriate mood and affect. Abnormal Lab Results 08/19/19 08/19/19 08/19/19 13:38 13:38 13:55 RDW 17.6 H MPV 7.4 L Monocytes % 11.5 H Eosinophils % (Manual) 4.9 H D Basophils % 2.5 H Basophils % (Manual) 2.9 H D Anion Gap 5 L BUN 19.5 H Creatinine 1.5 H Random Glucose 119 H Urine Protein 1+ H Urine Ketones Trace H Imaging studies reviewed CT of chest showed small right basilar infiltrate ASSESSMENT AND PLAN: #Possible community-acquired pneumonia CT with evidence of small R basilar infiltrate in pt with HIV and COPD. MedSurg azithromycin 500mg IVPB daily Ceftriaxone 1 g every 24 hours Flu swab Sputum culture and blood cultures Flu swab #HIVthought to be well-controlled on Biktarvy Send CD4 count and HIV viral load Continue Biktarvy ID consult for HIV medication approval #ROE IV fluid hydration trend renal markers Renal sonogram #DVT prophylaxisheparin subcutaneously
[2019-08-20 05:48] LABS: MEAN PLT VOLUME 7.4 fl (7.5-11.1)
[2019-08-20 05:53] LABS: BASO % 1.4 % (0-2.0); EOS % 6.7 % (0-4.5); HEMOGLOBIN 11.9 GM/dL (11.7-16.9); MCH 26.1 pg (25.7-33.7); MEAN CELL VOLUME 81.4 fl (80-96); MONO % 16.4 % (3.8-10.2); NEUT % 46.5 % (42.8-82.8); PLATELET COUNT 207 K/MM3 (134-434); RBC 4.55 M/mm3 (4.00-5.60); RDW 17.7 % (11.9-15.9); WHITE BLOOD COUNT 4.4 K/mm3 (4.0-10.0)
[2019-08-20] MEDS ORDERED: HEPARIN NA (PORCINE) 5,000 UNITS/ML 1ML VIAL SQ SCH (06:00)
[2019-08-20 06:10] LABS: ALBUMIN 3.2 g/dl (3.4-5.0); BILIRUBIN,TOTAL 0.1 mg/dL (0.2-1); BLOOD UREA NITROGEN 25.3 mg/dL (7-18); CALCIUM 8.4 mg/dL (8.5-10.1); CREATININE 1.5 mg/dL (0.55-1.3); PHOSPHOROUS 3.6 mg/dL (2.5-4.9); POTASSIUM 4.4 mmol/L (3.5-5.1); TOT PROT 6.3 g/dl (6.4-8.2)
--- NOTE | 2019-08-20 09:20 | PN ---
Teaching Attending Note Name of Resident: Gala Roche ATTENDING PHYSICIAN STATEMENT I saw and evaluated the patient. I reviewed the resident's note and discussed the case with the resident. I agree with the resident's findings and plan as documented with exceptions below. SUBJECTIVE: Patient seen and examined, no new complaints, reports generalized aches and pains. No fevers, chills, dyspnea or new cough noted. OBJECTIVE: Vital Signs Period Temp Pulse Resp BP Sys/Colon Pulse Ox Last 24 Hr 97.8 F-99.4 F 85-93 19-22 107-133/65-76 91-100 Intake & Output 08/17/19 08/18/19 08/19/19 08/20/19 23:59 23:59 23:59 23:59 Weight 193 lb General: lying in bed, in no acute distress Neck:soft, supple Chest: Good air entry bilaterally, no rales or wheezing appreciated Abdomen:soft, obese, NT Extremities: no edema or erythema noted Home Medications Medication Instructions Recorded traZODone HCL [Trazodone HCl] 100 mg PO HS #30 tablet 06/03/19 Albuterol Sulfate Inhaler - 1 - 2 inh PO QID PRN #1 inhaler 07/07/19 [Ventolin HFA Inhaler -] Bictegrav/Emtricit/Tenofov Ala 1 each PO DAILY #30 tablet 07/07/19 [Biktarvy 50-200-25 mg Tablet] Budesonide/Formeterol Fumarate 2 puff IH BID #1 inhaler 07/07/19 [SYMBICORT 80/4.5mcg -] Furosemide [Lasix] 40 mg PO DAILY #30 tablet 07/07/19 Metoprolol Succinate 1 tab PO DAILY #30 tab.er.24h 07/07/19 Multivit with Iron,Minerals 1 tab PO DAILY #30 tablet 07/07/19 [Complete Senior] Tiotropium [place] [Spiriva] 1 inh PO DAILY #30 inhaler 07/07/19 Mirtazapine [Remeron -] 30 mg PO HS #30 tablet 07/16/19 Buprenorphine/Naloxone [Suboxone 2 each SL DAILY #14 film MDD 2 08/18/19 8Mg/2Mg Sl Film -] Azithromycin [Zithromax] 500 mg PO DAILY #5 tablet 08/20/19 Cefuroxime Axetil [Cefuroxime] 500 mg PO BID #10 tablet 08/20/19 Laboratory Results - last 24 hr 08/19/19 08/19/19 08/19/19 13:38 13:38 13:55 WBC 4.4 RBC 5.12 Hgb 13.5 Hct 41.4 MCV 80.8 MCH 26.3 MCHC 32.6 RDW 17.6 H Plt Count 258 D MPV 7.4 L Absolute Neuts (auto) 2.4 Neutrophils % 54.6 Neutrophils % (Manual) 58.8 D Band Neutrophils % 0.0 Lymphocytes % 29.2 Lymphocytes % (Manual) 26.5 D Monocytes % 11.5 H Monocytes % (Manual) 7 Eosinophils % 2.2 Eosinophils % (Manual) 4.9 H D Basophils % 2.5 H Basophils % (Manual) 2.9 H D Myelocytes % (Man) 0 Promyelocytes % (Man) 0 Blast Cells % (Manual) 0 Nucleated RBC % 0 Metamyelocytes 0 Hypochromia 0 Platelet Estimate Normal Polychromasia 0 Poikilocytosis 0 Anisocytosis 0 Microcytosis 0 Macrocytosis 0 Sodium 136 Potassium 4.5 Chloride 106 Carbon Dioxide 26 Anion Gap 5 L BUN 19.5 H Creatinine 1.5 H Est GFR (CKD-EPI)AfAm 56.21 Est GFR (CKD-EPI)NonAf 48.50 Random Glucose 119 H Lactic Acid Calcium 9.0 Phosphorus Magnesium Total Bilirubin 0.3 AST 19 ALT 17 Alkaline Phosphatase 110 Troponin I < 0.02 Total Protein 7.5 Albumin 3.9 Urine Color Yellow Urine Appearance Cloudy Urine pH 5.5 D Ur Specific [place] 1.023 Urine Protein 1+ H Urine Glucose (UA) Negative Urine Ketones Trace H Urine Blood Negative Urine Nitrite Negative Urine Bilirubin Negative Urine Urobilinogen 1.0 Ur Leukocyte Esterase Negative Urine WBC (Auto) 2 Urine RBC (Auto) 5 Urine Casts (Auto) 18 U Pathogenic Cast Auto 2 U Epithel Cells (Auto) 2.3 Urine Crystals (Auto) Few Urine Bacteria (Auto) 1.9 Influenza A (Rapid) Influenza B (Rapid) 08/19/19 08/19/19 08/20/19 18:00 20:20 05:30 WBC 4.4 RBC 4.55 Hgb 11.9 Hct 37.0 MCV 81.4 MCH 26.1 MCHC 32.0 RDW 17.7 H Plt Count 207 MPV 7.4 L Absolute Neuts (auto) 2.0 Neutrophils % 46.5 Neutrophils % (Manual) Band Neutrophils % Lymphocytes % 29.0 Lymphocytes % (Manual) Monocytes % 16.4 H Monocytes % (Manual) Eosinophils % 6.7 H D Eosinophils % (Manual) Basophils % 1.4 Basophils % (Manual) Myelocytes % (Man) Promyelocytes % (Man) Blast Cells % (Manual) Nucleated RBC % 0 Metamyelocytes Hypochromia Platelet Estimate Polychromasia Poikilocytosis Anisocytosis Microcytosis Macrocytosis Sodium Potassium Chloride Carbon Dioxide Anion Gap BUN Creatinine Est GFR (CKD-EPI)AfAm Est GFR (CKD-EPI)NonAf Random Glucose Lactic Acid 1.5 Calcium Phosphorus Magnesium Total Bilirubin AST ALT Alkaline Phosphatase Troponin I Total Protein Albumin Urine Color Urine Appearance Urine pH Ur Specific [place] Urine Protein Urine Glucose (UA) Urine Ketones Urine Blood Urine Nitrite Urine Bilirubin Urine Urobilinogen Ur Leukocyte Esterase Urine WBC (Auto) Urine RBC (Auto) Urine Casts (Auto) U Pathogenic Cast Auto U Epithel Cells (Auto) Urine Crystals (Auto) Urine Bacteria (Auto) Influenza A (Rapid) Negative Influenza B (Rapid) Negative 08/20/19 05:30 WBC RBC Hgb Hct MCV MCH MCHC RDW Plt Count MPV Absolute Neuts (auto) Neutrophils % Neutrophils % (Manual) Band Neutrophils % Lymphocytes % Lymphocytes % (Manual) Monocytes % Monocytes % (Manual) Eosinophils % Eosinophils % (Manual) Basophils % Basophils % (Manual) Myelocytes % (Man) Promyelocytes % (Man) Blast Cells % (Manual) Nucleated RBC % Metamyelocytes Hypochromia Platelet Estimate Polychromasia Poikilocytosis Anisocytosis Microcytosis Macrocytosis Sodium 138 Potassium 4.4 Chloride 106 Carbon Dioxide 28 Anion Gap 5 L BUN 25.3 H Creatinine 1.5 H Est GFR (CKD-EPI)AfAm 56.21 Est GFR (CKD-EPI)NonAf 48.50 Random Glucose 100 Lactic Acid Calcium 8.4 L Phosphorus 3.6 Magnesium 2.0 Total Bilirubin 0.1 L AST 15 ALT 14 Alkaline Phosphatase 96 Troponin I Total Protein 6.3 L Albumin 3.2 L Urine Color Urine Appearance Urine pH Ur Specific [place] Urine Protein Urine Glucose (UA) Urine Ketones Urine Blood Urine Nitrite Urine Bilirubin Urine Urobilinogen Ur Leukocyte Esterase Urine WBC (Auto) Urine RBC (Auto) Urine Casts (Auto) U Pathogenic Cast Auto U Epithel Cells (Auto) Urine Crystals (Auto) Urine Bacteria (Auto) Influenza A (Rapid) Influenza B (Rapid) CXR and CT chest results reviewed ASSESSMENT AND PLAN: 64 yom with PMHx of HIV on HAART, Hep C (treated at [place]), COPD, Tobacco use disorder, Heroin and coacine abuse, HLD, and OA admitted with vague symptoms of dizziness, dyspnea, chest pain. -RLL atelectasis vs CAP -COPD, not in exacerbation -HIV on HAART -Hepatitis C s/p treatment -Polysubstance use with heroine/cocaine/tobacco -HLD -OA Plan: oxygenating well, lung exam clear Imaging reviewed Afebrile, has been ambulating in the ED with no concerns. Transition to cefuroxime/azithromycin for 5 days with outpatient follow up at [facility]. patient declining to leave stating " how can you discharge me, I have high blood pressure, I have HIV, I have no place to go". Social work input to provide resources Dc home today Discussed with ED RN.
[2019-08-20] MEDS ORDERED: AZITHROMYCIN IVPB 500 MG/250 ML BAG IVPB SCH (10:00)
[2019-08-20] MEDS ORDERED: CEFTRIAXONE 1 GM in DEXTROSE 5%-WATER - 50 ML IVPB SCH (10:00)
--- NOTE | 2019-08-20 12:27 | DS ---
Physical Exam: SUBJECTIVE: Patient seen and examined at bedside. No acute events overnight. Patient reports generalized aches and pain, but reports feeling better.Denies fevers, chills, shortness of breath. OBJECTIVE: Vital Signs Temperature 98.6 F 08/20/19 11:15 Pulse Rate 67 08/20/19 11:15 Respiratory Rate 22 H 08/20/19 11:15 Blood Pressure 163/97 08/20/19 11:15 O2 Sat by Pulse Oximetry (%) 96 08/20/19 11:15 PHYSICAL EXAM GENERAL: The patient is awake, alert, and fully oriented, in no acute distress. HEAD: Normal with no signs of trauma. EYES: PERRLA, EOMI, sclera anicteric, conjunctiva clear. ENT: Ears normal, nares patent, oropharynx clear without exudates, moist mucous membranes. NECK: Trachea midline, full range of motion, supple. LUNGS: Breath sounds equal, clear to auscultation bilaterally. HEART: Regular rate and rhythm, S1, S2 without murmur, rub or gallop. ABDOMEN: Soft, nontender, nondistended, normoactive bowel sounds. EXTREMITIES: 2+ pulses, warm, well-perfused, no edema. NEUROLOGICAL: Cranial nerves II through XII grossly intact. Normal speech, gait not observed. PSYCH: Normal mood, normal affect. SKIN: Warm, dry, normal turgor, no rashes or lesions noted. LABS Laboratory Results - last 24 hr 08/19/19 08/19/19 08/19/19 13:38 13:38 13:55 WBC 4.4 RBC 5.12 Hgb 13.5 Hct 41.4 MCV 80.8 MCH 26.3 MCHC 32.6 RDW 17.6 H Plt Count 258 D MPV 7.4 L Absolute Neuts (auto) 2.4 Neutrophils % 54.6 Neutrophils % (Manual) 58.8 D Band Neutrophils % 0.0 Lymphocytes % 29.2 Lymphocytes % (Manual) 26.5 D Monocytes % 11.5 H Monocytes % (Manual) 7 Eosinophils % 2.2 Eosinophils % (Manual) 4.9 H D Basophils % 2.5 H Basophils % (Manual) 2.9 H D Myelocytes % (Man) 0 Promyelocytes % (Man) 0 Blast Cells % (Manual) 0 Nucleated RBC % 0 Metamyelocytes 0 Hypochromia 0 Platelet Estimate Normal Polychromasia 0 Poikilocytosis 0 Anisocytosis 0 Microcytosis 0 Macrocytosis 0 Sodium 136 Potassium 4.5 Chloride 106 Carbon Dioxide 26 Anion Gap 5 L BUN 19.5 H Creatinine 1.5 H Est GFR (CKD-EPI)AfAm 56.21 Est GFR (CKD-EPI)NonAf 48.50 Random Glucose 119 H Lactic Acid Calcium 9.0 Phosphorus Magnesium Total Bilirubin 0.3 AST 19 ALT 17 Alkaline Phosphatase 110 Troponin I < 0.02 Total Protein 7.5 Albumin 3.9 Urine Color Yellow Urine Appearance Cloudy Urine pH 5.5 D Ur Specific [place] 1.023 Urine Protein 1+ H Urine Glucose (UA) Negative Urine Ketones Trace H Urine Blood Negative Urine Nitrite Negative Urine Bilirubin Negative Urine Urobilinogen 1.0 Ur Leukocyte Esterase Negative Urine WBC (Auto) 2 Urine RBC (Auto) 5 Urine Casts (Auto) 18 U Pathogenic Cast Auto 2 U Epithel Cells (Auto) 2.3 Urine Crystals (Auto) Few Urine Bacteria (Auto) 1.9 Influenza A (Rapid) Influenza B (Rapid) 08/19/19 08/19/19 08/20/19 18:00 20:20 05:30 WBC 4.4 RBC 4.55 Hgb 11.9 Hct 37.0 MCV 81.4 MCH 26.1 MCHC 32.0 RDW 17.7 H Plt Count 207 MPV 7.4 L Absolute Neuts (auto) 2.0 Neutrophils % 46.5 Neutrophils % (Manual) Band Neutrophils % Lymphocytes % 29.0 Lymphocytes % (Manual) Monocytes % 16.4 H Monocytes % (Manual) Eosinophils % 6.7 H D Eosinophils % (Manual) Basophils % 1.4 Basophils % (Manual) Myelocytes % (Man) Promyelocytes % (Man) Blast Cells % (Manual) Nucleated RBC % 0 Metamyelocytes Hypochromia Platelet Estimate Polychromasia Poikilocytosis Anisocytosis Microcytosis Macrocytosis Sodium Potassium Chloride Carbon Dioxide Anion Gap BUN Creatinine Est GFR (CKD-EPI)AfAm Est GFR (CKD-EPI)NonAf Random Glucose Lactic Acid 1.5 Calcium Phosphorus Magnesium Total Bilirubin AST ALT Alkaline Phosphatase Troponin I Total Protein Albumin Urine Color Urine Appearance Urine pH Ur Specific [place] Urine Protein Urine Glucose (UA) Urine Ketones Urine Blood Urine Nitrite Urine Bilirubin Urine Urobilinogen Ur Leukocyte Esterase Urine WBC (Auto) Urine RBC (Auto) Urine Casts (Auto) U Pathogenic Cast Auto U Epithel Cells (Auto) Urine Crystals (Auto) Urine Bacteria (Auto) Influenza A (Rapid) Negative Influenza B (Rapid) Negative 08/20/19 05:30 WBC RBC Hgb Hct MCV MCH MCHC RDW Plt Count MPV Absolute Neuts (auto) Neutrophils % Neutrophils % (Manual) Band Neutrophils % Lymphocytes % Lymphocytes % (Manual) Monocytes % Monocytes % (Manual) Eosinophils % Eosinophils % (Manual) Basophils % Basophils % (Manual) Myelocytes % (Man) Promyelocytes % (Man) Blast Cells % (Manual) Nucleated RBC % Metamyelocytes Hypochromia Platelet Estimate Polychromasia Poikilocytosis Anisocytosis Microcytosis Macrocytosis Sodium 138 Potassium 4.4 Chloride 106 Carbon Dioxide 28 Anion Gap 5 L BUN 25.3 H Creatinine 1.5 H Est GFR (CKD-EPI)AfAm 56.21 Est GFR (CKD-EPI)NonAf 48.50 Random Glucose 100 Lactic Acid Calcium 8.4 L Phosphorus 3.6 Magnesium 2.0 Total Bilirubin 0.1 L AST 15 ALT 14 Alkaline Phosphatase 96 Troponin I Total Protein 6.3 L Albumin 3.2 L Urine Color Urine Appearance Urine pH Ur Specific [place] Urine Protein Urine Glucose (UA) Urine Ketones Urine Blood Urine Nitrite Urine Bilirubin Urine Urobilinogen Ur Leukocyte Esterase Urine WBC (Auto) Urine RBC (Auto) Urine Casts (Auto) U Pathogenic Cast Auto U Epithel Cells (Auto) Urine Crystals (Auto) Urine Bacteria (Auto) Influenza A (Rapid) Influenza B (Rapid) HOSPITAL COURSE: Date of Admission:08/19/19 Date of Discharge: 08/20/19 Patient is a 64 year old male with past medical history of HIV on HAART, Hep C ( treated at [place]), COPD, Tobacco use disorder, Heroin and cocaine abuse, HLD, and OA presented to the ED due to symptoms of dizziness, dyspnea and chest pain. EKG, Labs and Chest CT were done which revealed small R basilar infiltrate. He was started on IV Azithromycin and Ceftriaxone. Patient remained stable overnight, saturating well on room air. Patient will be discharged with instructions to follow up with PCP and at [facility] and to continue Cefuroxime and Azithromycin for 5 days. Minutes to complete discharge: 36 Discharge Summary Problems reviewed: Yes Reason For Visit: HUMAN IMMUNODEFICIENCY VIRUS (HIV) INFECTION/ Current Active Problems Hypotension (Acute) Pneumonia (Acute) Tachycardia (Acute) COPD (chronic obstructive pulmonary disease) (Chronic) HIV (human immunodeficiency virus infection) (Chronic) Condition: Stable - Instructions Diet, Activity, Other Instructions: Your visit You were seen at the hospital because you reported to have dizziness and shortness of breath. Several labs and imaging were done. You were found to have a mild infection in your lungs. Please continue taking antibiotics as instructed below. Medications Please take the following medications as prescribed: 1. Cefuroxime 500mg twice a day for 5 days. 2. Azithromycin 500mg daily for 5 days. Follow up Please follow up at the [facility] within 1-2 weeks. Additional info please call 911 or go to the ED if with any worsening fevers, chills, headache, dizziness, chest pain, abdominal pain, diarrhea, or any new concerns noted. Referrals: Jamaica Lewis MD [Staff Physician] - Disposition: HOME - Home Medications Comprehensive Discharge Medication List: Ambulatory Orders traZODone HCL [Trazodone HCl] 100 mg PO HS #30 tablet 06/03/19 Albuterol Sulfate Inhaler - [Ventolin HFA Inhaler -] 1 - 2 inh PO QID PRN #1 inhaler 07/07/19 Bictegrav/Emtricit/Tenofov Ala [Biktarvy 50-200-25 mg Tablet] 1 each PO DAILY # 30 tablet 07/07/19 Budesonide/Formeterol Fumarate [SYMBICORT 80/4.5mcg -] 2 puff IH BID #1 inhaler 07/07/19 Furosemide [Lasix] 40 mg PO DAILY #30 tablet 07/07/19 Metoprolol Succinate 1 tab PO DAILY #30 tab.er.24h 07/07/19 Multivit with Iron,Minerals [Complete Senior] 1 tab PO DAILY #30 tablet Tiotropium [place] [Spiriva] 1 inh PO DAILY #30 inhaler 07/07/19 Mirtazapine [Remeron -] 30 mg PO HS #30 tablet 07/16/19 Buprenorphine/Naloxone [Suboxone 8Mg/2Mg Sl Film -] 2 each SL DAILY #14 film MDD 2 08/18/19 Azithromycin [Zithromax] 500 mg PO DAILY #5 tablet 08/20/19 Cefuroxime Axetil [Cefuroxime] 500 mg PO BID #10 tablet 08/20/19 This patient is new to me today: Yes Date on this admission: 08/20/19 Emergency Visit: Yes ED Registration Date: 08/19/19 Care time: The patient presented to the Emergency Department on the above date and was hospitalized for further evaluation of their emergent condition. Critical Care patient: No - Discharge Referral Referred to [facility] No ATTENDING PHYSICIAN STATEMENT I saw and evaluated the patient. I reviewed the resident's note and discussed the case with the resident. I agree with the resident's findings and plan as documented. SUBJECTIVE: OBJECTIVE: ASSESSMENT AND PLAN:
[2019-08-20] MEDS ORDERED: AZITHROMYCIN 250 MG TABLET PO SCH (12:30)
[2019-08-20] MEDS ORDERED: CEFUROXIME AXETIL 500 MG TABLET PO SCH (12:30)
--- NOTE | 2019-08-20 12:39 | EKG ---
Test Reason : Blood Pressure : / mmHG Vent. Rate : 090 BPM Atrial Rate : 090 BPM P-R Int : 148 ms QRS Dur : 076 ms QT Int : 364 ms P-R-T Axes : 063 -21 031 degrees QTc Int : 445 ms NORMAL SINUS RHYTHM NORMAL ECG WHEN COMPARED WITH ECG OF 02-MAY-2019 02:25, NO SIGNIFICANT CHANGE WAS FOUND Confirmed by KADE SUMMERS MD ([id number]) on 08/20/2019 12:39:36 PM Referred By: Confirmed By:KADE SUMMERS MD
[2019-08-20 14:21] VITALS: TEMP 98.3
[2019-08-20 15:26] VITALS: BMI 32.4
[2019-08-20] MEDS ORDERED: ACETAMINOPHEN 325 MG TABLET (FP) PO PRN (16:09)
--- NOTE | 2019-08-20 18:15 | PN ---
Progress Note (short form) - Note Progress Note: ID CONSULT DICTATED COMMUNITY ACQUIRED V. ATYPICAL PNEUMONIA HIV+ MAY SUBSTITUTE LEVAQUIN 500MG PO QD X 7D CONTINUE ART OUTPATIENT F/U AT [facility]
[2019-08-20 19:59] VITALS: BP 146/83; PULSE 70
== END 2019-08-20 20:00 | disposition home or self-care (01) | DRG 139 ==
LOC: JER 11:43 → JERBED 17:34 → J5S 08-20 14:47
PROVIDERS: ADMIT Internal Medicine; ATTEND Hospitalist
DX: J18.9 Pneumonia, unspecified organism (principal); I10 Essential (primary) hypertension; J44.9 Chronic obstructive pulmonary disease, unspecified; E78.5 Hyperlipidemia, unspecified; F17.210 Nicotine dependence, cigarettes, uncomplicated; M17.0 Bilateral primary osteoarthritis of knee; J98.11 Atelectasis; N17.9 Acute kidney failure, unspecified; F14.10 Cocaine abuse, uncomplicated; R00.0 Tachycardia, unspecified; R55 Syncope and collapse; R42 Dizziness and giddiness; K59.09 Other constipation; B19.20 Unspecified viral hepatitis C without hepatic coma; Z21 Asymptomatic human immunodeficiency virus [HIV] infection status
CPT/HCPCS: 36415; 71046-TC-FY; 71250-TC; 80053; 81003; 83605; 83735; 84100; 84484; 85025; 86359; 86360; 87040; 87804; 93005; 93010; 99285-25; J7030

== ENCOUNTER 2020-10-27 08:47 | Inpatient (IN) | payer OTHER ==
[2020-10-27 09:51] VITALS: BMI 29.7
[2020-10-27] MEDS: metoPROLOL SUCCINATE 25 MG TAB.SR.24H (FP) PO SCH (17:25)
[2020-10-27] MEDS: BICTEGRAV/EMTRICIT/TENOFOV (BIKTARVY) 50-200-25 MG TABLET PO SCH (17:25)
[2020-10-27] MEDS ORDERED: MASKS NR ONE (17:45)
[2020-10-27] MEDS ORDERED: guaiFENesin 200 MG/10 ML 10 ML UNIT-DOSE CUPS PO PRN (21:27)
[2020-10-27] MEDS ORDERED: NICOTINE POLACRILEX 2 MG GUM BC PRN (21:27)
[2020-10-27] MEDS ORDERED: MAGNESIUM HYDROX 2400MG/30ML ORAL SUSPENSION 30 ML CUP PO PRN (21:27)
[2020-10-27] MEDS ORDERED: MAGNESIUM CITRATE 300 ML BOTTLE PO PRN (21:27)
[2020-10-27] MEDS ORDERED: MAG HYDROX/AL HYDROX/SIMETH 30 ML UNIT-DOSE CUP PO PRN (21:27)
[2020-10-27] MEDS ORDERED: P-EPHED 60MG/TRIPROLIDI 2.5MG TABLET PO PRN (21:27)
[2020-10-27] MEDS ORDERED: ACETAMINOPHEN 325 MG TABLET (FP) PO PRN (21:27)
[2020-10-27] MEDS ORDERED: LOPERAMIDE HCL 2 MG CAPSULE PO PRN (21:27)
[2020-10-27] MEDS ORDERED: TUBERCULIN PPD 5 TU/0.1ML VIAL ID ONE ×2 (22:14→22:47)
[2020-10-27] MEDS: MELATONIN 5 MG TABLETS PO SCH (22:21)
[2020-10-27] MEDS: THIAMINE HCL 100 MG TABLET (FP) PO SCH (22:21)
[2020-10-28] MEDS ORDERED: METHADONE HCL 5 MG TABLET (FOR DETOX USE ONLY) PO ONE (09:00)
[2020-10-28] MEDS ORDERED: METHADONE 80 MG, METHADONE 10 MG PO ONE (09:15)
[2020-10-28] MEDS ORDERED: METHADONE HCL 10 MG TABLET ONE (09:55)
[2020-10-28] MEDS ORDERED: METHADONE HCL 40 MG DISPERSABLE TABLET ONE (09:56)
[2020-10-28] MEDS: metoPROLOL SUCCINATE 25 MG TAB.SR.24H (FP) PO SCH (09:58)
[2020-10-28] MEDS: NICOTINE 14 MG/24 HOURS TOPICAL PATCH TD SCH (09:58)
[2020-10-28] MEDS: PRENATAL VITAMINS W/ FOLIC ACID TABLET (FP) PO SCH (09:58)
[2020-10-28] MEDS: BICTEGRAV/EMTRICIT/TENOFOV (BIKTARVY) 50-200-25 MG TABLET PO SCH (09:58)
[2020-10-28] MEDS: METHYL SALICYLATE/MENTHOL OINT 30 GM TUBE TP SCH ×2 (12:27→21:14)
[2020-10-28 14:40] LABS: HEMATOCRIT 45.3 % (35.4-49); HEMOGLOBIN 14.8 GM/dL (11.7-16.9); MCHC 32.6 g/dl (32.0-35.9); MEAN CELL VOLUME 85.9 fl (80-96); MEAN PLT VOLUME 8.5 fl (7.5-11.1); PLATELET COUNT 218 K/MM3 (134-434); RBC 5.27 M/mm3 (4.00-5.60)
[2020-10-28 14:45] LABS: POTASSIUM 4.8 mmol/L (3.5-5.1)
[2020-10-28 14:48] LABS: CALCIUM 9.6 mg/dL (8.5-10.1)
[2020-10-28 14:49] LABS: ALBUMIN 4.2 g/dl (3.4-5.0); BLOOD UREA NITROGEN 24.6 mg/dL (7-18)
[2020-10-28 14:52] LABS: CREATININE 1.3 mg/dL (0.55-1.3)
[2020-10-28 14:53] LABS: BILIRUBIN,TOTAL 0.6 mg/dL (0.2-1)
[2020-10-28] MEDS: IBUPROFEN 400 MG TABLET (FP) PO PRN (16:34)
[2020-10-28] MEDS ORDERED: GABAPENTIN 100 MG CAPSULE PO ONE (18:01)
[2020-10-28] MEDS: THIAMINE HCL 100 MG TABLET (FP) PO SCH (21:14)
[2020-10-28] MEDS: MELATONIN 5 MG TABLETS PO SCH (21:14)
[2020-10-28] MEDS: MIRTAZAPINE 30 MG TABLET PO SCH (21:15)
[2020-10-28] MEDS: traZODone HCL 100 MG TABLET (FP) PO SCH (21:15)
[2020-10-29] MEDS ORDERED: METHADONE HCL 5 MG TABLET (FOR DETOX USE ONLY) PO ONE (06:00)
[2020-10-29] MEDS ORDERED: METHADONE 80 MG, METHADONE 10 MG PO ONE (06:00)
[2020-10-29] MEDS ORDERED: METHADONE HCL 10 MG TABLET ONE (06:34)
[2020-10-29] MEDS ORDERED: METHADONE HCL 40 MG DISPERSABLE TABLET ONE (06:35)
[2020-10-29] MEDS: METHYL SALICYLATE/MENTHOL OINT 30 GM TUBE TP SCH ×2 (10:21→21:45)
[2020-10-29] MEDS: PRENATAL VITAMINS W/ FOLIC ACID TABLET (FP) PO SCH (10:21)
[2020-10-29] MEDS: metoPROLOL SUCCINATE 25 MG TAB.SR.24H (FP) PO SCH (10:21)
[2020-10-29] MEDS: BICTEGRAV/EMTRICIT/TENOFOV (BIKTARVY) 50-200-25 MG TABLET PO SCH (10:21)
[2020-10-29] MEDS: NICOTINE 14 MG/24 HOURS TOPICAL PATCH TD SCH (10:21)
[2020-10-29] MEDS: MELATONIN 5 MG TABLETS PO SCH (21:45)
[2020-10-29] MEDS: traZODone HCL 100 MG TABLET (FP) PO SCH (21:45)
[2020-10-29] MEDS: THIAMINE HCL 100 MG TABLET (FP) PO SCH (21:45)
[2020-10-29] MEDS: MIRTAZAPINE 30 MG TABLET PO SCH (21:45)
[2020-10-29] MEDS: ALBUTEROL SO4 HFA INHALER IH PRN (21:46)
[2020-10-30] MEDS ORDERED: METHADONE HCL 10 MG TABLET PO SCH (06:45)
[2020-10-30] MEDS ORDERED: METHADONE 80 MG, METHADONE 10 MG PO SCH (06:45)
[2020-10-30] MEDS ORDERED: METHADONE HCL 10 MG TABLET ONE (06:54)
[2020-10-30] MEDS ORDERED: METHADONE HCL 40 MG DISPERSABLE TABLET ONE (06:54)
[2020-10-30] MEDS: METHADONE 80 MG, METHADONE 10 MG PO SCH (06:55)
[2020-10-30] MEDS: PRENATAL VITAMINS W/ FOLIC ACID TABLET (FP) PO SCH (09:44)
[2020-10-30] MEDS: BICTEGRAV/EMTRICIT/TENOFOV (BIKTARVY) 50-200-25 MG TABLET PO SCH (09:44)
[2020-10-30] MEDS: metoPROLOL SUCCINATE 25 MG TAB.SR.24H (FP) PO SCH (09:44)
[2020-10-30] MEDS: NICOTINE 14 MG/24 HOURS TOPICAL PATCH TD SCH (09:44)
[2020-10-30] MEDS: METHYL SALICYLATE/MENTHOL OINT 30 GM TUBE TP SCH ×2 (09:45→21:13)
[2020-10-30 13:52] LABS: URINE APPEARANCE CLEAR; URINE BILIRUBIN NEGATIVE (NEGATIVE); URINE COLOR YELLOW; URINE GLUCOSE (UA) NEGATIVE (NEGATIVE); URINE KETONE NEGATIVE (NEGATIVE); URINE LEUK ESTERASE NEGATIVE (NEGATIVE); URINE NITRITE NEGATIVE (NEGATIVE); URINE PROTEIN NEGATIVE (NEGATIVE); URINE UROBILINOGEN 0.2 mg/dL (0.2-1.0)
[2020-10-30] MEDS: MIRTAZAPINE 30 MG TABLET PO SCH (21:13)
[2020-10-30] MEDS: MELATONIN 5 MG TABLETS PO SCH (21:13)
[2020-10-30] MEDS: THIAMINE HCL 100 MG TABLET (FP) PO SCH (21:13)
[2020-10-30] MEDS: traZODone HCL 100 MG TABLET (FP) PO SCH (21:13)
[2020-10-31] MEDS ORDERED: METHADONE HCL 40 MG DISPERSABLE TABLET ONE (03:12)
[2020-10-31] MEDS ORDERED: METHADONE HCL 10 MG TABLET ONE (03:12)
[2020-10-31] MEDS: METHADONE 80 MG, METHADONE 10 MG PO SCH (06:05)
[2020-10-31] MEDS: metoPROLOL SUCCINATE 25 MG TAB.SR.24H (FP) PO SCH (09:51)
[2020-10-31] MEDS: PRENATAL VITAMINS W/ FOLIC ACID TABLET (FP) PO SCH (09:51)
[2020-10-31] MEDS: ALBUTEROL SO4 HFA INHALER IH PRN (09:52)
[2020-10-31] MEDS: NICOTINE 14 MG/24 HOURS TOPICAL PATCH TD SCH (09:52)
[2020-10-31] MEDS: METHYL SALICYLATE/MENTHOL OINT 30 GM TUBE TP SCH ×2 (09:53→21:42)
[2020-10-31] MEDS: BICTEGRAV/EMTRICIT/TENOFOV (BIKTARVY) 50-200-25 MG TABLET PO SCH (09:54)
[2020-10-31] MEDS: traZODone HCL 100 MG TABLET (FP) PO SCH (21:42)
[2020-10-31] MEDS: THIAMINE HCL 100 MG TABLET (FP) PO SCH (21:42)
[2020-10-31] MEDS: MELATONIN 5 MG TABLETS PO SCH (21:42)
[2020-10-31] MEDS: MIRTAZAPINE 30 MG TABLET PO SCH (21:42)
[2020-11-01] MEDS ORDERED: METHADONE HCL 40 MG DISPERSABLE TABLET ONE (03:44)
[2020-11-01] MEDS ORDERED: METHADONE HCL 10 MG TABLET ONE (03:44)
[2020-11-01] MEDS: METHADONE 80 MG, METHADONE 10 MG PO SCH (06:18)
[2020-11-01] MEDS: NICOTINE 14 MG/24 HOURS TOPICAL PATCH TD SCH (10:06)
[2020-11-01] MEDS: PRENATAL VITAMINS W/ FOLIC ACID TABLET (FP) PO SCH (10:06)
[2020-11-01] MEDS: metoPROLOL SUCCINATE 25 MG TAB.SR.24H (FP) PO SCH (10:06)
[2020-11-01] MEDS: BICTEGRAV/EMTRICIT/TENOFOV (BIKTARVY) 50-200-25 MG TABLET PO SCH (10:06)
[2020-11-01] MEDS: METHYL SALICYLATE/MENTHOL OINT 30 GM TUBE TP SCH ×2 (10:07→21:50)
[2020-11-01] MEDS: THIAMINE HCL 100 MG TABLET (FP) PO SCH (21:49)
[2020-11-01] MEDS: MELATONIN 5 MG TABLETS PO SCH (21:49)
[2020-11-01] MEDS: MIRTAZAPINE 30 MG TABLET PO SCH (21:49)
[2020-11-01] MEDS: traZODone HCL 100 MG TABLET (FP) PO SCH (21:51)
[2020-11-01] MEDS: ALBUTEROL SO4 HFA INHALER IH PRN (21:51)
[2020-11-02] MEDS ORDERED: METHADONE HCL 40 MG DISPERSABLE TABLET ONE (03:42)
[2020-11-02] MEDS ORDERED: METHADONE HCL 10 MG TABLET ONE (03:42)
[2020-11-02] MEDS: METHADONE 80 MG, METHADONE 10 MG PO SCH (06:12)
[2020-11-02] MEDS: METHYL SALICYLATE/MENTHOL OINT 30 GM TUBE TP SCH ×2 (10:07→21:50)
[2020-11-02] MEDS: PRENATAL VITAMINS W/ FOLIC ACID TABLET (FP) PO SCH (10:08)
[2020-11-02] MEDS: BICTEGRAV/EMTRICIT/TENOFOV (BIKTARVY) 50-200-25 MG TABLET PO SCH (10:08)
[2020-11-02] MEDS: NICOTINE 14 MG/24 HOURS TOPICAL PATCH TD SCH (10:08)
[2020-11-02] MEDS: metoPROLOL SUCCINATE 25 MG TAB.SR.24H (FP) PO SCH (10:08)
[2020-11-02] MEDS: ALBUTEROL SO4 HFA INHALER IH PRN ×2 (10:09→21:52)
[2020-11-02] MEDS: THIAMINE HCL 100 MG TABLET (FP) PO SCH (21:49)
[2020-11-02] MEDS: MIRTAZAPINE 30 MG TABLET PO SCH (21:50)
[2020-11-02] MEDS: MELATONIN 5 MG TABLETS PO SCH (21:50)
[2020-11-02] MEDS: traZODone HCL 100 MG TABLET (FP) PO SCH (21:50)
[2020-11-02] MEDS ORDERED: cloNIDine HCL 0.1 MG TABLET PO ONE (23:36)
[2020-11-03] MEDS ORDERED: METHADONE HCL 10 MG TABLET ONE (03:27)
[2020-11-03] MEDS ORDERED: METHADONE HCL 40 MG DISPERSABLE TABLET ONE (03:27)
[2020-11-03] MEDS: METHADONE 80 MG, METHADONE 10 MG PO SCH (06:26)
[2020-11-03] MEDS ORDERED: cloNIDine HCL 0.1 MG TABLET PO ONE (06:28)
[2020-11-03] MEDS: metoPROLOL SUCCINATE 25 MG TAB.SR.24H (FP) PO SCH (10:16)
[2020-11-03] MEDS: NICOTINE 14 MG/24 HOURS TOPICAL PATCH TD SCH (10:16)
[2020-11-03] MEDS: PRENATAL VITAMINS W/ FOLIC ACID TABLET (FP) PO SCH (10:16)
[2020-11-03] MEDS: METHYL SALICYLATE/MENTHOL OINT 30 GM TUBE TP SCH ×2 (10:17→21:13)
[2020-11-03] MEDS: ALBUTEROL SO4 HFA INHALER IH PRN ×2 (10:18→21:14)
[2020-11-03] MEDS: BICTEGRAV/EMTRICIT/TENOFOV (BIKTARVY) 50-200-25 MG TABLET PO SCH (10:19)
[2020-11-03] MEDS: MELATONIN 5 MG TABLETS PO SCH (21:13)
[2020-11-03] MEDS: THIAMINE HCL 100 MG TABLET (FP) PO SCH (21:14)
[2020-11-03] MEDS: cloNIDine HCL 0.1 MG TABLET PO PRN (21:14)
[2020-11-03] MEDS: MIRTAZAPINE 30 MG TABLET PO SCH (21:14)
[2020-11-03] MEDS: traZODone HCL 100 MG TABLET (FP) PO SCH (21:14)
[2020-11-04] MEDS ORDERED: METHADONE HCL 10 MG TABLET ONE (03:19)
[2020-11-04] MEDS ORDERED: METHADONE HCL 40 MG DISPERSABLE TABLET ONE (03:20)
[2020-11-04] MEDS: metoPROLOL SUCCINATE 25 MG TAB.SR.24H (FP) PO SCH (06:03)
[2020-11-04] MEDS: METHADONE 80 MG, METHADONE 10 MG PO SCH (06:04)
[2020-11-04] MEDS: NICOTINE 14 MG/24 HOURS TOPICAL PATCH TD SCH (10:14)
[2020-11-04] MEDS: PRENATAL VITAMINS W/ FOLIC ACID TABLET (FP) PO SCH (10:14)
[2020-11-04] MEDS: BICTEGRAV/EMTRICIT/TENOFOV (BIKTARVY) 50-200-25 MG TABLET PO SCH (10:15)
[2020-11-04] MEDS: METHYL SALICYLATE/MENTHOL OINT 30 GM TUBE TP SCH ×2 (10:15→21:41)
[2020-11-04] MEDS: cloNIDine HCL 0.1 MG TABLET PO PRN ×2 (10:17→21:41)
[2020-11-04] MEDS: MELATONIN 5 MG TABLETS PO SCH (21:41)
[2020-11-04] MEDS: MIRTAZAPINE 30 MG TABLET PO SCH (21:41)
[2020-11-04] MEDS: THIAMINE HCL 100 MG TABLET (FP) PO SCH (21:41)
[2020-11-04] MEDS: traZODone HCL 100 MG TABLET (FP) PO SCH (21:41)
[2020-11-05] MEDS ORDERED: METHADONE HCL 40 MG DISPERSABLE TABLET ONE (03:58)
[2020-11-05] MEDS ORDERED: METHADONE HCL 10 MG TABLET ONE (03:58)
[2020-11-05] MEDS: METHADONE 80 MG, METHADONE 10 MG PO SCH (06:03)
[2020-11-05] MEDS: cloNIDine HCL 0.1 MG TABLET PO PRN (06:05)
[2020-11-05] MEDS: metoPROLOL SUCCINATE 25 MG TAB.SR.24H (FP) PO SCH (06:05)
[2020-11-05] MEDS: BICTEGRAV/EMTRICIT/TENOFOV (BIKTARVY) 50-200-25 MG TABLET PO SCH (10:06)
[2020-11-05] MEDS: PRENATAL VITAMINS W/ FOLIC ACID TABLET (FP) PO SCH (10:06)
[2020-11-05] MEDS: METHYL SALICYLATE/MENTHOL OINT 30 GM TUBE TP SCH ×2 (10:06→21:54)
[2020-11-05] MEDS: NICOTINE 14 MG/24 HOURS TOPICAL PATCH TD SCH (10:07)
[2020-11-05] MEDS: THIAMINE HCL 100 MG TABLET (FP) PO SCH (21:53)
[2020-11-05] MEDS: MELATONIN 5 MG TABLETS PO SCH (21:53)
[2020-11-05] MEDS: MIRTAZAPINE 30 MG TABLET PO SCH (21:54)
[2020-11-05] MEDS: traZODone HCL 100 MG TABLET (FP) PO SCH (21:54)
[2020-11-06] MEDS ORDERED: METHADONE HCL 10 MG TABLET ONE (03:35)
[2020-11-06] MEDS ORDERED: METHADONE HCL 40 MG DISPERSABLE TABLET ONE (03:36)
[2020-11-06] MEDS: metoPROLOL SUCCINATE 25 MG TAB.SR.24H (FP) PO SCH (06:13)
[2020-11-06] MEDS: METHADONE 80 MG, METHADONE 10 MG PO SCH (06:13)
[2020-11-06] MEDS: BICTEGRAV/EMTRICIT/TENOFOV (BIKTARVY) 50-200-25 MG TABLET PO SCH (10:13)
[2020-11-06] MEDS: PRENATAL VITAMINS W/ FOLIC ACID TABLET (FP) PO SCH (10:13)
[2020-11-06] MEDS: NICOTINE 14 MG/24 HOURS TOPICAL PATCH TD SCH (10:14)
[2020-11-06] MEDS: METHYL SALICYLATE/MENTHOL OINT 30 GM TUBE TP SCH ×2 (10:14→21:15)
[2020-11-06] MEDS: THIAMINE HCL 100 MG TABLET (FP) PO SCH (21:13)
[2020-11-06] MEDS: MELATONIN 5 MG TABLETS PO SCH (21:13)
[2020-11-06] MEDS: traZODone HCL 100 MG TABLET (FP) PO SCH (21:14)
[2020-11-06] MEDS: MIRTAZAPINE 30 MG TABLET PO SCH (21:14)
[2020-11-07] MEDS ORDERED: METHADONE HCL 10 MG TABLET ONE (03:12)
[2020-11-07] MEDS ORDERED: METHADONE HCL 40 MG DISPERSABLE TABLET ONE (03:12)
[2020-11-07] MEDS: metoPROLOL SUCCINATE 25 MG TAB.SR.24H (FP) PO SCH (06:14)
[2020-11-07] MEDS: METHADONE 80 MG, METHADONE 10 MG PO SCH (06:14)
[2020-11-07] MEDS: ALBUTEROL SO4 HFA INHALER IH PRN ×2 (06:15→13:55)
[2020-11-07] MEDS: METHYL SALICYLATE/MENTHOL OINT 30 GM TUBE TP SCH ×2 (10:21→21:50)
[2020-11-07] MEDS: PRENATAL VITAMINS W/ FOLIC ACID TABLET (FP) PO SCH (10:21)
[2020-11-07] MEDS: NICOTINE 14 MG/24 HOURS TOPICAL PATCH TD SCH (10:21)
[2020-11-07] MEDS: BICTEGRAV/EMTRICIT/TENOFOV (BIKTARVY) 50-200-25 MG TABLET PO SCH (10:21)
[2020-11-07] MEDS: IBUPROFEN 400 MG TABLET (FP) PO PRN (13:53)
[2020-11-07] MEDS: MELATONIN 5 MG TABLETS PO SCH (21:50)
[2020-11-07] MEDS: THIAMINE HCL 100 MG TABLET (FP) PO SCH (21:50)
[2020-11-07] MEDS: traZODone HCL 100 MG TABLET (FP) PO SCH (21:50)
[2020-11-07] MEDS: MIRTAZAPINE 30 MG TABLET PO SCH (21:50)
[2020-11-08] MEDS ORDERED: METHADONE HCL 10 MG TABLET ONE (03:48)
[2020-11-08] MEDS ORDERED: METHADONE HCL 40 MG DISPERSABLE TABLET ONE (03:48)
[2020-11-08] MEDS: METHADONE 80 MG, METHADONE 10 MG PO SCH (05:57)
[2020-11-08] MEDS: metoPROLOL SUCCINATE 25 MG TAB.SR.24H (FP) PO SCH (05:59)
[2020-11-08] MEDS: BICTEGRAV/EMTRICIT/TENOFOV (BIKTARVY) 50-200-25 MG TABLET PO SCH (09:38)
[2020-11-08] MEDS: PRENATAL VITAMINS W/ FOLIC ACID TABLET (FP) PO SCH (09:38)
[2020-11-08] MEDS: NICOTINE 14 MG/24 HOURS TOPICAL PATCH TD SCH (09:38)
[2020-11-08] MEDS: METHYL SALICYLATE/MENTHOL OINT 30 GM TUBE TP SCH ×2 (10:26→21:59)
[2020-11-08] MEDS: MELATONIN 5 MG TABLETS PO SCH (21:59)
[2020-11-08] MEDS: traZODone HCL 100 MG TABLET (FP) PO SCH (21:59)
[2020-11-08] MEDS: MIRTAZAPINE 30 MG TABLET PO SCH (21:59)
[2020-11-08] MEDS: THIAMINE HCL 100 MG TABLET (FP) PO SCH (22:00)
[2020-11-09] MEDS ORDERED: METHADONE HCL 40 MG DISPERSABLE TABLET ONE (03:47)
[2020-11-09] MEDS ORDERED: METHADONE HCL 10 MG TABLET ONE (03:47)
[2020-11-09] MEDS: metoPROLOL SUCCINATE 25 MG TAB.SR.24H (FP) PO SCH (06:01)
[2020-11-09] MEDS: METHADONE 80 MG, METHADONE 10 MG PO SCH (06:01)
[2020-11-09] MEDS: cloNIDine HCL 0.1 MG TABLET PO PRN ×2 (06:01→21:55)
[2020-11-09] MEDS: PRENATAL VITAMINS W/ FOLIC ACID TABLET (FP) PO SCH (10:09)
[2020-11-09] MEDS: BICTEGRAV/EMTRICIT/TENOFOV (BIKTARVY) 50-200-25 MG TABLET PO SCH (10:10)
[2020-11-09] MEDS: METHYL SALICYLATE/MENTHOL OINT 30 GM TUBE TP SCH ×2 (10:10→21:55)
[2020-11-09] MEDS: NICOTINE 14 MG/24 HOURS TOPICAL PATCH TD SCH (10:10)
[2020-11-09] MEDS: ALBUTEROL SO4 HFA INHALER IH PRN ×2 (10:11→21:55)
[2020-11-09] MEDS: traZODone HCL 100 MG TABLET (FP) PO SCH (21:55)
[2020-11-09] MEDS: MIRTAZAPINE 30 MG TABLET PO SCH (21:55)
[2020-11-09] MEDS: MELATONIN 5 MG TABLETS PO SCH (21:55)
[2020-11-09] MEDS: THIAMINE HCL 100 MG TABLET (FP) PO SCH (21:55)
[2020-11-10] MEDS ORDERED: METHADONE HCL 10 MG TABLET ONE (03:43)
[2020-11-10] MEDS ORDERED: METHADONE HCL 40 MG DISPERSABLE TABLET ONE (03:43)
[2020-11-10] MEDS: metoPROLOL SUCCINATE 25 MG TAB.SR.24H (FP) PO SCH (06:16)
[2020-11-10] MEDS: METHADONE 80 MG, METHADONE 10 MG PO SCH (06:16)
[2020-11-10 06:59] VITALS: BP 141/88; PULSE 66; TEMP 98.1
[2020-11-10] MEDS: PRENATAL VITAMINS W/ FOLIC ACID TABLET (FP) PO SCH (09:02)
[2020-11-10] MEDS: BICTEGRAV/EMTRICIT/TENOFOV (BIKTARVY) 50-200-25 MG TABLET PO SCH (09:02)
[2020-11-10] MEDS: METHYL SALICYLATE/MENTHOL OINT 30 GM TUBE TP SCH (09:03)
[2020-11-10] MEDS: NICOTINE 14 MG/24 HOURS TOPICAL PATCH TD SCH (09:03)
== END 2020-11-10 09:10 | disposition home or self-care (01) | DRG 895 ==
LOC: YASAS 08:47 → Y5N 14:57
PROVIDERS: ADMIT Allergy & Immunology; ATTEND Allergy & Immunology
PROC: HZ42ZZZ Group Counseling for Substance Abuse Treatment, Cognitive-Behavioral (ICD-10-PCS; principal; 2020-10-27)
DX: F11.20 Opioid dependence, uncomplicated (principal); F14.20 Cocaine dependence, uncomplicated; F12.20 Cannabis dependence, uncomplicated; F17.210 Nicotine dependence, cigarettes, uncomplicated; F19.24 Other psychoactive substance dependence with psychoactive substance-induced mood disorder; F32.9 Major depressive disorder, single episode, unspecified; Z21 Asymptomatic human immunodeficiency virus [HIV] infection status; I10 Essential (primary) hypertension; J41.0 Simple chronic bronchitis; B18.2 Chronic viral hepatitis C; M17.11 Unilateral primary osteoarthritis, right knee; R60.0 Localized edema; R00.1 Bradycardia, unspecified; Z96.652 Presence of left artificial knee joint; Z99.89 Dependence on other enabling machines and devices
CPT/HCPCS: 36415; 80053; 81003; 85027; 86780; 90832; 93005; 93010; C9803; J0735; T1023; U0003